=== PATIENT | male | born 1960 | race Caucasian/White ===

== ENCOUNTER 2020-08-17 08:28 | Outpatient (CLI) | payer OTHER, SELFPAY ==
--- NOTE | ~2020-08-17 | XR_ITS ---
EXAMINATION: XR cervical spine 4-5V DATE: 08/17/2020 09:33 INDICATION: Neck pain. TECHNIQUE: 4 views of cervical spine were obtained. COMPARISON: Cervical spine radiographs 11/01/2012 FINDINGS: There is 7 degrees levocurvature of cervicothoracic spine. Vertebral body heights are sarah l. There is mildly decreased disc height at C3-C4, moderately decreased disc height at C4-C5 and C5-C 6, and mildly decreased disc height at C6-C7. There is multilevel uncovertebral joint osteoarthritis, severe on the right at C3-C4 and bilaterally at C4-C5 and C5-C6. There is multilevel facet joint ost eoarthritis, severe on the left at C3-C4. There is mild central canal stenosis at C3-C4, C4-C5, and C 5-C6. IMPRESSION: 1. Moderate cervical spondylosis, worsened from 11/01/2012. Reviewed, dictated and finalized at location A.
== END 2020-08-17 08:29 | disposition home or self-care (01) ==
PROVIDERS: PCP Internal Medicine; Visit Provider Internal Medicine
DX: M54.2 Cervicalgia (principal)
CPT/HCPCS: 72050

== ENCOUNTER 2020-11-11 10:48 | Outpatient (CLI) | payer OTHER, SELFPAY ==
--- NOTE | ~2020-11-11 | XR_ITS ---
XR knee RT 3V 11/11/2020 11:09 INDICATION: Lateral knee pain PROCEDURE: 3 views right knee COMPARISON: No prior studies for comparison. FINDINGS: Fracture, dislocation or subluxation is not identified. Small joint effusion. The soft tiss ues appear within normal limits. No foreign bodies are identified. Mild osteoarthritis. IMPRESSION: 1: Mild osteoarthritis of the right knee. 2: Small joint effusion. Reviewed, dictated and finalized at location A. ULATING BLENDER
--- NOTE | ~2020-11-11 | XR_ITS ---
EXAMINATION: XR hand RT min 3V EXAM DATE: 11/11/2020 11:09 INDICATION: Right 4th finger pain. TECHNIQUE: Right hand frontal, lateral and oblique projections obtained and reviewed. There is no pr ior study for comparison. FINDINGS: There is mild to moderate 1st MCP and polyarticular interphalangeal primary osteoarthritis. There are no bony erosions identified. There are no acute fractures or dislocations identified. The re is no subcutaneous gas. There is soft tissue swelling of the 4th finger. There are no radiopaque foreign bodies. IMPRESSION: 1. Right hand exam without acute osseous findings. 2. Mild to moderate polyarticular osteoarthritis 3. 4th finger swelling. Reviewed, dictated and finalized at location A. BAKERY CLERK
== END 2020-11-11 10:49 | disposition home or self-care (01) ==
LOC: CHSIMG 10:49
PROVIDERS: PCP Internal Medicine; Visit Provider Internal Medicine
DX: M25.561 Pain in right knee (principal); M79.644 Pain in right finger(s)
CPT/HCPCS: 73130; 73562

== ENCOUNTER 2021-01-18 07:46 | Outpatient (CLI) | payer OTHER, SELFPAY ==
--- NOTE | ~2021-01-18 | XR_ITS ---
EXAMINATION: XR hip LT min 2V EXAM DATE: 01/18/2021 08:23 INDICATION: Back pain, left hip pain. No known recent injury. TECHNIQUE: Left hip frontal, 'frog leg' projections for interpretation. There is no prior study for c omparison. FINDINGS: Smooth left hip femoral head contour, no radiographic evidence of avascular necrosis. Ther e is mild to moderate primary osteoarthritis. There are no acute fractures or dislocations identified . There is no subcutaneous gas. The soft tissue is unremarkable. There are no radiopaque foreign bodies. Sacrum, sacroiliac joints, sacral arcuate lines are intact. IMPRESSION: Mild to moderate left hip osteoarthritis. Reviewed, dictated and finalized at location A. ER OPERATOR
--- NOTE | ~2021-01-18 | XR_ITS ---
EXAMINATION: XR lumbar spine 2-3V EXAM DATE: 01/18/2021 08:23 INDICATION: No known recent injury provided at this time. Pain of the low back. TECHNIQUE: Lumber spine frontal, lateral, lateral L5-S1 projections for interpretation. Comparison is made to prior examination from 08/30/2010. FINDINGS: There is mild to moderate lower thoracic and lumbar disc disease. There is moderate thorac ic facet arthropathy, lower levels more advanced. The vertebral bodies are aligned in the AP dimensio n. Sacrum, sacroiliac joints, sacral arcuate lines are intact. No spondylolysis suspected. Paraspinal soft tissue is unremarkable. IMPRESSION: 1. Mild to moderate lumbar disc disease. 2. Moderate arthropathy Reviewed, dictated and finalized at location A. GENCY DEPARTMENT TECHNICIAN
== END 2021-01-18 07:47 | disposition home or self-care (01) ==
LOC: CHSIMG 07:50
PROVIDERS: PCP Internal Medicine; Visit Provider Internal Medicine
DX: M25.552 Pain in left hip (principal); M54.9 Dorsalgia, unspecified
CPT/HCPCS: 72100; 73502

== ENCOUNTER → 2021-06-24 07:39 | Outpatient (CLI) | payer OTHER, SELFPAY ==
--- NOTE | ~2021-06-24 | MR_ITS ---
EXAMINATION: MR knee RT wo con DATE: 06/24/2021 08:31 INDICATION: Right knee pain TECHNIQUE: Magnetic resonance imaging (MRI) of the right knee was performed without intravenous contr ast. Sequences included coronal PD-weighted FSE, coronal PD-weighted FS FSE, sagittal T2-weighted FS E, sagittal PD-weighted FS FSE and axial PD weighted fat saturated FSE. COMPARISON: Right knee radiographs dated 06/13/2021 FINDINGS: Medial compartment: Medial meniscus is normal. Mild partial-thickness cartilage loss with minimal scattered chondral surf devin regularity along the weightbearing medial femoral condyle and medial tibial plateau. Small focus of deeper fissuring with minimal underlying subarticular edema at the anteriormost medial tibial plat eau. Lateral compartment: Lateral meniscus is normal. Articular cartilage is normal. Patellofemoral compartment: Partial-thickness chondral fissuring that degenerative subchondral changes at the medial and odd fitzgerald llar facets without. Chondral ulceration involving less than 50% the cartilage thickness at the infer olateral aspect of the medial trochlea. Ligaments and tendons: There is a partial tear of the involving the anteromedial bundle of the anterior cruciate ligament wi th increased signal along the lax wavy appearing torn ligament fibers. The posterolateral bundle arabella ins intact. There is mild thickening of the proximal medial collateral ligament without significant s urrounding edema consistent with mild scarring related to chronic sprain. The fibular collateral liga ment is normal. Prominent enthesophytes along the patellar insertion of the distal quadriceps tendon without significant tendinopathy. Subtle bands of magic angle artifact extending across the normal pa tellar tendon. The visualized medial and lateral hamstring tendons as well as the iliotibial band are normal. There is mild fatty atrophy of the distal semimembranosus muscle belly. Fluid: Moderate sized right knee joint effusion at the suprapatellar pouch with mild peripheral synovitis. N o loose osteochondral bodies identified. Mild subcutaneous edema about the knee. Osseous/other: No fracture or pathologic marrow replacing process. Small subcutaneous varicosities along the posteri or and lateral aspects of the knee. IMPRESSION: 1. Partial anterior cruciate ligament tear involving the anteromedial bundle with intact posterolater al bundle. 2. Mild medial and patellofemoral compartment osteoarthritis. 3. Likely mild scarring related to chronic sprain of the proximal medial collateral ligament. 4. Moderate-sized right knee joint effusion. Reviewed, dictated and finalized at location A. IMPRESSION: 1. Partial anterior cruciate ligament tear involving the anteromedial bundle wi th intact posterolateral bundle. 2. Mild medial and patellofemoral compartment osteoarthritis. 3. Likely mild scarring related to chronic sprain of the proximal medial collat eral ligament. 4. Moderate-sized right knee joint effusion.
== END ==
PROVIDERS: PCP Internal Medicine; Visit Provider Nurse Practitioner Family
DX: S83.511A Sprain of anterior cruciate ligament of right knee, initial encounter (principal); M17.11 Unilateral primary osteoarthritis, right knee
CPT/HCPCS: 73721

== ENCOUNTER 2022-08-22 12:49 | Emergency (ER) | payer OTHER, SELFPAY ==
[2022-08-22 12:50] VITALS: BP 151/73; PULSE 73; RESP 16; TEMP 37.3; O2SAT 92
--- NOTE | 2022-08-22 12:52 | ED.EXTPRO ---
HPI - Extremity Problem General Chief complaint: Extremity Problem,Nontraumatic Stated complaint: R LEG REDNESS Time Seen by Provider: 08/22/22 12:54 Source: patient and RN notes reviewed Mode of arrival: ambulatory Limitations: no limitations History of Present Illness HPI Narrative: 62-year-old male presents to the [facility] with complaints of right anterior lower leg redness. Patient states he has had an eczema flare for the last 2 weeks. Noticed increased redness approximately 5 x 5 cm to the anterior/lateral right lower leg. Increased warmth, minor swelling noted. Positive pedal pulse. Sensation intact. Denies any fevers. Denies any injuries. Related Data Home Medications Medication Instructions Recorded Confirmed aspirin,buffered (calcium 81 tablet PO DAILY 06/13/21 08/22/22 carbonate-magnesium) 81 mg tablet amitriptyline 25 mg tablet 25 mg PO DAILY 08/22/22 08/22/22 amlodipine 10 mg tablet 10 mg PO DAILY 08/22/22 08/22/22 atorvastatin 20 mg tablet 20 mg PO DAILY 08/22/22 08/22/22 fluticasone propionate 45 2 puff inhalation BID 08/22/22 08/22/22 mcg-salmeterol 21 mcg/actuation HFA inhaler (Advair HFA) sotalol 80 mg tablet 80 mg PO DAILY 08/22/22 08/22/22 telmisartan 80 1 tablet PO DAILY 08/22/22 08/22/22 mg-hydrochlorothiazide 25 mg tablet testosterone 10 mg/0.5 10 mg topical USEASDIRECTD 08/22/22 08/22/22 gram/actuation transdermal gel pump Allergies Allergy/AdvReac Type Severity Reaction Status Date / Time No Known Allergies Allergy Verified 08/22/22 12:54 Review of Systems Review of Systems: All systems reviewed & are unremarkable except as noted in HPI and below Constitutional: Constitutional: Reports no additional constitutional complaints, Denies chills and Denies fever(s) Eyes: Eyes: Reports no additional eye complaints ENT: Reports system reviewed and no additional complaints, except as documented Cardiovascular: Cardiovascular: Reports no additional cardiovascular complaints Respiratory: Respiratory: Reports no additional respiratory complaints Gastrointestinal: Gastrointestinal: Reports no additional gastrointestinal complaints Musculoskeletal: Musculoskeletal: Reports no additional musculoskeletal complaints Integumentary/Breasts: Skin/Breast: Reports as per HPI, Denies new lesions, Reports erythema and Denies wounds Neurologic: Reports system reviewed and no additional complaints, except as documented Psychiatric: Psychiatric: Reports no additional psychiatric complaints Allergic/Immunologic: Allergic/Immunologic: Reports no additional allergic/immunologic complaints PMFSH Past Medical History Medical History Claustrophobia COPD (chronic obstructive pulmonary disease) Degenerative joint disease of knee Hypertension Knee effusion, right Medial meniscus tear Right knee pain Social History Social History Smoking packs per day: 2 Smoking cigarettes per day: 40.0 Years smoked: 18 Smoking pack-years: 36.00 Alcohol intake: current Drinks per week: 15 Substance use: never Substance use type: does not use Gender identity (if verbalized by the patient): Male Comments At the time of my signature, I reviewed and agree with the nursing past medical, surgical, social, and family history. There is no relevant family history pertinent to the patient complaint. Exam Const: General: healthy appearing, no acute distress and alert Nutritional Appearance: well nourished and obese Orientation/consciousness: patient oriented x3 Limitations: no limitations HENMT: Head: normal to inspection Ears: external ears normal Eyes: General: appearance normal, both eyes and all related structures Pupils: Equal, round and reactive pupils present Neck: Neck: normal visual inspection, no lymphadenopathy and no meningeal signs Chest: Chest palpation & inspec
== END 2022-08-22 13:10 | disposition home or self-care (01) ==
PROVIDERS: Emergency Provider Nurse Practitioner; PCP Internal Medicine
DX: L03.115 Cellulitis of right lower limb (principal); Z79.82 Long term (current) use of aspirin; J44.9 Chronic obstructive pulmonary disease, unspecified; I10 Essential (primary) hypertension; F17.210 Nicotine dependence, cigarettes, uncomplicated
CPT/HCPCS: 99213; G0463

== ENCOUNTER 2022-08-28 12:34 | Outpatient (CLI) | payer OTHER, SELFPAY ==
--- NOTE | ~2022-08-28 | US_ITS ---
EXAMINATION: US venous doppler LE RT DATE: 08/28/2022 13:25 INDICATION: Right lower limb swelling TECHNIQUE: Grayscale ultrasound images without and with compression and Doppler ultrasound images of the right lower extremity veins were obtained. COMPARISON: None. FINDINGS: The visualized portions of right common femoral vein, profunda (deep) femoral vein, femoral vein, pop liteal vein, peroneal trunk, posterior tibial veins, peroneal veins, lesser saphenous vein and greate r saphenous vein outflow are patent. IMPRESSION: 1. No deep venous thrombosis in the right lower limb. Reviewed, dictated and finalized at location A.
[2022-08-28 13:00] LABS: Basophils Absolute Auto 0.08 K/mm3 (0.00-0.10); Basophils Percent Auto 0.9 % (0.0-1.0); Eosinophils Absolute Auto 0.29 K/mm3 (0.02-0.50); Eosinophils Percent Auto 3.3 % (1.0-6.0); Hemoglobin 16.3 g/dL (14.0-18.0); Immature Granulocyte Absolute 0.04 K/mm3 (0.00-0.00); Immature Granulocyte Percent A 0.5 % (0.0-0.0); Lymphocytes Absolute Auto 2.79 K/mm3 (1.10-4.50); Lymphocytes Percent Auto 31.7 % (18.0-42.0); Mean Corpuscular HGB Conc 32.6 g/dL (32.0-36.0); Mean Corpuscular Hemoglobin 29.9 pg (27.0-31.0); Mean Corpuscular Volume 91.7 fL (78.0-102.0); Mean Platelet Volume 8.9 fl (8.7-11.0); Monocytes Absolute Auto 0.92 K/mm3 (0.10-0.90); Monocytes Percent Auto 10.5 % (2.0-11.0); Neutrophils Absolute Auto 4.7 K/mm3 (1.7-7.2); Neutrophils Percent Auto 53.1 % (50.0-70.0); Platelet Count Result 202 K/mm3 (150-420); Red Blood Count 5.45 M/mm3 (4.70-6.10); Red Cell Distribution Width 13.2 % (11.6-14.4); White Blood Count 8.8 K/mm3 (4.8-10.8)
[2022-08-28 13:16] LABS: Alanine Aminotransferase 24 U/L (16-63); Albumin Level 3.3 g/dL (3.4-5.0); Alkaline Phosphatase 135 U/L (46-116); Anion Gap 3 mmol/L (8-16); Aspartate Amino Transferase 20 U/L (15-37); Bilirubin,Total 0.7 mg/dL (0.00-1.00); Blood Urea Nitrogen 16 mg/dL (7-18); CRP 1.3 mg/dL (0.0-0.9); Carbon Dioxide 35 mmol/L (21-32); Chloride 102 mmol/L (98-108); Estimated Glomerular Filt Rate > 60; Glucose 107 mg/dL (70-99); NT Pro B Type Natriuretic Pept 66 pg/mL (0-125); Osmolality Calculated 291 mOsm/kg (285-295); Potassium 3.8 mmol/L (3.5-5.1); Sodium 140 mmol/L (136-145); Total Protein 6.9 g/dL (6.4-8.2); Uric Acid 6.8 mg/dL (3.5-7.2)
[2022-08-28 15:42] LABS: Erythrocyte Sedimentation Rate 4 mm/hr (0-20)
== END 2022-08-28 12:35 | disposition home or self-care (01) ==
LOC: CHSIMG 12:36
PROVIDERS: PCP Internal Medicine; Visit Provider Nurse Practitioner Family
DX: M79.89 Other specified soft tissue disorders (principal); I50.9 Heart failure, unspecified; R21 Rash and other nonspecific skin eruption
CPT/HCPCS: 36415; 80053; 83880; 84550; 85025; 85652; 86140; 93971

== ENCOUNTER 2023-07-28 13:55 | Outpatient (CLI) | payer OTHER, SELFPAY ==
--- NOTE | ~2023-07-28 | XR_ITS ---
Clinical Indication: Cough PA and lateral views of the chest: Comparison: 09/04/2019 Findings: The lungs are clear, without evidence of focal consolidation or pleural effusion. Cardiome diastinal silhouette is within normal limits. Bones and soft tissues are unremarkable. Impression: Normal chest. Reviewed, dictated and finalized at [facility]. Impression: Normal chest.
== END 2023-07-28 13:56 | disposition home or self-care (01) ==
PROVIDERS: PCP Internal Medicine; Visit Provider Internal Medicine
DX: R05.9 Cough, unspecified (principal)
CPT/HCPCS: 71046

== ENCOUNTER 2024-06-12 10:32 | Outpatient (CLI) | payer OTHER, SELFPAY ==
--- NOTE | ~2024-06-12 | XR_ITS ---
Right ankle Technique: AP, oblique, and lateral views were obtained. Clinical History: Pain Findings: No acute fracture or dislocation is seen. Osseous alignment is anatomic. Ankle mortise and other visualized joint spaces are preserved. Soft tissues are otherwise unremarkable. Impression: No acute abnormality. Probable chronic fracture fragment at the tip of the medial malleolus. Reviewed, dictated and finalized at location . Impression: No acute abnormality. Probable chronic fracture fragment at the tip of the medi al malleolus.
--- NOTE | ~2024-06-12 | XR_ITS ---
Right foot Technique: AP, oblique, and lateral views were obtained. Clinical History: Pain Findings: No acute fracture or dislocation is seen. Osseous alignment is anatomic. There is minimal d egenerative change of the first MTP joint. Plantar calcaneal spur present. Soft tissues are unremarka ble. Impression: Minimal degenerative changes, as above. Reviewed, dictated and finalized at location . Impression: Minimal degenerative changes, as above.
== END 2024-06-12 10:33 | disposition home or self-care (01) ==
PROVIDERS: PCP Internal Medicine; Visit Provider Internal Medicine
DX: M79.671 Pain in right foot (principal)
CPT/HCPCS: 73610; 73630

== ENCOUNTER 2024-06-16 17:44 | Inpatient (IN) | payer OTHER, SELFPAY ==
[2024-06-16] VITALS (11 sets, daily range): BP systolic 108–124; BP diastolic 69–90; PULSE 103–128; RESP 15–20; TEMP 36.4; O2SAT 91–94
--- NOTE | ~2024-06-16 | XR_ITS ---
XR chest 2V Ordering provider: Peter Baig MD History: 64 years Male with . CP . Comparison: July 28, 2023 FINDINGS: MEDIASTINUM: The cardiac silhouette is not enlarged. LUNGS: No infiltrates, effusions or pneumothorax. Prominent markings in the lower lobes. Pneumonitis cannot be excluded. OTHER: No free air under the diaphragm. Degenerative changes of the spine. IMPRESSION: Prominent markings in the lower lobes. Pneumonitis cannot be excluded. Reviewed, dictated and finalized at location A.
--- NOTE | ~2024-06-16 | CT_ITS ---
CTA chest Ordering provider: Edwar Mix MD History: 64 years Male with . Hypoxia + afib . Comparison: None. Technique: CT chest without IV contrast. Radiation reduction technique utilized. DLP is 836.96 mGy-cm. 100 mL Omnipaque 350 was given IV. FINDINGS: VISUALIZED THORACIC INLET: Normal. MEDIASTINUM: Aorta/coronary arteries: Mild atheromatous disease. Heart/other: The heart is not enlarged. Lymph nodes: No mediastinal or hilar adenopathy. LUNGS: Atelectatic changes in the right lung base. Early pneumonia cannot be excluded. No pulmonary n odules or masses. No infiltrates or effusions. No pneumothorax. VISUALIZED UPPER ABDOMEN: Cholelithiasis. Small cyst in the right kidney Otherwise, the visualized up per abdomen is normal. MUSCULOSKELETAL: Soft tissues: The superficial soft tissues are normal. Bones: Age appropriate degenerative changes of the spine. IMPRESSION: 1. No pulmonary embolism. 2. Atelectatic changes in the right lung base. Early pneumonia cannot be excluded. 3. Cholelithiasis. Reviewed, dictated and finalized at location A. IMPRESSION: 1. No pulmonary embolism. 2. Atelectatic changes in the right lung base. Early pneumonia cannot be exclu ded. 3. Cholelithiasis.
--- NOTE | 2024-06-16 17:49 | ECG_ITS ---
Test Date: 2024-06-16 18:01:18 Measurements Intervals [place] Rate: 127 P: 0 DC: 0 QRS: 28 QRSD: 96 T: 55 QT: 304 QTc: 442 Interpretive Statements ATRIAL FIBRILLATION WITH RAPID VENTRICULAR RESPONSE VENTRICULAR PREMATURE COMPLEX INCOMPLETE RIGHT BUNDLE BRANCH BLOCK BASELINE ARTIFACT- I, II, AVL, V6 ABNORMAL ECG No previous ECG available for comparison Electronically Signed On 06-16-2024 20:18:33 CDT by Yamil Meyers D.O.
[2024-06-16 18:19] LABS: Basophils Percent Auto 0.2 % (0.2-1.2); Eosinophils Percent Auto 0.2 % (0-4.4); Hematocrit 52.5 % (42.0-52.0); Hemoglobin 17.6 g/dL (14.0-18.0); Immature Granulocyte Percent A 0.8 % (0-0.5); Lymphocytes Absolute Auto 3.14 K/mm3 (0.9-3.2); Mean Corpuscular HGB Conc 33.5 g/dl (32-36); Mean Corpuscular Hemoglobin 30.5 pg (26-34); Mean Platelet Volume 9.1 fl (7.4-10.4); Monocytes Absolute Auto 1.1 K/mm3 (0.1-0.6); Neutrophils Absolute Auto 8.8 K/mm3 (1.3-6.7); Neutrophils Percent Auto 66.8 % (45.5-73.1); Platelet Count Result 263 k/mm3 (150-375); Red Blood Count 5.77 M/mm3 (4.6-6.20); Red Cell Distribution Width 13.1 % (11.5-14.5); White Blood Count 13.1 K/mm3 (4.5-10.0)
[2024-06-16 18:27] LABS: Prothrombin Time 13.5 Seconds (11.1-14.7)
[2024-06-16 18:28] LABS: Partial Thromboplastin Time 24.4 Seconds (22.3-36.8)
[2024-06-16 18:35] LABS: Alanine Aminotransferase 27 U/L (6-50); Albumin Level 4.1 g/dL (3.5-5.1); Alkaline Phosphatase 83 U/L (38-126); Anion Gap 11 mmol/L (4-12); Aspartate Amino Transferase 32 U/L (17-59); Bilirubin,Total 1.1 mg/dL (0.2-1.3); Blood Urea Nitrogen 23 mg/dL (9-20); Calcium 8.9 mg/dL (8.4-10.2); Carbon Dioxide 23 mmol/L (22-30); Chloride 98 mmol/L (98-107); Estimated CRCL calculation 107 ml/min; Estimated Glomerular Filt Rate > 60; Glucose 161 mg/dL (65-110); Lipase 89 U/L (23-300); Potassium 4.5 mmol/L (3.4-5.0); Sodium 132 mmol/L (137-145)
[2024-06-16 18:41] LABS: Troponin I < 0.012 ng/mL (0.000-0.034)
[2024-06-16] MEDS: dilTIAZem HCl INJ 25 MG/5 ML VIAL 10 MG IV PUSH ×2 (20:10→21:17)
[2024-06-16] MEDS: SODIUM CHLORIDE 0.9% IV 1,000 ML 999 ML IV CONT (20:10)
--- NOTE | 2024-06-16 20:10 | PC.NURSE ---
diltiazem double checked by lesli roberts
--- NOTE | 2024-06-16 20:30 | ED.GENADULT ---
HPI - General Adult General Chief complaint: Arrhythmia/Palpitations Stated complaint: afib Time Seen by Provider: 06/16/24 19:47 History of Present Illness HPI narrative: This is a 64-year-old male with history paroxysmal AFib presenting with shortness of breath. Earlier today the patient dosing is feeling more winded than usual. He had some tightness in left side of his chest. When he checked his heart rate he noticed it was in the 120s in the regular. He called his braiding machine tender Dr. Cooley and was told to take an extra dose of sotalol not his symptoms. He then came to the ED for evaluation. patient denies fevers chills body aches productive cough or lower extremity edema. Patient stopped taking his Eliquis 1 month ago because he has been having a lot of arthritis pain and would rather take Motrin. He has also recently been placed on steroids for his arthritis. Patient states that his A-fib is typically well controlled and he has not had any recurrence for 10 years. Related Data Home Medications Medication Instructions Recorded Confirmed aspirin,buffered (calcium 81 tablet PO DAILY 06/13/21 08/22/22 carbonate-magnesium) 81 mg tablet amitriptyline 25 mg tablet 25 mg PO DAILY 08/22/22 08/22/22 amlodipine 10 mg tablet 10 mg PO DAILY 08/22/22 08/22/22 atorvastatin 20 mg tablet 20 mg PO DAILY 08/22/22 08/22/22 fluticasone propionate 45 2 puff inhalation BID 08/22/22 08/22/22 mcg-salmeterol 21 mcg/actuation HFA inhaler (Advair HFA) sotalol 80 mg tablet 80 mg PO DAILY 08/22/22 08/22/22 telmisartan 80 1 tablet PO DAILY 08/22/22 08/22/22 mg-hydrochlorothiazide 25 mg tablet testosterone 10 mg/0.5 10 mg topical USEASDIRECTD 08/22/22 08/22/22 gram/actuation transdermal gel pump Allergies Allergy/AdvReac Type Severity Reaction Status Date / Time No Known Allergies Allergy Verified 08/22/22 12:54 [facility] Past Medical History Medical History (Updated 06/16/24 @ 23:24 by Jocelyne Mehta, LINNETTE) Claustrophobia COPD (chronic obstructive pulmonary disease) Degenerative joint disease of knee Hypertension Medial meniscus tear Social History Social History Smoking packs per day: 2 Smoking cigarettes per day: 40.0 Years smoked: 18 Smoking pack-years: 36.00 Alcohol intake: current Drinks per week: 15 Substance use: never Substance use type: does not use Gender identity (if verbalized by the patient): Male Exam Narrative: APPEARANCE: No apparent distress. Head: atraumatic. EYES: EOMI, NOSE: Atraumatic NECK: Trachea midline RESPIRATORY: No increased rate of breathing Clear to auscultation CARDIOVASCULAR: RRR, no peripheral edema ABDOMINAL: Non-distended soft nontender MUSCULOSKELETAl: No obvious deformities NEURO: Alert. Moving 4/4 extremities SKIN:: Warm, dry. Normal color PSYCHIATRIC: Normal affect Course Vital Signs Vital signs: Vital Signs Temperature 97.6 F 06/16/24 17:52 Pulse Rate 122 H 06/16/24 17:52 Respiratory Rate 20 06/16/24 17:52 Blood Pressure 109/69 06/16/24 17:52 Pulse Oximetry 94 06/16/24 17:52 Oxygen Delivery Room Air 06/16/24 17:52 Temperature 97.6 F 06/16/24 17:52 Pulse Rate 120 H 06/16/24 23:11 Respiratory Rate 20 06/16/24 22:45 Blood Pressure 111/76 06/16/24 23:11 Pulse Oximetry 94 06/16/24 17:52 Oxygen Delivery Room Air 06/16/24 17:52 Medical Decision Making [facility] Narrative Medical decision making narrative: -Course: 64-year-old male presenting atrial fibrillation with RVR. Given diltiazem 10 mg x 2 and started on a drip. Patient stopped taking his Eliquis 1 month ago so he was given a dose of lovenox. CTA negative for PE. Atelectatic changes in the RLL. but early PNA not excluded. No symptoms of PNA. Patient be admitted the hospital for further management. -DDX includes but is not limited to: AFib with RVR, AFib -Independent interpretati
[2024-06-16] MEDS: ENOXAPARIN 120 MG/0.8 ML SYRINGE 105 MG SUB-Q (21:17)
[2024-06-16] MEDS: dilTIAZem 100 MG/100 ML 100 MG/100 ML BAG IV CONT (21:18)
[2024-06-16 21:23] LABS: Troponin I < 0.012 ng/mL (0.000-0.034)
--- NOTE | 2024-06-16 21:25 | PC.NURSE ---
diltiazem double checked with john y, rn
--- NOTE | 2024-06-16 22:55 | PM.IMHP ---
H&P: HPI History of Present Illness Date/Time: 06/16/24 22:55 Chief Complaint: Shortness of Breath Narrative: 64-year-old male presents here with shortness of breath and chest pressure with PMH of COPD, AFib, and hypertension. The patient presents here from home a for further evaluation of shortness of breath with exertion and left-sided chest pressure. Symptoms started this morning at 06:30 am. Patient palpated his pulse is which felt intermittently fast/slow and irregular to him. 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 Coni CERRATO instructed the patient to take evening sotalol dose early (80 mg BID) and dose was taken at 2:30 p.m. Patient reports no change in irregularity of his pulse is. Continued to have chest pressure and exertional shortness of breath. Patient was then instructed to seek care in the ED. Patient has history of AFib with last episode 10 years ago. Previously on anticoagulation, however patient self discontinued this medication due to arthritis. Pain was becoming too severe/interfering with his ADLs and he wanted to take Aleve or Advil daily. To compensate for discontinuing the Eliquis the patient has been taking 324 of ASA daily. Patient was also prescribed steroid course for his arthritis (has been on course for 2 days). Initial VS at presentation: 97.6? F, HR 122, RR 20, 109/69, and 94% on RA. ED workup showed: WBC 13.1, no anemia, INR 1.0, sodium 132, creatinine 0.7 and GFR >60, glucose 161, initial troponin negative. CXR showed prominent markings in the lower lobes, pneumonitis cannot be excluded. Chest CTA pending. Review of Systems Review of Systems: All systems reviewed & are unremarkable except as noted in HPI and below [facility] Past Medical History Medical History (Updated 06/16/24 @ 23:24 by Jocelyne Mehta APRN) Claustrophobia COPD (chronic obstructive pulmonary disease) Degenerative joint disease of knee Hypertension Medial meniscus tear Social History Social History Smoking packs per day: 2 Smoking cigarettes per day: 40.0 Years smoked: 18 Smoking pack-years: 36.00 Alcohol intake: current Drinks per week: 15 Substance use: never Substance use type: does not use Gender identity (if verbalized by the patient): Male Meds Home Medications and Allergies Home Medications Medication Instructions Recorded Confirmed Type aspirin,buffered (calcium 81 tablet PO DAILY 06/13/21 08/22/22 History carbonate-magnesium) 81 mg tablet amitriptyline 25 mg tablet 25 mg PO DAILY 08/22/22 08/22/22 History amlodipine 10 mg tablet 10 mg PO DAILY 08/22/22 08/22/22 History atorvastatin 20 mg tablet 20 mg PO DAILY 08/22/22 08/22/22 History cephalexin 500 mg capsule 500 mg PO Q8H 7 days #21 caps 08/22/22 Rx fluticasone propionate 45 2 puff inhalation BID 08/22/22 08/22/22 History mcg-salmeterol 21 mcg/actuation HFA inhaler (Advair HFA) sotalol 80 mg tablet 80 mg PO DAILY 08/22/22 08/22/22 History telmisartan 80 1 tablet PO DAILY 08/22/22 08/22/22 History mg-hydrochlorothiazide 25 mg tablet testosterone 10 mg/0.5 10 mg topical USEASDIRECTD 08/22/22 08/22/22 History gram/actuation transdermal gel pump Allergies Allergy/AdvReac Type Severity Reaction Status Date / Time No Known Allergies Allergy Verified 08/22/22 12:54 Vital Signs Vital Signs - 24 hr 06/16/24 17:52 06/16/24 20:14 06/16/24 21:18 Temperature 97.6 F Pulse Rate 122 H 128 H 113 H Respiratory Rate 20 Blood Pressure 109/69 124/80 Pulse Oximetry 94 Oxygen Delivery Room Air Exam Const: General: comfortable and no acute distress Other: , male, nontoxic appearance HENMT: Face/Nose/Sinus: Normal nares present Mouth: Yes moist mucous membranes Eyes: General: appearance normal, both eyes and all related structures Sclera: s
--- NOTE | 2024-06-16 23:13 | PC.NURSE ---
diltiazem increased to 10ml/hr. double checked by lazara johnson rn
[2024-06-17] VITALS (26 sets, daily range): BP systolic 95–127; BP diastolic 48–78; PULSE 57–123; RESP 16–22; TEMP 36.3–36.5; O2SAT 92–98; BMI 34.8
--- NOTE | 2024-06-17 | ECHO_ITS ---
Patient Info Name: Ashu Dolan Age: 64 years : 1960 Gender: Male Ht: 68 in Wt: 230 lbs BSA: 2.28 m2 HR: 109 bpm BP: 125 / 72 mmHg Heart Rhythm: Atrial Fibrillation Technical Quality: Fair Exam Date: 06/17/2024 9:06 AM Exam Location: Echo Lab Patient Status: Inpatient Admit Date: 06/16/2024 Staff Ordering Physician: Jocelyne Mehta APRN Classics Teacher: Jeyson Calzada RDCS Attending Provider: Daija Sewell DO Referring Physician: Tyson MCCARTNEY; Exam Type: CA echo doppler color flow Study Info Indications - recurrent a fib Complete two-dimensional, color flow and Doppler transthoracic echocardiogram is performed. Summary 1. Complete two-dimensional, color flow and Doppler transthoracic echocardiogram is performed. 2. Left ventricular chamber dimension is normal. 3. Left ventricular systolic function is normal, estimated at 60-65%. 4. There is moderately increased left ventricular wall thickness. 5. The left ventricular diastolic function is indeterminate. 6. Left atrial chamber dimension is moderately enlarged. 7. There is mild mitral valve regurgitation. 8. The mitral valve annulus is mildly calcified. 9. There is mild tricuspid valve regurgitation. Left Ventricle Left ventricular chamber dimension is normal. Left ventricular systolic function is normal, estimated at 60-65%. There is moderately increased left ventricular wall thickness. The left ventricular diastolic function is indeterminate. Right Ventricle Right ventricular chamber dimension is normal. Right ventricular systolic function is normal. Left Atria Left atrial chamber dimension is moderately enlarged. Right Atria Right atrial chamber dimension is normal. Atrial Septum Intact interatrial septum visualized by color flow imaging. Aortic Valve The aortic valve is trileaflet. There is no aortic valve stenosis. There is trace aortic valve regurgitation. There is mild aortic valve calcification. Pulmonic Valve The pulmonic valve is normal. There is no pulmonic valve stenosis. There is trace pulmonic regurgitation. Mitral Valve There is no mitral valve stenosis. There is mild mitral valve regurgitation. The mitral valve annulus is mildly calcified. Tricuspid Valve The tricuspid valve leaflets are normal. There is no significant tricuspid valve stenosis. There is mild tricuspid valve regurgitation. No pulmonary hypertension, estimated pulmonary arterial systolic pressure is 26 mmHg. Pericardium/Pleural The pericardium appears normal. There is no pericardial effusion. Inferior Vena Cava Normal inferior vena cava with <50% collapse upon inspiration consistent with elevated right atrial pressure, 15 mmHg. Aorta The aortic root size at the sinus of Valsalva is normal. There is mild aortic atherosclerosis. Left Ventricular Outflow Tract Name Value Normal LVOT 2D LVOT Diameter 2.1 cm LVOT Doppler LVOT Peak Gradient 2 mmHg LVOT Mean Gradient 2 mmHg LVOT VTI 17 cm LVOT VTI/AV VTI Ratio 0.6 LVOT Stroke Volume 59 ml LVOT CO
--- NOTE | 2024-06-17 00:07 | PC.NURSE ---
cat y rn to double check diltiazem increase to 15mlhr
--- NOTE | 2024-06-17 00:31 | ADMGEN ---
This patient, Ashu Dolan, was admitted to IMU Room 210-01. Patient/family oriented to hospital policies and general routines including ID bracelet, bed and alarms, visiting hours, pain management, procedures, bathroom and other care routines, personal items, smoking policy, room service/diet, and visiting hours. Information on how to activate the Rapid Response Team has been discussed. Patient/Family are encouraged to report perceived risks to care and to ask questions if they do not understand what they are told or what they should do.
[2024-06-17 01:57] LABS: Troponin I < 0.012 ng/mL (0.000-0.034)
[2024-06-17] MEDS: dilTIAZem 100 MG/100 ML 100 MG/100 ML BAG 10 MG IV CONT (04:07)
[2024-06-17 05:18] LABS: Basophils Percent Auto 0.3 % (0.2-1.2); Eosinophils Absolute Auto 0.1 K/mm3 (0-0.3); Eosinophils Percent Auto 0.5 % (0-4.4); Hematocrit 49.4 % (42.0-52.0); Hemoglobin 16.3 g/dL (14.0-18.0); Immature Granulocyte Absolute 0.07 K/mm3 (0.00-0.031); Immature Granulocyte Percent A 0.7 % (0-0.5); Lymphocytes Absolute Auto 2.98 K/mm3 (0.9-3.2); Lymphocytes Percent Auto 29.7 % (18.3-44.2); Mean Corpuscular Hemoglobin 30.3 pg (26-34); Mean Corpuscular Volume 91.8 fl (80-100); Mean Platelet Volume 9.2 fl (7.4-10.4); Monocytes Percent Auto 9.9 % (2.6-8.5); Neutrophils Absolute Auto 5.9 K/mm3 (1.3-6.7); Neutrophils Percent Auto 58.9 % (45.5-73.1); Platelet Count Result 188 k/mm3 (150-375); Red Blood Count 5.38 M/mm3 (4.6-6.20); Red Cell Distribution Width 13.2 % (11.5-14.5)
[2024-06-17 05:27] LABS: Anion Gap 7 mmol/L (4-12); Blood Urea Nitrogen 19 mg/dL (9-20); Calcium 8.8 mg/dL (8.4-10.2); Carbon Dioxide 27 mmol/L (22-30); Chloride 101 mmol/L (98-107); Estimated CRCL calculation 124 ml/min; Estimated Glomerular Filt Rate > 60; Glucose 100 mg/dL (65-110); Potassium 4.1 mmol/L (3.4-5.0); Sodium 135 mmol/L (137-145)
--- NOTE | 2024-06-17 07:30 | ECG_ITS ---
Test Date: 2024-06-17 07:31:41 Measurements Intervals [place] Rate: 96 P: 0 NV: 0 QRS: 14 QRSD: 110 T: 30 QT: 349 QTc: 442 Interpretive Statements ATRIAL FIBRILLATION INCOMPLETE RIGHT BUNDLE BRANCH BLOCK ABNORMAL ECG Compared to ECG 06/16/2024 18:01:18 HEART RATE HAS DECREASED Electronically Signed On 06-17-2024 08:42:30 CDT by Yamil Meyers D.O.
[2024-06-17] MEDS: FLUTICASONE/UMECLIDIN/VILANTER 200-62.5-25 MCG ELLIPTA 1 PUFF INHALATION (08:45)
[2024-06-17] MEDS: amLODIPine BESYLATE 10 MG TABLET PO (09:33)
[2024-06-17] MEDS: MAGNESIUM OXIDE 400 MG TABLET PO (09:33)
[2024-06-17] MEDS: hydroCHLOROthiazide 25 MG TABLET PO (09:33)
[2024-06-17] MEDS: ATORVASTATIN 20 MG TABLET PO (09:33)
[2024-06-17] MEDS: ENOXAPARIN 120 MG/0.8 ML SYRINGE 104 MG SUB-Q (09:34)
--- NOTE | 2024-06-17 12:47 | PM.IMPN ---
Progress Note: A&P Assessment and Plan (1) Atrial fibrillation with RVR: Code(s): I48.91 - Unspecified atrial fibrillation Status: Acute Assessment and Plan: Patient with SOB, left-sided chest pressure and palpitations. Patient presented to the [facility] office and an EKG showed patient to be in AFib. Patient instructed to take evening sotalol dose early (80 mg BID) and dose was taken at 2:30 p.m. Patient continued to have chest pressure and exertional shortness of breath so was instructed to seek care in the ED. Initial EKG showing AFib RVR (127), ventricular premature complex, incomplete RBBB, baseline artifact. CXR: Possible pneumonitis. Troponin: <0.012 x2 He was given diltiazem 10 mg IVP and started on diltiazem drip at 10 mg/hr Sotalol on hold. Lovenox started. Echo showing EF 60-65%, indeterminate diastolic function and mild valvular disease. TSH normal. He was advised to cut back his alcohol use Wean to oral Diltiazem short acting and change to long acting tomorrow if he tolerates. Cardiolgoy consult. Defer to cardiology about resuming Sotalol. Change to Eliquis today. (2) Elevated glucose: Code(s): R73.09 - Other abnormal glucose Status: Acute Assessment and Plan: Initial glucose 161 but no previous history of diabetes. He may have been told he was pre-diabetic. Probably related to steroids. A1c 6.0. Healthy lifestyle encouraged (3) Hypertension: Qualifiers: Hypertension type: primary hypertension Qualified Code(s): I10 - Essential (primary) hypertension Code(s): I10 - Essential (primary) hypertension Status: Acute Assessment and Plan: Patient's blood pressure was reviewed on 06/17 Blood pressure remains reasonably well controlled (occasionally soft at times). Will continue current medications except stop Norvasc Plan Diet: Heart healthy GI Prophylaxis: Not currently indicated DVT Prophylaxis: Lovenox b.i.d. Lines: Peripheral Code Status: Full Subjective Date/time seen: 06/17/24 12:47 Interval history: 64yo male with COPD and HTN here for shortness of breath. He feels much better. Slept poorly. No Cp or palpitations. No SOB. Does not drink excessive caffeine. He drinks 2-3 bourbons nightly most nights. Patient had recent steroid injection on 06/12 then started on oral steroids for arthritic pain. Exam Narrative: AF 97.7 108/63 90 16 92% ra Gen - NARD Chest - CTA bilaterally, nml RR CV - irregularly irregular. Tele showing AFib with controlled rate. Abd - Soft, NT/ND, Positive BS Ext - No pedal edema Psych - Nml mood and affect Skin - Warm and dry Objective Data Vital Signs Vital Signs: Vital Signs - 24 hr 06/16/24 17:52 06/16/24 20:14 06/16/24 21:18 Temperature 97.6 F Pulse Rate 122 H 128 H 113 H Respiratory Rate 20 Blood Pressure 109/69 124/80 Pulse Oximetry 94 Oxygen Delivery Room Air 06/16/24 23:11 06/16/24 20:45 06/16/24 20:53 Temperature Pulse Rate 120 H 103 H 122 H Respiratory Rate 17 16 Blood Pressure 111/76 119/90 Pulse Oximetry Oxygen Delivery 06/16/24 22:45 06/16/24 23:58 06/17/24 00:11 Temperature Pulse Rate 120 H 120 H 100 Respiratory Rate 20 16 Blood Pressure 108/88 104/78 Pulse Oximetry 94 Oxygen Delivery 06/16/24 23:35 06/16/24 23:45 06/16/24 23:46 Temperature Pulse Rate 115 H 112 H 110 H Respiratory Rate 16 15 18 Blood Pressure 108/88 Pulse Oximetry 92 92 91 Oxygen Delivery 06/17/24 00:00 06/17/24 00:01 06/17/24 00:08 Temperature Pulse Rate 100 102 H 113 H Respiratory Rate 19 22 H 17 Blood Pressure 114/70 109/78 Pulse Oximetry 92 92 Oxygen Delivery 06/17/24 00:29 06/17/24 01:00 06/17/24 00:20 Temperature 97.5 F L Pulse Rate 95 96 109 H Respiratory Rate 18 Blood Pressure 127/73 127/73 Pulse Oximetry 94 Oxygen Delivery 06/17/24 01:53 06/17/24 02:00 06/17/24 02:03 Te
[2024-06-17] MEDS: TELMISARTAN 40 MG TABLET 80 MG PO (13:47)
[2024-06-17] MEDS: dilTIAZem HCL 60 MG TABLET PO (13:47)
[2024-06-17] MEDS: THIAMINE HCL 100 MG TABLET PO (13:47)
[2024-06-17] MEDS: PANTOPRAZOLE 40 MG TABLET PO (13:54)
--- NOTE | 2024-06-17 14:53 | PM.CNCAR ---
Assessment and Plan Assessment and plan (1) Hypertension: Qualifiers: Hypertension type: primary hypertension Qualified Code(s): I10 - Essential (primary) hypertension Code(s): I10 - Essential (primary) hypertension Status: Acute Assessment and Plan: At goal. Continue telmisartan/hydrochlorothiazide and add back in amlodipine when needed (2) Atrial fibrillation with RVR: Code(s): I48.91 - Unspecified atrial fibrillation Status: Acute Assessment and Plan: Diltiazem drip has been discontinued. Will resume his sotalol 80 mg p.o. b.i.d. as well as start him on Eliquis 5 mg p.o. b.i.d.. He had not been taking his home Eliquis because of NSAID use. Plan for MLUUGETA guided cardioversion on Wednesday if he does not convert before then. Discontinue enoxaparin (3) History of cardiomyopathy: Code(s): Z86.79 - Personal history of other diseases of the circulatory system Status: Acute Assessment and Plan: History of tachycardic induced cardiomyopathy. (4) Chest tightness: Code(s): R07.89 - Other chest pain Status: Acute Assessment and Plan: Chest tightness likely secondary to atrial fibrillation with rapid ventricular response in and of itself but cannot exclude underlying coronary disease. Outpatient stress test to be performed History of Present Illness History of Present Illness Consult date/time: 06/17/24 14:53 Requesting physician: John Gómez MD Consult reason: atrial fibrillation Reason For Visit: Afib w/RVR Narrative: Reason for consultation: Atrial fibrillation Requesting provider: Dr. Gómez Date of service 06/17/2024 History patient is 64-year-old patient of [facility] who has a history of paroxysmal atrial fibrillation. He was has a history of tachycardic induced cardiomyopathy when originally diagnosed many years ago. He has been controlled on sotalol and has been anticoagulated with Eliquis in the past but he states he has not been taking his Eliquis as he has been taking significant amounts of NSAIDs and steroids because of some joint pain. Regardless he has been feeling pretty well up until yesterday morning whenever he noticed when coming out of shower that he was more short of breath and had some vague chest tightness. He palpated his own pulse and noticed that it was fast and erratic. He did call the office. He eventually came into the ER because of ongoing symptoms and the fact he did not come out of AFib. In the ER he was found to be in atrial fibrillation with rapid ventricular response. He was started on diltiazem with some heart rate control. He is still in atrial fibrillation now but feels well and denies any chest pain, shortness breath, syncope, presyncope, paroxysmal nocturnal dyspnea, orthopnea, edema or palpitations. Of note, he was recently started on some steroids and he did have a few alcoholic beverages over the past couple of nights also. Review of Systems Review of Systems: All systems reviewed & are unremarkable except as noted in HPI and below Constitutional: Constitutional: Denies body ache(s) Eyes: Eyes: Denies blurry vision ENT: Reports Normal hearing present Cardiovascular: Cardiovascular: Reports chest pain and Reports palpitations Respiratory: Respiratory: Denies chest congestion and Reports dyspnea Gastrointestinal: Gastrointestinal: Denies abdominal pain Genitourinary: Genitourinary: Denies hematuria Musculoskeletal: Musculoskeletal: Denies back pain Integumentary/Breasts: Skin/Breast: Denies dry skin Neurologic: Denies Abnormal speech present Psychiatric: Psychiatric: Denies behavioral changes Endocrine: Endocrine: Denies excessive sweating Hematologic/Lymphatic: Hematologic/Lymphatic: Denies easy bleeding Allergic/Immunologic: Allergic/Immunologic: Denies GI upset with certain foods PMFSH Past Medical History Medical History (Updated 06/17/24 @ 14:59 by Valente Newberry MD
[2024-06-17] MEDS: ACETAMINOPHEN 325 MG TABLET 650 MG PO (16:55)
[2024-06-17] MEDS: SOTALOL HCL 80 MG TABLET PO (20:01)
[2024-06-17] MEDS: APIXABAN 5 MG TABLET PO (20:01)
[2024-06-17] MEDS: MONTELUKAST SODIUM 10 MG TABLET PO (20:01)
[2024-06-17] MEDS: DICLOFENAC SODIUM 1% 100 GM GEL (*BKC) 1 APPLIC TOPICAL (20:07)
--- NOTE | 2024-06-17 21:56 | ECG_ITS ---
Test Date: 2024-06-17 21:56:17 Measurements Intervals [place] Rate: 110 P: 0 MS: 0 QRS: 26 QRSD: 102 T: 12 QT: 334 QTc: 453 Interpretive Statements ATRIAL FIBRILLATION WITH RAPID VENTRICULAR RESPONSE INCOMPLETE RIGHT BUNDLE BRANCH BLOCK BASELINE ARTIFACT- I, II, III, AVR, AVL, AVF, V1 ABNORMAL ECG Compared to ECG 06/17/2024 07:31:41 HEART RATE HAS INCREASED Electronically Signed On 06-19-2024 13:21:50 CDT by Yamil Meyers D.O.
[2024-06-18] VITALS (20 sets, daily range): BP systolic 89–108; BP diastolic 41–73; PULSE 87–150; RESP 12–20; TEMP 36.3–36.7; O2SAT 92–98
[2024-06-18] MEDS: SOTALOL HCL 80 MG TABLET PO ×2 (08:10→20:19)
[2024-06-18] MEDS: FOLIC ACID 1 MG TABLET PO (08:10)
[2024-06-18] MEDS: MAGNESIUM OXIDE 400 MG TABLET PO (08:10)
[2024-06-18] MEDS: THIAMINE HCL 100 MG TABLET PO (08:10)
[2024-06-18] MEDS: PANTOPRAZOLE 40 MG TABLET PO (08:10)
[2024-06-18] MEDS: APIXABAN 5 MG TABLET PO ×2 (08:10→20:18)
[2024-06-18] MEDS: ATORVASTATIN 20 MG TABLET PO (08:10)
[2024-06-18] MEDS: TELMISARTAN 40 MG TABLET 80 MG PO (08:10)
[2024-06-18] MEDS: hydroCHLOROthiazide 25 MG TABLET PO (08:11)
[2024-06-18] MEDS: FLUTICASONE/UMECLIDIN/VILANTER 200-62.5-25 MCG ELLIPTA 1 PUFF INHALATION (08:37)
--- NOTE | 2024-06-18 09:26 | PM.PNCARD ---
Progress Note: A&P Assessment and Plan (1) Hypertension: Qualifiers: Hypertension type: primary hypertension Qualified Code(s): I10 - Essential (primary) hypertension Code(s): I10 - Essential (primary) hypertension Status: Acute Assessment and Plan: At goal. Continue telmisartan/hydrochlorothiazide and add back in amlodipine when needed (2) Atrial fibrillation with RVR: Code(s): I48.91 - Unspecified atrial fibrillation Status: Acute Assessment and Plan: Diltiazem drip has been discontinued. Continue sotalol and Eliquis. He had not been taking his home Eliquis because of NSAID use. Plan for MULUGETA guided cardioversion on Wednesday if he does not convert before then. Discontinue enoxaparin. Because of persistent tachycardia will give metoprolol 5 mg IV x1 (3) History of cardiomyopathy: Code(s): Z86.79 - Personal history of other diseases of the circulatory system Status: Acute Assessment and Plan: History of tachycardic induced cardiomyopathy. (4) Chest tightness: Code(s): R07.89 - Other chest pain Status: Acute Assessment and Plan: Chest tightness likely secondary to atrial fibrillation with rapid ventricular response in and of itself but cannot exclude underlying coronary disease. Outpatient stress test to be performed Subjective Date/time seen: 06/18/24 09:26 Interval history: 64yo male with COPD and HTN here for shortness of breath and recurrent atrial fibrillation. Date of service 06/18/2024: Feels okay but still in atrial fibrillation with rapid ventricular response. No chest pain or shortness of breath Review of Systems Review of Systems: All systems reviewed & are unremarkable except as noted in HPI and below Constitutional: Constitutional: Denies body ache(s) and Denies excessive sweating Eyes: Eyes: Denies blurry vision ENT: Reports Normal hearing present Cardiovascular: Cardiovascular: Reports chest pain, Reports palpitations and Reports dyspnea Respiratory: Respiratory: Denies chest congestion and Reports dyspnea Gastrointestinal: Gastrointestinal: Denies abdominal pain Genitourinary: Genitourinary: Denies hematuria Musculoskeletal: Musculoskeletal: Denies back pain Integumentary/Breasts: Skin/Breast: Denies dry skin Neurologic: Reports Normal hearing present, Denies Abnormal speech present and Denies behavioral changes Psychiatric: Psychiatric: Denies behavioral changes Endocrine: Endocrine: Denies excessive sweating and Reports palpitations Hematologic/Lymphatic: Hematologic/Lymphatic: Denies easy bleeding Allergic/Immunologic: Allergic/Immunologic: Denies GI upset with certain foods Exam Narrative: Awake alert oriented appears to be in no acute distress. Appears stated age Const: General: comfortable and no acute distress HENMT: Face/Nose/Sinus: Normal nares present Mouth: Yes moist mucous membranes Eyes: General: appearance normal, both eyes and all related structures Sclera: sclerae normal Neck: Neck: supple and no JVD Chest: Other: No reproducible chest wall pain to palpation Resp: Effort & Inspection: normal respiratory effort Auscultation: clear to auscultation bilaterally Cardio: Rate: tachycardic Rhythm: abnormal rhythm irregularly irregular Heart sounds: no murmurs GI: Inspection: distended Skin: General skin exam: normal color Neuro: Cranial nerves: Yes Normal hearing present Speech: normal speech and No Abnormal speech present Motor exam (neuro): 5/5 motor strength present throughout Extrem: General: normal to inspection Psych: Mental Status: mental status grossly normal Affect: normal affect Objective Data Vital Signs Vital Signs: Vital Signs - 24 hr 06/17/24 12:00 06/17/24 10:00 06/17/24 12:00 Temperature 36.5 C Pulse Rate 90 100 99 Respiratory Rate 16 Blood Pressure 108/63 Pulse Oximetry 92 Oxygen Delivery Fraction of
--- NOTE | 2024-06-18 11:56 | PM.IMPN ---
Progress Note: A&P Assessment and Plan (1) Atrial fibrillation with RVR: Code(s): I48.91 - Unspecified atrial fibrillation Status: Acute Assessment and Plan: Patient with SOB, left-sided chest pressure and palpitations. Patient presented to the [facility] office and an EKG showed patient to be in AFib. Patient instructed to take evening sotalol dose early (80 mg BID) and dose was taken at 2:30 p.m. Patient continued to have chest pressure and exertional shortness of breath so was instructed to seek care in the ED. Initial EKG showing AFib RVR (127), ventricular premature complex, incomplete RBBB, baseline artifact. CXR: Possible pneumonitis. Troponin: <0.012 x2 He was given diltiazem 10 mg IVP and started on diltiazem drip at 10 mg/hr Sotalol was held. Lovenox started. Echo showing EF 60-65%, indeterminate diastolic function and mild valvular disease. TSH normal. He was advised to cut back his alcohol use Weaned to oral Diltiazem short acting and Lovenox changed to Eliquis Cardiology consult. Sotalol resumed and Diltiazem stopped. Still with AFib/RVR. Plan for MULUGETA Cardioversion tomorrow if he does not convert on his own (2) Elevated glucose: Code(s): R73.09 - Other abnormal glucose Status: Acute Assessment and Plan: Initial glucose 161 but no previous history of diabetes. He may have been told he was pre-diabetic. Probably related to steroids. A1c 6.0. Healthy lifestyle encouraged (3) Hypertension: Qualifiers: Hypertension type: primary hypertension Qualified Code(s): I10 - Essential (primary) hypertension Code(s): I10 - Essential (primary) hypertension Status: Acute Assessment and Plan: Patient's blood pressure was reviewed on 06/18 Blood pressure soft at times Norvasc stopped already. Will hold Micardis/HCTZ Plan Diet: Heart healthy DVT Prophylaxis: Eliquis Lines: Peripheral Code Status: Full Subjective Date/time seen: 06/18/24 11:56 Interval history: 64yo male with COPD and HTN here for shortness of breath. No issues overnight. No SOB, CP, palpitations. feels fine Exam Narrative: AF 97.9 96/72 87 20 97% ra Gen - NARD Chest - few bibasilar crackles. nml RR CV - irregularly irregular, tachycardia. Tele showing AFib with RVR Abd - Soft, NT/ND, Positive BS Ext - No pedal edema Psych - Nml mood and affect Skin - Warm and dry Objective Data Vital Signs Vital Signs: Vital Signs - 24 hr 06/17/24 12:00 06/17/24 12:00 06/17/24 14:00 Temperature 97.7 F Pulse Rate 90 99 107 H Respiratory Rate 16 Blood Pressure 108/63 Pulse Oximetry 92 Oxygen Delivery Fraction of Inspired Oxygen 06/17/24 16:00 06/17/24 12:00 06/17/24 14:00 Temperature 97.6 F Pulse Rate 63 107 H 105 H Respiratory Rate 20 Blood Pressure 104/63 Pulse Oximetry 93 Oxygen Delivery Fraction of Inspired Oxygen 06/17/24 16:00 06/17/24 12:00 06/17/24 16:00 Temperature Pulse Rate 102 H 85 85 Respiratory Rate 18 18 Blood Pressure Pulse Oximetry 96 96 Oxygen Delivery Room Air Room Air Fraction of Inspired Oxygen 06/17/24 18:00 06/17/24 19:57 06/17/24 20:01 Temperature 97.3 F L Pulse Rate 117 H 57 L 118 H Respiratory Rate 18 Blood Pressure 120/69 Pulse Oximetry 96 Oxygen Delivery Fraction of Inspired Oxygen 06/17/24 20:00 06/17/24 20:00 06/17/24 22:00 Temperature Pulse Rate 117 H 120 H Respiratory Rate Blood Pressure Pulse Oximetry Oxygen Delivery Room Air Fraction of Inspired Oxygen 06/17/24 23:21 06/17/24 23:59 06/18/24 00:00 Temperature 97.3 F L Pulse Rate 112 H 110 H Respiratory Rate 18 Blood Pressure 118/64 Pulse Oximetry 98 Oxygen Delivery Room Air Fraction of Inspired Oxygen 06/18/24 02:00 06/18/24 04:00 06/18/24 04:32 Temperature 97.3 F L Pulse Rate 110 H 119 H Respiratory Rate 18 Blood Pressure 108/60
[2024-06-18] MEDS: ACETAMINOPHEN 325 MG TABLET 650 MG PO (18:23)
[2024-06-18] MEDS: MONTELUKAST SODIUM 10 MG TABLET PO (20:18)
[2024-06-19] VITALS (22 sets, daily range): BP systolic 88–112; BP diastolic 54–91; PULSE 59–141; RESP 16–27; TEMP 36.6–37; O2SAT 90–98
--- NOTE | 2024-06-19 | ECG_ITS ---
Test Date: 2024-06-19 13:44:43 Measurements Intervals [place] Rate: 71 P: 35 [place]: 149 QRS: -13 QRSD: 106 T: 30 QT: 402 QTc: 438 Interpretive Statements SINUS RHYTHM POSSIBLE LEFT ATRIAL ENLARGEMENT INCOMPLETE RIGHT BUNDLE BRANCH BLOCK INFERIOR INFARCT, AGE INDETERMINATE BASELINE ARTIFACT- I, II, AVR ABNORMAL ECG Compared to ECG 06/19/2024 13:10:37 SINUS RHYTHM NOW PRESENT Electronically Signed On 06-19-2024 14:12:13 CDT by Yamil Meyers D.O.
[2024-06-19 04:28] LABS: Basophils Absolute Auto 0.1 K/mm3 (0.0-0.1); Basophils Percent Auto 0.4 % (0.2-1.2); Eosinophils Absolute Auto 0.4 K/mm3 (0-0.3); Eosinophils Percent Auto 3.2 % (0-4.4); Hematocrit 51.5 % (42.0-52.0); Hemoglobin 17.4 g/dL (14.0-18.0); Immature Granulocyte Absolute 0.09 K/mm3 (0.00-0.031); Immature Granulocyte Percent A 0.8 % (0-0.5); Lymphocytes Absolute Auto 3.23 K/mm3 (0.9-3.2); Lymphocytes Percent Auto 28.2 % (18.3-44.2); Mean Corpuscular HGB Conc 33.8 g/dl (32-36); Mean Corpuscular Hemoglobin 30.9 pg (26-34); Mean Corpuscular Volume 91.5 fl (80-100); Mean Platelet Volume 9.2 fl (7.4-10.4); Monocytes Percent Auto 8.7 % (2.6-8.5); Neutrophils Absolute Auto 6.7 K/mm3 (1.3-6.7); Neutrophils Percent Auto 58.7 % (45.5-73.1); Platelet Count Result 213 k/mm3 (150-375); Red Blood Count 5.63 M/mm3 (4.6-6.20); Red Cell Distribution Width 13.2 % (11.5-14.5); White Blood Count 11.5 K/mm3 (4.5-10.0)
[2024-06-19 04:43] LABS: Albumin Level 3.5 g/dL (3.5-5.1); Anion Gap 7 mmol/L (4-12); Blood Urea Nitrogen 17 mg/dL (9-20); Carbon Dioxide 26 mmol/L (22-30); Chloride 100 mmol/L (98-107); Estimated CRCL calculation 107 ml/min; Estimated Glomerular Filt Rate > 60; Glucose 113 mg/dL (65-110); Sodium 133 mmol/L (137-145)
[2024-06-19] MEDS: SOTALOL HCL 80 MG TABLET PO (08:35)
[2024-06-19] MEDS: THIAMINE HCL 100 MG TABLET PO (08:35)
[2024-06-19] MEDS: MAGNESIUM OXIDE 400 MG TABLET PO (08:35)
[2024-06-19] MEDS: FOLIC ACID 1 MG TABLET PO (08:35)
[2024-06-19] MEDS: PANTOPRAZOLE 40 MG TABLET PO (08:36)
[2024-06-19] MEDS: DICLOFENAC SODIUM 1% 100 GM GEL (*BKC) 1 APPLIC TOPICAL (08:36)
[2024-06-19] MEDS: APIXABAN 5 MG TABLET PO (08:36)
[2024-06-19] MEDS: ATORVASTATIN 20 MG TABLET PO (08:36)
[2024-06-19] MEDS: FLUTICASONE/UMECLIDIN/VILANTER 200-62.5-25 MCG ELLIPTA 1 PUFF INHALATION (08:45)
--- NOTE | 2024-06-19 13:06 | ECG_ITS ---
Test Date: 2024-06-19 13:10:37 Measurements Intervals [place] Rate: 127 P: 0 RI: 0 QRS: 5 QRSD: 97 T: 30 QT: 316 QTc: 460 Interpretive Statements ATRIAL FIBRILLATION WITH RAPID VENTRICULAR RESPONSE VENTRICULAR PREMATURE COMPLEX INCOMPLETE RIGHT BUNDLE BRANCH BLOCK BASELINE ARTIFACT- I, II, III, AVR, AVL, AVF ABNORMAL ECG Compared to ECG 06/17/2024 21:56:17 NO SIGNIFICANT CHANGE Electronically Signed On 06-19-2024 13:17:57 CDT by Yamil Meyers D.O.
--- NOTE | 2024-06-19 13:15 | WPDMODSED ---
Moderate Sedation Note-Pt Data Patient Data Diagnosis: Recurrent symptomatic atrial fibrillation Present Complaint: Shortness of breath Procedure to be performed/Plan: Rosendo/cardioversion Allergies Allergy/AdvReac Type Severity Reaction Status Date / Time No Known Allergies Allergy Verified 08/22/22 12:54 Home Medications Medication Instructions Recorded Confirmed Type amlodipine 10 mg tablet 10 mg PO DAILY 08/22/22 06/16/24 History atorvastatin 20 mg tablet 20 mg PO DAILY 08/22/22 06/16/24 History sotalol 80 mg tablet 80 mg PO BID 08/22/22 06/16/24 History telmisartan 80 1 tablet PO DAILY 08/22/22 06/16/24 History mg-hydrochlorothiazide 25 mg tablet testosterone 10 mg/0.5 10 mg topical DAILY 08/22/22 06/17/24 History gram/actuation transdermal gel pump aspirin 325 mg tablet 325 mg PO DAILY 06/17/24 06/17/24 History montelukast 10 mg tablet 10 mg PO DAILY 06/17/24 06/17/24 History Current Medications: Active Medications Acetaminophen (Acetaminophen 325 Mg Tablet) 650 mg PO Q6H PRN PRN Reason: Mild Pain (1-3) or Fever Last Admin: 06/18/24 18:23 Dose: 650 mg Apixaban (Apixaban 5 Mg Tablet) 5 mg PO Q12HR [facility] Last Admin: 06/19/24 08:36 Dose: 5 mg Atorvastatin Calcium (Atorvastatin 20 Mg Tablet) 20 mg PO DAILY [facility] Last Admin: 06/19/24 08:36 Dose: 20 mg Diclofenac Sodium (Diclofenac Sodium 1% 100 Gm Gel (*Bkc)) 1 applic TOPICAL QID [facility] Last Admin: 06/19/24 12:11 Dose: Not Given Fluticasone/Umeclidinium/Vilanterol (Fluticasone/Umeclidin/Vilanter 200-62.5-25 Mcg Ellipta) 1 puff INHALATION DAILYRT [facility] Last Admin: 06/19/24 08:45 Dose: 1 puff Folic Acid (Folic Acid 1 Mg Tablet) 1 mg PO DAILY [facility] Last Admin: 06/19/24 08:35 Dose: 1 mg Hydrochlorothiazide (Hydrochlorothiazide 25 Mg Tablet) 25 mg PO QAM [facility] Last Admin: 06/18/24 08:11 Dose: 25 mg Magnesium Oxide (Magnesium Oxide 400 Mg Tablet) 400 mg PO DAILY [facility] Last Admin: 06/19/24 08:35 Dose: 400 mg Montelukast Sodium (Montelukast Sodium 10 Mg Tablet) 10 mg PO HS [facility] Last Admin: 06/18/24 20:18 Dose: 10 mg Pantoprazole Sodium (Pantoprazole 40 Mg Tablet) 40 mg PO QAM [facility] Last Admin: 06/19/24 08:36 Dose: 40 mg Perflutren Lipid Microsphere (Perflutren Lipid Microspheres 1.5 Ml Vial Diluted To 10 Ml Total Volume) 0 ml IV PUSH ONCE PRN; Protocol PRN Reason: adequate visualization Stop: 06/19/24 23:06 Sotalol HCl (Sotalol Hcl 80 Mg Tablet) 80 mg PO Q12HR [facility] Last Admin: 06/19/24 08:35 Dose: 80 mg Telmisartan (Telmisartan 40 Mg Tablet) 80 mg PO QAM [facility] Last Admin: 06/18/24 08:10 Dose: 80 mg Thiamine HCl (Thiamine Hcl 100 Mg Tablet) 100 mg PO QAM [facility] Last Admin: 06/19/24 08:35 Dose: 100 mg Sedation/Anesthesia: No previous sedation/anesthesia problems (including family history). [facility] Past Medical History Medical History (Updated 06/17/24 @ 14:59 by Valente Newberry MD) Claustrophobia COPD (chronic obstructive pulmonary disease) Degenerative joint disease of knee History of cardiomyopathy Hypertension Medial meniscus tear Family History Family History (Updated 06/17/24 @ 14:57 by Valente Newberry MD) Father No problems noted. Social History Social History Smoking packs per day: 2 Smoking cigarettes per day: 40.0 Years smoked: 18 Smoking pack-years: 36.00 Smoking status: Never smoker Alcohol intake: current Drinks per week: 5 Substance use: never Substance use type: does not use Do You Feel Safe in your Home?: Yes Lack of Transportation: No Lack of Food: Never True Current Housing: I Have Housing Concerned About Future Housing: No Difficulty Paying Gas/Electric Bills: No Difficulty Paying for Meds: No Currently Unemployed: No Education: Trade/Vocational Certificate Difficulty w/ Childcare or Family Care: No Gender identity (if verbalized by the patient): Male Spiritual care concern
--- NOTE | 2024-06-19 13:40 | WPDCARDPROC ---
Cardiac Cath Procedure Note Date of procedure:: 06/19/24 Performing physician:: Uday Rodriguez MD Indication:: Symptomatic recurrent atrial fibrillation Brief clinical history:: This is a 64-year-old man with a history of atrial fibrillation previously maintaining sinus rhythm on sotalol. He was anticoagulated with apixaban. He came to the hospital with a symptomatic recurrence of his arrhythmia. Because of discontinuance of his apixaban on his own accord ROSENDO cardioversion has been recommended to try to restore sinus rhythm Procedure Procedure performed:: Rosendo/cardioversion Sedation/Medication given:: Intravenous propofol in aliquots total of 80 mg administered Estimated blood loss:: No blood loss Procedure note:: Patient was brought to the cardiac catheterization lab holding area in the postabsorptive state with IV access in the left upper extremity. Or pharyngeal benzocaine was sprayed for topical anesthesia. The bite block was then placed and he was sedated with propofol initially with 50 mg. Rosendo probe was then passed easily into the esophagus and the left atrium was inspected in its entirety. The left atrium is dilated and but the atrium and the appendage were well visualized and there was no visible thrombus. After this the patient was given another 30 mg of propofol and the patient was then cardioverted with 200 joules in synchronized fashion x1 shock restoring normal sinus rhythm. Findings:: As above Conclusion:: Successful uncomplicated DC cardioversion terminating atrial fibrillation restoring sinus rhythm using 200 joules in a synchronized fashion x1 shock after esophageal ECHO showed no evidence of left atrial appendage thrombus Uday Rodriguez MD [facility]
--- NOTE | 2024-06-19 17:05 | PM.DS ---
DS: Admitting Diagnosis Discharge Date 06/19/24 Admitting Diagnosis Shortness of breath DS: Discharge Diagnosis Discharge Diagnosis (1) Atrial fibrillation with RVR: Code(s): I48.91 - Unspecified atrial fibrillation Status: Acute (2) Elevated glucose: Code(s): R73.09 - Other abnormal glucose Status: Acute (3) Hypertension: Qualifiers: Hypertension type: primary hypertension Qualified Code(s): I10 - Essential (primary) hypertension Code(s): I10 - Essential (primary) hypertension Status: Acute DS: Summary Hospital Course Reason for hospitalization: 64yo male with COPD and HTN here for shortness of breath. Please see H&P for details. Hospital Course: Patient developed SOB, left-sided chest pressure and palpitations. Patient presented to the [facility] office and an EKG showed patient to be in AFib. Patient instructed to take evening sotalol dose early (80 mg BID) and dose was taken at 2:30 p.m. Patient continued to have chest pressure and exertional shortness of breath so was instructed to seek care in the ED. Initial EKG showing AFib RVR (127), ventricular premature complex, incomplete RBBB, baseline artifact. CXR showing possible pneumonitis. Troponin <0.012 x2. He was given diltiazem 10 mg IVP and started on diltiazem drip at 10 mg/hr. Sotalol was held. Lovenox started. Echo showing EF 60-65%, indeterminate diastolic function and mild valvular disease. TSH normal. He was advised to cut back his alcohol use. He was weaned to oral Diltiazem short acting and Lovenox changed to Eliquis. Cardiology consulted who stopped the Diltiazem and resumed Sotalol. He was monitored but remained in AFib/RVR. Initial glucose 161 but no previous history of diabetes. He may have been told he was pre-diabetic. Probably related to steroids. A1c 6.0. Healthy lifestyle encouraged. Patient's blood pressure was soft at times felt related to the AFib/RVR. Norvasc stopped already. And we held Micardis/HCTZ. Since patient did not convert with the sotalol, he underwent MULUGETA cardioversion. On 06/19, patient has a successful, uncomplicated DC cardioversion terminating atrial fibrillation restoring sinus rhythm using 200 joules in a synchronized fashion x1 shock after esophageal ECHO showed no evidence of left atrial appendage thrombus. He tolerated the procedure well. He is up walking in the halls. He overall did well and was able to be discharged home on 06/19/24. Status at Discharge Cognitive/behavioral status at discharge: stable Time Spent with Patient Time attestation: Total time spent providing and/or coordinating discharge services: 24 minutes Time spent: Greater than 30 minutes Exam Narrative: AF 98.1 107/91 74 16 95% ra Gen - NARD Chest - CTA bilateral CV - irregularly irregular, tachycardia. Tele showing AFib with RVR Abd - Soft, NT/ND, Positive BS Ext - No pedal edema Psych - Nml mood and affect Skin - Warm and dry (Patient seen prior to CV) DS: Data Data Completed and Pending Labs on day of discharge: Labs from last 24 hours 06/19/24 04:04 WBC 11.5 H RBC 5.63 Hgb 17.4 Hct 51.5 MCV 91.5 MCH 30.9 MCHC 33.8 RDW 13.2 Plt Count 213 MPV 9.2 Immature Gran % (Auto) 0.8 H Neut % (Auto) 58.7 Lymph % (Auto) 28.2 Hudson % (Auto) 8.7 H Eos % (Auto) 3.2 Baso % (Auto) 0.4 Lymph # (Auto) 3.23 H Hudson # (Auto) 1.0 H Eos # (Auto) 0.4 H Baso # (Auto) 0.1 Abs Immat Gran (auto) 0.09 H Absolute Neuts (auto) 6.7 Absolute Nucleated RBC 0.000 Nucleated RBC % 0.0 Sodium 133 L Potassium 4.0 Chloride 100 Carbon Dioxide 26 Anion Gap 7 BUN 17 Creatinine 0.70 Estim Creat Clear Calc 107 Estimated GFR > 60 Glucose 113 H Calcium 9.0 Phosphorus 4.0 Magnesium 2.0 Albumin 3.5 Discharge Plan Discharge Attending physician on discharge: John Gómez Consulting providers: Valente Newberry Discharging Clinician: Bbeeto Gómez
== END 2024-06-19 17:48 | disposition home or self-care (01) | DRG 310 ==
LOC: ANHED 21:25 → ANHIMU 23:56
PROVIDERS: Emergency Medicine; Specialist; Student in an Organized Health Care Education/Training Program; Admitting Provider Internal Medicine; Emergency Provider Emergency Medicine; PCP Internal Medicine; Visit Provider Internal Medicine
PROC: B24BZZ4 Ultrasonography of Heart with Aorta, Transesophageal (ICD-10-PCS; CPT 93312; principal; 2024-06-19 11:30)
PROC: 5A2204Z Restoration of Cardiac Rhythm, Single (ICD-10-PCS; 2024-06-19 11:30)
DX: I48.91 Unspecified atrial fibrillation (principal); I10 Essential (primary) hypertension; R73.09 Other abnormal glucose; J44.9 Chronic obstructive pulmonary disease, unspecified; Z79.82 Long term (current) use of aspirin; Z87.891 Personal history of nicotine dependence; Z79.01 Long term (current) use of anticoagulants
CPT/HCPCS: 36415; 51701; 71046; 71275; 80048; 80053; 80069; 83036; 83690; 83735; 84443; 84484; 85025; 85610; 85730; 92960; 93005; 93306; 93312; 93320; 93325; 94640; 96365; 96366; 96372; 99199; 99285; A9270; G0378; J1650; J2250; J2704; J3010; J7030; J7040; Q9967

== ENCOUNTER 2024-12-09 09:28 | Outpatient (CLI) | payer OTHER, SELFPAY ==
--- NOTE | ~2024-12-09 | US_ITS ---
EXAMINATION: US carotid duplex BI DATE: 12/09/2024 10:15 INDICATION: Carotid atherosclerosis. Dizziness. TECHNIQUE: Grayscale, color Doppler, and pulsed Doppler images of the cervical carotid arteries were obtained. The degree of vessel stenosis is placed in one of the following categories: normal, <50%, 5 0-69%, >=70% but less than near-occlusion, near-occlusion, or total occlusion. Note that percent sten osis relative to normal distal artery lumen diameter is indirectly measured from velocity measurement s as described by West, et al. Radiology 2003; 229:340-346. COMPARISON: Chest CT dated 06/16/2024 FINDINGS: RIGHT: The right common carotid artery (CCA) peak systolic velocity (PSV) is 102 cm/s. The right internal ca rotid artery (ICA) PSV is 130 cm/s. The right ICA end-diastolic velocity (EDV) is 25 cm/s. The right ICA/CCA PSV ratio is 1.3. Grayscale and color Doppler images including secondary Doppler criteria yie ld an estimate of <50% diameter reduction from plaque in the ICA. The external carotid artery (ECA) P SV is 111 cm/s. There is antegrade flow in the right vertebral artery. LEFT: The left CCA PSV is 71 cm/s. The left ICA PSV is 78 cm/s. The left ICA EDV is 18 cm/s. The left ICA/C CA PSV ratio is 1.1. Grayscale and color Doppler images yield an estimate of <50% diameter reduction from plaque in the ICA. The ECA PSV is 107 cm/s. There is antegrade flow in the left vertebral artery . Notes: normal: PSV<125 and no plaque <50%: PSV<125 (EDV<40;ICA/CCA PSV ratio<2.0; use these factors only if tandem lesions or low cardiac output or contralateral disease) 50-69%: PSV 125-230 (EDV 40-100;ratio 2.0-4.0) >=70% but less than near occlusion: PSV>230(EDV>100;ratio>4.0) near-occlusion: PSV variable; markedly narrowed lumen occlusion: absent flow on color/spectral Doppler and no lumen on grayscale IMPRESSION: 1. stenosis in the right internal carotid artery. 2. stenosis in the left internal carotid artery. Reviewed, dictated and finalized at location B. [employer]
== END 2024-12-09 09:29 | disposition home or self-care (01) ==
PROVIDERS: PCP Internal Medicine; Visit Provider Internal Medicine Cardiovascular Disease
DX: I65.23 Occlusion and stenosis of bilateral carotid arteries (principal)
CPT/HCPCS: 93880

== ENCOUNTER 2024-12-28 10:18 | Emergency (ER) | payer OTHER, SELFPAY ==
[2024-12-28] VITALS (81 sets, daily range): BP systolic 59–120; BP diastolic 23–78; PULSE 107–138; RESP 16–30; TEMP 36.1–36.9; O2SAT 84–100
--- NOTE | ~2024-12-28 | XR_ITS ---
EXAMINATION: XR chest 1V portable DATE: 12/28/2024 10:53 INDICATION: Weakness and shortness of breath TECHNIQUE: frontal view of the chest was obtained. COMPARISON: Chest radiograph and CT dated 06/16/24 FINDINGS: Bandlike discoid atelectasis at the left lower lung zone. There are additional mild reticular opaciti es in the bilateral lower lung zones which could represent additional atelectasis, mild pulmonary christen ma or pneumonia. There is also mild bronchial wall thickening in the lower lung zones with which coul d be due to bronchitis or peribronchial cuffing. No pleural effusion or pneumothorax. Heart size is n ormal. IMPRESSION: 1. Mild opacities at the bilateral lower lungs which could be due to atelectasis, mild pulmonary lydia a or pneumonia. Reviewed, dictated and finalized at location B. DOCK ATTENDANT IMPRESSION: 1. Mild opacities at the bilateral lower lungs which could be due to atelectasi s, mild pulmonary edema or pneumonia.
--- NOTE | 2024-12-28 10:34 | ECG_ITS ---
Test Date: 2024-12-28 10:42:08 Measurements Intervals [place] Rate: 133 P: 0 VT: 0 QRS: 66 QRSD: 106 T: 76 QT: 332 QTc: 495 Interpretive Statements ATRIAL FIBRILLATION WITH RAPID VENTRICULAR RESPONSE INCOMPLETE RIGHT BUNDLE BRANCH BLOCK [90+ ms QRS DURATION, TERMINAL R IN V1/V2, 40+ ms S IN I/aVL/V4/V5/V6] ABNORMAL RHYTHM ECG Compared to ECG 06/19/2024 13:44:43 Sinus rhythm no longer present Myocardial infarct finding no longer present Electronically Signed On 12-28-2024 11:47:29 [employer] by Chevy Alba M.D.
[2024-12-28] MEDS: SODIUM CHLORIDE 0.9% IV 1,000 ML 999 ML (10:38)
[2024-12-28] MEDS: methylPREDNISolone SOD SUCC 125 MG VIAL IV PUSH (10:47)
[2024-12-28] MEDS: SODIUM CHLORIDE 0.9% IV 1,000 ML 999 ML IV CONT ×3 (10:50→13:10)
[2024-12-28] MEDS: IPRATROPIUM 0.5 MG/ALBUTEROL SULFATE 2.5 MG AMPUL.NEB 3 ML INHALATION ×2 (10:52→13:27)
--- OUTSIDE RECORDS SUMMARY | 2024-12-28 11:14 | XMS_ITS | Patient Health Summary ---
Author Organization [facility] Address [address] [place] [address] Care Team Providers Care Igniter Assembler Name Role Phone Unavailable Primary Care Provider Unavailabl e Note from [facility],non-owned Affiliates and Associated Physician Practices is amultiple site organization consisting of ambulatory clinics and hospital sitesin [place], [place], [place] and [place]. This disclosure is being madepursuant to the Care Everywhere program and may not contain all information available regarding this patient. Last updated 18.[facility] [employer] Social History Tobacco Use Types Packs/Day Years Used Date Smoking Tobacco: Never Assessed Sex and Gender Information Value Date Recorded Sex Assigned at Not on file Gender Identity Not on file Sexual Orientation Not on file Procedures * DERMATOPATHOLOGY(Performed 03/01/2024) Results * DERMATOPATHOLOGY (03/01/2024 11:47 AM CDT) Case Report Dermatopathology Report ? Case: [id number] ? Authorizing Provider: ??Lisa Ashley MD ? Collected: ? 03/01/2024 11:47 AM ? Ordering Location: ? [facility] - ??Received: ?03/02/2024 12:27 PM ? DermPath Lab ? Pathologist: ? Kimmy Rivera MD ? Specimens: ?? A) - Skin, right gluteal cleft ? B) - Skin, righ buttocks ? 4 5:47 PM CDT DERMATOPATHOLOGY LABORATORY Final Diagnosis Specimen A. 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 The specimen consists of a shave biopsy measuring [id number] mm. Jar 0. Specimen B: Received is one formalin filled container labeled with the patient's name and designated righ buttocks. The specimen consists of a punch biopsy measuring 3x3x6 mm. Jar 0. 4 5:47 PM CDT DERMATOPATHOLOGY LABORATORY Microscopic Description Specimen A. SKIN, right gluteal cleft: The epidermis shows focal parakeratosis, mild acanthosis, and minimal spongiosis . In the dermis there is a band-like infiltrate of lymphocytes. Some of the lymphocytes are larger. In specimen A, a focal perifollicular lymphoid infiltrate in association with follicular mucinosis is noted as well. In addition, the collagen bundles are coarse and wiry. The hematoxylin and eosin stain is reviewed; immunohistochemical stains are performed to further assess the histologic features. CD3 highlights T cells, that show a CD4:CD8 ratio of approximately 1:1, with an increase in CD8-positive lymphocytes noted in the epidermis. Cd1a is positive in scattered Langerhans cells. TCR delta is positive in rare T cells. IL-36 does not show significant staining. Colloidal iron stain reveals mildly increased superficial dermal mucin deposition, as well as focal mucin deposition noted in association with a hair follicle in specimen A. Periodic acid-Wilfredo (PAS) stain fails to highlight fungal elements or significant basement membrane thickening in the available sections. COMMENT: The lack of lymphocytes within the epidermis prevents making an unequivocal diagnosis of CD8-positive cutaneous T cell lymphoma; however, the overall pattern of this lesion is concerning. A chronic eczematous process was also considered. If there is clinical concern for cutaneous T cell lymphoma consideration should be given to a re biopsy of a sun protected area that has not been treated for two to three weeks. This case was also reviewed by Dr. Luli Eaton, who agrees. Specimen B. SKIN, righ buttocks: See microscopic description and comment in specimen A. 4 5:47 PM T DERMATOPATHOLOGY LABORATORY Disclaimer An external and internal positive and negative controls are appropriate for the histochemical, immunohistochemical and immunofluorescence stain(s) in this case (if any), except where stated explicitly. The performance characteristics of the stain(s) cited in this report were developed and its performance characteristic determined by the Dermatopathology Laboratory at [facility], directed by Dr. Beto Sullivan. These tests need not be, and therefore are not, approved by the [place] Food and Drug Administration. The tests are used for clinical purposes. Billing Codes Specimen Charges Stain Charges 02165 88869 1 1 [id number] 26911 22919 [id number] 26191 46920 16645 [id number] 71617 20856 [id number] 43509 1 1 1 1 1 1 1 1 1 1 1 1 1 1 1 1 4 5:47 PM CDT DERMATOPATHOLOGY LABORATORY Embedded Images 4 5:47 PM CDT DERMATOPATHOLOGY LABORATORY Pathology/Cytology TISSUE SPECIMEN FROM SKIN / Unknown 03/01/2024 11:47 AM CDT 03/02/2024 12:27 PM CDT Miscellaneous samples (specimen) TISSUE SPECIMEN FROM SKIN / Unknown 03/01/2024 11:47 AM CDT 03/02/2024 12:27 PM CDT Lisa Ashley MD LAB - PATHOLOGY/CYT OLOGY ORDERABLES DERMATOPATHOLOGY LABORATORY [facility] - Department of Dermatology [facility] [address] [place] [address], [address] [phone]
--- OUTSIDE RECORDS SUMMARY | 2024-12-28 11:14 | XMS_ITS | Referral Summary ---
Author Organization [facility] Address [address] [place] [address] Care Team Providers Care Psychology Instructor Name Role Phone Unavailable Primary Care Provider Unavailabl e Source Comments [facility],non-owned Affiliates and Associated Physician Practices is amultiple site organization consisting of ambulatory clinics and hospital sitesin [place], [place] and [place]. This disclosure is being madepursuant to the Care Everywhere program and may not contain all information available regarding this patient. Last updated 18.[facility] Social History Tobacco Use Types Packs/Day Years Used Date Smoking Tobacco: Never Assessed Sex and Gender Information Value Date Recorded Sex Assigned at Not on file Gender Identity Not on file Sexual Orientation Not on file Plan of Treatment Not on file
--- OUTSIDE RECORDS SUMMARY | 2024-12-28 11:14 | XMS_ITS | Referral Summary ---
Author Organization [place] [address] Address [facility] [address] [address] Care Team Providers Care Medical Technician Assistant Name Role Phone Nicko Jauregui MD Primary Care Provider [phone] Encounters Date Type Department Care Team Description 12/25/2024 Telephone [facility] Cardiology [address] [place] [address] [address] [place] [phone] Valente Newberry MD 12/18/[address] [place] [phone] Valente Newberry MD Test Results 12/09/2024 Orders Only [facility] Health Information Management [address] [place], [place] [phone] Valente Newberry MD 11/24/2024 1:30 PM CLINICAL PROJECT ASSISTANT Ancillary Procedure [address] [place] [phone] Dizziness 11/06/[address] [place] [phone] Valente Newberry MD Dizziness from Last 3 Months Allergies No known active allergies Medications testosterone 10 mg/0.5 gram /actuation gel in metered-dose pump apply (40MG) by topical route every day in the morning to the front and inside area of the thighs 0 0 7 Active magnesium oxide (MAG-OX) 250 mg (150.8 mg elemental) tabletIndications :hypomagnesemia 400 mg daily A ctive telmisartan-hydro chlorothiazid (MICARDIS HCT) 80-25 mg per tablet Take 1 tablet by mouth daily Active montelukast (SINGULAIR) 10 mg tablet Take 1 tablet (10 mg total) by mouth nightly 0 Active amitriptyline (ELAVIL) 25 mg tablet Take 1 tablet (25 mg total) by mouth nightly Active magnesium oxide 200 mg magnesium tablet,chewable magnesium 400 mg once a day Active Trelegy Ellipta 200-62.5-25 mcg inhaler INHALE 1 PUFF BY INHALATION ROUTE ONCE DAILY AT THE SAME TIME EACH DAY 3 Active amLODIPine (NORVASC) 10 mg tabletIndications :Essential hypertension Take 1 tablet (10 mg total) by mouth daily 90 tablet 3 4 Active atorvastatin (LIPITOR) 20 mg tabletIndications :Hyperlipidemia LDL goal <100 Take 1 tablet (20 mg total) by mouth daily 90 tablet 3 4 Active apixaban (Eliquis) 5 mg tablet Take 1 tablet (5 mg total) by mouth 2 (two) times a day 180 tablet 3 4 Active sotaloL (BETAPACE) 80 mg tablet Take 1 tablet (80 mg total) by mouth 2 (two) times a day 180 tablet 3 4 Active Active Problems Problem Noted Date Diagnosed Date STUBBS (dyspnea on exertion) 09/30/2022 Encounter for monitoring sotalol therapy 021 PAF (paroxysmal atrial fibrillation) ([facility]) 0 07/08/2017 NICM (nonischemic cardiomyopathy) ([facility]) 06/29 Hyperlipidemia LDL goal <100 07/08/2017 Essential hypertension 07/08/2017 PAIGE (obstructive sleep apnea) 07/08/2017 Social History Tobacco Use Types Packs/Day Years Used Date Smoking Tobacco: Former Cigarettes Q uit: 07/08/2002 Smokeless Tobacco: Never Tobacco Cessation:Counseling Given: Not Answered Alcohol Use Standard Drinks/Week Comments Yes 14 (1 standard drink = 0.6 oz pu re alcohol) Sex and Gender Information Value Date Recorded Sex Assigned at Not on file Legal Sex Male 8:03 AM CLINICAL PROJECT ASSISTANT Gender Identity Not on file Sexual Orientation Not on file Last Filed Vital Signs Vital Sign Reading Time Taken Comments Blood Pressure 110/60 08/04/2024 8:02 AM CDT Pulse 57 08/04/2024 8:02 AM CDT Temperature - - Respiratory Rate 16 04/13/2023 8:43 AM CDT Oxygen Saturation 91% 08/04/2024 8:02 AM CDT Inhaled Oxygen Concentration - - Weight 105.2 kg (232 lb) 08/04/2024 8:02 AM CDT Height 172.7 cm (5' 8 ) 08/04/2024 8:02 AM CDT Body Mass Index 35.28 08/04/2024 8:02 AM CDT Plan of Treatment Not on file Procedures Procedure Name Priority Date/Time Associated Diagnosis Comments SCAN - RADIOLOGY/IMAGING 12/09/2024 HOLTER MONITOR 48 HR Routine 11/24/2024 4:40 PM CLINICAL PROJECT ASSISTANT Dizziness from Last 3 Months Results * SCAN - RADIOLOGY/IMAGING (12/09/2024) Anatomical Region Laterality Modality Other us Valente Newberry MD Final Res ult * 48 HR Holter Monitor (11/24/2024 4:40 PM CLINICAL PROJECT ASSISTANT) Anatomical Region Laterality Modality Electrocardiogra phy Narrative 12/08/2024 3:09 PM CLINICAL PROJECT ASSISTANT AMBULATORY PAINT STOCKMAN REPORT Patient Name: Ashu Dolan Date of : 1960 ?? Requesting Physician: ??Dr. Newberry Date of interpretation: 12/08/24 Type of monitor : ??48 hour Holter monitor Date of the study/Enrollment period: ??11/24/2024 through 11/26/2024 Indication: ??Dizziness and giddiness Quality of the study: ??Good Interpretation: ??Total of 2 days 0 hours and 0 minutes was recorded and analyzed Underlying rhythm is sinus with heart rate variability between 50 and 168 beats per minute with an average heart rate of 73 beats per minute. The 168 beats per minute occurred during a brief episode of PSVT which was for 6 beats. ?? Maximum heart rate while in sinus rhythm was 104 beats per minute. ?? No atrial fibrillation was seen. ?? No significant pauses or patient triggered events Occasional ventricular ectopy totaling 2827 beats which is 1% ectopic burden. ??This consisted of 2795 isolated PVCs, 32 ventricular couplets and no ventricular runs Occasional supraventricular ectopy totaling 1518 beats which was 1444 isolated PACs, 26 atrial couplets, 48 brief runs of supraventricular tachycardia. ??Longest run being 12 beats Conclusions: Sinus rhythm with average heart rate 73 beats per minute Occasional ventricular ectopy but no sustained or nonsustained runs Low-frequency supraventricular ectopy as detailed above including several very short atrial runs No significant pauses, heart block or patient symptoms Voice recognition software was used to complete this document, therefore, chief meteorologist variances may occur. Valente Newberry MD, [facility] 12/08/24 Procedure Note Valente Newberry MD - 12/08/2024 AMBULATORY PAINT STOCKMAN REPORT Patient Name: Ashu Dolan Date of : 1960 Requesting Physician: Dr. Newberry Date of interpretation: 12/08/24 Type of monitor : 48 hour Holter monitor Date of the study/Enrollment period: 11/24/2024 through 11/26/2024 Indication: Dizziness and giddiness Quality of the study: Good Interpretation: Total of 2 days 0 hours and 0 minutes was recorded andanalyzed Underlying rhythm is sinus with heart rate variability between 50 and 168beats per minute with an average heart rate of 73 beats per minute. The 168 beats per minute occurred during a brief episode of PSVT which wasfor 6 beats. Maximum heart rate while in sinus rhythm was 104 beats per minute. No atrial fibrillation was seen. No significant pauses or patient triggered events Occasional ventricular ectopy totaling 2827 beats which is 1% ectopicburden. This consisted of 2795 isolated PVCs, 32 ventricular couplets andno ventricular runs Occasional supraventricular ectopy totaling 1518 beats which was 1444isolated PACs, 26 atrial couplets, 48 brief runs of supraventriculartachycardia. Longest run being 12 beats Conclusions: Sinus rhythm with average heart rate 73 beats per minute Occasional ventricular ectopy but no sustained or nonsustained runs Low-frequency supraventricular ectopy as detailed above including severalvery short atrial runs No significant pauses, heart block or patient symptoms Voice recognition software was used to complete this document, therefore,chief meteorologist variances may occur. Valente Newberry MD, [facility] 12/08/24 Valente Newberry MD [facility] Final Result from Last 3 Months Insurance [employer] OPEN ACCESS [employer] OPEN ACCESS Care Teams Medical Technician Assistant Relationship Specialty Start Date End Date Nicko Jauregui MD PCP - General 02/26/17
--- OUTSIDE RECORDS SUMMARY | 2024-12-28 11:14 | XMS_ITS | Clinical Summary ---
Author Organization [facility] [employer] Address [address] [place] [address] Care Team Providers Care Bilingual Customer Service Name Role Phone Unavailable Primary Care Provider Unavailabl e Source Comments [facility] [employer],non-owned Affiliates and Associated Physician Practices is amultiple site organization consisting of ambulatory clinics and hospital sitesin [place], [place] and [place]. This disclosure is being madepursuant to the Care Everywhere program and may not contain all information available regarding this patient. Last updated 18.[facility] [employer] Social History Tobacco Use Types Packs/Day Years Used Date Smoking Tobacco: Never Assessed Sex and Gender Information Value Date Recorded Sex Assigned at Not on file Gender Identity Not on file Sexual Orientation Not on file Plan of Treatment Health Maintenance Due Date Last Done Comments COLOGUARD (AGES 45-75) - COL ON CA SCREENING 1960 COLON MONITORING 1960 COLONOSCOPY - COLON CA SCREENING 1960 CT COLONOGRAPHY - COLON CA SCREENING 1960 Colorectal Cancer Screening 1960 FIT - COLON CA SCREENING 1960 FLEX SIG - COLON CA SCREENING 1960 LIPID TESTING 1960 HIV SCREENING 1975 HEPATITIS C SCREENING 04/26/1978 DTAP/TDAP/TD VACCINES (1 - Tdap) 1979 PNEUMOCOCCAL VACCINE 50+ (1 of 1 - PCV) 2010 ZOSTER VACCINE (1 of 2) 2010 COVID-19 VACCINE ( - 2023-2 5 season) 2024 INFLUENZA VACCINE (#1) 2024 DEPRESSION SCREENING 11/29/2024 Respiratory Syncytial Virus (RSV) Vaccine Pt: or over 60 yrs (1 - 1-dose 75+ series) 2035 HEPATITIS B VACCINE Aged Out No longe r eligible based on patient's age to complete this topic HIB VACCINE Aged Out No longer eligi ble based on patient's age to complete this topic HPV VACCINE Aged Out No longer eligi ble based on patient's age to complete this topic MENINGOCOCCAL (Group B) VACCINE Aged Out No longer eligible based on patient's age to complete this topic MENINGOCOCCAL VACCINE Aged Out No saravanan bel eligible based on patient's age to complete this topic PNEUMOCOCCAL VACCINE Aged Out No long er eligible based on patient's age to complete this topic
--- OUTSIDE RECORDS SUMMARY | 2024-12-28 11:14 | XMS_ITS | Encounter Summary ---
Author Organization [facility] Healthcare Address [address] [place] [address] Care Team Providers Care Cdc Associate Name Role Phone Nicko Jauregui MD Primary Care Provider [phone] Encounter Details Date Type Department Care Team (Late st Contact Info) Description 12/25/[address] [facility] Cardiology [address] [place] [phone] Valente Newberry MD [address] [address] Social History Tobacco Use Types Packs/Day Years Used Date Smoking Tobacco: Former Cigarettes Q uit: 07/08/2002 Smokeless Tobacco: Never Alcohol Use Standard Drinks/Week Comments Yes 14 (1 standard drink = 0.6 oz pu re alcohol) Sex and Gender Information Value Date Recorded Sex Assigned at Not on file Legal Sex Male 8:03 AM KILN FIRER Gender Identity Not on file Sexual Orientation Not on file documented as of this encounter Miscellaneous Notes * Telephone Encounter - Valente Brown RN - 12/26/2024 11:02 AM KILN FIRER Spoke with pt. Reviewed instructions given yesterday by Sol RAMIREZ. Advised pt to continue rest and hydration and to give us a call back or proceed to ED if any new s/s develop. Pt verbalizes understanding. FIRER * Telephone Encounter - Amanda Campbell MA - 12/26/2024 10:19 AM CST Patient calling today with an update. Patient says he can't feel if his HR is still out of rhythm but his BP 108/65 and HR 99. Other than the flu symptoms patient isn't feeling anything else. Call back [phone] FIRER * Telephone Encounter - Suni Verma RN - 12/25/2024 3:13 PM KILN FIRER LIZ BARRETT Patient states his BP is 120/93 HR 102. Pt feels terrible from having flu, but otherwise asymptomatic. Informed him to continue to monitor, get rest, stay hydrated and again if he notices hisHR is uncontrolled/consistently elevated at least 2 hours after taking sotalol and/or develops symptoms with elevated HR to give our office a call or proceed to ED. He verbalized understanding. FIRER * Telephone Encounter - Suni Verma RN - 12/25/2024 11:45 AM KILN FIRER Called and spoke w/ patient's who was driving and on the way home, but will check on patient when she gets home, review NENA's message with him, check his heart rate, and have him give me a call back. FIRER * Telephone Encounter - Suni Verma RN - 12/25/2024 9:20 AM KILN FIRER [place] answering service called back line to let us know they received a call from Melissa Dolan the pt's spouse regarding the patient's heart rhythm and states it has been out of rhythm all morning. # [phone] Called patient, pt states he woke up yesterday morning and could tell he was out of rhythm (he can usually tell). He used BP monitor 116/86 HR 120's. He states his had flu, and he woke up feeling terrible this morning and thinks he has the flu. He did take his morning meds including Sotalol 80mg BID this morning around 8 a.m. along with his Eliquis. Pt states he is in NSR most of the time, sometimes he goes into afib, but not often and he know's its probably due to the flu. Informed patient that if his heart rate doesn't come down with the sotalol or gets any faster consistently or he develops chest pain, SOB, to go to ED, otherwise will see if [facility] has recommendations. Please advise FIRER documented in this encounter Plan of Treatment Not on file documented as of this encounter Visit Diagnoses Not on filedocumented in this encounter Care Teams Cdc Associate Relationship Specialty Start Date End Date Nicko Jauregui MD PCP - General 02/26/17 documented as of this encounter
--- OUTSIDE RECORDS SUMMARY | 2024-12-28 11:14 | XMS_ITS | Clinical Summary ---
Author Organization [facility] [address] Address [address] [place] [address] Care Team Providers Care Steam Press Operator Name Role Phone Nicko Jauregui MD Primary Care Provider [phone] Allergies No known active allergies Medications testosterone [...] sotalol therapy 021 PAF (paroxysmal atrial fibrillation) ([facility]) 0 07/08/2017 NICM (nonischemic cardiomyopathy) ([facility]) 06/29 Hyperlipidemia LDL goal <100 07/08/2017 Essential hypertension 07/08/2017 PAIGE (obstructive sleep apnea) 07/08/2017 Encounters Date Type Department Care Team Description 12/25/2024 Telephone [facility] Cardiology [address] [place] [address] [place] [phone] Valente Newberry MD 12/18/2024 Telephone [facility] Cardiology [address] [place] [address] [place] [phone] Valente Newberry MD Test Results 12/09/2024 Orders Only [facility] Health Information Management [address] [place] [phone] Valente Newberry MD 11/24/2024 1:30 PM PLATE DRILLER Ancillary Procedure [facility] Cardiology [address] [place] [address] [place] [phone] Dizziness 11/06/2024 Telephone [facility] Cardiology [address] [place] [address] [place] [phone] Valente Newberry MD Dizziness from Last 3 Months Medical History Medical History Date Comments Heart murmur Hypertension Family History Medical History Relation Name Comments No Known Problems Brother Car Accident Father Car Accident; C ause of : Car Accident Other Mother Unknown; Cause of : Unknown No Known Problems Sister Relation Name Status Comments Brother Father (Age 35) Mother (Age 66) Sister Social History Tobacco Use Types Packs/Day Years Used Date Smoking Tobacco: Former Cigarettes Q uit: 07/08/2002 Smokeless Tobacco: Never Tobacco Cessation:Counseling Given: Not Answered Alcohol Use Standard Drinks/Week Comments Yes 14 (1 standard drink = 0.6 oz pu re alcohol) Sex and Gender Information Value Date Recorded Sex Assigned at Not on file Legal Sex Male 8:03 AM PLATE DRILLER Gender Identity Not on file Sexual Orientation Not on file Obstetrics History Last Filed Vital Signs Vital Sign Reading [...] 08/04/2024 8:02 AM CDT Plan of Treatment Health Maintenance Due Date Last Done Comments Colon Cancer Screening-Colonoscopy 1960 Depression Screening 1960 Hepatitis C Screening 1960 Prostate Cancer Screening-PSA 1960 Hepatitis B Screening 1978 Regular Well Visit/Exam 18-64 1978 Zoster Vaccine (1 of 2) 2010 DTaP/Tdap/Td Vaccine (2 - Td or Tdap) 03/07/2024 03/07/2014 Influenza Vaccine (#1) 2024 08/29/2012 Pneumococcal vaccine <65 Aged Out No longer eligible based on patient's age to complete this topic Procedures Procedure Name Priority Date/Time Associated Diagnosis Comments SCAN - RADIOLOGY/IMAGING 12/09/2024 HOLTER MONITOR 48 HR Routine 11/24/2024 4:40 PM PLATE DRILLER Dizziness from Last 3 Months Results * SCAN - RADIOLOGY/IMAGING (12/09/2024) Anatomical Region Laterality Modality Other us Valente Newberry MD Final Res ult * 48 HR Holter Monitor (11/24/2024 4:40 PM PLATE DRILLER) Anatomical Region Laterality Modality Electrocardiogra phy Narrative 12/08/2024 3:09 PM PLATE DRILLER AMBULATORY JEWEL STAKER REPORT Patient Name: Ashu Dolan Date of [...] was used to complete this document, therefore, stencil cutter machine variances may occur. Valente Newberry MD, [facility] 12/08/24 Procedure Note Valente Newberry MD - 12/08/2024 AMBULATORY JEWEL STAKER REPORT Patient Name: Ashu Dolan Date of [...] software was used to complete this document, therefore,stencil cutter machine variances may occur. Valente Newberry MD, [facility] 12/08/24 Valente Newberry MD CV CARDIAC [facility] Final Result from Last 3 Months Insurance [employer] OPEN ACCESS [employer] OPEN ACCESS Care Teams Steam Press Operator Relationship Specialty Start Date End Date Nicko Jauregui MD PCP - General 02/26/17
--- OUTSIDE RECORDS SUMMARY | 2024-12-28 11:14 | XMS_ITS | Encounter Summary ---
Author Organization [facility] Healthcare Address [address] [place] [address] Care Team Providers Care Industrial Safety And Health Manager Name Role Phone Nicko Jauregui MD Primary Care Provider [phone] Encounter Details Date Type Department Care Team (Late st Contact Info) Description 11/14/2019 Telephone [facility] [address] [facility] 1[address] [place] [address] Ceci Menezes, RT Social History Tobacco Use Types Packs/Day Years Used Date Smoking Tobacco: Former Cigarettes Q uit: 07/08/2002 Smokeless Tobacco: Never Alcohol Use Standard Drinks/Week Comments Yes 14 (1 standard drink = 0.6 oz pu re alcohol) Sex and Gender Information Value Date Recorded Sex Assigned at Not on file Legal Sex Male 8:03 AM DIRECTOR EXTERNAL COMMUNICATIONS Gender Identity Not on file Sexual Orientation Not on file documented as of this encounter Plan of Treatment Not on file documented as of this encounter Visit Diagnoses Not on filedocumented in this encounter Care Teams Industrial Safety And Health Manager Relationship Specialty Start Date End Date Nicko Jauregui MD PCP - General 02/26/17 documented as of this encounter
--- OUTSIDE RECORDS SUMMARY | 2024-12-28 11:14 | XMS_ITS | Encounter Summary ---
Author Organization [facility] Address [address] [facility] [place] [address] Care Team Providers Care Chair Car Attendant Name Role Phone Unavailable Primary Care Provider Unavailabl e Encounter Details Date Type Department Care Team (Late st Contact Info) Description 03/01/2024 Lab Requisition [facility] [address] [facility] [place] [address] Lisa Ashley MD [address] [facility] [address] [place] [address] Social History Tobacco Use Types Packs/Day Years Used Date Smoking Tobacco: Never Assessed Sex and Gender Information Value Date Recorded Sex Assigned at Not on file Gender Identity Not on file Sexual Orientation Not on file documented as of this encounter Plan of Treatment Not on file documented as of this encounter Procedures Procedure Name Priority Date/Time Associated Diagnosis Comments DERMATOPATHOLOGY Routine 03/01/2024 11:4 7 AM CDT documented in this encounter Results * DERMATOPATHOLOGY (03/01/2024 11:47 AM CDT) Case Report Dermatopathology Report ? Case: [id number] ? Authorizing Provider: ??Lisa Ashley MD ? [...] specimen consists of a shave biopsy measuring 12w06o7 mm. Jar 0. Specimen B: Received is one formalin filled container labeled with the patient's name and designated righ buttocks. The specimen consists of a punch biopsy measuring 3x3x6 mm. Jar 0. 4 5:47 PM [facility] DERMAT[facility] Microscopic Description Specimen A. SKIN, [...] comment in specimen A. 4 5:47 PM [facility] DERMATOPATH[facility]Y [facility] Disclaimer An external and internal positive and negative controls are appropriate for the histochemical, immunohistochemical and immunofluorescence stain(s) in this case (if any), except where stated explicitly. The performance characteristics of the stain(s) cited in this report were developed and its performance characteristic determined by the Dermatopathology Laboratory at [facility], directed by Dr. Beto Sullivan. These tests need not be, and therefore are not, approved by the [place] Food and Drug Administration. The tests are used for clinical purposes. Billing Codes Specimen Charges Stain Charges 49200 39276 1 1 [id number] 40211 [id number] [id number] 49822 47034 75275 11627 [id number] 79089 [id number] [id number] 12131 1 1 1 1 1 1 1 [...] LAB - PATHOLOGY/CYT OLOGY ORDERABLES DERMATOPATHOLOGY LABORATORY [facility] - Department of Dermatology [facility] Medicine [address] [place] [address], [address] [phone] documented in this encounter Visit Diagnoses Not on filedocumented in this encounter
--- OUTSIDE RECORDS SUMMARY | 2024-12-28 11:14 | XMS_ITS | Clinical Summary ---
Author Organization [facility] Address [address] [place] [address]. [place], [place] [address] [place] [address] Care Team Providers Care Rn House Supervisor Name Role Phone Unavailable Primary Care Provider Unavailabl e Social History Tobacco Use Types Packs/Day Years Used Date Smoking Tobacco: Never Assessed Sex and Gender Information Value Date Recorded Sex Assigned at Not on file Legal Sex Male 5:02 PM CDT Gender Identity Not on file Sexual Orientation Not on file Plan of Treatment Health Maintenance Due Date Last Done Comments Colorectal Cancer Screening Colonoscopy (10 Years) 1960 Annual Physical 1963 Hepatitis C 1978 DTaP, Tdap and Td Vaccines ( 1 - Tdap) 1979 Zoster Vaccines (1 of 2) 2010 COVID-19 Vaccine (2023-2 5 season) 2024 Influenza Adult (#1) 2024 RSV Immunization or 60+ Years (1 - 1-dose 75+ series) 2035 Meningococcal B Vaccine Aged Out No l onger eligible based on patient's age to complete this topic Meningococcal Vaccine Aged Out No saravanan bel eligible based on patient's age to complete this topic Pneumococcal Vaccine: Pediat rics (0 to 5 Years) and At-Risk Patients (6 to 64 Years) Aged Out No longer eligible b ased on patient's age to complete this topic RSV Immunizations Under 20 Months Aged Out No longer eligible based on patient's age to complete this topic
[2024-12-28 11:17] LABS: Hematocrit 48.4 % (40.0-54.0); Hemoglobin 16.8 g/dL (14.0-18.0); Mean Corpuscular HGB Conc 34.7 g/dL (32-36); Mean Corpuscular Volume 86.4 fL (78.0-102.0); Platelet Count Result 221 K/mm3 (150-420); Red Cell Distribution Width 12.8 % (11.6-14.4); White Blood Count 7.4 K/mm3 (4.8-10.8)
[2024-12-28 11:23] LABS: SARS-CoV-2 RNA PCR Negative (Negative)
[2024-12-28 11:26] LABS: Influenza A QL RT-PCR Positive (Negative); Influenza B QL RT-PCR Negative (Negative); RSV RNA, RT-PCR Negative (Negative)
[2024-12-28 11:26] LABS: Lactic Acid Reflex 1.4 mmol/L (0.4-2.0)
[2024-12-28 11:26] LABS: D Dimer 0.24 mg/L (0.19-0.50); INR 1.2; Partial Thromboplastin Time 35.9 Sec (23.9-30.70); Prothrombin Time 12.6 Seconds (9.50-12.1)
[2024-12-28 11:32] LABS: Band Neutrophils Percent 7 % (0-6); Lymphocytes Absolute Manual 2.22 K/mm3 (1.1-4.5); Lymphocytes Percent Manual 30 % (18-44); Monocytes Absolute Manual 1.11 K/mm3 (0.1-0.90); Monocytes Percent Manual 15 % (3-9); Neutrophils Absolute Manual 3.84 K/mm3 (1.3-6.7); Neutrophils Percent Manual 45 % (46-73); Platelet Estimate Adequate (Adequate); Total Cells Counted 100
[2024-12-28 11:35] LABS: Alanine Aminotransferase 27 U/L (16-63); Albumin Level 2.7 g/dL (3.4-5.0); Alkaline Phosphatase 102 U/L (46-116); Anion Gap 7 mmol/L (4-12); Aspartate Amino Transferase 36 U/L (15-37); Bilirubin,Total 0.9 mg/dL (0.00-1.00); Blood Urea Nitrogen 24 mg/dL (7-18); Calcium 7.7 mg/dL (8.5-10.1); Carbon Dioxide 26 mmol/L (21-32); Chloride 91 mmol/L (98-108); Estimated CRCL calculation 62 ml/min; Estimated Glomerular Filt Rate 57; Glucose 120 mg/dL (70-99); Magnesium 1.8 mg/dL (1.8-2.4); NT Pro B Type Natriuretic Pept 901 pg/mL (0-125); Osmolality Calculated 263 mOsm/kg (285-295); Potassium 3.8 mmol/L (3.5-5.1); Sodium 124 mmol/L (136-145); Total Protein 5.6 g/dL (6.4-8.2)
[2024-12-28 11:37] LABS: Troponin I 12.2 ng/L (0.00-60.4)
--- OUTSIDE RECORDS SUMMARY | 2024-12-28 12:06 | XMS_ITS | Clinical Summary ---
Author Organization [facility] [address] Address [address] [place] [address] Care Team Providers Care Private Duty Aide Name Role Phone Nicko Jauregui MD Primary Care Provider [phone] Allergies No known active allergies Medications testosterone [...] sotalol therapy 021 PAF (paroxysmal atrial fibrillation) ([facility]) 0 07/08/2017 NICM (nonischemic cardiomyopathy) ([facility]) 06/29 Hyperlipidemia LDL goal <100 07/08/2017 Essential hypertension 07/08/2017 PAIGE (obstructive sleep apnea) 07/08/2017 Encounters Date Type Department Care Team Description 12/25/2024 Telephone [facility] Cardiology [address] [place] [address] [place] [phone] Valetne Newberry MD 12/18/2024 Telephone [facility] Cardiology [address] [place] [address] [place] [phone] Valente Newberry MD Test Results 12/09/2024 Orders Only [facility] Health Information Management [address] [place] [address] Valente Newberry MD 11/24/2024 1:30 PM FIELD EVIDENCE TECHNICIAN Ancillary Procedure [facility] Cardiology [address] [place] [address] [place] [phone] Dizziness 11/06/2024 Telephone [facility] Cardiology [address] [place] [address] [place] [phone] Valente Newberry MD Dizziness from Last 3 [...] on file Legal Sex Male 8:03 AM FIELD EVIDENCE TECHNICIAN Gender Identity Not on file Sexual Orientation [...] MONITOR 48 HR Routine 11/24/2024 4:40 PM FIELD EVIDENCE TECHNICIAN Dizziness from Last 3 Months Results * SCAN - RADIOLOGY/IMAGING (12/09/2024) Anatomical Region Laterality Modality Other us Valente Newberry MD Final Res ult * 48 HR Holter Monitor (11/24/2024 4:40 PM FIELD EVIDENCE TECHNICIAN) Anatomical Region Laterality Modality Electrocardiogra phy Narrative 12/08/2024 3:09 PM FIELD EVIDENCE TECHNICIAN AMBULATORY PENSION CONSULTANT REPORT Patient Name: Ashu Dolan Date of [...] was used to complete this document, therefore, saute chef variances may occur. Valente Newberry MD, [facility] 12/08/24 Procedure Note Valente Newberry MD - 12/08/2024 AMBULATORY PENSION CONSULTANT REPORT Patient Name: Ashu Dolan Date of [...] software was used to complete this document, therefore,saute chef variances may occur. Valente Newberry MD, [facility] 12/08/24 Valente Newberry MD CV CARDIAC SERVICES [facility] Final Result from Last 3 Months Insurance [employer] OPEN ACCESS [employer] OPEN ACCESS Care Teams Private Duty Aide Relationship Specialty Start Date End Date Nicko Jauergui MD PCP - General 02/26/17
--- OUTSIDE RECORDS SUMMARY | 2024-12-28 12:06 | XMS_ITS | Encounter Summary ---
Author Organization [facility] Address [address] [place] [address] Care Team Providers Care Field Cane Scaler Name Role Phone Unavailable Primary Care Provider Unavailabl e Encounter Details Date Type Department Care Team (Late st Contact Info) Description 03/01/2024 Lab Requisition [facility] - DermPath Lab [address] [facility], [place] [address] Lisa Ashley MD [address] [facility] 3 [place] [address] Social History Tobacco Use Types Packs/Day Years [...] CDT) Case Report Dermatopathology Report ? Case: [id number] ? Authorizing Provider: ??Lisa Ashley MD ? [...] specimen consists of a shave biopsy measuring 21o01c5 mm. Jar 0. Specimen B: Received is one formalin filled container labeled with the patient's name and designated righ buttocks. The specimen consists of a punch biopsy measuring 3x3x6 mm. Jar 0. 4 5:47 PM [facility] DERMATOPATHOLOGY LABORATORY Microscopic Description Specimen A. [...] comment in specimen A. 4 5:47 PM [facility] DERMATOPATHOLOGY LABORATORY Disclaimer An external and internal positive and negative controls are appropriate for the histochemical, immunohistochemical and immunofluorescence stain(s) in this case (if any), except where stated explicitly. The performance characteristics of the stain(s) cited in this report were developed and its performance characteristic determined by the Dermatopathology Laboratory at [facility], directed by Dr. Beto Sullivan. These tests need not be, and therefore are not, approved by the [place] Food and Drug Administration. The tests are used for clinical purposes. Billing Codes Specimen Charges Stain Charges 29432 33313 1 1 52056 56976 19350 27699 85165 09118 20726 88810 69113 30392 20874 79646 49933 15375 28078 70451 1 1 1 1 1 1 1 [...] LAB - PATHOLOGY/CYT OLOGY ORDERABLES DERMATOPATHOLOGY LABORATORY [facility] - Department of Dermatology [facility] Medicine [address] [place] [address], [address] Floor [address] [phone] documented in this encounter Visit Diagnoses Not on filedocumented in this encounter
--- OUTSIDE RECORDS SUMMARY | 2024-12-28 12:06 | XMS_ITS | Encounter Summary ---
Author Organization [facility] Address [address] [place] [address] Care Team Providers Care Hydro Station Supervisor Name Role Phone Nicko Jauregui MD Primary Care Provider [phone] Encounter Details Date Type Department Care Team (Late st Contact Info) Description 11/14/2019 Telephone [facility] [address] [facility] 1st [place] [address] Ceci Menezes, RT Social History Tobacco Use Types Packs/Day Years Used Date Smoking Tobacco: Former Cigarettes Q uit: 07/08/2002 Smokeless Tobacco: Never Alcohol Use Standard Drinks/Week Comments Yes 14 (1 standard drink = 0.6 oz pu re alcohol) Sex and Gender Information Value Date Recorded Sex Assigned at Not on file Legal Sex Male 8:03 AM WAFER FABRICATION OPERATOR Gender Identity Not on file Sexual Orientation Not on file documented as of this encounter Plan of Treatment Not on file documented as of this encounter Visit Diagnoses Not on filedocumented in this encounter Care Teams Hydro Station Supervisor Relationship Specialty Start Date End Date Nicko Jauregui MD PCP - General 02/26/17 documented as of this encounter
--- OUTSIDE RECORDS SUMMARY | 2024-12-28 12:06 | XMS_ITS | Patient Health Summary ---
Author Organization [facility] Address [address] [place] [address] Care Team Providers Care Senior Peoplesoft Developer Name Role Phone Unavailable Primary Care Provider Unavailabl e Note from [facility],non-owned Affiliates and Associated Physician Practices is amultiple site organization consisting of ambulatory clinics and hospital sitesin [place], [place], [place] and [place]. This disclosure is being madepursuant to the Care Everywhere program and may not contain all information available regarding this patient. Last updated 18.[facility] [employer] Social History Tobacco Use Types Packs/Day Years Used Date Smoking Tobacco: Never Assessed Sex and Gender Information Value Date Recorded Sex Assigned at Not on file Gender Identity Not on file Sexual Orientation Not on file Procedures * DERMATOPATHOLOGY(Performed 03/01/2024) Results * DERMATOPATHOLOGY (03/01/2024 11:47 AM CDT) Case Report Dermatopathology Report ? Case: [id number] ? Authorizing Provider: ??Lisa Ashley MD ? [...] specimen consists of a shave biopsy measuring 46s18z2 mm. Jar 0. Specimen B: Received is [...] characteristic determined by the Dermatopathology Laboratory at [facility], directed by Dr. Beto Sullivan. These tests need not be, and therefore are not, approved by the [place] Food and Drug Administration. The tests are used for clinical purposes. Billing Codes Specimen Charges Stain Charges 42481 44471 1 1 94244 56630 75687 83177 00457 52634 34983 62430 97794 78677 84611 19518 89941 59676 86487 52189 1 1 1 1 1 1 1 [...] LAB - PATHOLOGY/CYT OLOGY ORDERABLES DERMATOPATHOLOGY LABORATORY [facility] - Department of Dermatology [facility] [address] [place] [address], [address] [phone]
--- OUTSIDE RECORDS SUMMARY | 2024-12-28 12:06 | XMS_ITS | Referral Summary ---
Author Organization [place] [address] Address [facility] State [address] [address] Care Team Providers Care Rate Setter Name Role Phone Nicko Jauregui MD Primary Care Provider [phone] Encounters Date Type Department Care Team Description 12/25/2024 Telephone [facility] Cardiology [address] [place] [address] [address] [place] [phone] Valente Newberry MD 12/18/[address] [place] [phone] Valente Newberry MD Test Results 12/09/2024 Orders Only [facility] Health Information Management [address] [place], [place] [phone] Valente Newberry MD 11/24/2024 1:30 PM FRAME SAMPLE AND PATTERN SUPERVISOR Ancillary Procedure [address] [place] [phone] Dizziness 11/06/[address] [place] [phone] Valente Newberry MD Dizziness from Last 3 [...] sotalol therapy 021 PAF (paroxysmal atrial fibrillation) ([facility]) 0 07/08/2017 NICM (nonischemic cardiomyopathy) ([facility]) 06/29 Hyperlipidemia LDL goal <100 07/08/2017 Essential [...] on file Legal Sex Male 8:03 AM FRAME SAMPLE AND PATTERN SUPERVISOR Gender Identity Not on file Sexual Orientation [...] MONITOR 48 HR Routine 11/24/2024 4:40 PM FRAME SAMPLE AND PATTERN SUPERVISOR Dizziness from Last 3 Months Results * SCAN - RADIOLOGY/IMAGING (12/09/2024) Anatomical Region Laterality Modality Other us Valente Newberry MD Final Res ult * 48 HR Holter Monitor (11/24/2024 4:40 PM FRAME SAMPLE AND PATTERN SUPERVISOR) Anatomical Region Laterality Modality Electrocardiogra phy Narrative 12/08/2024 3:09 PM FRAME SAMPLE AND PATTERN SUPERVISOR AMBULATORY RISK ADVISOR REPORT Patient Name: Ashu Dolan Date of [...] was used to complete this document, therefore, sorter operator variances may occur. Valente Newberry MD, [facility] 12/08/24 Procedure Note Valente Newberry MD - 12/08/2024 AMBULATORY RISK ADVISOR REPORT Patient Name: Ashu Dolan Date of [...] software was used to complete this document, therefore,sorter operator variances may occur. Valente Newberry MD, [facility] 12/08/24 Valente Newberry MD CV CARDIAC SERVICES [facility] Final Result from Last 3 Months Insurance [employer] OPEN ACCESS [employer] OPEN ACCESS Care Teams Rate Setter Relationship Specialty Start Date End Date Nicko Jauregui MD PCP - General 02/26/17
--- OUTSIDE RECORDS SUMMARY | 2024-12-28 12:06 | XMS_ITS | Referral Summary ---
Author Organization [facility] Address [address] [facility] [address] Care Team Providers Care Street Car Inspector Name Role Phone Unavailable Primary Care Provider Unavailabl e Source Comments [facility],non-owned Affiliates and Associated Physician Practices is amultiple site organization consisting of ambulatory clinics and hospital sitesin [place], [place], [place]. This disclosure is being madepursuant to the Care Everywhere program and may not contain all information available regarding this patient. Last updated 18.[facility] [employer] Social History Tobacco Use Types Packs/Day Years Used Date Smoking Tobacco: Never Assessed Sex and Gender Information Value Date Recorded Sex Assigned at Not on file Gender Identity Not on file Sexual Orientation Not on file Plan of Treatment Not on file
--- OUTSIDE RECORDS SUMMARY | 2024-12-28 12:06 | XMS_ITS | Encounter Summary ---
Author Organization [facility] Healthcare Address [address] [place] [address] Care Team Providers Care Oracle Programmer Name Role Phone Nicko Jauregui MD Primary Care Provider [phone] Encounter Details Date Type Department Care Team (Late st Contact Info) Description 12/25/[address] [facility] Medical Group Cardiology [address] [place] [address] Valente Newberry MD [address] [address] Social History Tobacco Use Types Packs/Day Years Used Date Smoking Tobacco: Former Cigarettes Q uit: 07/08/2002 Smokeless Tobacco: Never Alcohol Use Standard Drinks/Week Comments Yes 14 (1 standard drink = 0.6 oz pu re alcohol) Sex and Gender Information Value Date Recorded Sex Assigned at Not on file Legal Sex Male 8:03 AM SILK SCREEN PRINTER MACHINE Gender Identity Not on file Sexual Orientation Not on file documented as of this encounter Miscellaneous Notes * Telephone Encounter - Valente Brown RN - 12/26/2024 11:02 AM SILK SCREEN PRINTER MACHINE Spoke with pt. Reviewed instructions given yesterday by Sol RAMIREZ. Advised pt to continue rest and hydration and to give us a call back or proceed to ED if any new s/s develop. Pt verbalizes understanding. SCREEN PRINTER MACHINE * Telephone Encounter - Amanda Campbell MA - 12/26/2024 10:19 AM CST Patient calling today with an update. Patient says he can't feel if his HR is still out of rhythm but his BP 108/65 and HR 99. Other than the flu symptoms patient isn't feeling anything else. Call back [phone] SCREEN PRINTER MACHINE * Telephone Encounter - Suni Verma RN - 12/25/2024 3:13 PM SILK SCREEN PRINTER MACHINE LIZ BARRETT Patient states his BP is [...] or proceed to ED. He verbalized understanding. SCREEN PRINTER MACHINE * Telephone Encounter - Suni Verma RN - 12/25/2024 11:45 AM SILK SCREEN PRINTER MACHINE Called and spoke w/ patient's who was driving and on the way home, but will check on patient when she gets home, review NENA's message with him, check his heart rate, and have him give me a call back. SCREEN PRINTER MACHINE * Telephone Encounter - Suni Verma RN - 12/25/2024 9:20 AM SILK SCREEN PRINTER MACHINE [place] answering service called back line to let us know they received a call from Melissa Dolan the pt's spouse regarding the patient's heart rhythm and states it has been out of rhythm all morning. # [phone] Called patient, pt states he woke up [...] go to ED, otherwise will see if [facility] has recommendations. Please advise SCREEN PRINTER MACHINE documented in this encounter Plan of Treatment Not on file documented as of this encounter Visit Diagnoses Not on filedocumented in this encounter Care Teams Oracle Programmer Relationship Specialty Start Date End Date Nicko Jauregui MD PCP - General 02/26/17 documented as of this encounter
--- OUTSIDE RECORDS SUMMARY | 2024-12-28 12:06 | XMS_ITS | Clinical Summary ---
Author Organization [facility] Address [address] [place] [address]. [place], [place] [id number] [place] [address] Care Team Providers Care Bulk Sausage Casing Tier Off Name Role Phone Unavailable Primary Care Provider [...]
--- OUTSIDE RECORDS SUMMARY | 2024-12-28 12:06 | XMS_ITS | Clinical Summary ---
Author Organization [facility] [employer] Address [address] [facility] [place] [address] Care Team Providers Care Resin Filterer Name Role Phone Unavailable Primary Care Provider Unavailabl e Source Comments [facility],non-owned Affiliates and Associated Physician Practices is amultiple site organization consisting of ambulatory clinics and hospital sitesin [place], [place], [place] and [place]. This disclosure is being madepursuant to the Care Everywhere program and may not contain all information available regarding this patient. Last updated 18.[facility] [employer] Social History Tobacco Use Types Packs/Day Years [...]
[2024-12-28] MEDS: AMIODARONE 150 MG/D5W 100 ML 150 MG/100 ML BAG 600 MG IV CONT (12:26)
--- NOTE | 2024-12-28 12:45 | ED.SOB ---
HPI - SOB/Dyspnea General Chief Complaint: Shortness of Breath/Dyspnea Stated Complaint: shortness of breath and weakness Time Seen by Provider: 12/28/24 10:26 Source: patient and family Mode of arrival: wheelchair Limitations: physical limitation and clinical condition History of Present Illness HPI Narrative: this is a 64-year-old male with a history of COPD, atrial fibrillation presents with a 4 day history of cough for congestion and shortness of breath that has increasingly worsened over the last 3 to 4 days. The patient presents feeling short of breath and with weakness with no chest pain no nausea vomiting has been having diarrhea with some low abdominal pain currently no fever chills. MD elicited complaint: shortness of breath Pertinent past history: COPD Onset (ago): day(s) Context: recent illness Timing: constant Severity: moderate Relieving factors: rest Known history of: COPD Related Data Home Medications ?Medication ?Instructions ?Recorded ?Confirmed ?Last Taken ?Type amlodipine 10 mg tablet 10 mg PO DAILY 08/22/22 06/16/24 Unknown History atorvastatin 20 mg tablet 20 mg PO DAILY 08/22/22 06/16/24 Unknown History sotalol 80 mg tablet 80 mg PO BID 08/22/22 06/16/24 Unknown History telmisartan 80 1 tablet PO DAILY 08/22/22 06/16/24 Unknown History mg-hydrochlorothiazide 25 mg tablet testosterone 10 mg/0.5 10 mg topical DAILY 08/22/22 06/17/24 Unknown History gram/actuation transdermal gel pump montelukast 10 mg tablet 10 mg PO DAILY 06/17/24 06/17/24 Unknown History Allergies Allergy/AdvReac Type Severity Reaction Status Date / Time No Known Allergies Allergy Verified 08/22/22 12:54 Review of Systems Review of Systems: All systems reviewed & are unremarkable except as noted in HPI and below PMFSH Past Medical History Medical History History of cardiomyopathy Degenerative joint disease of knee Hypertension COPD (chronic obstructive pulmonary disease) Claustrophobia Medial meniscus tear Family History Family History Father No problems noted. Social History Social History Smoking packs per day: 2 Smoking cigarettes per day: 40.0 Years smoked: 18 Smoking pack-years: 36.00 Smoking status: Never smoker Alcohol intake: current Drinks per week: 5 Substance use: never Substance use type: does not use Do You Feel Safe in your Home?: Yes Lack of Transportation: No Lack of Food: Never True Current Housing: I Have Housing Concerned About Future Housing: No Difficulty Paying Gas/Electric Bills: No Difficulty Paying for Meds: No Currently Unemployed: No Education: Trade/Vocational Certificate Difficulty w/ Childcare or Family Care: No Gender identity (if verbalized by the patient): Male Spiritual care concerns: No Exam Const: General: no acute distress and ill appearing Nutritional Appearance: well nourished Orientation/consciousness: patient oriented x3 Limitations: no limitations HENMT: Head: normal to inspection Eyes: Conjunctivae: conjunctivae normal Neck: Neck: normal visual inspection, no lymphadenopathy and no meningeal signs Chest: Chest palpation & inspection: normal inspection of the chest Resp: Effort & Inspection: normal respiratory effort Auscultation: clear to auscultation bilaterally Cardio: Rate: tachycardic Rhythm: abnormal rhythm GI: GI Palp: Yes Soft to palpation Auscultation: normal bowel sounds Urinary Catheter: Urinary Catheter: patent and draining Back/Spine/Pelvis: Back: no CVA tenderness Skin: General skin exam: normal color Rashes: no rashes Wounds: no wounds Neuro: General: patient oriented x3 Extrem: General: normal to inspection and no clubbing, cyanosis or edema Psych: Mental Status: mental status grossly normal Course Course Emergency Course: 64-year-old male with a history of atrial fibrillation currently with a heart rate in the 30s EKG shows sinus tachy with atrial fibrillation with RVR, patient had COVID influenza and RSV performed which shows influenza A positive, patient received 3L of normal saline to improve blood pressure which was initially in the 73 systolic over 57 diastolic. Blood pressure has improved to 90 2/69. Heart rate after fluids continue to be between 115 and 130s and received amiodarone. Patient also received a DuoNeb with a history of COPD and IV Solu-Medrol. Labs performed showed lactic acid of 1.4- D-dimer and negative troponin with sodium of 124, his creatinine 1.27. BP has been stable but occasionally on the lower side at 81/51 and then up to 103 systolic. Patient started on phenylephrine drip and accepted for transfer to ICU at [facility]. Vital Signs Vital signs: Vital Signs Temperature 36.1 C L 12/28/24 10:18 Pulse Rate 130 H 12/28/24 10:18 Respiratory Rate 22 H 12/28/24 10:18 Blood Pressure 73/57 L 12/28/24 10:18 Pulse Oximetry 100 12/28/24 10:18 Oxygen Delivery Room Air 12/28/24 10:18 Temperature 36.1 C L 12/28/24 10:18 Pulse Rate 133 H 12/28/24 12:26 Respiratory Rate 25 H 12/28/24 11:46 Blood Pressure 92/69 L 12/28/24 12:26 Pulse Oximetry 94 12/28/24 11:46 Oxygen Delivery Room Air 12/28/24 11:30 MDM - SOB/Dyspnea Lab Data 12/28/24 11:04 12/28/24 11:03 Labs: Lab Results 12/28/24 12/28/24 12/28/24 Range/Units 10:28 11:03 11:04 WBC 7.4 (4.8-10.8) K/mm3 RBC 5.60 (4.70-6.10) M/mm3 Hgb 16.8 (14.0-18.0) g/dL Hct 48.4 (40.0-54.0) % MCV 86.4 (78.0-102.0) fL MCH 30.0 (27.0-31.0) pg MCHC 34.7 (32-36) g/dL RDW 12.8 (11.6-14.4) % Plt Count 221 (150-420) K/mm3 MPV 9.0 (8.7-11.0) fl Immature Gran % (Auto) Not Reportable Neut % (Auto) Not Reportable Lymph % (Auto) Not Reportable [place] % (Auto) Not Reportable Eos % (Auto) Not Reportable Baso % (Auto) Not Reportable Lymph # (Auto) Not Reportable [place] # (Auto) Not Reportable Eos # (Auto) Not Reportable Baso # (Auto) Not Reportable Abs Immat Gran (auto) Not Reportable Absolute Neuts (auto) Not Reportable Absolute Nucleated RBC Not Reportable Total Counted 100 Neutrophils % (Manual) 45 L (46-73) % Band Neutrophils % 7 H (0-6) % Lymphocytes % (Manual) 30 (18-44) % Monocytes % (Manual) 15 H (3-9) % Nucleated RBC % Not Reportable Abs Neuts (Manual) 3.84 (1.3-6.7) K/mm3 Abs Lymphs (Manual) 2.22 (1.1-4.5) K/mm3 Abs Monocytes (Manual) 1.11 H (0.1-0.90) K/mm3 Platelet Estimate Adequate (Adequate) Schistocytes Not Reportable PT 12.6 H (9.50-12.1) Seconds INR 1.2 APTT 35.9 H (23.9-30.70) Sec D-Dimer 0.24 Cancelled (0.19-0.50) mg/L Sodium 124 L (136-145) mmol/L Potassium 3.8 (3.5-5.1) mmol/L Chloride 91 L (98-108) mmol/L Carbon Dioxide 26 (21-32) mmol/L Anion Gap 7 (4-12) mmol/L BUN 24 H (7-18) mg/dL Creatinine 1.27 (0.70-1.30) mg/dL Estim Creat Clear Calc 62 ml/min Estimated GFR 57 L (59 - ) Glucose 120 H (70-99) mg/dL Calculated Osmolality 263 L (285-295) mOsm/kg Lactic Acid 1.4 (0.4-2.0) mmol/L Calcium 7.7 L (8.5-10.1) mg/dL Magnesium 1.8 (1.8-2.4) mg/dL Total Bilirubin 0.9 (0.00-1.00) mg/dL AST 36 (15-37) U/L ALT 27 (16-63) U/L Alkaline Phosphatase 102 (46-116) U/L Troponin I 12.2 (0.00-60.4) ng/L NT-Pro-B Natriuret Pep 901 H (0-125) pg/mL Total Protein 5.6 L (6.4-8.2) g/dL Albumin 2.7 L (3.4-5.0) g/dL Influenza A (RT-PCR) Positive A (Negative) Influenza B (RT-PCR) Negative (Negative) RSV (RT-PCR) Negative (Negative) SARS-CoV-2 RNA (RT-PCR) Negative (Negative) Critical Care Time Critical Care Time Critical Care Time: No Discharge Plan Discharge Clinical Impression: Atrial fibrillation with RVR, Hypotensive episode, Influenza A Pneumonia Qualifiers: Pneumonia type: due to unspecified organism Laterality: bilateral Lung location: lower lobe of lung Qualified Code(s): J18.9 - Pneumonia, unspecified organism Patient Disposition: Acute Care Hospital Condition: Stable Patient Language: Ecuadorean Prescriptions: No Action atorvastatin 20 mg tablet 20 mg PO DAILY sotalol 80 mg tablet 80 mg PO BID amlodipine 10 mg tablet 10 mg PO DAILY telmisartan-hydrochlorothiazid 80-25 mg tablet 1 tablet PO DAILY testosterone 10 mg/0.5 gram /actuation gel in metered-dose pump 10 mg topical DAILY montelukast 10 mg tablet 10 mg PO DAILY Eliquis 5 mg Tablet 5 mg PO Q12HR Qty: 60 2RF Follow-up/Referrals: Nicko Jauregui MD [Primary Care Provider] - Time of Disposition: 17:09
[2024-12-28] MEDS: OSELTAMIVIR PHOSPHATE 75 MG CAPSULE PO (13:00)
[2024-12-28 13:43] LABS: Add Urine Microscopic? YES; Appearance Urine Clear (Clear); Bilirubin Urine Negative (Negative); Blood Urine Negative (Negative); Color Urine Light Yellow (Yellow); Glucose Urine UA Negative (Negative); Ketones Urine Negative (Negative); Leukocyte Esterase Ur Negative LEU/UL (Negative); Nitrate Urine Negative (Negative); Protein Urine Trace (Negative); Urobilinogen Urine 0.2 mg/dL (0.2-1.0)
[2024-12-28 13:51] LABS: RBC Urine None seen /hpf (0-2); WBC Urine None seen /hpf (0-3)
[2024-12-28 13:52] LABS: Bacteria Urine Rare /hpf
[2024-12-28] MEDS: cefTRIAXone 1 GM, LIDOCAINE 1% LOCAL INJ 2.1 ML IM (13:57)
[2024-12-28] MEDS: AZITHROMYCIN IV 250 MG in SODIUM CHLORIDE 0.9% IV 250 ML IVPB (14:12)
[2024-12-28] MEDS: AMIODARONE 360 MG/D5W 200 ML 360 MG/200 ML BAG 33.33 MG IV CONT (14:32)
[2024-12-28] MEDS: PHENYLEPHRINE HCL INJ 50 MG in DEXTROSE 5% IN WATER 250 ML/245 ML BAG 12 ML IV CONT (16:28)
--- NOTE | 2024-12-30 13:02 | PC.NURSE ---
Preliminary culture report faxed to [facility] [phone]. Gram positive cocci cluster
--- NOTE | 2024-12-31 12:44 | PC.NURSE ---
final blood culture report; stphylococcus capitis, report faxed to [facility]. [phone]
== END 2024-12-28 18:00 | disposition short-term general hospital (02) ==
PROVIDERS: Emergency Provider Emergency Medicine; PCP Internal Medicine
DX: J10.1 Influenza due to other identified influenza virus with other respiratory manifestations (principal); J18.9 Pneumonia, unspecified organism; I48.91 Unspecified atrial fibrillation; I95.9 Hypotension, unspecified; J44.0 Chronic obstructive pulmonary disease with (acute) lower respiratory infection; I10 Essential (primary) hypertension; Z79.01 Long term (current) use of anticoagulants; Z20.822 Contact with and (suspected) exposure to COVID-19
CPT/HCPCS: 36415; 71045; 80053; 81001; 83605; 83735; 83880; 84484; 85025; 85380; 85610; 85730; 87040; 87181; 87637; 93005; 94640; 96361; 96365; 96366; 96367; 96375; 99284; A9270; J0282; J0456; J0696; J2003; J2371; J2919; J7030; J7050; J7060

== ENCOUNTER 2024-12-28 18:31 | Inpatient (IN) | payer OTHER, SELFPAY ==
[2024-12-28] VITALS (22 sets, daily range): BP systolic 80–125; BP diastolic 60–95; PULSE 103–130; RESP 21–91; TEMP 36.8–37.2; O2SAT 23–94; BMI 33.3
--- NOTE | ~2024-12-28 | XR_ITS ---
XR chest PICC line 12/29/2024 10:20 Indication: Repositioning of PICC line Procedure: AP portable chest Comparison: Comparison to multiple prior studies sequentially, with oldest reviewed study dated 07/28. Findings: Lingular airspace disease, compatible with pneumonia. Heart size normal. Right subclavian P ICC line ascends superiorly, coiled in the internal jugular vein. Recommend repositioning. Impression: 1: PICC line coiled in the internal jugular vein. Recommend repositioning. Reviewed, dictated and finalized at location A. AL HUMAN SERVICES ASSISTANTS Impression: 1: PICC line coiled in the internal jugular vein. Recommend repositioning.
--- NOTE | ~2024-12-28 | XR_ITS ---
EXAMINATION: XR chest PICC line DATE: 01/08/2025 13:17 INDICATION: PICC line placement TECHNIQUE: frontal view of the chest was obtained. COMPARISON: Chest radiograph dated 01/07/2025 FINDINGS: Left upper extremity peripherally inserted central venous catheter (PICC) tip at the superior cavoat rial junction. Previously seen small bilateral pleural effusions resolved. There are residual mild streaky opacities at the bilateral lung bases which could represent atelectasis versus pneumonia. No pneumothorax. Hea rt size within normal limits for AP technique. IMPRESSION: 1. Left upper extremity PICC line tip at the superior cavoatrial junction. 2. Resolution of prior small bilateral pleural effusions with residual streaky bibasilar atelectasis versus less likely pneumonia. Reviewed, dictated and finalized at location A. LYTIC CONVERTER OPERATOR HELPER
--- NOTE | ~2024-12-28 | XR_ITS ---
EXAMINATION: XR chest 1V portable DATE: 01/07/2025 09:34 INDICATION: Respiratory failure TECHNIQUE: frontal view of the chest was obtained. COMPARISON: Chest radiograph dated 01/04/2025 FINDINGS: No significant change in airspace opacities in bilateral lower lung zones which could represent atele ctasis, pneumonia, pulmonary edema or some combination thereof. Blunting at costophrenic angles consi stent with persistent small bilateral pleural effusions. No pneumothorax. Heart size within normal li mits for AP technique. IMPRESSION: 1. Opacities in bilateral lower lung zones which could represent atelectasis, pneumonia or mild pulmo nary edema or some combination thereof. 2. Small bilateral pleural effusions. Reviewed, dictated and finalized at location A. TING CARD WRITER IMPRESSION: 1. Opacities in bilateral lower lung zones which could represent atelectasis, p neumonia or mild pulmonary edema or some combination thereof. 2. Small bilateral pleural effusions.
--- NOTE | ~2024-12-28 | XR_ITS ---
EXAMINATION: XR chest 1V portable DATE: 01/03/2025 10:33 INDICATION: Pneumonia. TECHNIQUE: A single frontal view of the chest was obtained. COMPARISON: Chest single view 01/01/2025, chest CT 06/16/2024 FINDINGS: There are small pleural effusions. There are airspace opacities in the lower lung zones. No pneumothorax. Cardiomegaly is noted. IMPRESSION: 1. Airspace opacities in the lower lung zones with improvement on the left, consistent with atelectas is versus pneumonia. 2. Small pleural effusions. 3. Cardiomegaly. Reviewed, dictated and finalized at location A. STARTER IMPRESSION: 1. Airspace opacities in the lower lung zones with improvement on the left, con sistent with atelectasis versus pneumonia. 2. Small pleural effusions. 3. Cardiomegaly.
--- NOTE | ~2024-12-28 | XR_ITS ---
Portable chest x-ray Comparison: 12/29/2024 Clinical History: Shortness of breath Findings: There is worsening left lower lobe and left perihilar consolidation. Right lung essentiall y clear. Cardiomediastinal silhouette is stable. Bones and soft tissues are unremarkable. Impression: Worsening left lower lobe and left perihilar consolidation, compatible with worsening pneumonia. Reviewed, dictated and finalized at location M. ER SHOP UTILITY WORKER Impression: Worsening left lower lobe and left perihilar consolidation, compatible with wor sening pneumonia.
--- NOTE | ~2024-12-28 | XR_ITS ---
Portable chest x-ray Comparison: 01/03/2025 Clinical History: Airspace opacities Findings: There is bibasilar pulmonary edema/atelectasis with minimal bilateral pleural effusions. P robable underlying COPD. Cardiomediastinal silhouette is stable. Bones and soft tissues are unremark able. Impression: Bibasilar pulmonary edema/atelectasis with minimal pleural effusions. Underlying COPD. Reviewed, dictated and finalized at location M. BASE MARKETING SPECIALIST Impression: Bibasilar pulmonary edema/atelectasis with minimal pleural effusions. Underlying COPD.
--- NOTE | ~2024-12-28 | XR_ITS ---
XR chest PICC line 12/29/2024 10:31 Indication: PICC line placement Procedure: AP portable chest Comparison: Comparison to multiple prior studies sequentially, with oldest reviewed study dated 07/2024. Findings: Lingular airspace disease, compatible with pneumonia. Heart size normal. There is atheroscl erosis of the aorta. Right subclavian PICC line tip in the internal jugular vein, incompletely visual ized. Impression: 1: PICC line tip in the right internal jugular vein, recommend repositioning. Reviewed, dictated and finalized at location A. RESEARCH MANAGER Impression: 1: PICC line tip in the right internal jugular vein, recommend repositioning.
--- NOTE | ~2024-12-28 | XR_ITS ---
XR chest PICC line 12/29/2024 10:20 Indication: PICC line placement Procedure: AP portable chest Comparison: Comparison to multiple prior studies sequentially, with oldest reviewed study dated 05/2019. Findings: There is lingular airspace disease, compatible with pneumonia. Heart size normal. There is atherosclerosis. Right subclavian PICC line ascends superiorly into the internal jugular vein, distal aspect not completely visualized. Impression: 1: Right subclavian PICC line tip in the internal jugular vein. Recommend repositioning. 2: Lingular airspace disease, compatible with pneumonia. Reviewed, dictated and finalized at location A. TING ROLLER POLISHER Impression: 1: Right subclavian PICC line tip in the internal jugular vein. Recommend repos itioning. 2: Lingular airspace disease, compatible with pneumonia.
--- OUTSIDE RECORDS SUMMARY | 2024-12-28 18:34 | XMS_ITS | Clinical Summary ---
Author Organization [facility] [address] Address [address] [place] [address] Care Team Providers Care Hvac Specialist Name Role Phone Nicko Jauregui MD Primary Care Provider [phone] Allergies No known active allergies Medications testosterone [...] sotalol therapy 021 PAF (paroxysmal atrial fibrillation) ([facility]) 0 07/08/2017 NICM (nonischemic cardiomyopathy) ([facility]) 06/29 Hyperlipidemia LDL goal <100 07/08/2017 Essential hypertension 07/08/2017 PAIGE (obstructive sleep apnea) 07/08/2017 Encounters Date Type Department Care Team Description 12/25/2024 Telephone [facility] Cardiology [address] [place] [address] [place] [phone] Valente Newberry MD 12/18/2024 Telephone [facility] Cardiology [address] [place] [address] [place] [phone] Valente Newberry MD Test Results 12/09/2024 Orders Only [facility] Health Information Management [address] [place] [phone] Valente Newberry MD 11/24/2024 1:30 PM SENIOR STAFF CONSULTANT Ancillary Procedure [facility] Cardiology [address] [place] [address] [place] [phone] Dizziness 11/06/2024 Telephone [facility] Cardiology [address] [place] [address] [place] [phone] Valente Newberry MD Dizziness from Last 3 [...] on file Legal Sex Male 8:03 AM SENIOR STAFF CONSULTANT Gender Identity Not on file Sexual Orientation [...] MONITOR 48 HR Routine 11/24/2024 4:40 PM SENIOR STAFF CONSULTANT Dizziness from Last 3 Months Results * SCAN - RADIOLOGY/IMAGING (12/09/2024) Anatomical Region Laterality Modality Other us Valente Newberry MD Final Res ult * 48 HR Holter Monitor (11/24/2024 4:40 PM SENIOR STAFF CONSULTANT) Anatomical Region Laterality Modality Electrocardiogra phy Narrative 12/08/2024 3:09 PM SENIOR STAFF CONSULTANT AMBULATORY STATION AGENT REPORT Patient Name: Ashu Dolan Date of [...] was used to complete this document, therefore, electroplater helper variances may occur. Valente Newberry MD, [facility] 12/08/24 Procedure Note Valente Newberry MD - 12/08/2024 AMBULATORY STATION AGENT REPORT Patient Name: Ashu Dolan Date of [...] software was used to complete this document, therefore,electroplater helper variances may occur. Valente Newberry MD, [facility] 12/08/24 Valente Newberry MD [facility] Final Result from Last 3 Months Insurance jellyfish OPEN ACCESS jellyfish OPEN ACCESS Care Teams Hvac Specialist Relationship Specialty Start Date End Date Nicko Jauregui MD PCP - General 02/26/17
--- OUTSIDE RECORDS SUMMARY | 2024-12-28 18:35 | XMS_ITS | Patient Health Summary ---
Author Organization [facility] Address [address] [place] [address] Care Team Providers Care Health Services Administrator Name Role Phone Unavailable Primary Care Provider Unavailabl e Note from [facility],non-owned Affiliates and Associated Physician Practices is amultiple site organization consisting of ambulatory clinics and hospital sitesin [place], [place], [place] and [place]. This disclosure is being madepursuant to the Care Everywhere program and may not contain all information available regarding this patient. Last updated 18.[facility] [employer] Social History Tobacco Use Types Packs/Day Years Used Date Smoking Tobacco: Never Assessed Sex and Gender Information Value Date Recorded Sex Assigned at Not on file Gender Identity Not on file Sexual Orientation Not on file Procedures * DERMATOPATHOLOGY(Performed 03/01/2024) Results * DERMATOPATHOLOGY (03/01/2024 11:47 AM CDT) Case Report Dermatopathology Report ? Case: [id number] ? Authorizing Provider: ??Lisa Ashley MD ? [...] specimen consists of a shave biopsy measuring [id number] mm. Jar 0. Specimen B: Received is [...] characteristic determined by the Dermatopathology Laboratory at [facility], directed by Dr. Beto Sullivan. These tests need not be, and therefore are not, approved by the [place] Food and Drug Administration. The tests are used for clinical purposes. Billing Codes Specimen Charges Stain Charges 14251 84748 1 1 32257 30404 05935 [id number] 85187 02780 55026 13378 73155 37113 13818 75530 43933 02198 70751 14797 1 1 1 1 1 1 1 [...] LAB - PATHOLOGY/CYT OLOGY ORDERABLES DERMATOPATHOLOGY LABORATORY [facility] - Department of Dermatology [facility] Specialized Medicine [address] [place] [address], [address] [phone]
--- OUTSIDE RECORDS SUMMARY | 2024-12-28 18:35 | XMS_ITS | Clinical Summary ---
Author Organization [facility] Topic Address [address] [place] [address] Care Team Providers Care Purchasing Manager Name Role Phone Unavailable Primary Care Provider Unavailabl e Source Comments [facility],non-owned Affiliates and Associated Physician Practices is amultiple site organization consisting of ambulatory clinics and hospital sitesin [place], [place], [place] and [place]. This disclosure is being madepursuant to the Care Everywhere program and may not contain all information available regarding this patient. Last updated 18.[facility] T[facility] Social History Tobacco Use Types Packs/Day Years [...]
--- OUTSIDE RECORDS SUMMARY | 2024-12-28 18:35 | XMS_ITS | Clinical Summary ---
Author Organization [facility] Address [address] [place] [address]. [place], [place] [address] [place] [address] Care Team Providers Care Phlebotomy Program Coordinator Name Role Phone Unavailable Primary Care Provider [...]
--- OUTSIDE RECORDS SUMMARY | 2024-12-28 18:35 | XMS_ITS | Referral Summary ---
Author Organization [facility] Address [address] [facility] [place] [address] Care Team Providers Care Die Cast Technician Name Role Phone Unavailable Primary Care Provider Unavailabl e Source Comments [facility],non-owned Affiliates and Associated Physician Practices is amultiple site organization consisting of ambulatory clinics and hospital sitesin [place], [place], [place] and [place]. This disclosure is being madepursuant to the Care Everywhere program and may not contain all information available regarding this patient. Last updated 18.[facility] [employer] Social History Tobacco Use Types Packs/Day Years Used Date Smoking Tobacco: Never Assessed Sex and Gender Information Value Date Recorded Sex Assigned at Not on file Gender Identity Not on file Sexual Orientation Not on file Plan of Treatment Not on file
--- OUTSIDE RECORDS SUMMARY | 2024-12-28 18:35 | XMS_ITS | Encounter Summary ---
Author Organization [facility] Healthcare Address [address] [place] [address] Care Team Providers Care Independent Freight Agent Name Role Phone Nicko Jauregui MD Primary Care Provider Encounter Details Date Type Department Care Team (Late st Contact Info) Description 12/25/[address] [facility] Cardiology [address] [place] [phone] Valente Newberry MD [address] [facility] [place] [place] [address] [place] [phone] Social History Tobacco Use Types Packs/Day Years Used Date Smoking Tobacco: Former Cigarettes Q uit: 07/08/2002 Smokeless Tobacco: Never Alcohol Use Standard Drinks/Week Comments Yes 14 (1 standard drink = 0.6 oz pu re alcohol) Sex and Gender Information Value Date Recorded Sex Assigned at Not on file Legal Sex Male 8:03 AM RECREATION LEADER Gender Identity Not on file Sexual Orientation Not on file documented as of this encounter Miscellaneous Notes * Telephone Encounter - Suni Verma RN - 12/28/2024 2:34 PM RECREATION LEADER Spoke to Melissa serrano's spouse who said that he has Influenza A with a touch of pneumonia, and his blood pressures are running low, they are wanting to put him in the ICU somewhere they have his BP back up into the 90's systolic Melissa said, but she states It won't stay up long, it keeps dropping backdown etc Informed her that she needs to let the hospital provide recommendations on which medications to give him while he's in there and they can follow up with us after he's discharged. She verbalized understanding. EATION LEADER * Telephone Encounter - Sadia De La Cruz RN - 12/28/2024 2:31 PM RECREATION LEADER Forwarding to oSl RAMIREZ. EATION LEADER * Telephone Encounter - Marylin Solis - 12/28/2024 2:26 PM CST Melissa (pts spouse) states that the patient is currently at [facility] ED for low BP (83/62). They arewanting to admit patient but are trying to find a hospital with room. Melissa is requesting a call back. Please advise. Thank you. Contact [phone] EATION LEADER * Telephone Encounter - Suni Verma RN - 12/28/2024 2:18 PM RECREATION LEADER Called pt and left message reviewing recommendations per Dr. Newberry. Advised pt to call back with questions or concerns. EATION LEADER * Telephone Encounter - Valente Brown RN - 12/26/2024 11:02 AM RECREATION LEADER Spoke with pt. Reviewed instructions given yesterday by Sol RAMIREZ. Advised pt to continue rest and hydration and to give us a call back or proceed to ED if any new s/s develop. Pt verbalizes understanding. EATION LEADER * Telephone Encounter - Amanda Campbell MA - 12/26/2024 10:19 AM CST Patient calling today with an update. Patient says he can't feel if his HR is still out of rhythm but his BP 108/65 and HR 99. Other than the flu symptoms patient isn't feeling anything else. Call back [phone] EATION LEADER * Telephone Encounter - Suni Verma RN - 12/25/2024 3:13 PM RECREATION LEADER LIZ BARRETT Patient states his BP is [...] or proceed to ED. He verbalized understanding. EATION LEADER * Telephone Encounter - Suni Verma RN - 12/25/2024 11:45 AM RECREATION LEADER Called and spoke w/ patient's who was driving and on the way home, but will check on patient when she gets home, review [facility]'s message with him, check his heart rate, and have him give me a call back. EATION LEADER * Telephone Encounter - Suni Verma RN - 12/25/2024 9:20 AM RECREATION LEADER [employer] answering service called back line to let us know they received a call from Melissa Dolan the pt's spouse regarding the patient's heart rhythm and states it has been out of rhythm all morning. # [phone] Called patient, pt states he woke up [...] go to ED, otherwise will see if [facility] has recommendations. Please advise EATION LEADER documented in this encounter Plan of Treatment Not on file documented as of this encounter Visit Diagnoses Not on filedocumented in this encounter Care Teams Independent Freight Agent Relationship Specialty Start Date End Date Nicko Jauregui MD PCP - General 02/26/17 documented as of this encounter
--- OUTSIDE RECORDS SUMMARY | 2024-12-28 18:35 | XMS_ITS | Referral Summary ---
Author Organization [place] [address] Address [facility] [address] [address] Care Team Providers Care Client Experience Manager Name Role Phone Nicko Jauregui MD Primary Care Provider [phone] Encounters Date Type Department Care Team Description 12/25/[address] [facility] Cardiology [address] [place] [address] [address] [place] [phone] Valente Newberry MD 12/18/[address] [place] [phone] Valente Newberry MD Test Results 12/09/2024 Orders Only [facility] Health Information Management [address] [place], [place] [phone] Valente Newberry MD 11/24/2024 1:30 PM LACE STRIPPER Ancillary Procedure [address] [place] [phone] Dizziness 11/06/[address] [place] [phone] Valente Newberry MD Dizziness from Last 3 [...] therapy 021 PAF (paroxysmal atrial fibrillation) ([facility] 0 07/08/2017 NICM (nonischemic cardiomyopathy) ([facility]) 06/29 Hyperlipidemia LDL goal <100 07/08/2017 Essential [...] on file Legal Sex Male 8:03 AM LACE STRIPPER Gender Identity Not on file Sexual Orientation [...] MONITOR 48 HR Routine 11/24/2024 4:40 PM LACE STRIPPER Dizziness from Last 3 Months Results * SCAN - RADIOLOGY/IMAGING (12/09/2024) Anatomical Region Laterality Modality Other us Valente Newberry MD Final Res ult * 48 HR Holter Monitor (11/24/2024 4:40 PM LACE STRIPPER) Anatomical Region Laterality Modality Electrocardiogra phy Narrative 12/08/2024 3:09 PM LACE STRIPPER AMBULATORY LABOR RELATIONS TEACHER REPORT Patient Name: Ashu Dolan Date of [...] was used to complete this document, therefore, railroad brake repairer variances may occur. Valente Newberry MD, [facility] 12/08/24 Procedure Note Valente Newberry MD - 12/08/2024 AMBULATORY LABOR RELATIONS TEACHER REPORT Patient Name: Ashu Dolan Date of [...] software was used to complete this document, therefore,railroad brake repairer variances may occur. Valente Newberry MD, [facility] 12/08/24 Valente Newberry MD CV CARDIAC SERVICES [facility] Final Result from Last 3 Months Insurance [employer] OPEN ACCESS [employer] OPEN ACCESS Care Teams Client Experience Manager Relationship Specialty Start Date End Date Nicko Jauregui MD PCP - General 02/26/17
--- OUTSIDE RECORDS SUMMARY | 2024-12-28 18:35 | XMS_ITS | Encounter Summary ---
Author Organization [facility] Healthcare Address [address] [place] [address] Care Team Providers Care Shop Steward Name Role Phone Nicko Jauregui MD Primary Care Provider [phone] Encounter Details Date Type Department Care Team (Late st Contact Info) Description 11/14/2019 Telephone [facility] [address] [facility] 1[address] [place] [address] Ceci Menezes, RT Social History Tobacco Use Types Packs/Day Years Used Date Smoking Tobacco: Former Cigarettes Q uit: 07/08/2002 Smokeless Tobacco: Never Alcohol Use Standard Drinks/Week Comments Yes 14 (1 standard drink = 0.6 oz pu re alcohol) Sex and Gender Information Value Date Recorded Sex Assigned at Not on file Legal Sex Male 8:03 AM DEVELOPMENT ASSOCIATE Gender Identity Not on file Sexual Orientation Not on file documented as of this encounter Plan of Treatment Not on file documented as of this encounter Visit Diagnoses Not on filedocumented in this encounter Care Teams Shop Steward Relationship Specialty Start Date End Date Nicko Jauregui MD PCP - General 02/26/17 documented as of this encounter
--- OUTSIDE RECORDS SUMMARY | 2024-12-28 18:35 | XMS_ITS | Encounter Summary ---
Author Organization [facility] Address [address] [place] [address] Care Team Providers Care Vocational Rehabilitation Supervisor Name Role Phone Unavailable Primary Care Provider Unavailabl e Encounter Details Date Type Department Care Team (Late st Contact Info) Description 03/01/2024 Lab Requisition [facility] Derm[facility] Lab [address] [place] [address] Lisa Ashley MD [address] [facility] [address] [place] [address] Social History Tobacco Use Types Packs/Day Years [...] CDT) Case Report Dermatopathology Report ? Case: [id number] ? Authorizing Provider: ??Lisa Ashley MD ? [...] specimen consists of a shave biopsy measuring [id number] mm. Jar 0. Specimen B: Received is one formalin filled container labeled with the patient's name and designated righ buttocks. The specimen consists of a punch biopsy measuring 3x3x6 mm. Jar 0. 4 5:47 PM [facility] Microscopic Description Specimen A. SKIN, [...] comment in specimen A. 4 5:47 PM [facility] Disclaimer An external and internal positive and negative controls are appropriate for the histochemical, immunohistochemical and immunofluorescence stain(s) in this case (if any), except where stated explicitly. The performance characteristics of the stain(s) cited in this report were developed and its performance characteristic determined by the Dermatopathology Laboratory at [facility], directed by Dr. Beto Sullivan. These tests need not be, and therefore are not, approved by the [place] Food and Drug Administration. The tests are used for clinical purposes. Billing Codes Specimen Charges Stain Charges 08187 08213 1 1 13198 [id number] 00257 16958 42118 39821 92524 [id number] 15881 51425 [id number] [id number] 1 1 1 1 1 1 1 [...] LAB - PATHOLOGY/CYT OLOGY ORDERABLES DERMATOPATHOLOGY LABORATORY [facility] - Department of Dermatology [facility] [address] [place] [address], [address]rd Floor [address] [phone] documented in this encounter Visit Diagnoses Not on filedocumented in this encounter
--- NOTE | 2024-12-28 18:50 | ADMGEN ---
This patient, Ashu Dolan, was admitted to Intensive Care Unit-1. Patient/family oriented to hospital policies and general routines including ID bracelet, bed and alarms, visiting hours, pain management, procedures, bathroom and other care routines, personal items, smoking policy, room service/diet, and visiting hours. Information on how to activate the Rapid Response Team has been discussed. Patient/Family are encouraged to report perceived risks to care and to ask questions if they do not understand what they are told or what they should do.
--- NOTE | 2024-12-28 18:55 | P.HP_ITS ---
H&P: HPI History of Present Illness Date/Time: 12/28/24 18:55 Chief Complaint: Influenza A, rapid atrial fibrillation, hypotension. Narrative: This is a very pleasant 64-year-old male with history of tachycardia induced cardiomyopathy, paroxysmal atrial fibrillation on chronic anticoagulation, hypertension, dyslipidemia, and chronic obstructive pulmonary disease who is being directly admitted to the intensive care unit from the emergency department at the [facility] for treatment of atrial fibrillation with rapid ventricular response, influenza A, and hypotension. The patient provides the following history. He and his developed upper respiratory symptoms last weekend and while she has improved he has been feeling worse each day. Symptoms include subjective fever, chills, cough productive of yellow and occasionally oneal-colored sputum, poor appetite with decreased oral intake, nausea, vomiting, and a few loose stools a day. He has also been feeling weak, lightheaded, and di zzy and reports that his blood pressures have been running low since Wednesday, in the 90s systolic. He continues to take his medications as prescribed including amlodipine and telmisartan-hydrochlorothiazide. He denies syncope, chest pain, pleuritic pain, abdominal pain, hematemesis, hematochezia, melena, and dysuria. In the ED: Vital signs on arrival include a temperature of 97?, blood pressure 73/57, pulse 130, respiratory 20, SpO2 100% on room air. Labs were significant for a WBC count of 7.4 with 7% bands on differential, hemoglobin 16.8, D-dimer 0.24, sodium 124, chloride 91, potassium 3.8, BUN 24, creatinine 1.27, glucose 120, calcium 7.7, proBNP 901. Urinalysis was positive for trace protein. He was positive for influenza A and nasal MRSA was detected. Chest x-ray showed mild opacities at the bilateral lower lung zones which could be due to atelectasis, mild pulmonary edema, or pneumonia. EKG showed rapid atrial fibrillation. He received 4 L of crystalloids without significant improvement in his blood pressures and he was started on peripheral phenylephrine. He was also started on an amiodarone drip for rapid atrial fibrillation and transfer was initiated to [place] for higher level of care. At the time my evaluation he reports feeling a bit better and has no specific complaints. Review of Systems Review of Systems: 12 systems were reviewed and are negativ e except for as per HPI. [facility] Past Medical History Medical History Chronic anticoagulation Paroxysmal atrial fibrillation Chronic obstructive pulmonary disease Tachycardia induced cardiomyopathy Degenerative joint disease of knee Hypertension Claustrophobia Medial meniscus tear Family History Family History Father No problems noted. Social History Social History (Updated 12/28/24 @ 23:01 by Misty Aleman PA-C) Social History: Surrogate medical decision maker: Melissa Dolan, spouse ([phone]). Code status: Full code. Smoking packs per day: 2 Smoking cigarettes per day: 40.0 Years smoked: 20 Smoking pack-years: 40.00 Smoking status: Former smoker Tobacco type: cigarettes Smoking end date: 12/28/99 Alcohol intake: former Drinks per week: 5 Substance use: never Substance use type: does not use Do You Feel Safe in your Home?: Yes Lack of Transportation: No Lack of Food: Never True Current Housing: I Have Housing Concerned About Future Housing: No Difficulty Paying Gas/Electric Bills: No Difficulty Paying for Meds: No Currently Unemployed: No Education: Decline to Answer Difficulty w/ Childcare or Family Care: No Spiritual care concerns: No Meds Home Medications and Allergies Home Medications ?Medication ?Instructions ?Recorded ?Confirmed ?Type amlodipine 10 mg tablet 10 mg PO DAILY 08/22/22 12/28/24 History atorvastatin 20 mg tablet 20 mg PO DAILY 08/22/22 12/28/24 History sotalol 80 mg tablet 80 mg PO BID 08/22/22 12/28/24 History telmisartan 80 1 tablet PO DAILY 08/22/22 12/28/24 History mg-hydrochlorothiazide 25 mg tablet testosterone 10 mg/0.5 10 mg topical DAILY 08/22/22 12/28/24 History gram/actuation transdermal gel pump montelukast 10 mg tablet 10 mg PO DAILY 06/17/24 12/28/24 History apixaban 5 mg tablet (Eliquis) 5 mg PO Q12HR #60 tabs 06/19/24 12/28/24 Rx fluticasone fur. 200 mcg-umeclid 1 inh inhalation Q24H 12/28/24 12/28/24 History 62.5 mcg-vilant 25 mcg inhalat.powder (Trelegy Ellipta) magnesium 200 mg tablet 400 mg PO DAILY 12/28/24 12/28/24 History Allergies Allergy/AdvReac Type Severity Reaction Status Date / Time No Known Allergies Allergy Verified 12/28/24 18:39 Exam Narrative: General: Moderately ill appearing male sitting up in bed. Weight: 99.3 kg. BMI: 33.3. HEENT: PERRL, EOMI. Sclera anicteric. Tacky mucous membranes. Neck: Supple. No JVD. Respiratory: Mildly tachypneic. Speaking in full sentences. In no acute respir atory distress. Fine crackles heard at the bases. Cardiovascular: Irregularly irregular rate and rhythm. Gastrointestinal: Abdomen is soft, nontender, and nondistended with positive bowel sounds. Bladder feels a bit distended. Skin: Warm and dry. Normal capillary refill. Hands and feet are warm and well perfused. Extremities: No cyanosis, clubbing, or edema. Radial and pedal pulses intact. Neurological: Alert and oriented. Cranial nerves 2-12 are grossly intact. No gross focal deficits to casual conversation. Psychiatric: Pleasant and cooperative with normal mood and affect. Judgment and insight intact. H&P: Results Labs Labs: 12/28/24 12/28/24 12/28/24 Range/Units 10:28 11:03 11:04 WBC 7.4 (4.8-10.8) K/mm3 RBC 5.60 (4.70-6.10) M/mm3 Hgb 16.8 (14.0-18.0) g/dL Hct 48.4 (40.0-54.0) % MCV 86.4 (78.0-102.0) fL MCH 30.0 (27.0-31.0) pg MCHC 34.7 (32-36) g/dL RDW 12.8 (11.6-14.4) % Plt Count 221 (150-420) K/mm3 MPV 9.0 (8.7-11.0) fl Immature Gran % (Auto) Not Reportable Neut % (Auto) Not Reportable Lymph % (Auto) Not Reportable Archuleta % (Auto) Not Reportable Eos % (Auto) Not Reportable Baso % (Auto) Not Reportable Lymph # (Auto) Not Reportable [place]ule[place] # (Auto) Not Reportable Eos # (Auto) Not Reportable Baso # (Auto) Not Reportable Abs Immat Gran (auto) Not Reportable Absolute Neuts (auto) Not Reportable Absolute Nucleated RBC Not Reportable Total Counted 100 Neutrophils % (Manual) 45 L (46-73) % Band Neutrophils % 7 H (0-6) % Lymphocytes % (Manual) 30 (18-44) % Monocytes % (Manual) 15 H (3-9) % Nucleated RBC % Not Reportable Abs Neuts (Manual) 3.84 (1.3-6.7) K/mm3 Abs Lymphs (Manual) 2.22 (1.1-4.5) K/mm3 Abs Monocytes (Manual) 1.11 H (0.1-0.90) K/mm3 Platelet Estimate Adequate (Adequate) Schistocytes Not Reportable PT 12.6 H (9.50-12.1) Seconds INR 1.2 APTT 35.9 H (23.9-30.70) Sec D-Dimer 0.24 Cancelled (0.19-0.50) mg/L Sodium 124 L (136-145) mmol/L Potassium 3.8 (3.5-5.1) mmol/L Chloride 91 L (98-108) mmol/L Carbon Dioxide 26 (21-32) mmol/L Anion Gap 7 (4-12) mmol/L BUN 24 H (7-18) mg/dL Creatinine 1.27 (0.70-1.30) mg/dL Estim Creat Clear Calc 62 ml/min Estimated GFR 57 L (59 - ) Glucose 120 H (70-99) mg/dL Calculated Osmolality 263 L (285-295) mOsm/kg Lactic Acid 1.4 (0.4-2.0) mmol/L Calcium 7.7 L (8.5-10.1) mg/dL Magnesium 1.8 (1.8-2.4) mg/dL Total Bilirubin 0.9 (0.00-1.00) mg/dL AST 36 (15-37) U/L ALT 27 (16-63) U/L Alkaline Phosphatase 102 (46-116) U/L Troponin I 12.2 (0.00-60.4) ng/L NT-Pro-B Natriuret Pep 901 H (0-125) pg/mL Total Protein 5.6 L (6.4-8.2) g/dL Albumin 2.7 L (3.4-5.0) g/dL Influenza A (RT-PCR) Positive A (Negative) Influenza B (RT-PCR) Negative (Negative) RSV (RT-PCR) Negative (Negative) SARS-CoV-2 RNA (RT-PCR) Negative (Negative) Imaging Chest x-ray: Radiologist's impression: Mild opacities at the bilateral lower lung zones which could be due to atelectasis, mild pulmonary edema, or pneumonia. Assessment and Plan Assessment and plan (1) Atrial fibrillation with rapid ventricular response: Code(s): I48.91 - Unspecified atrial fibrillation Status: Acute Assessment and Plan: Patient presented in rapid atrial fibrillation with rates in the 120s to 130s. He is on sotalol at home, 80 mg twice daily, and he has not missed any doses. It is noted that in May of 2024 he had difficulties converting to normal sinus rhythm and was cardioverted. * Continue amiodarone drip as he has better rate control. * Dr. Newberry, the patient's weeder thinner, has been consulted for further recommendations. * Continue apixaban for stroke prophylaxis. (2) Influenza A: Code(s): J10.1 - Influenza due to other identified influenza virus with other respiratory manifestations Status: Acute Assessment and Plan: Patient reports flu symptoms since last weekend. * Continue oseltamivir 75 mg twice daily. * Patient has been placed in isolation per protocol. (3) Hypotension: Code(s): I95.9 - Hypotension, unspecified Status: Acute Assessment and Plan: Hypotension may very well be due to hypovolemia from poor oral intake and GI losses in addition to the fact that he is still taking his antihypertensives including telmisartan, hydrochlorothiazide, and amlodipine. Sepsis remains in the differential with the possibility of pneumonia (chest x-ray showing mild opacities in the bilateral lower lung zones which could be atelectasis, mild pulmonary edema, or pneumonia). * Status post 4 L crystalloid bolus at outside facility. * Currently on peripheral, low-dose phenylephrine which will be weaned as tolerated. * Blood and sputum cultures ordered. * Continue ceftriaxone, doxycycline, and vancomycin for possible pneumonia (would likely be viral due to influenza). (4) Hyperglycemia: Code(s): R73.9 - Hyperglycemia, unspecified Status: Acute Assessment and Plan: Random glucose this evening was 181. * Hemoglobin A1c was 6.0% in May 2024. * Check fasting glucose and hemoglobin A1c. (5) Hyponatremia: Code(s): E87.1 - Hypo-osmolality and hyponatremia Status: Acute Assessment and Plan: Sodium and chloride were 124 and 91 respectively on presentation to the outside facility and are currently 125 and 95. * Status post 4 L crystalloid bolus at outside facility. * Hold further IV fluids as he has crackles on exam, blood pressures are improvi ng, and sodium has not changed much. * Check urine and serum osmolalities, urine sodium and urea, and TSH. (6) MRSA colonization: Code(s): Z22.322 - Carrier or suspected carrier of Methicillin resistant Staphylococcus aureus Status: Acute Assessment and Plan: Apply mupirocin ointment to nares q.12 hours for 5 days. Quality VTE Prophylaxis VTE prophylaxis: pharmacologic ordered (on apixaban) Hospitalist MIPS Advance Care Plan I have confirmed that the patient's Advanced Care Plan is present, code status is documented, or surrogate decision maker is listed in patient medical record.: Yes Medication Reconciliation I have utilized all available resources to obtain, update and review the patients current medications (includes all prescriptions, OTC, herbals, cannabis, and nutritional supplements).: Yes Critical Care Time Critical Care Time: Yes Total Critical Care Time: 60 Attestation: Due to a high probability of clinically significant, life threatening deterioration, the patient required my highest level of preparedness to intervene emergently and I personally spent this critical care time directly and personally managing the patient. This critical care time included obtaining a history; examining the patient; pulse oximetry; ordering and review of studies; arranging urgent treatment with development of a management plan; evaluation of patient's response to treatment; frequent reassessment; and discussions with other providers. It was exclusive of separately billable procedures and treating other patients and teaching time. Please see Assessment and Plan section and the rest of the note for further information on patient assessment and treatment.
[2024-12-28] MEDS: PHENYLEPHRINE HCL INJ 50 MG in DEXTROSE 5% IN WATER 250 ML/245 ML BAG 9 ML IV CONT (19:24)
[2024-12-28 19:44] LABS: Creatinine Urine 22.8 mg/dL
[2024-12-28 19:53] LABS: Sodium Urine Random 20 meq/L
[2024-12-28 19:53] LABS: Hemoglobin 16.6 g/dL (14.0-18.0); Mean Corpuscular HGB Conc 35.3 g/dl (32-36); Mean Corpuscular Hemoglobin 30.3 pg (26-34); Mean Corpuscular Volume 85.9 fl (80-100); Platelet Count Result 234 k/mm3 (150-375); Red Blood Count 5.47 M/mm3 (4.6-6.20); Red Cell Distribution Width 13.1 % (11.5-14.5); White Blood Count 5.1 K/mm3 (4.5-10.0)
[2024-12-28 19:54] LABS: Urea Random Urine 376 MG/DL
[2024-12-28 20:11] LABS: Lactic Acid Reflex 1.3 mmol/L (0.7-2.0)
[2024-12-28] MEDS: VANCOMYCIN 1,250 MG/NS 250 ML 1,250 MG/250 ML BAG 166.67 MG IVPB ×2 (20:11→21:53)
[2024-12-28] MEDS: OSELTAMIVIR PHOSPHATE 75 MG CAPSULE PO (20:11)
[2024-12-28] MEDS: DOXYCYCLINE HYCLATE 100 MG TABLET PO (20:11)
[2024-12-28 20:12] LABS: Alanine Aminotransferase 29 U/L (6-50); Albumin Level 3.5 g/dL (3.5-5.1); Alkaline Phosphatase 99 U/L (38-126); Anion Gap 10 mmol/L (4-12); Aspartate Amino Transferase 42 U/L (17-59); Bilirubin,Total 0.8 mg/dL (0.2-1.3); Blood Urea Nitrogen 19 mg/dL (9-20); Calcium 7.9 mg/dL (8.4-10.2); Carbon Dioxide 20 mmol/L (22-30); Chloride 95 mmol/L (98-107); Estimated CRCL calculation 108 ml/min; Estimated Glomerular Filt Rate > 60; Glucose 181 mg/dL (65-110); Magnesium 1.9 mg/dL (1.6-2.3); Potassium 3.6 mmol/L (3.4-5.0); Sodium 125 mmol/L (137-145)
[2024-12-28] MEDS: AMIODARONE 360 MG/D5W 200 ML 360 MG/200 ML BAG 33.33 MG IV CONT (20:17)
[2024-12-28 20:23] LABS: NT Pro B Type Natriuretic Pept 651 pg/mL (19.9-100); Troponin I < 0.012 ng/mL (0.000-0.034)
[2024-12-28 20:28] LABS: Procalcitonin 0.1 ng/mL
[2024-12-28 20:42] LABS: Thyroid Stimulating Hormone Reflex 0.778 uIU/mL (0.465-4.68)
[2024-12-28 22:16] LABS: MRSA (PCR) DETECTED (NOT DETECTE)
[2024-12-28] MEDS: PHENYLEPHRINE HCL INJ 50 MG in DEXTROSE 5% IN WATER 250 ML/245 ML BAG 6 ML IV CONT (23:35)
[2024-12-29] VITALS (45 sets, daily range): BP systolic 79–115; BP diastolic 39–100; PULSE 100–143; RESP 16–30; TEMP 36.4–37.4; O2SAT 91–100
[2024-12-29] MEDS: AMIODARONE 360 MG/D5W 200 ML 360 MG/200 ML BAG 16.67 MG IV CONT (02:00)
[2024-12-29 04:33] LABS: Basophils Percent Auto 0.1 % (0.2-1.2); Hematocrit 48.3 % (42.0-52.0); Hemoglobin 16.8 g/dL (14.0-18.0); Immature Granulocyte Absolute 0.03 K/mm3 (0.00-0.031); Immature Granulocyte Percent A 0.4 % (0-0.5); Lymphocytes Absolute Auto 1.66 K/mm3 (0.9-3.2); Lymphocytes Percent Auto 24.2 % (18.3-44.2); Mean Corpuscular HGB Conc 34.8 g/dl (32-36); Mean Corpuscular Hemoglobin 30.2 pg (26-34); Mean Corpuscular Volume 86.7 fl (80-100); Mean Platelet Volume 9.2 fl (7.4-10.4); Monocytes Absolute Auto 0.7 K/mm3 (0.1-0.6); Monocytes Percent Auto 10.3 % (2.6-8.5); Neutrophils Absolute Auto 4.5 K/mm3 (1.3-6.7); Platelet Count Result 215 k/mm3 (150-375); Red Blood Count 5.57 M/mm3 (4.6-6.20); Red Cell Distribution Width 13.2 % (11.5-14.5); White Blood Count 6.9 K/mm3 (4.5-10.0)
[2024-12-29 04:48] LABS: Alanine Aminotransferase 27 U/L (6-50); Albumin Level 3.3 g/dL (3.5-5.1); Alkaline Phosphatase 96 U/L (38-126); Anion Gap 9 mmol/L (4-12); Aspartate Amino Transferase 37 U/L (17-59); Bilirubin,Total 0.8 mg/dL (0.2-1.3); Blood Urea Nitrogen 13 mg/dL (9-20); Calcium 8.3 mg/dL (8.4-10.2); Carbon Dioxide 24 mmol/L (22-30); Chloride 100 mmol/L (98-107); Estimated CRCL calculation 133 ml/min; Estimated Glomerular Filt Rate > 60; Glucose 127 mg/dL (65-110); Magnesium 2.1 mg/dL (1.6-2.3); Potassium 3.5 mmol/L (3.4-5.0); Sodium 133 mmol/L (137-145)
[2024-12-29] MEDS: FLUTICASONE/UMECLIDIN/VILANTER 200-62.5-25 MCG ELLIPTA 1 PUFF INHALATION (07:48)
--- NOTE | 2024-12-29 09:07 | P.CONIN_ITS ---
Assessment and Plan Assessment and plan (1) Hypotension: Code(s): I95.9 - Hypotension, unspecified Status: Acute Assessment and Plan: Patient presented with hypotension which is likely multifactorial secondary to AFib with RVR, patient continue taking his antihypertensive medication, dehydration from poor p.o. intake and questionable sepsis His lactic acid level was normal He received 4 L of fluid in the ER and was started on low-dose Earl-Synephrine infusion which will be continued I will give additional 500 cc 5% albumin bolus and try to wean off Earl- Synephrine Hopefully with better heart rate control blood pressure will improve Antibiotics and management of influenza as below (2) Atrial fibrillation with RVR: Code(s): I48.91 - Unspecified atrial fibrillation Status: Acute Assessment and Plan: Patient presented with AFib with RVR likely secondary to influenza A infection Currently on amiodarone infusion Eliquis Will give additional amiodarone bolus Consult cardiology Sotalol is on hold due to hypotension (3) Chronic anticoagulation: Code(s): Z79.01 - longterm (current) use of anticoagulants Status: Acute Assessment and Plan: Continue Eliquis (4) Chronic obstructive pulmonary disease: Code(s): J44.9 - Chronic obstructive pulmonary disease, unspecified Status: Acute Assessment and Plan: Not in exacerbation P.r.n. bronchodilators (5) Influenza A: Code(s): J10.1 - Influenza due to other identified influenza virus with other respiratory manifestations Status: Inactive Assessment and Plan: Tamiflu Isolation (6) Pneumonia: Qualifiers: Laterality: bilateral Lung location: lower lobe of lung Pneumonia type: due to unspecified organism Qualified Code(s): J18.9 - Pneumonia, unspecified organism Code(s): J18.9 - Pneumonia, unspecified organism Status: Inactive Assessment and Plan: Patient presented with influenza a with infiltrates and suspected to have a secondary bacterial infection and was started on empiric antibiotics Patient is on vancomycin Rocephin and doxycycline Objective evidence of pneumonia is low MRSA screen was positive Continue antibiotics for 48 hours and then deescalate depending on the results Plan DVT prophylaxis -Eliquis Stress ulcer prophylaxis - NA Nutrition -diet ordered Code Status - Full Code Total Critical Care Time - 35 minutes Due to a high probability of clinically significant, life threatening deterioration, the patient required my highest level of preparedness to intervene emergently and I personally spent this critical care time directly and personally managing the patient. This critical care time included obtaining a history; examining the patient; pulse oximetry; ordering and review of studies; arranging urgent treatment with development of a management plan; evaluation of patient's response to treatment; frequent reassessment; and discussions with other providers. It was exclusive of separately billable procedures and treating other patients and teaching time. 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 Patient presented there feeling sick for last 3-4 days. Patient states the symptoms started on Wednesday when he woke up with headache runny nose and cough. He felt that he had a flu but try to manage it at home. He had fever chills body aches cough shortness of breath. He checked his blood pressure at home and was low which prompted him to go to the hospital yesterday. He also had diarrhea with loose bowel movements but no blood in it. No dysuria hematuria hematochezia melena. No dizziness lightheadedness or loss of consciousness. He did had poor p.o. intake and did not feel like eating for last many days. He continue to take all his medications regularly. All other systems were reviewed and were negative Workup in the ER showed Vital signs on arrival include a temperature of 97?, blood pressure 73/57, pulse 130, respiratory 20, SpO2 100% on room air. Labs were significant for a WBC count of 7.4 with 7% bands on differential, hemoglobin 16.8, D-dimer 0.24, sodium 124, chloride 91, potassium 3.8, BUN 24, creatinine 1.27, glucose 120, calcium 7.7, proBNP 901. Urinalysis was positive for trace protein. He was positive for influenza A and nasal MRSA was detected. Chest x-ray showed mild opacities at the bilateral lower lung zones which could be due to atelectasis, mild pulmonary edema, or pneumonia. EKG showed rapid atrial fibrillation. He received 4 L of crystalloids without significant improvement in his blood pressures and he was started on peripheral phenylephrine. He was also started on an amiodarone drip for rapid atrial fibrillation and transfer was initiated to [place] for higher level of care. This morning on my evaluation patient continues to be on amiodarone drip and is on low-dose Earl-Synephrine infusion. He states he feels better. Review of Systems 2 Review of Systems: All systems reviewed & are unremarkable except as noted in HPI and below (HPI) [facility] Past Medical History Medical History Chronic anticoagulation Paroxysmal atrial fibrillation Chronic obstructive pulmonary disease Tachycardia induced cardiomyopathy Degenerative joint disease of knee Hypertension Claustrophobia Medial meniscus tear Family History Family History Father No problems noted. Social History Social History Social History: Surrogate medical decision maker: Melissa Dolan, spouse ([phone]). Code status: Full code. Smoking packs per day: 2 Smoking cigarettes per day: 40.0 Years smoked: 20 Smoking pack-years: 40.00 Smoking status: Former smoker Tobacco type: cigarettes Smoking end date: 12/28/99 Alcohol intake: former Drinks per week: 5 Substance use: never Substance use type: does not use Do You Feel Safe in your Home?: Yes Lack of Transportation: No Lack of Food: Never True Current Housing: I Have Housing Concerned About Future Housing: No Difficulty Paying Gas/Electric Bills: No Difficulty Paying for Meds: No Currently Unemployed: No Education: Decline to Answer Difficulty w/ Childcare or Family Care: No Spiritual care concerns: No Meds Home Medications and Allergies Home Medications ?Medication ?Instructions ?Recorded ?Confirmed ?Type amlodipine 10 mg tablet 10 mg PO DAILY 08/22/22 12/28/24 History atorvastatin 20 mg tablet 20 mg PO DAILY 08/22/22 12/28/24 History sotalol 80 mg tablet 80 mg PO BID 08/22/22 12/28/24 History telmisartan 80 1 tablet PO DAILY 08/22/22 12/28/24 History mg-hydrochlorothiazide 25 mg tablet testosterone 10 mg/0.5 10 mg topical DAILY 08/22/22 12/28/24 History gram/actuation transdermal gel pump montelukast 10 mg tablet 10 mg PO DAILY 06/17/24 12/28/24 History apixaban 5 mg tablet (Eliquis) 5 mg PO Q12HR #60 tabs 06/19/24 12/28/24 Rx fluticasone fur. 200 mcg-umeclid 1 inh inhalation Q24H 12/28/24 12/28/24 History 62.5 mcg-vilant 25 mcg inhalat.powder (Trelegy Ellipta) magnesium 200 mg tablet 400 mg PO DAILY 12/28/24 12/28/24 History Allergies Allergy/AdvReac Type Severity Reaction Status Date / Time No Known Allergies Allergy Verified 12/28/24 18:39 Vital Signs Vital Signs - 24 hr 12/28/24 18:50 12/28/24 19:15 12/28/24 19:24 Temperature Pulse Rate 123 H 125 H 116 H Respiratory Rate 26 H Blood Pressure 112/85 111/66 111/66 Pulse Oximetry 93 Oxygen Delivery Oxygen Flow Rate 12/28/24 19:40 12/28/24 19:45 12/28/24 20:00 Temperature Pulse Rate 115 H 107 H 109 H Respiratory Rate 21 H 25 H 24 H Blood Pressure 111/77 104/88 Pulse Oximetry 91 90 93 Oxygen Delivery Room Air Oxygen Flow Rate 12/28/24 20:00 12/28/24 20:00 12/28/24 20:00 Temperature Pulse Rate 121 H 117 H 116 H Respiratory Rate 23 H Blood Pressure 112/84 105/74 Pulse Oximetry 92 Oxygen Delivery Oxygen Flow Rate 12/28/24 20:15 12/28/24 20:17 12/28/24 20:22 Temperature Pulse Rate 118 H 128 H 122 H Respiratory Rate 24 H Blood Pressure 112/84 112/84 112/84 Pulse Oximetry 91 Oxygen Delivery Oxygen Flow Rate 12/28/24 20:30 12/28/24 20:45 12/28/24 20:45 Temperature Pulse Rate 119 H 112 H 121 H Respiratory Rate 21 H 26 H Blood Pressure 109/81 125/95 H 125/95 H Pulse Oximetry 94 94 Oxygen Delivery Oxygen Flow Rate 12/28/24 21:00 12/28/24 21:00 12/28/24 21:15 Temperature 36.8 C 37.2 C 37.2 C Pulse Rate 124 H 115 H 116 H Respiratory Rate 23 H 23 H 91 H Blood Pressure 108/71 108/71 97/76 L Pulse Oximetry 93 94 23 L Oxygen Delivery Oxygen Flow Rate 12/28/24 21:30 12/28/24 21:45 12/28/24 21:50 Temperature 37.2 C 37.2 C Pulse Rate 123 H 122 H 130 H Respiratory Rate 24 H 28 H Blood Pressure 111/85 108/77 108/77 Pulse Oximetry 93 91 Oxygen Delivery Oxygen Flow Rate 12/28/24 22:00 12/28/24 22:00 12/28/24 22:00 Temperature 37.1 C Pulse Rate 118 H 121 H 115 H Respiratory Rate 21 H Blood Pressure 95/72 L 98/72 L Pulse Oximetry 93 Oxygen Delivery Oxygen Flow Rate 12/28/24 22:15 12/28/24 23:30 12/28/24 23:35 Temperature Pulse Rate 121 H 115 H 115 H Respiratory Rate 24 H 23 H Blood Pressure 98/72 L 80/60 L 80/60 L Pulse Oximetry 92 93 Oxygen Delivery Oxygen Flow Rate 12/28/24 23:45 12/28/24 23:46 12/29/24 00:00 Temperature 36.9 C 36.9 C Pulse Rate 103 H 115 H 121 H Respiratory Rate 22 H 24 H 20 Blood Pressure 95/69 L 99/62 L Pulse Oximetry 93 92 94 Oxygen Delivery Room Air Oxygen Flow Rate 12/29/24 00:00 12/29/24 00:00 12/29/24 00:00 Temperature Pulse Rate 115 H 115 H 112 H Respiratory Rate Blood Pressure 99/62 L 99/62 L Pulse Oximetry Oxygen Delivery Oxygen Flow Rate 12/29/24 00:51 12/29/24 02:00 12/29/24 02:00 Temperature 36.7 C Pulse Rate 110 H 115 H 115 H Respiratory Rate 20 Blood Pressure 95/81 L 91/76 L Pulse Oximetry 94 Oxygen Delivery Oxygen Flow Rate 12/29/24 02:00 12/29/24 02:00 12/29/24 02:15 Temperature 36.6 C Pulse Rate 110 H 111 H 110 H Respiratory Rate 19 Blood Pressure 91/76 L 91/76 L 82/54 L Pulse Oximetry 94 Oxygen Delivery Oxygen Flow Rate 12/29/24 02:18 12/29/24 02:30 12/29/24 02:30 Temperature 36.6 C Pulse Rate 110 H 107 H 111 H Respiratory Rate 18 Blood Pressure 82/54 L 79/52 L 79/52 L Pulse Oximetry 94 Oxygen Delivery Oxygen Flow Rate 12/29/24 02:46 12/29/24 03:50 12/29/24 04:00 Temperature 36.6 C Pulse Rate 115 H 100 100 Respiratory Rate 21 H 21 H Blood Pressure 99/67 L 95/71 L Pulse Oximetry 93 95 Oxygen Delivery Room Air Oxygen Flow Rate 12/29/24 04:00 12/29/24 04:00 12/29/24 04:00 Temperature 36.5 C Pulse Rate 100 100 116 H Respiratory Rate 21 H Blood Pressure 95/71 L 95/71 L Pulse Oximetry 95 Oxygen Delivery Oxygen Flow Rate 12/29/24 06:00 12/29/24 06:00 12/29/24 06:00 Temperature 36.6 C Pulse Rate 121 H 115 H 115 H Respiratory Rate 21 H Blood Pressure 104/70 104/70 Pulse Oximetry 94 Oxygen Delivery Oxygen Flow Rate 12/29/24 06:00 12/29/24 07:51 12/29/24 08:00 Temperature 36.6 C Pulse Rate 115 H 134 H Respiratory Rate 18 Blood Pressure 104/71 102/63 Pulse Oximetry 95 96 Oxygen Delivery Nasal Cannula Oxygen Flow Rate 2 Exam 2 Narrative: General: Pt is alert awake and in NAD Lungs/Chest: Trachea central Clear BS B/L, No crackles or wheezing. Cardiac: Tachycardic, irregular Normal S1 S2. No murmurs Circulation: Pedal pulses are intact and symmetrical. Abdomen: Normal bowel sounds.. Soft. NT. ND. Extremities: No clubbing, cyanosis or edema. Warm : Brady in place Neurologic: Follows commands. Moves all 4 extremities PERRL AO x3 Skin: No Rash Results Labs 12/29/24 04:02 12/29/24 04:02 Labs: Short CBC 12/28/24 12/29/24 Range/Units 19:48 04:02 WBC 5.1 6.9 (4.5-10.0) K/mm3 Hgb 16.6 16.8 (14.0-18.0) g/dL Hct 47.0 48.3 (42.0-52.0) % Plt Count 234 215 (150-375) k/mm3 BMP 12/28/24 12/29/24 19:48 04:02 Sodium 125 L 133 L Potassium 3.6 3.5 Chloride 95 L 100 Carbon Dioxide 20 L 24 BUN 19 13 D Creatinine 0.68 L 0.54 L Glucose 181 H 127 H Calcium 7.9 L 8.3 L Cardiac Enzymes 12/28/24 Range/Units 19:48 Troponin I < 0.012 (0.000-0.034) ng/mL Liver Function 12/28/24 12/29/24 Range/Units 19:48 04:02 Total Bilirubin 0.8 0.8 (0.2-1.3) mg/dL AST 42 37 (17-59) U/L ALT 29 27 (6-50) U/L Alkaline Phosphatase 99 96 (38-126) U/L Albumin 3.5 3.3 L (3.5-5.1) g/dL ECG Interpretation: AFib with RVR Imaging Radiologist's impression: Chest x-ray Mild opacities at the bilateral lower lungs which could be due to atelectasis, mild pulmonary edema or pneumonia. Quality VTE Prophylaxis VTE prophylaxis: pharmacologic ordered Hospitalist MIPS Advance Care Plan I have confirmed that the patient's Advanced Care Plan is present, code status is documented, or surrogate decision maker is listed in patient medical record.: Yes Medication Reconciliation I have utilized all available resources to obtain, update and review the patients current medications (includes all prescriptions, OTC, herbals, cannabis, and nutritional supplements).: Yes
[2024-12-29] MEDS: OSELTAMIVIR PHOSPHATE 75 MG CAPSULE PO ×2 (09:20→20:02)
[2024-12-29] MEDS: DOXYCYCLINE HYCLATE 100 MG TABLET PO ×2 (09:20→20:03)
[2024-12-29] MEDS: MONTELUKAST SODIUM 10 MG TABLET PO (09:20)
[2024-12-29] MEDS: APIXABAN 5 MG TABLET PO ×2 (09:20→20:02)
[2024-12-29] MEDS: MAGNESIUM OXIDE 400 MG TABLET PO (09:20)
[2024-12-29] MEDS: AMIODARONE 150 MG/D5W 100 ML 150 MG/100 ML BAG 600 MG IV CONT (09:24)
[2024-12-29] MEDS: LIDOCAINE 1% PF INJ 5 ML VIAL INFILTRATE (09:30)
[2024-12-29] MEDS: ALBUMIN HUMAN 5% 25 GM/500 ML BTL IV CONT (10:31)
[2024-12-29] MEDS: MUPIROCIN 2% OINT 22 GM TUBE 1 APPLIC EACH NARE ×2 (10:32→20:03)
[2024-12-29] MEDS: VANCOMYCIN 1,500 MG/NS 500 ML 1,500 MG/500 ML BAG 250 MG IVPB ×2 (11:08→22:43)
--- NOTE | 2024-12-29 11:25 | P.CONCA_ITS ---
Assessment and Plan Assessment and plan (1) Shock: Code(s): R57.9 - Shock, unspecified Status: Acute (2) Atrial fibrillation with rapid ventricular response: Code(s): I48.91 - Unspecified atrial fibrillation Status: Acute (3) Chronic anticoagulation: Code(s): Z79.01 - long-term (current) use of anticoagulants Status: Acute (4) Influenza: Code(s): J11.1 - Influenza due to unidentified influenza virus with other respiratory manifestations Status: Acute Plan 1. Shock, likely septic; + Influenza. On Phenylephrine 2. Paroxysmal atrial fibrillation with RVR 3. Influenza A 4. Hypertension 5. Hyperlipidemia 6. History of tachycardia induced cardiomyopathy PLAN: -Normally on Sotalol at home, but switched to Amiodarone drip here. Given persistent RVR, continue with Amiodarone for now. -Continue Eliquis for anticoagulation. -On Phenylephrine per ICU team. Infectious workup per primary team. -Continue home statin -Hold home antihypertensives due to pressor requirement. Recommendations and plan discussed with ICU Physician. History of Present Illness History of Present Illness Consult date/time: 12/29/24 11:25 Requesting physician: Arthur Smith MD Consult reason: atrial fibrillation Reason For Visit: Afib/Hypotension/Inf & COPD Narrative: We are consulted for atrial fibrillation with RVR. This is a 64 year old male with paroxysmal atrial fibrillation, history of tachycardia induced cardiomyopathy, hypertension, hyperlipidemia, COPD who was transferred from [place] for shock, influenza A, AFIB with RVR. His had the flu that lasted for few days, however, he then became sick. Has been feeling worse. At [place] ED, he was initially hypotensive at 73/57mmHg. Given IVFs with some improvement. Started on Amiodarone due to AFIB with RVR. Started on Phenylephrine due to persistent hypotension. Transferred to [place] ICU. CXR shows pneumonia. EKG with AFIB with RVR. Follows with Dr. Newberry in the office, on Sotalol and Eliquis at home. Review of Systems 2 Review of Systems: All systems reviewed & are unremarkable except as noted in HPI and below (HPI) [facility] Past Medical History Medical History Chronic anticoagulation Paroxysmal atrial fibrillation Chronic obstructive pulmonary disease Tachycardia induced cardiomyopathy Degenerative joint disease of knee Hypertension Claustrophobia Medial meniscus tear Family History Family History Father No problems noted. Social History Social History Social History: Surrogate medical decision maker: Melissa Dolan, spouse ([phone]). Code status: Full code. Smoking packs per day: 2 Smoking cigarettes per day: 40.0 Years smoked: 20 Smoking pack-years: 40.00 Smoking status: Former smoker Tobacco type: cigarettes Smoking end date: 12/28/99 Alcohol intake: former Drinks per week: 5 Substance use: never Substance use type: does not use Do You Feel Safe in your Home?: Yes Lack of Transportation: No Lack of Food: Never True Current Housing: I Have Housing Concerned About Future Housing: No Difficulty Paying Gas/Electric Bills: No Difficulty Paying for Meds: No Currently Unemployed: No Education: Decline to Answer Difficulty w/ Childcare or Family Care: No Spiritual care concerns: No Meds Home Medications and Allergies Home Medications ?Medication ?Instructions ?Recorded ?Confirmed ?Type amlodipine 10 mg tablet 10 mg PO DAILY 08/22/22 12/28/24 History atorvastatin 20 mg tablet 20 mg PO DAILY 08/22/22 12/28/24 History sotalol 80 mg tablet 80 mg PO BID 08/22/22 12/28/24 History telmisartan 80 1 tablet PO DAILY 08/22/22 12/28/24 History mg-hydrochlorothiazide 25 mg tablet testosterone 10 mg/0.5 10 mg topical DAILY 08/22/22 12/28/24 History gram/actuation transdermal gel pump montelukast 10 mg tablet 10 mg PO DAILY 06/17/24 12/28/24 History apixaban 5 mg tablet (Eliquis) 5 mg PO Q12HR #60 tabs 06/19/24 12/28/24 Rx fluticasone fur. 200 mcg-umeclid 1 inh inhalation Q24H 12/28/24 12/28/24 History 62.5 mcg-vilant 25 mcg inhalat.powder (Trelegy Ellipta) magnesium 200 mg tablet 400 mg PO DAILY 12/28/24 12/28/24 History Allergies Allergy/AdvReac Type Severity Reaction Status Date / Time No Known Allergies Allergy Verified 12/28/24 18:39 Vital Signs Vital Signs - 24 hr 12/28/24 18:50 12/28/24 19:15 12/28/24 19:24 Temperature Pulse Rate 123 H 125 H 116 H Respiratory Rate 26 H Blood Pressure 112/85 111/66 111/66 Pulse Oximetry 93 Oxygen Delivery Oxygen Flow Rate 12/28/24 19:40 12/28/24 19:45 12/28/24 20:00 Temperature Pulse Rate 115 H 107 H 109 H Respiratory Rate 21 H 25 H 24 H Blood Pressure 111/77 104/88 Pulse Oximetry 91 90 93 Oxygen Delivery Room Air Oxygen Flow Rate 12/28/24 20:00 12/28/24 20:00 12/28/24 20:00 Temperature Pulse Rate 121 H 117 H 116 H Respiratory Rate 23 H Blood Pressure 112/84 105/74 Pulse Oximetry 92 Oxygen Delivery Oxygen Flow Rate 12/28/24 20:15 12/28/24 20:17 12/28/24 20:22 Temperature Pulse Rate 118 H 128 H 122 H Respiratory Rate 24 H Blood Pressure 112/84 112/84 112/84 Pulse Oximetry 91 Oxygen Delivery Oxygen Flow Rate 12/28/24 20:30 12/28/24 20:45 12/28/24 20:45 Temperature Pulse Rate 119 H 112 H 121 H Respiratory Rate 21 H 26 H Blood Pressure 109/81 125/95 H 125/95 H Pulse Oximetry 94 94 Oxygen Delivery Oxygen Flow Rate 12/28/24 21:00 12/28/24 21:00 12/28/24 21:15 Temperature 36.8 C 37.2 C 37.2 C Pulse Rate 124 H 115 H 116 H Respiratory Rate 23 H 23 H 91 H Blood Pressure 108/71 108/71 97/76 L Pulse Oximetry 93 94 23 L Oxygen Delivery Oxygen Flow Rate 12/28/24 21:30 12/28/24 21:45 12/28/24 21:50 Temperature 37.2 C 37.2 C Pulse Rate 123 H 122 H 130 H Respiratory Rate 24 H 28 H Blood Pressure 111/85 108/77 108/77 Pulse Oximetry 93 91 Oxygen Delivery Oxygen Flow Rate 12/28/24 22:00 12/28/24 22:00 12/28/24 22:00 Temperature 37.1 C Pulse Rate 118 H 121 H 115 H Respiratory Rate 21 H Blood Pressure 95/72 L 98/72 L Pulse Oximetry 93 Oxygen Delivery Oxygen Flow Rate 12/28/24 22:15 12/28/24 23:30 12/28/24 23:35 Temperature Pulse Rate 121 H 115 H 115 H Respiratory Rate 24 H 23 H Blood Pressure 98/72 L 80/60 L 80/60 L Pulse Oximetry 92 93 Oxygen Delivery Oxygen Flow Rate 12/28/24 23:45 12/28/24 23:46 12/29/24 00:00 Temperature 36.9 C 36.9 C Pulse Rate 103 H 115 H 121 H Respiratory Rate 22 H 24 H 20 Blood Pressure 95/69 L 99/62 L Pulse Oximetry 93 92 94 Oxygen Delivery Room Air Oxygen Flow Rate 12/29/24 00:00 12/29/24 00:00 12/29/24 00:00 Temperature Pulse Rate 115 H 115 H 112 H Respiratory Rate Blood Pressure 99/62 L 99/62 L Pulse Oximetry Oxygen Delivery Oxygen Flow Rate 12/29/24 00:51 12/29/24 02:00 12/29/24 02:00 Temperature 36.7 C Pulse Rate 110 H 115 H 115 H Respiratory Rate 20 Blood Pressure 95/81 L 91/76 L Pulse Oximetry 94 Oxygen Delivery Oxygen Flow Rate 12/29/24 02:00 12/29/24 02:00 12/29/24 02:15 Temperature 36.6 C Pulse Rate 110 H 111 H 110 H Respiratory Rate 19 Blood Pressure 91/76 L 91/76 L 82/54 L Pulse Oximetry 94 Oxygen Delivery Oxygen Flow Rate 12/29/24 02:18 12/29/24 02:30 12/29/24 02:30 Temperature 36.6 C Pulse Rate 110 H 107 H 111 H Respiratory Rate 18 Blood Pressure 82/54 L 79/52 L 79/52 L Pulse Oximetry 94 Oxygen Delivery Oxygen Flow Rate 12/29/24 02:46 12/29/24 03:50 12/29/24 04:00 Temperature 36.6 C Pulse Rate 115 H 100 100 Respiratory Rate 21 H 21 H Blood Pressure 99/67 L 95/71 L Pulse Oximetry 93 95 Oxygen Delivery Room Air Oxygen Flow Rate 12/29/24 04:00 12/29/24 04:00 12/29/24 04:00 Temperature 36.5 C Pulse Rate 100 100 116 H Respiratory Rate 21 H Blood Pressure 95/71 L 95/71 L Pulse Oximetry 95 Oxygen Delivery Oxygen Flow Rate 12/29/24 06:00 12/29/24 06:00 12/29/24 06:00 Temperature 36.6 C Pulse Rate 121 H 115 H 115 H Respiratory Rate 21 H Blood Pressure 104/70 104/70 Pulse Oximetry 94 Oxygen Delivery Oxygen Flow Rate 12/29/24 06:00 12/29/24 07:51 12/29/24 08:00 Temperature Pulse Rate 115 H 126 H Respiratory Rate Blood Pressure 104/71 89/58 L Pulse Oximetry 95 Oxygen Delivery Nasal Cannula Oxygen Flow Rate 2 12/29/24 08:00 12/29/24 08:00 12/29/24 09:15 Temperature 36.6 C Pulse Rate 126 H 134 H 130 H Respiratory Rate 18 Blood Pressure 89/58 L 102/63 102/55 L Pulse Oximetry 96 Oxygen Delivery Oxygen Flow Rate 12/29/24 09:22 12/29/24 09:24 12/29/24 09:30 Temperature Pulse Rate 123 H 131 H 132 H Respiratory Rate Blood Pressure 102/55 L 102/55 L 115/39 L Pulse Oximetry Oxygen Delivery Oxygen Flow Rate 12/29/24 09:35 12/29/24 09:35 12/29/24 10:00 Temperature 36.8 C Pulse Rate 136 H 136 H 119 H Respiratory Rate 22 H Blood Pressure 102/55 L 102/55 L 103/83 Pulse Oximetry 96 Oxygen Delivery Oxygen Flow Rate 12/29/24 10:29 12/29/24 10:45 12/29/24 11:00 Temperature Pulse Rate 125 H 125 H 115 H Respiratory Rate Blood Pressure 103/83 104/57 L 99/59 L Pulse Oximetry Oxygen Delivery Oxygen Flow Rate Exam 2 Const: General: no acute distress HENMT: Mouth: Yes dry mucous membranes Eyes: General: appearance normal, both eyes and all related structures S clera: sclerae normal Resp: Effort & Inspection: normal respiratory effort Auscultation: d iminished lung sounds Cardio: Rate: tachycardic Rhythm: abnormal rhythm irregularly irregular Heart sounds: no murmurs Skin: General skin exam: normal color Neuro: Speech: normal speech Psych: Mental Status: mental status grossly normal Affect: normal affect Results Labs and Meds 12/29/24 04:02 12/29/24 04:02 Lab results: Cardiac Enzymes 12/28/24 12/29/24 Range/Units 19:48 04:02 AST 42 37 (17-59) U/L Troponin I < 0.012 (0.000-0.034) ng/mL CBC 12/28/24 12/29/24 Range/Units 19:48 04:02 WBC 5.1 6.9 (4.5-10.0) K/mm3 RBC 5.47 5.57 (4.6-6.20) M/mm3 Hgb 16.6 16.8 (14.0-18.0) g/dL Hct 47.0 48.3 (42.0-52.0) % Plt Count 234 215 (150-375) k/mm3 Lymph # (Auto) 1.66 (0.9-3.2) K/mm3 [place] # (Auto) 0.7 H (0.1-0.6) K/mm3 Eos # (Auto) 0.0 (0-0.3) K/mm3 Baso # (Auto) 0.0 (0.0-0.1) K/mm3 Comprehensive Metabolic Panel 12/28/24 12/29/24 Range/Units 19:48 04:02 Sodium 125 L 133 L (137-145) mmol/L Potassium 3.6 3.5 (3.4-5.0) mmol/L Chloride 95 L 100 (98-107) mmol/L Carbon Dioxide 20 L 24 (22-30) mmol/L BUN 19 13 D (9-20) mg/dL Creatinine 0.68 L 0.54 L (0.7-1.3) mg/dL Glucose 181 H 127 H (65-110) mg/dL Calcium 7.9 L 8.3 L (8.4-10.2) mg/dL AST 42 37 (17-59) U/L ALT 29 27 (6-50) U/L Alkaline Phosphatase 99 96 (38-126) U/L Total Protein 6.0 L 6.0 L (6.3-8.2) g/dL Albumin 3.5 3.3 L (3.5-5.1) g/dL Intake and Output 12/28/24 12/29/24 12/29/24 23:59 07:59 15:59 Intake Total 571.4 743.3 439.3 Output Total 3650 Balance 571.4 -2906.7 439.3 Intake: IV 571.4 243.3 239.3 Amiodarone 150 mg/D5w 100 ml 100 150 mg In 100 ml @ 15 MG/MIN 600 mls/hr IV CONT .Q10M ONE Rx #:[id number] Amiodarone 360 mg/D5w 200 ml 57.2 161.6 56.1 360 mg In 200 ml @ 0.5 MG/MIN 16.667 mls/hr IV CONT .Q12H [facility] Rx#:[id number] Phenylephrine HCl Inj 50 mg In 14.2 81.7 83.2 Dextrose 5% in Water 250 ml In 245 ml @ 60 MCG/MIN 18 mls/hr IV CONT .[id number] [facility] Rx#: [id number] Vancomycin 1,250 mg/Ns 250 ml 1 500 ,250 mg In 250 ml @ 166.667 mls /hr IVPB ONCE ONE Rx#:[id number] Oral 500 200 Output: Catheter Urine 3650 Urethral Catheter 3650 Patient Weight 12/29/24 23:59 Weight 96.7 kg
[2024-12-29] MEDS: METOPROLOL TARTRATE INJ 5 MG/5 ML VIAL IV PUSH ×2 (13:49→20:03)
[2024-12-29] MEDS: METOPROLOL TARTRATE 25 MG TABLET PO ×3 (13:50→22:43)
[2024-12-29] MEDS: LIDOCAINE 1% LOCAL INJ 2 ML AMPUL 5 ML INFILTRATE (14:15)
--- NOTE | 2024-12-29 15:33 | PM.IMPN ---
Progress Note: A&P Assessment and Plan (1) Hypotension: Code(s): I95.9 - Hypotension, unspecified Status: Acute Assessment and Plan: Patient presented with hypotension which is likely multifactorial secondary to AFib with RVR, patient continue taking his antihypertensive medication, dehydration from poor p.o. intake and questionable sepsis His lactic acid level was normal He received 4 L of fluid in the ER and was started on low-dose Earl-Synephrine infusion which will be continued I will give additional 500 cc 5% albumin bolus and try to wean off Earl-Synephrine Hopefully with better heart rate control blood pressure will improve Antibiotics and management of influenza as below (2) Atrial fibrillation with RVR: Code(s): I48.91 - Unspecified atrial fibrillation Status: Acute Assessment and Plan: Patient presented with AFib with RVR likely secondary to influenza A infection Currently on amiodarone infusion Eliquis Will give additional amiodarone bolus Consult cardiology Sotalol is on hold due to hypotension (3) Chronic anticoagulation: Code(s): 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 bronchodilators (5) Influenza A: Code(s): J10.1 - Influenza due to other identified influenza virus with other respiratory manifestations Status: Inactive Assessment and Plan: Tamiflu Isolation (6) Pneumonia: Qualifiers: Laterality: bilateral Lung location: lower lobe of lung Pneumonia type: due to unspecified organism Qualified Code(s): J18.9 - Pneumonia, unspecified organism Code(s): J18.9 - Pneumonia, unspecified organism Status: Inactive Assessment and Plan: Patient presented with influenza a with infiltrates and suspected to have a secondary bacterial infection and was started on empiric antibiotics Patient is on vancomycin Rocephin and doxycycline Objective evidence of pneumonia is low MRSA screen was positive Continue antibiotics for 48 hours and then deescalate depending on the results Subjective Date/time seen: 12/29/24 15:33 Interval history: Patient is admitted in the ICU due to atrial fibrillation with rapid ventricular response, influenza A, and hypotension.Denies any chest pain,palpitations or diaphoresis. Review of Systems Review of Systems: 12 systems were reviewed and are negative except for as per HPI. All systems reviewed & are unremarkable except as noted in HPI and below (HPI) Exam Narrative: General: Pt is alert awake and in NAD Lungs/Chest: Trachea central Clear BS B/L, No crackles or wheezing. Cardiac: Tachycardic, irregular Normal S1 S2. No murmurs Circulation: Pedal pulses are intact and symmetrical. Abdomen: Normal bowel sounds.. Soft. NT. ND. Extremities: No clubbing, cyanosis or edema. Warm : Brady in place Neurologic: Follows commands. Moves all 4 extremities PERRL AO x3 Skin: No Rash Objective Data Vital Signs Vital Signs: Vital Signs - 24 hr 12/28/24 18:50 12/28/24 19:15 12/28/24 19:24 Temperature Pulse Rate 123 H 125 H 116 H Respiratory Rate 26 H Blood Pressure 112/85 111/66 111/66 Pulse Oximetry 93 Oxygen Delivery Oxygen Flow Rate 12/28/24 19:40 12/28/24 19:45 12/28/24 20:00 Temperature Pulse Rate 115 H 107 H 109 H Respiratory Rate 21 H 25 H 24 H Blood Pressure 111/77 104/88 Pulse Oximetry 91 90 93 Oxygen Delivery Room Air Oxygen Flow Rate 12/28/24 20:00 12/28/24 20:00 12/28/24 20:00 Temperature Pulse Rate 121 H 117 H 116 H Respiratory Rate 23 H Blood Pressure 112/84 105/74 Pulse Oximetry 92 Oxygen Delivery Oxygen Flow Rate 12/28/24 20:15 12/28/24 20:17 12/28/24 20:22 Temperature Pulse Rate 118 H 128 H 122 H Respiratory Rate 24 H Blood Pressure 112/84 112/84 112/84 Pulse Oximetry 91 Oxygen Delivery Oxygen Flow Rate 12/28/24 20:30 12/28/24 20:45 12/28/24 20:45 Temperature Pulse Rate 119 H 112 H 121 H Respiratory Rate 21 H 26 H Blood Pressure 109/81 125/95 H 125/95 H Pulse Oximetry 94 94 Oxygen Delivery Oxygen Flow Rate 12/28/24 21:00 12/28/24 21:00 12/28/24 21:15 Temperature 98.3 F 99 F 99 F Pulse Rate 124 H 115 H 116 H Respiratory Rate 23 H 23 H 91 H Blood Pressure 108/71 108/71 97/76 L Pulse Oximetry 93 94 23 L Oxygen Delivery Oxygen Flow Rate 12/28/24 21:30 12/28/24 21:45 12/28/24 21:50 Temperature 99 F 99 F Pulse Rate 123 H 122 H 130 H Respiratory Rate 24 H 28 H Blood Pressure 111/85 108/77 108/77 Pulse Oximetry 93 91 Oxygen Delivery Oxygen Flow Rate 12/28/24 22:00 12/28/24 22:00 12/28/24 22:00 Temperature 98.8 F Pulse Rate 118 H 121 H 115 H Respiratory Rate 21 H Blood Pressure 95/72 L 98/72 L Pulse Oximetry 93 Oxygen Delivery Oxygen Flow Rate 12/28/24 22:15 12/28/24 23:30 12/28/24 23:35 Temperature Pulse Rate 121 H 115 H 115 H Respiratory Rate 24 H 23 H Blood Pressure 98/72 L 80/60 L 80/60 L Pulse Oximetry 92 93 Oxygen Delivery Oxygen Flow Rate 12/28/24 23:45 12/28/24 23:46 12/29/24 00:00 Temperature 98.5 F 98.4 F Pulse Rate 103 H 115 H 121 H Respiratory Rate 22 H 24 H 20 Blood Pressure 95/69 L 99/62 L Pulse Oximetry 93 92 94 Oxygen Delivery Room Air Oxygen Flow Rate 12/29/24 00:00 12/29/24 00:00 12/29/24 00:00 Temperature Pulse Rate 115 H 115 H 112 H Respiratory Rate Blood Pressure 99/62 L 99/62 L Pulse Oximetry Oxygen Delivery Oxygen Flow Rate 12/29/24 00:51 12/29/24 02:00 12/29/24 02:00 Temperature 98.0 F Pulse Rate 110 H 115 H 115 H Respiratory Rate 20 Blood Pressure 95/81 L 91/76 L Pulse Oximetry 94 Oxygen Delivery Oxygen Flow Rate 12/29/24 02:00 12/29/24 02:00 12/29/24 02:15 Temperature 98 F Pulse Rate 110 H 111 H 110 H Respiratory Rate 19 Blood Pressure 91/76 L 91/76 L 82/54 L Pulse Oximetry 94 Oxygen Delivery Oxygen Flow Rate 12/29/24 02:18 12/29/24 02:30 12/29/24 02:30 Temperature 98 F Pulse Rate 110 H 107 H 111 H Respiratory Rate 18 Blood Pressure 82/54 L 79/52 L 79/52 L Pulse Oximetry 94 Oxygen Delivery Oxygen Flow Rate 12/29/24 02:46 12/29/24 03:50 12/29/24 04:00 Temperature 97.8 F Pulse Rate 115 H 100 100 Respiratory Rate 21 H 21 H Blood Pressure 99/67 L 95/71 L Pulse Oximetry 93 95 Oxygen Delivery Room Air Oxygen Flow Rate 12/29/24 04:00 12/29/24 04:00 12/29/24 04:00 Temperature 97.7 F Pulse Rate 100 100 116 H Respiratory Rate 21 H Blood Pressure 95/71 L 95/71 L Pulse Oximetry 95 Oxygen Delivery Oxygen Flow Rate 12/29/24 06:00 12/29/24 06:00 12/29/24 06:00 Temperature 97.9 F Pulse Rate 121 H 115 H 115 H Respiratory Rate 21 H Blood Pressure 104/70 104/70 Pulse Oximetry 94 Oxygen Delivery Oxygen Flow Rate 12/29/24 06:00 12/29/24 07:51 12/29/24 08:00 Temperature Pulse Rate 115 H 126 H Respiratory Rate Blood Pressure 104/71 89/58 L Pulse Oximetry 95 Oxygen Delivery Nasal Cannula Oxygen Flow Rate 2 12/29/24 08:00 12/29/24 08:00 12/29/24 08:00 Temperature 97.8 F Pulse Rate 126 H 134 H Respiratory Rate 18 Blood Pressure 89/58 L 102/63 Pulse Oximetry 96 96 Oxygen Delivery Nasal Cannula Oxygen Flow Rate 2 12/29/24 08:00 12/29/24 09:15 12/29/24 09:22 Temperature Pulse Rate 129 H 130 H 123 H Respiratory Rate Blood Pressure 102/55 L 102/55 L Pulse Oximetry Oxygen Delivery Oxygen Flow Rate 12/29/24 09:24 12/29/24 09:30 12/29/24 09:35 Temperature Pulse Rate 131 H 132 H 136 H Respiratory Rate Blood Pressure 102/55 L 115/39 L 102/55 L Pulse Oximetry Oxygen Delivery Oxygen Flow Rate 12/29/24 09:35 12/29/24 10:00 12/29/24 10:00 Temperature 98.2 F Pulse Rate 136 H 119 H 125 H Respiratory Rate 22 H Blood Pressure 102/55 L 103/83 Pulse Oximetry 96 Oxygen Delivery Oxygen Flow Rate 12/29/24 10:00 12/29/24 10:29 12/29/24 10:45 Temperature Pulse Rate 125 H 125 H 125 H Respiratory Rate Blood Pressure 103/83 103/83 104/57 L Pulse Oximetry Oxygen Delivery Oxygen Flow Rate 12/29/24 11:00 12/29/24 11:15 12/29/24 11:56 Temperature Pulse Rate 115 H 120 H 119 H Respiratory Rate Blood Pressure 99/59 L 92/76 L 108/61 Pulse Oximetry Oxygen Delivery Oxygen Flow Rate 12/29/24 11:56 12/29/24 12:00 12/29/24 12:00 Temperature 98.2 F Pulse Rate 131 H 122 H Respiratory Rate 30 H Blood Pressure 108/61 Pulse Oximetry 91 91 Oxygen Delivery Nasal Cannula Oxygen Flow Rate 2 12/29/24 12:02 12/29/24 12:03 12/29/24 12:17 Temperature Pulse Rate 110 H 120 H 139 H Respiratory Rate Blood Pressure 108/71 108/71 101/65 Pulse Oximetry Oxygen Delivery Oxygen Flow Rate 12/29/24 12:38 12/29/24 12:49 12/29/24 13:02 Temperature Pulse Rate 123 H 120 H 123 H Respiratory Rate Blood Pressure 91/73 L 97/65 L 101/65 Pulse Oximetry Oxygen Delivery Oxygen Flow Rate 12/29/24 13:49 12/29/24 13:50 12/29/24 14:00 Temperature Pulse Rate 121 H 140 H 124 H Respiratory Rate Blood Pressure Pulse Oximetry Oxygen Delivery Oxygen Flow Rate 12/29/24 14:00 12/29/24 14:00 Temperature Pulse Rate 124 H 124 H Respiratory Rate 23 H Blood Pressure 104/75 104/75 Pulse Oximetry 92 Oxygen Delivery Oxygen Flow Rate Intake/Output Intake/Output: Intake & Output 12/26/24 12/27/24 12/28/24 12/29/24 23:59 23:59 23:59 23:59 Intake Total 571.4 2025.5 Output Total 3650 Balance 571.4 -1624.5 Meds/Results Medications: Active Medications Generic Name Dose Route Start Last Admin Trade Name Freq PRN Reason Stop Dose Admin Acetaminophen 650 mg 12/28/24 18:54 Acetaminophen 325 Mg Tablet PO Q6H PRN Mild Pain (1-3) or Fever Albuterol/Ipratropium 3 ml 12/29/24 09:13 Ipratropium 0.5 Mg/Albuterol Sulfate 2.5 Mg Ampul.Neb 3 Ml INHALATION Q6HRT PRN Wheezing Apixaban 5 mg 12/29/24 09:00 12/29/24 09:20 Apixaban 5 Mg Tablet PO 5 mg Q12HR CLAY Administration Doxycycline Hyclate 100 mg 12/28/24 21:00 12/29/24 09:20 Doxycycline Hyclate 100 Mg Tablet PO 100 mg Q12HR CLAY Administration Fluticasone/Umeclidinium/Vilanterol 1 puff 12/29/24 08:00 12/29/24 07:48 Fluticasone/Umeclidin/Vilanter 200-62.5-25 Mcg Ellipta INHALATION 1 puff DAILYRT CLAY Administration Ceftriaxone Sodium 1 gm in 50 mls @ 100 mls/hr 12/29/24 14:00 12/29/24 14:19 Rocephin 1 Gm/Ns 50 Ml IVPB Infused Q24H CLAY Infusion Phenylephrine HCl 50 mg/ 250 ml in 250 mls @ 0 mls/hr 12/28/24 23:35 12/29/24 14:00 Dextrose IV CONT 0 mcg/min .Q0M CLAY 0 mls/hr Titration Protocol Vancomycin HCl 1,500 mg in 500 mls @ 250 mls/hr 12/29/24 23:00 Vancomycin 1,500 Mg/Ns 500 Ml IVPB Q12H CLAY Magnesium Oxide 400 mg 12/29/24 09:00 12/29/24 09:20 Magnesium Oxide 400 Mg Tablet PO 400 mg DAILY CLAY Administration Metoprolol Tartrate 25 mg 12/29/24 13:25 12/29/24 13:50 Metoprolol Tartrate 25 Mg Tablet PO 25 mg Q6HR CLAY Administration Montelukast Sodium 10 mg 12/29/24 09:00 12/29/24 09:20 Montelukast Sodium 10 Mg Tablet PO 10 mg DAILY CLAY Administration Mupirocin 1 applic 12/29/24 09:00 12/29/24 10:32 Mupirocin 2% Oint 22 Gm Tube EACH NARE 01/02/25 21:01 1 applic Q12HR CLAY Administration Oseltamivir Phosphate 75 mg 12/28/24 21:00 12/29/24 09:20 Oseltamivir Phosphate 75 Mg Capsule PO 01/02/25 20:59 75 mg Q12HR CLAY Administration Sodium Chloride 10 ml 12/29/24 22:00 Saline Lock Flush IV PUSH Q8HR CLAY Sodium Chloride 10 ml 12/29/24 14:55 Saline Lock Flush IV PUSH PRN PRN Flush Sodium Chloride 20 ml 12/29/24 14:55 Saline Lock Flush IV PUSH PRN PRN after blood draws Radiology Results: ITS Impressions Chest X-Ray 12/29/24 10:37 Impression: 1: PICC line tip in the right internal jugular vein, recommend repositioning. Labs Labs: Laboratory Results - last 24 hr 12/28/24 12/28/24 12/28/24 19:29 19:48 19:49 WBC 5.1 RBC 5.47 Hgb 16.6 Hct 47.0 MCV 85.9 MCH 30.3 MCHC 35.3 RDW 13.1 Plt Count 234 MPV 9.0 Immature Gran % (Auto) Neut % (Auto) Lymph % (Auto) Trinity % (Auto) Eos % (Auto) Baso % (Auto) Lymph # (Auto) Trinity # (Auto) Eos # (Auto) Baso # (Auto) Abs Immat Gran (auto) Absolute Neuts (auto) Absolute Nucleated RBC Nucleated RBC % Sodium 125 L Potassium 3.6 Chloride 95 L Carbon Dioxide 20 L Anion Gap 10 BUN 19 Creatinine 0.68 L Estim Creat Clear Calc 108 Estimated GFR > 60 Glucose 181 H Lactic Acid 1.3 Calcium 7.9 L Magnesium 1.9 Total Bilirubin 0.8 AST 42 ALT 29 Alkaline Phosphatase 99 Troponin I < 0.012 NT-Pro-B Natriuret Pep 651 H Total Protein 6.0 L Albumin 3.5 Procalcitonin 0.1 TSH (Reflex) 0.778 Ur Random Sodium 20 Ur Random Urea 376 Urine Creatinine 22.8 Nasal MRSA (PCR) 12/28/24 12/29/24 20:41 04:02 WBC 6.9 RBC 5.57 Hgb 16.8 Hct 48.3 MCV 86.7 MCH 30.2 MCHC 34.8 RDW 13.2 Plt Count 215 MPV 9.2 Immature Gran % (Auto) 0.4 Neut % (Auto) 65.0 Lymph % (Auto) 24.2 Trinity % (Auto) 10.3 H Eos % (Auto) 0.0 Baso % (Auto) 0.1 L Lymph # (Auto) 1.66 Trinity # (Auto) 0.7 H Eos # (Auto) 0.0 Baso # (Auto) 0.0 Abs Immat Gran (auto) 0.03 Absolute Neuts (auto) 4.5 Absolute Nucleated RBC 0.000 Nucleated RBC % 0.0 Sodium 133 L Potassium 3.5 Chloride 100 Carbon Dioxide 24 Anion Gap 9 BUN 13 D Creatinine 0.54 L Estim Creat Clear Calc 133 Estimated GFR > 60 Glucose 127 H Lactic Acid Calcium 8.3 L Magnesium 2.1 Total Bilirubin 0.8 AST 37 ALT 27 Alkaline Phosphatase 96 Troponin I NT-Pro-B Natriuret Pep Total Protein 6.0 L Albumin 3.3 L Procalcitonin TSH (Reflex) Ur Random Sodium Ur Random Urea Urine Creatinine Nasal MRSA (PCR) Detected A* Quality VTE Prophylaxis VTE prophylaxis: pharmacologic ordered Hospitalist MIPS Advance Care Plan I have confirmed that the patient's Advanced Care Plan is present, code status is documented, or surrogate decision maker is listed in patient medical record.: Yes Medication Reconciliation I have utilized all available resources to obtain, update and review the patients current medications (includes all prescriptions, OTC, herbals, cannabis, and nutritional supplements).: Yes
[2024-12-29] MEDS: LEVALBUTEROL NEB 1.25 MG/3 ML (19:58)
[2024-12-29] MEDS: SALINE LOCK FLUSH 10 ML IV PUSH (22:49)
[2024-12-30] VITALS (32 sets, daily range): BP systolic 90–134; BP diastolic 58–82; PULSE 110–158; RESP 19–24; TEMP 36.6–37.5; O2SAT 91–96
--- NOTE | 2024-12-30 | ECHOL_ITS ---
Patient Info Name: Ashu Dolan Age: 64 years : 1960 Gender: Male Ht: 68 in Wt: 208 lbs BSA: 2.16 m2 HR: 142 bpm BP: 117 / 79 mmHg Heart Rhythm: Tachycardia, Atrial Fibrillation Technical Quality: Poor Exam Date: 12/30/2024 1:11 PM Exam Location: Echo Lab Exam Room: ICU-1 Patient Status: Inpatient Admit Date: 12/28/2024 Staff Ordering Physician: Arthur Smtih MD Steel Layer: Radha Cody RDCS Attending Provider: John Gómez MD Exam Type: CA echo limited Study Info Indications - Rule out endocarditis Limited two-dimensional transthoracic echocardiogram is performed with contrast. Reason for Poor Study: poor echocardiographic windows Summary 1. Very technically difficult study with limited views. Cannot accurately calculate or estimate LVEF. Recommend repeating TTE once tachycardia resolves and patient is able to tolerate undergoing echocardiogram. Aortic Valve There is moderate aortic valve calcification. Mitral Valve The mitral valve annulus is mildly calcified. Pericardium/Pleural The pericardium appears epicardial fat pad. There is no pericardial effusion. Aortic Valve Name Value Normal AV Doppler AV Peak Velocity 177 cm/s AV Peak Gradient 13 mmHg AV Mean Gradient 8 mmHg AV VTI 27 cm Report Signatures
[2024-12-30] MEDS: METOPROLOL TARTRATE INJ 5 MG/5 ML VIAL IV PUSH ×5 (00:40→20:09)
[2024-12-30 04:21] LABS: Hematocrit 42.5 % (42.0-52.0); Hemoglobin 14.5 g/dL (14.0-18.0); Immature Platelet Fraction Pct 2.3 % (0.9-11.2); Mean Corpuscular HGB Conc 34.1 g/dl (32-36); Mean Platelet Volume 9.2 fl (7.4-10.4); Platelet Count Result 122 k/mm3 (150-375); Red Blood Count 4.83 M/mm3 (4.6-6.20); Red Cell Distribution Width 13.3 % (11.5-14.5); White Blood Count 5.6 K/mm3 (4.5-10.0)
[2024-12-30 04:34] LABS: Alanine Aminotransferase 23 U/L (6-50); Albumin Level 3.1 g/dL (3.5-5.1); Alkaline Phosphatase 78 U/L (38-126); Anion Gap 4 mmol/L (4-12); Aspartate Amino Transferase 30 U/L (17-59); Bilirubin,Total 0.7 mg/dL (0.2-1.3); Blood Urea Nitrogen 10 mg/dL (9-20); Calcium 7.8 mg/dL (8.4-10.2); Carbon Dioxide 30 mmol/L (22-30); Chloride 99 mmol/L (98-107); Estimated CRCL calculation 117 ml/min; Estimated Glomerular Filt Rate > 60; Glucose 93 mg/dL (65-110); Potassium 3.3 mmol/L (3.4-5.0); Sodium 133 mmol/L (137-145)
[2024-12-30] MEDS: METOPROLOL TARTRATE 25 MG TABLET PO (05:16)
[2024-12-30] MEDS: SALINE LOCK FLUSH 10 ML IV PUSH ×3 (05:18→20:08)
[2024-12-30] MEDS: LEVALBUTEROL NEB 1.25 MG/3 ML INHALATION ×2 (05:32→20:25)
[2024-12-30] MEDS: FLUTICASONE/UMECLIDIN/VILANTER 200-62.5-25 MCG ELLIPTA 1 PUFF INHALATION (07:44)
[2024-12-30] MEDS: OSELTAMIVIR PHOSPHATE 75 MG CAPSULE PO ×2 (07:53→20:07)
[2024-12-30] MEDS: POTASSIUM CHLORIDE 20 MEQ ER TABLET 40 MEQ PO (07:53)
[2024-12-30] MEDS: DOXYCYCLINE HYCLATE 100 MG TABLET PO ×2 (07:53→20:07)
[2024-12-30] MEDS: MONTELUKAST SODIUM 10 MG TABLET PO (07:54)
[2024-12-30] MEDS: APIXABAN 5 MG TABLET PO ×2 (07:54→20:07)
[2024-12-30] MEDS: MAGNESIUM OXIDE 400 MG TABLET PO (07:54)
[2024-12-30] MEDS: MUPIROCIN 2% OINT 22 GM TUBE 1 APPLIC EACH NARE ×2 (07:55→20:07)
[2024-12-30] MEDS: DIGOXIN INJ 250 MCG/ML 2 ML AMP (*BKC) 500 MCG IV PUSH (09:46)
--- NOTE | 2024-12-30 09:49 | P.PNINT_ITS ---
Progress Note: A&P Assessment and Plan (1) Hypotension: Code(s): I95.9 - Hypotension, unspecified Status: Acute Assessment and Plan: Patient presented with hypotension which is likely multifactorial secondary to AFib with RVR, patient continue taking his antihypertensive medication, dehydration from poor p.o. intake and questionable sepsis His lactic acid level was normal He received 4 L of fluid in the ER and was started on low-dose Earl-Synephrine infusion which has been on and off He also received additional 500 cc 5% albumin bolus in the ICU Hopefully with better heart rate control blood pressure will improve Antibiotics and management of influenza as below (2) Atrial fibrillation with RVR: Code(s): I48.91 - Unspecified atrial fibrillation Status: Acute Assessment and Plan: Patient presented with AFib with RVR likely secondary to influenza A infection Patient earlier was on on amiodarone infusion which was switched p.o. and IV metoprolol Sotalol is on hold Medical rate still elevated. Cardiology ordered digoxin and diltiazem infusion. 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 bronchodilators (5) Influenza A: Code(s): J10.1 - Influenza due to other identified influenza virus with other respiratory manifestations Status: Inactive Assessment and Plan: Tamiflu Isolation (6) Pneumonia: Qualifiers: Laterality: bilateral Lung location: lower lobe of lung Pneumonia type: due to unspecified organism Qualified Code(s): J18.9 - Pneumonia, unspecified organism Code(s): J18.9 - Pneumonia, unspecified organism Status: Inactive Assessment and Plan: Patient presented with influenza A with infiltrates and suspected to have a secondary bacterial infection and was started on empiric antibiotics Patient is on vancomycin Rocephin and doxycycline Blood cultures are growing Gram-positive cocci in clusters MRSA screen was positive Legionella and strep pneumococcal antigen are pending Continue antibiotics for now (7) Bacteremia: Code(s): R78.81 - Bacteremia Status: Acute Assessment and Plan: Blood cultures 2 bottles are growing Gram-positive cocci in clusters Continue vancomycin Waiting for identification and susceptibility check echocardiogram Plan DVT prophylaxis -Eliquis Stress ulcer prophylaxis - NA Nutrition -diet ordered Code Status - Full Code Discussed with Cardiology Total Critical Care Time - 32 minutes Due to a high probability of clinically significant, life threatening deterioration, the patient required my highest level of preparedness to interven e emergently and I personally spent this critical care time directly and personally managing the patient. This critical care time included obtaining a history; examining the patient; pulse oximetry; ordering and review of studies; arranging urgent treatment with development of a management plan; evaluation of patient's response to treatment; frequent reassessment; and discussions with other providers. It was exclusive of separately billable procedures and treating other patients and teaching time. Please see Assessment and Plan section and the rest of the note for further information on patient assessment and treatment Subjective Date/time seen: 12/30/24 He states he had a shortness of breath this morning on exertion. But is feeling better now. Denies any pain in the chest or abdomen. He has chronic hip pain. Denies any fever but has dry cough. All other systems were reviewed and were negative Continues to be in AFib with RVR. Off of Earl-Synephrine On 3 L nasal cannula Interval history: Patient is admitted in the ICU due to atrial fibrillation with rapid ventricular response, influenza A, and hypotension.Denies any chest pain,palpitations or diaphoresis. Review of Systems Review of Systems: All systems reviewed & are unremarkable except as noted in HPI and below (HPI) Exam Narrative: General: Pt is alert awake and in NAD Lungs/Chest: Trachea central Clear BS B/L, No crackles or wheezing. Cardiac: Tachycardic, irregular Normal S1 S2. No murmurs Circulation: Pedal pulses are intact and symmetrical. Abdomen: Normal bowel sounds.. Soft. NT. ND. Extremities: No clubbing, cyanosis or edema. Warm : Brady in place Neurologic: Follows commands. Moves all 4 extremities PERRL AO x3 Skin: No Rash Objective Data Vital Signs Vital Signs: Vital Signs - 24 hr 12/29/24 10:00 12/29/24 10:00 12/29/24 10:00 Temperature 36.8 C Pulse Rate 119 H 125 H 125 H Respiratory Rate 22 H Blood Pressure 103/83 103/83 Pulse Oximetry 96 Oxygen Delivery Oxygen Flow Rate 12/29/24 10:29 12/29/24 10:45 12/29/24 11:00 Temperature Pulse Rate 125 H 125 H 115 H Respiratory Rate Blood Pressure 103/83 104/57 L 99/59 L Pulse Oximetry Oxygen Delivery Oxygen Flow Rate 12/29/24 11:15 12/29/24 11:56 12/29/24 11:56 Temperature 36.8 C Pulse Rate 120 H 119 H 131 H Respiratory Rate 30 H Blood Pressure 92/76 L 108/61 108/61 Pulse Oximetry 91 Oxygen Delivery Oxygen Flow Rate 12/29/24 12:00 12/29/24 12:00 12/29/24 12:02 Temperature Pulse Rate 122 H 110 H Respiratory Rate Blood Pressure 108/71 Pulse Oximetry 91 Oxygen Delivery Nasal Cannula Oxygen Flow Rate 2 12/29/24 12:03 12/29/24 12:17 12/29/24 12:38 Temperature Pulse Rate 120 H 139 H 123 H Respiratory Rate Blood Pressure 108/71 101/65 91/73 L Pulse Oximetry Oxygen Delivery Oxygen Flow Rate 12/29/24 12:49 12/29/24 13:02 12/29/24 13:49 Temperature Pulse Rate 120 H 123 H 121 H Respiratory Rate Blood Pressure 97/65 L 101/65 Pulse Oximetry Oxygen Delivery Oxygen Flow Rate 12/29/24 13:50 12/29/24 14:00 12/29/24 14:00 Temperature Pulse Rate 140 H 124 H 124 H Respiratory Rate 23 H Blood Pressure 104/75 Pulse Oximetry 92 Oxygen Delivery Oxygen Flow Rate 12/29/24 14:00 12/29/24 16:00 12/29/24 16:00 Temperature Pulse Rate 124 H 119 H Respiratory Rate Blood Pressure 104/75 97/64 L Pulse Oximetry 93 Oxygen Delivery Nasal Cannula Oxygen Flow Rate 2 12/29/24 16:00 12/29/24 16:00 12/29/24 17:06 Temperature 36.4 C L Pulse Rate 124 H 122 H 131 H Respiratory Rate 24 H Blood Pressure 107/77 Pulse Oximetry 94 Oxygen Delivery Oxygen Flow Rate 12/29/24 17:06 12/29/24 18:00 12/29/24 18:00 Temperature Pulse Rate 127 H 117 H 117 H Respiratory Rate 24 H 21 H Blood Pressure 108/64 97/58 L Pulse Oximetry 94 93 Oxygen Delivery Oxygen Flow Rate 12/29/24 19:45 12/29/24 19:50 12/29/24 19:58 Temperature Pulse Rate 143 H 125 H Respiratory Rate 16 19 Blood Pressure Pulse Oximetry 100 94 Oxygen Delivery Nasal Cannula Nasal Cannula Oxygen Flow Rate 4 4 12/29/24 20:00 12/29/24 20:00 12/29/24 20:00 Temperature 37.4 C Pulse Rate 133 H 133 H 111 H Respiratory Rate 16 Blood Pressure 90/70 L 90/70 L Pulse Oximetry 100 Oxygen Delivery Oxygen Flow Rate 12/29/24 20:03 12/29/24 20:10 12/29/24 21:56 Temperature Pulse Rate 143 H 130 H 135 H Respiratory Rate 18 17 Blood Pressure 113/100 H Pulse Oximetry 91 Oxygen Delivery Oxygen Flow Rate 12/29/24 22:00 12/29/24 22:00 12/29/24 22:43 Temperature Pulse Rate 124 H 131 H 123 H Respiratory Rate Blood Pressure 107/87 Pulse Oximetry Oxygen Delivery Oxygen Flow Rate 12/30/24 00:00 12/30/24 00:00 12/30/24 00:00 Temperature 37.2 C Pulse Rate 132 H 131 H 123 H Respiratory Rate 19 24 H Blood Pressure 93/58 L 93/58 L Pulse Oximetry 91 94 Oxygen Delivery Nasal Cannula Oxygen Flow Rate 3 12/30/24 00:00 12/30/24 00:40 12/30/24 02:00 Temperature Pulse Rate 134 H 144 H 110 H Respiratory Rate Blood Pressure Pulse Oximetry Oxygen Delivery Oxygen Flow Rate 12/30/24 02:00 12/30/24 02:00 12/30/24 04:00 Temperature 37.3 C 37.2 C Pulse Rate 125 H 127 H 134 H Respiratory Rate 20 22 H Blood Pressure 90/64 L 90/64 L 103/78 Pulse Oximetry 93 92 Oxygen Delivery Oxygen Flow Rate 12/30/24 04:00 12/30/24 04:00 12/30/24 04:00 Temperature Pulse Rate 134 H 142 H 134 H Respiratory Rate 22 H Blood Pressure 103/78 Pulse Oximetry 92 Oxygen Delivery Nasal Cannula Oxygen Flow Rate 3 12/30/24 04:11 12/30/24 05:16 12/30/24 05:32 Temperature Pulse Rate 136 H 144 H 130 H Respiratory Rate 19 Blood Pressure Pulse Oximetry Oxygen Delivery Oxygen Flow Rate 12/30/24 05:42 12/30/24 06:00 12/30/24 06:00 Temperature 37.2 C Pulse Rate 137 H 143 H 139 H Respiratory Rate 22 H 23 H Blood Pressure 104/82 Pulse Oximetry 93 Oxygen Delivery Oxygen Flow Rate 12/30/24 06:00 12/30/24 07:45 12/30/24 07:54 Temperature Pulse Rate 145 H 144 H Respiratory Rate Blood Pressure 104/82 Pulse Oximetry 93 Oxygen Delivery Nasal Cannula Oxygen Flow Rate 3 12/30/24 08:00 Temperature 36.6 C Pulse Rate 127 H Respiratory Rate 22 H Blood Pressure 94/75 L Pulse Oximetry 94 Oxygen Delivery Oxygen Flow Rate Intake/Output Intake/Output: Intake & Output 12/27/24 12/28/24 12/29/24 12/30/24 23:59 23:59 23:59 23:59 Intake Total 571.4 2025.5 1740 Output Total 4950 1800 Balance 571.4 -2924.5 -60 Meds/Results Medications: Active Medications Generic Name Dose Route Start Last Admin Trade Name Freq PRN Reason Stop Dose Admin Acetaminophen 650 mg 12/28/24 18:54 Acetaminophen 325 Mg Tablet PO Q6H PRN Mild Pain (1-3) or Fever Albuterol/Ipratropium 3 ml 12/29/24 09:13 Ipratropium 0.5 Mg/Albuterol Sulfate 2.5 Mg Ampul.Neb 3 Ml INHALATION Q6HRT PRN Wheezing Apixaban 5 mg 12/29/24 09:00 12/30/24 07:54 Apixaban 5 Mg Tablet PO 5 mg Q12HR CLAY Administration Doxycycline Hyclate 100 mg 12/28/24 21:00 12/30/24 07:53 Doxycycline Hyclate 100 Mg Tablet PO 100 mg Q12HR CLAY Administration Fluticasone/Umeclidinium/Vilanterol 1 puff 12/29/24 08:00 12/30/24 07:44 Fluticasone/Umeclidin/Vilanter 200-62.5-25 Mcg Ellipta INHALATION 1 puff DAILYRT CLAY Administration Ceftriaxone Sodium 1 gm in 50 mls @ 100 mls/hr 12/29/24 14:00 12/29/24 14:19 Rocephin 1 Gm/Ns 50 Ml IVPB Infused Q24H CLAY Infusion Vancomycin HCl 1,500 mg in 500 mls @ 250 mls/hr 12/29/24 23:00 12/30/24 00:45 Vancomycin 1,500 Mg/Ns 500 Ml IVPB Infused Q12H CLAY Infusion Levalbuterol HCl 1.25 mg 12/29/24 20:02 12/30/24 05:32 Levalbuterol Neb 1.25 Mg/3 Ml INHALATION 1.25 mg Q6HRT PRN Administration Shortness Of Breath Or Wheezing Magnesium Oxide 400 mg 12/29/24 09:00 12/30/24 07:54 Magnesium Oxide 400 Mg Tablet PO 400 mg DAILY CLAY Administration Metoprolol Tartrate 5 mg 12/29/24 15:40 12/30/24 07:54 Metoprolol Tartrate Inj 5 Mg/5 Ml Vial IV PUSH 5 mg Q3H PRN Administration Tachycardia Metoprolol Tartrate 50 mg 12/30/24 12:00 Metoprolol Tartrate 50 Mg Tab PO Q6HR CLAY Montelukast Sodium 10 mg 12/29/24 09:00 12/30/24 07:54 Montelukast Sodium 10 Mg Tablet PO 10 mg DAILY CLAY Administration Mupirocin 1 applic 12/29/24 09:00 12/30/24 07:55 Mupirocin 2% Oint 22 Gm Tube EACH NARE 01/02/25 21:01 1 applic Q12HR CLAY Administration Oseltamivir Phosphate 75 mg 12/28/24 21:00 12/30/24 07:53 Oseltamivir Phosphate 75 Mg Capsule PO 01/02/25 20:59 75 mg Q12HR CLAY Administration Perflutren Lipid Microsphere 0 ml 12/30/24 07:34 Perflutren Lipid Microspheres 1.5 Ml Vial Diluted To 10 Ml Total Volume IV PUSH 01/02/25 07:35 ONCE PRN adequate visualization Protocol Sodium Chloride 10 ml 12/29/24 22:00 12/30/24 05:18 Saline Lock Flush IV PUSH 10 ml Q8HR CLAY Administration Sodium Chloride 10 ml 12/29/24 14:55 Saline Lock Flush IV PUSH PRN PRN Flush Sodium Chloride 20 ml 12/29/24 14:55 Saline Lock Flush IV PUSH PRN PRN after blood draws Radiology Results: ITS Impressions Chest X-Ray 12/29/24 10:37 Impression: 1: PICC line tip in the right internal jugular vein, recommend repositioning. Labs Labs: Laboratory Results - last 24 hr 12/30/24 04:15 WBC 5.6 RBC 4.83 Hgb 14.5 Hct 42.5 MCV 88.0 MCH 30.0 MCHC 34.1 RDW 13.3 Plt Count 122 L MPV 9.2 % Immature Plt Fraction 2.3 Sodium 133 L Potassium 3.3 L Chloride 99 Carbon Dioxide 30 Anion Gap 4 BUN 10 Creatinine 0.61 L Estim Creat Clear Calc 117 Estimated GFR > 60 Glucose 93 Calcium 7.8 L Magnesium 2.0 Total Bilirubin 0.7 AST 30 ALT 23 Alkaline Phosphatase 78 Total Protein 6.0 L Albumin 3.1 L Quality VTE Prophylaxis VTE prophylaxis: pharmacologic ordered
[2024-12-30 10:33] LABS: Vancomycin Trough 10.3 ug/mL (10.0-20.0)
[2024-12-30] MEDS: dilTIAZem 100 MG/100 ML 100 MG/100 ML BAG IV CONT (10:43)
[2024-12-30] MEDS: VANCOMYCIN 1,500 MG/NS 500 ML 1,500 MG/500 ML BAG 250 MG IVPB ×2 (11:29→18:09)
[2024-12-30] MEDS: METOPROLOL TARTRATE 50 MG TAB PO ×3 (11:29→23:20)
[2024-12-30] MEDS: dilTIAZem 100 MG/100 ML 100 MG/100 ML BAG 15 MG IV CONT (18:43)
--- NOTE | 2024-12-30 19:09 | PC.NURSE ---
RN spoke with Dr. Gilmore about patient's elevated HR. Mando stated she is ok with him sustaining in 120-130s heart rate. Otherwise, continue to give PRN metoprolol pushes.
[2024-12-31] VITALS (33 sets, daily range): BP systolic 96–130; BP diastolic 65–90; PULSE 90–145; RESP 20–28; TEMP 37–37.3; O2SAT 88–94
[2024-12-31] MEDS: dilTIAZem 100 MG/100 ML 100 MG/100 ML BAG 15 MG IV CONT ×4 (00:39→15:00)
[2024-12-31] MEDS: VANCOMYCIN 1,500 MG/NS 500 ML 1,500 MG/500 ML BAG 250 MG IVPB ×3 (02:02→20:38)
[2024-12-31] MEDS: METOPROLOL TARTRATE 50 MG TAB PO ×4 (05:04→23:01)
[2024-12-31] MEDS: SALINE LOCK FLUSH 10 ML IV PUSH ×3 (05:06→20:13)
[2024-12-31 05:14] LABS: Hemoglobin 14.9 g/dL (14.0-18.0); Immature Platelet Fraction Pct 3.5 % (0.9-11.2); Mean Corpuscular HGB Conc 33.9 g/dl (32-36); Mean Corpuscular Hemoglobin 30.4 pg (26-34); Mean Corpuscular Volume 89.8 fl (80-100); Mean Platelet Volume 9.4 fl (7.4-10.4); Platelet Count Result 135 k/mm3 (150-375); Red Cell Distribution Width 13.5 % (11.5-14.5); White Blood Count 6.8 K/mm3 (4.5-10.0)
[2024-12-31 05:56] LABS: Alanine Aminotransferase 26 U/L (6-50); Albumin Level 3.1 g/dL (3.5-5.1); Alkaline Phosphatase 91 U/L (38-126); Anion Gap 4 mmol/L (4-12); Aspartate Amino Transferase 33 U/L (17-59); Bilirubin,Total 1.1 mg/dL (0.2-1.3); Blood Urea Nitrogen 7 mg/dL (9-20); Calcium 8.2 mg/dL (8.4-10.2); Carbon Dioxide 29 mmol/L (22-30); Chloride 100 mmol/L (98-107); Estimated CRCL calculation 142 ml/min; Estimated Glomerular Filt Rate > 60; Glucose 94 mg/dL (65-110); Magnesium 1.9 mg/dL (1.6-2.3); Potassium 3.9 mmol/L (3.4-5.0); Sodium 133 mmol/L (137-145)
[2024-12-31] MEDS: FLUTICASONE/UMECLIDIN/VILANTER 200-62.5-25 MCG ELLIPTA 1 PUFF INHALATION (07:36)
--- NOTE | 2024-12-31 08:01 | P.PNINT_ITS ---
Progress Note: A&P Assessment and Plan (1) Hypotension: Code(s): I95.9 - Hypotension, unspecified Status: Acute Assessment and Plan: Patient presented with hypotension which is likely multifactorial secondary to AFib with RVR, patient continue taking his antihypertensive medication, dehydration from poor p.o. intake and questionable sepsis His lactic acid level was normal He received 4 L of fluid in the ER and was started on low-dose Earl-Synephrine infusion which has been on and off He also received additional 500 cc 5% albumin bolus in the ICU Hopefully with better heart rate control blood pressure will improve Antibiotics and management of influenza as below (2) Atrial fibrillation with RVR: Code(s): I48.91 - Unspecified atrial fibrillation Status: Acute Assessment and Plan: Patient presented with AFib with RVR likely secondary to influenza A infection Patient earlier was on on amiodarone infusion which was switched p.o. and IV metoprolol Sotalol is on hold Cardiology ordered digoxin and diltiazem infusion. Heart rate is improved overall. 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 bronchodilators (5) Influenza A: Code(s): J10.1 - Influenza due to other identified influenza virus with other respiratory manifestations Status: Inactive Assessment and Plan: Tamiflu Isolation (6) Pneumonia: Qualifiers: Laterality: bilateral Lung location: lower lobe of lung Pneumonia type: due to unspecified organism Qualified Code(s): J18.9 - Pneumonia, unspecified organism Code(s): J18.9 - Pneumonia, unspecified organism Status: Inactive Assessment and Plan: Patient presented with influenza A with infiltrates and suspected to have a secondary bacterial infection and was started on empiric antibiotics Patient is on vancomycin Rocephin and doxycycline Blood cultures are growing MRSA in 1 bottle and Gram-positive cocci in the 2nd bottle MRSA screen was positive Sputum cultures growing Staph aureus and Pseudomonas Legionella and strep pneumococcal antigen are pending Change Rocephin to cefepime (7) Bacteremia: Code(s): R78.81 - Bacteremia Status: Acute Assessment and Plan: Blood cultures 2 bottles are growing MRSA in 1 bottle and Gram-positive cocci in 2nd vital Continue vancomycin Waiting for identification and susceptibility Echocardiogram with limited views was ordered as patient was tachycardic bleeding tube for imaging. Will repeat echocardiogram again in 1-2 days once the heart rate improves Plan DVT prophylaxis -Eliquis Stress ulcer prophylaxis - NA Nutrition -diet ordered Code Status - Full Code Subjective Date/time seen: 12/31/24 Overnight events reviewed. Afebrile Continues to be on 2 L nasal cannula AFib with RVR but overall heart rate control has improved on diltiazem infusion. He clinically feels better he states his breathing is better he denies any pain his cough is improved. Overall he feels better and stronger. All other systems were reviewed and were negative Other Vitals acceptable and not requiring Earl-Synephrine infusion Good urine output Interval history: Patient is admitted in the ICU due to atrial fibrillation with rapid ventricular response, influenza A, and hypotension.Denies any chest pain,palpitations or diaphoresis. Review of Systems Review of Systems: All systems reviewed & are unremarkable except as noted in HPI and below (HPI) Exam Narrative: General: Pt is alert awake and in NAD Lungs/Chest: Trachea central Clear BS B/L, No crackles or wheezing. Cardiac: Tachycardic, irregular Normal S1 S2. No murmurs Circulation: Pedal pulses are intact and symmetrical. Abdomen: Normal bowel sounds.. Soft. NT. ND. Extremities: No clubbing, cyanosis or edema. Warm : Brady in place Neurologic: Follows commands. Moves all 4 extremities PERRL AO x3 Skin: No Rash Objective Data Vital Signs Vital Signs: Vital Signs - 24 hr 12/30/24 09:46 12/30/24 10:00 12/30/24 10:00 Temperature 37.2 C Pulse Rate 141 H 131 H 133 H Respiratory Rate 20 Blood Pressure 101/69 Pulse Oximetry 92 Oxygen Delivery Oxygen Flow Rate 12/30/24 10:43 12/30/24 11:29 12/30/24 12:00 Temperature Pulse Rate 115 H 113 H Respiratory Rate Blood Pressure 134/71 Pulse Oximetry 93 Oxygen Delivery Nasal Cannula Oxygen Flow Rate 3 12/30/24 12:00 12/30/24 12:00 12/30/24 12:00 Temperature 37.2 C Pulse Rate 134 H 121 H 132 H Respiratory Rate 21 H Blood Pressure 116/75 116/75 Pulse Oximetry 95 Oxygen Delivery Oxygen Flow Rate 12/30/24 13:15 12/30/24 14:00 12/30/24 14:00 Temperature 37.3 C Pulse Rate 138 H 132 H 119 H Respiratory Rate 20 Blood Pressure 117/79 125/82 Pulse Oximetry 94 Oxygen Delivery Oxygen Flow Rate 12/30/24 14:35 12/30/24 16:00 12/30/24 16:00 Temperature 37.2 C Pulse Rate 125 H 140 H Respiratory Rate 24 H Blood Pressure 125/82 121/67 Pulse Oximetry 95 93 Oxygen Delivery Nasal Cannula Oxygen Flow Rate 3 12/30/24 16:00 12/30/24 16:00 12/30/24 16:32 Temperature Pulse Rate 140 H 134 H 135 H Respiratory Rate Blood Pressure 121/67 Pulse Oximetry Oxygen Delivery Oxygen Flow Rate 12/30/24 18:00 12/30/24 18:00 12/30/24 18:00 Temperature Pulse Rate 158 H 140 H 140 H Respiratory Rate 20 Blood Pressure 123/80 123/80 Pulse Oximetry 96 Oxygen Delivery Oxygen Flow Rate 12/30/24 18:09 12/30/24 18:43 12/30/24 18:43 Temperature Pulse Rate 147 H 141 H 141 H Respiratory Rate Blood Pressure 123/80 123/80 Pulse Oximetry Oxygen Delivery Oxygen Flow Rate 12/30/24 20:00 12/30/24 20:00 12/30/24 20:00 Temperature 37.4 C Pulse Rate 131 H 131 H Respiratory Rate 22 H Blood Pressure 110/58 L 110/58 L Pulse Oximetry 93 93 Oxygen Delivery Nasal Cannula Oxygen Flow Rate 3 12/30/24 20:00 12/30/24 20:09 12/30/24 20:25 Temperature Pulse Rate 137 H 137 H 117 H Respiratory Rate 22 H Blood Pressure Pulse Oximetry Oxygen Delivery Oxygen Flow Rate 12/30/24 20:28 12/30/24 22:00 12/30/24 22:00 Temperature 37.5 C Pulse Rate 119 H 128 H Respiratory Rate 22 H Blood Pressure 108/73 Pulse Oximetry 95 93 Oxygen Delivery Nasal Cannula Oxygen Flow Rate 3 12/30/24 22:00 12/30/24 23:20 12/30/24 23:49 Temperature Pulse Rate 128 H 132 H Respiratory Rate Blood Pressure 108/73 Pulse Oximetry 91 Oxygen Delivery Nasal Cannula Oxygen Flow Rate 3 12/31/24 00:00 12/31/24 00:00 12/31/24 00:00 Temperature 37.2 C Pulse Rate 118 H 118 H 138 H Respiratory Rate 21 H Blood Pressure 107/65 107/65 Pulse Oximetry 91 Oxygen Delivery Oxygen Flow Rate 12/31/24 00:39 12/31/24 00:39 12/31/24 02:00 Temperature Pulse Rate 125 H 125 H 107 H Respiratory Rate Blood Pressure 119/83 119/83 Pulse Oximetry Oxygen Delivery Oxygen Flow Rate 12/31/24 02:00 12/31/24 02:00 12/31/24 03:10 Temperature 37.2 C Pulse Rate 107 H 107 H Respiratory Rate 22 H Blood Pressure 108/79 108/79 Pulse Oximetry 91 94 Oxygen Delivery Nasal Cannula Oxygen Flow Rate 3 12/31/24 04:00 12/31/24 04:00 12/31/24 04:00 Temperature 37.0 C Pulse Rate 120 H 120 H 123 H Respiratory Rate 22 H Blood Pressure 120/85 120/85 Pulse Oximetry 90 Oxygen Delivery Oxygen Flow Rate 12/31/24 05:04 12/31/24 06:00 12/31/24 06:00 Temperature Pulse Rate 117 H 108 H 108 H Respiratory Rate 21 H Blood Pressure 105/67 Pulse Oximetry 94 Oxygen Delivery Oxygen Flow Rate 12/31/24 06:00 12/31/24 07:01 12/31/24 07:01 Temperature Pulse Rate 108 H 113 H 113 H Respiratory Rate Blood Pressure 105/67 118/74 118/74 Pulse Oximetry Oxygen Delivery Oxygen Flow Rate Intake/Output Intake/Output: Intake & Output 12/28/24 12/29/24 12/30/24 12/31/24 23:59 23:59 23:59 23:59 Intake Total 571.4 2525.5 3367.3 1885.4 Output Total 4950 3800 1900 Balance 571.4 -2424.5 -432.7 -14.6 Meds/Results Medications: Active Medications Generic Name Dose Route Start Last Admin Trade Name Freq PRN Reason Stop Dose Admin Acetaminophen 650 mg 12/28/24 18:54 Acetaminophen 325 Mg Tablet PO Q6H PRN Mild Pain (1-3) or Fever Albuterol/Ipratropium 3 ml 12/29/24 09:13 Ipratropium 0.5 Mg/Albuterol Sulfate 2.5 Mg Ampul.Neb 3 Ml INHALATION Q6HRT PRN Wheezing Apixaban 5 mg 12/29/24 09:00 12/30/24 20:07 Apixaban 5 Mg Tablet PO 5 mg Q12HR CLAY Administration Doxycycline Hyclate 100 mg 12/28/24 21:00 12/30/24 20:07 Doxycycline Hyclate 100 Mg Tablet PO 100 mg Q12HR CLAY Administration Fluticasone/Umeclidinium/Vilanterol 1 puff 12/29/24 08:00 12/31/24 07:36 Fluticasone/Umeclidin/Vilanter 200-62.5-25 Mcg Ellipta INHALATION 1 puff DAILYRT CLAY Administration Ceftriaxone Sodium 1 gm in 50 mls @ 100 mls/hr 12/29/24 14:00 12/30/24 13:50 Rocephin 1 Gm/Ns 50 Ml IVPB Infused Q24H CLAY Infusion Diltiazem HCl 100 mg in 100 mls @ 15 mls/hr 12/30/24 09:50 12/31/24 07:01 Cardizem 100 Mg/100 Ml IV CONT 15 mg/hr .Q6H40M CLAY 15 mls/hr Administration 15 MG/HR Vancomycin HCl 1,500 mg in 500 mls @ 250 mls/hr 12/30/24 11:00 12/31/24 04:02 Vancomycin 1,500 Mg/Ns 500 Ml IVPB Infused Q8H CLAY Infusion Levalbuterol HCl 1.25 mg 12/29/24 20:02 12/30/24 20:25 Levalbuterol Neb 1.25 Mg/3 Ml INHALATION 1.25 mg Q6HRT PRN Administration Shortness Of Breath Or Wheezing Magnesium Oxide 400 mg 12/31/24 12:00 Magnesium Oxide 400 Mg Tablet PO DAILY@1200 CLAY Metoprolol Tartrate 5 mg 12/29/24 15:40 12/30/24 20:09 Metoprolol Tartrate Inj 5 Mg/5 Ml Vial IV PUSH 5 mg Q3H PRN Administration Tachycardia Metoprolol Tartrate 50 mg 12/30/24 12:00 12/31/24 05:04 Metoprolol Tartrate 50 Mg Tab PO 50 mg Q6HR CLAY Administration Montelukast Sodium 10 mg 12/29/24 09:00 12/30/24 07:54 Montelukast Sodium 10 Mg Tablet PO 10 mg DAILY CLAY Administration Mupirocin 1 applic 12/29/24 09:00 12/30/24 20:07 Mupirocin 2% Oint 22 Gm Tube EACH NARE 01/02/25 21:01 1 applic Q12HR CLAY Administration Oseltamivir Phosphate 75 mg 12/28/24 21:00 12/30/24 20:07 Oseltamivir Phosphate 75 Mg Capsule PO 01/02/25 20:59 75 mg Q12HR CLAY Administration Perflutren Lipid Microsphere 0 ml 12/30/24 07:34 Perflutren Lipid Microspheres 1.5 Ml Vial Diluted To 10 Ml Total Volume IV PUSH 01/02/25 07:35 ONCE PRN adequate visualization Protocol Sodium Chloride 10 ml 12/29/24 22:00 12/31/24 05:06 Saline Lock Flush IV PUSH 10 ml Q8HR CLAY Administration Sodium Chloride 10 ml 12/29/24 14:55 Saline Lock Flush IV PUSH PRN PRN Flush Sodium Chloride 20 ml 12/29/24 14:55 Saline Lock Flush IV PUSH PRN PRN after blood draws Radiology Results: ITS Impressions Chest X-Ray 12/29/24 10:37 Impression: 1: PICC line tip in the right internal jugular vein, recommend repositioning. Labs Labs: Laboratory Results - last 24 hr 12/30/24 12/31/24 12/31/24 10:08 05:04 05:35 WBC 6.8 RBC 4.90 Hgb 14.9 Hct 44.0 MCV 89.8 MCH 30.4 MCHC 33.9 RDW 13.5 Plt Count 135 L MPV 9.4 % Immature Plt Fraction 3.5 Sodium 133 L Potassium 3.9 Chloride 100 Carbon Dioxide 29 Anion Gap 4 BUN 7 L Creatinine 0.49 L Estim Creat Clear Calc 142 Estimated GFR > 60 Glucose 94 Calcium 8.2 L Magnesium 1.9 Total Bilirubin 1.1 AST 33 ALT 26 Alkaline Phosphatase 91 Total Protein 6.0 L Albumin 3.1 L Vancomycin Trough 10.3 Quality VTE Prophylaxis VTE prophylaxis: pharmacologic ordered
[2024-12-31] MEDS: CEFEPIME 2 GM/NS 50 ML 2 GM/50 ML BAG IVPB ×2 (08:20→20:07)
[2024-12-31] MEDS: DOXYCYCLINE HYCLATE 100 MG TABLET PO ×2 (08:20→20:09)
[2024-12-31] MEDS: APIXABAN 5 MG TABLET PO ×2 (08:20→20:10)
[2024-12-31] MEDS: OSELTAMIVIR PHOSPHATE 75 MG CAPSULE PO ×2 (08:20→20:10)
[2024-12-31] MEDS: MONTELUKAST SODIUM 10 MG TABLET PO (08:20)
[2024-12-31] MEDS: MUPIROCIN 2% OINT 22 GM TUBE 1 APPLIC EACH NARE ×2 (08:21→20:12)
[2024-12-31] MEDS: MAGNESIUM OXIDE 400 MG TABLET PO (11:31)
[2024-12-31] MEDS: VANCOMYCIN 1,500 MG/NS 500 ML 1,500 MG/500 ML BAG 200 MG IVPB (11:31)
[2024-12-31 12:15] LABS: Vancomycin Trough 14.5 ug/mL (10.0-20.0)
--- NOTE | 2024-12-31 12:42 | PM.PNCARD ---
Progress Note: A&P Assessment and Plan (1) Atrial fibrillation with rapid ventricular response: Code(s): I48.91 - Unspecified atrial fibrillation Status: Acute Plan 1. Shock, likely septic; + Influenza. Was on Phenylephrine, now off of pressors. Shock now resolved 2. Paroxysmal atrial fibrillation with RVR 3. Influenza A 4. Bacteremia 5. Hypertension 6. Hyperlipidemia 7. History of tachycardia induced cardiomyopathy PLAN: -Since patient has been compliant with Sotalol at home, and Amiodarone not a good long-term option for this patient given his age, stopped Amiodarone (received IV Amiodarone drip for about 24 hours) and allowed washout of Amiodarone before resuming Sotalol. In the meantime, will do rate control with Metoprolol and Diltiazem drip. Continue Eliquis uninterrupted. Amiodarone washout for 48 hours, will start Sotalol 80mg BID starting this evening. Will need EKGs done 1 hour after each Sotalol dose. Will need to remain in the hospital for 5 Sotalol doses to monitor his QTc. If patient does need cardioversion, he will need to undergo MULUGETA-guided DCCV as he was not given his evening dose of Eliquis on 12/28 when he was in the ER / getting transferred to [place]. -Continue Eliquis for anticoagulation. -Echocardiogram done 12/30, however, this was of very poor quality and incomplete study. Will need to repeat once his tachycardia is improved and he is able to properly tolerate undergoing echo. -Infectious workup per primary team. -Continue home statin -Hold home antihypertensives for now Recommendations and plan discussed with ICU Physician. Subjective Date/time seen: 12/31/24 12:42 Interval history: Reason for visit: Atrial fibrillation with RVR HPI: We are consulted for atrial fibrillation with RVR. This is a 64 year old male with paroxysmal atrial fibrillation, history of tachycardia induced cardiomyopathy, hypertension, hyperlipidemia, COPD who was transferred from [facility] for shock, influenza A, AFIB with RVR. His had the flu that lasted for few days, however, he then became sick. Has been feeling worse. At [facility] ED, he was initially hypotensive at 73/57mmHg. Given IVFs with some improvement. Started on Amiodarone due to AFIB with RVR. Started on Phenylephrine due to persistent hypotension. Transferred to [place] ICU. CXR shows pneumonia. EKG with AFIB with RVR. Follows with Dr. Newberry in the office, on Sotalol and Eliquis at home. Date of service 12/30: Remains in AFIB with RVR. Doesn't really feel palpitations though. Aerobic blood culture bottles are positive for Gram positive cocci. Date of service 12/31: Feeling better today. Remains in AFIB, however, rates are improving on Diltiazem drip. Review of Systems Cardiovascular: Cardiovascular: Reports as per HPI Exam Const: General: no acute distress HENMT: Mouth: Yes moist mucous membranes Eyes: General: appearance normal, both eyes and all related structures Sclera: sclerae normal Resp: Effort & Inspection: normal respiratory effort Cardio: Rate: tachycardic Rhythm: abnormal rhythm irregularly irregular Heart sounds: no murmurs Skin: General skin exam: normal color Neuro: Speech: normal speech Psych: Mental Status: mental status grossly normal Affect: normal affect Objective Data Vital Signs Vital Signs: Vital Signs - 24 hr 12/30/24 13:15 12/30/24 14:00 12/30/24 14:00 Temperature 37.3 C Pulse Rate 138 H 132 H 119 H Respiratory Rate 20 Blood Pressure 117/79 125/82 Pulse Oximetry 94 Oxygen Delivery Oxygen Flow Rate 12/30/24 14:35 12/30/24 16:00 12/30/24 16:00 Temperature 37.2 C Pulse Rate 125 H 140 H Respiratory Rate 24 H Blood Pressure 125/82 121/67 Pulse Oximetry 95 93 Oxygen Delivery Nasal Cannula Oxygen Flow Rate 3 12/30/24 16:00 12/30/24 16:00 12/30/24 16:32 Temperature Pulse Rate 140 H 134 H 135 H Respiratory Rate Blood Pressure 121/67 Pulse Oximetry Oxygen Delivery Oxygen Flow Rate 12/30/24 18:00 12/30/24 18:00 12/30/24 18:00 Temperature Pulse Rate 158 H 140 H 140 H Respiratory Rate 20 Blood Pressure 123/80 123/80 Pulse Oximetry 96 Oxygen Delivery Oxygen Flow Rate 12/30/24 18:09 12/30/24 18:43 12/30/24 18:43 Temperature Pulse Rate 147 H 141 H 141 H Respiratory Rate Blood Pressure 123/80 123/80 Pulse Oximetry Oxygen Delivery Oxygen Flow Rate 12/30/24 20:00 12/30/24 20:00 12/30/24 20:00 Temperature 37.4 C Pulse Rate 131 H 131 H Respiratory Rate 22 H Blood Pressure 110/58 L 110/58 L Pulse Oximetry 93 93 Oxygen Delivery Nasal Cannula Oxygen Flow Rate 3 12/30/24 20:00 12/30/24 20:09 12/30/24 20:25 Temperature Pulse Rate 137 H 137 H 117 H Respiratory Rate 22 H Blood Pressure Pulse Oximetry Oxygen Delivery Oxygen Flow Rate 12/30/24 20:28 12/30/24 22:00 12/30/24 22:00 Temperature 37.5 C Pulse Rate 119 H 128 H Respiratory Rate 22 H Blood Pressure 108/73 Pulse Oximetry 95 93 Oxygen Delivery Nasal Cannula Oxygen Flow Rate 3 12/30/24 22:00 12/30/24 23:20 12/30/24 23:49 Temperature Pulse Rate 128 H 132 H Respiratory Rate Blood Pressure 108/73 Pulse Oximetry 91 Oxygen Delivery Nasal Cannula Oxygen Flow Rate 3 12/31/24 00:00 12/31/24 00:00 12/31/24 00:00 Temperature 37.2 C Pulse Rate 118 H 118 H 138 H Respiratory Rate 21 H Blood Pressure 107/65 107/65 Pulse Oximetry 91 Oxygen Delivery Oxygen Flow Rate 12/31/24 00:39 12/31/24 00:39 12/31/24 02:00 Temperature Pulse Rate 125 H 125 H 107 H Respiratory Rate Blood Pressure 119/83 119/83 Pulse Oximetry Oxygen Delivery Oxygen Flow Rate 12/31/24 02:00 12/31/24 02:00 12/31/24 03:10 Temperature 37.2 C Pulse Rate 107 H 107 H Respiratory Rate 22 H Blood Pressure 108/79 108/79 Pulse Oximetry 91 94 Oxygen Delivery Nasal Cannula Oxygen Flow Rate 3 12/31/24 04:00 12/31/24 04:00 12/31/24 04:00 Temperature 37.0 C Pulse Rate 120 H 120 H 123 H Respiratory Rate 22 H Blood Pressure 120/85 120/85 Pulse Oximetry 90 Oxygen Delivery Oxygen Flow Rate 12/31/24 05:04 12/31/24 06:00 12/31/24 06:00 Temperature Pulse Rate 117 H 108 H 108 H Respiratory Rate 21 H Blood Pressure 105/67 Pulse Oximetry 94 Oxygen Delivery Oxygen Flow Rate 12/31/24 06:00 12/31/24 07:01 12/31/24 07:01 Temperature Pulse Rate 108 H 113 H 113 H Respiratory Rate Blood Pressure 105/67 118/74 118/74 Pulse Oximetry Oxygen Delivery Oxygen Flow Rate 12/31/24 07:40 12/31/24 07:40 12/31/24 08:00 Temperature 37.0 C Pulse Rate 107 H 107 H 122 H Respiratory Rate 20 20 20 Blood Pressure 101/81 Pulse Oximetry 94 90 Oxygen Delivery Nasal Cannula Oxygen Flow Rate 2.5 12/31/24 08:00 12/31/24 08:00 12/31/24 10:00 Temperature Pulse Rate 122 H 122 H 123 H Respiratory Rate 20 Blood Pressure Pulse Oximetry 90 Oxygen Delivery Nasal Cannula Oxygen Flow Rate 3 12/31/24 11:30 Temperature Pulse Rate 115 H Respiratory Rate Blood Pressure Pulse Oximetry Oxygen Delivery Oxygen Flow Rate Intake/Output Intake/Output: Intake & Output 12/28/24 12/29/24 12/30/24 12/31/24 23:59 23:59 23:59 23:59 Intake Total 571.4 2525.5 3367.3 2005.4 Output Total 4950 3800 1900 Balance 571.4 -2424.5 -432.7 105.4 Meds/Results Medications: Active Medications Generic Name Dose Route Start Last Admin Trade Name Freq PRN Reason Stop Dose Admin Acetaminophen 650 mg 12/28/24 18:54 Acetaminophen 325 Mg Tablet PO Q6H PRN Mild Pain (1-3) or Fever Albuterol/Ipratropium 3 ml 12/29/24 09:13 Ipratropium 0.5 Mg/Albuterol Sulfate 2.5 Mg Ampul.Neb 3 Ml INHALATION Q6HRT PRN Wheezing Apixaban 5 mg 12/29/24 09:00 12/31/24 08:20 Apixaban 5 Mg Tablet PO 5 mg Q12HR CLAY Administration Doxycycline Hyclate 100 mg 12/28/24 21:00 12/31/24 08:20 Doxycycline Hyclate 100 Mg Tablet PO 01/02/25 20:59 100 mg Q12HR CLAY Administration Fluticasone/Umeclidinium/Vilanterol 1 puff 12/29/24 08:00 12/31/24 07:36 Fluticasone/Umeclidin/Vilanter 200-62.5-25 Mcg Ellipta INHALATION 1 puff DAILYRT CLAY Administration Diltiazem HCl 100 mg in 100 mls @ 15 mls/hr 12/30/24 09:50 12/31/24 07:01 Cardizem 100 Mg/100 Ml IV CONT 15 mg/hr .Q6H40M CLAY 15 mls/hr Administration 15 MG/HR Cefepime HCl 2 gm in 50 mls @ 100 mls/hr 12/31/24 09:00 12/31/24 08:20 Maxipime 2 Gm/Ns 50 Ml IVPB 100 mls/hr Q12H CLAY Administration Vancomycin HCl 1,500 mg in 500 mls @ 250 mls/hr 12/31/24 13:00 Vancomycin 1,500 Mg/Ns 500 Ml IVPB Q8H CLAY Levalbuterol HCl 1.25 mg 12/29/24 20:02 12/30/24 20:25 Levalbuterol Neb 1.25 Mg/3 Ml INHALATION 1.25 mg Q6HRT PRN Administration Shortness Of Breath Or Wheezing Magnesium Oxide 400 mg 12/31/24 12:00 12/31/24 11:31 Magnesium Oxide 400 Mg Tablet PO 400 mg DAILY@1200 [facility] Administration Metoprolol Tartrate 5 mg 12/29/24 15:40 12/30/24 20:09 Metoprolol Tartrate Inj 5 Mg/5 Ml Vial IV PUSH 5 mg Q3H PRN Administration Tachycardia Metoprolol Tartrate 50 mg 12/30/24 12:00 12/31/24 11:30 Metoprolol Tartrate 50 Mg Tab PO 50 mg Q6HR CLAY Administration Montelukast Sodium 10 mg 12/29/24 09:00 12/31/24 08:20 Montelukast Sodium 10 Mg Tablet PO 10 mg DAILY CLAY Administration Mupirocin 1 applic 12/29/24 09:00 12/31/24 08:21 Mupirocin 2% Oint 22 Gm Tube EACH NARE 01/02/25 21:01 1 applic Q12HR CLAY Administration Oseltamivir Phosphate 75 mg 12/28/24 21:00 12/31/24 08:20 Oseltamivir Phosphate 75 Mg Capsule PO 01/02/25 20:59 75 mg Q12HR CLAY Administration Perflutren Lipid Microsphere 0 ml 12/30/24 07:34 Perflutren Lipid Microspheres 1.5 Ml Vial Diluted To 10 Ml Total Volume IV PUSH 01/02/25 07:35 ONCE PRN adequate visualization Protocol Sodium Chloride 10 ml 12/29/24 22:00 12/31/24 11:31 Saline Lock Flush IV PUSH 10 ml Q8HR CLAY Administration Sodium Chloride 10 ml 12/29/24 14:55 Saline Lock Flush IV PUSH PRN PRN Flush Sodium Chloride 20 ml 12/29/24 14:55 Saline Lock Flush IV PUSH PRN PRN after blood draws Sotalol HCl 80 mg 12/31/24 21:00 Sotalol Hcl 80 Mg Tablet PO Q12HR [facility] Radiology Results: ITS Impressions Chest X-Ray 12/29/24 10:37 Impression: 1: PICC line tip in the right internal jugular vein, recommend repositioning. Labs Labs: Laboratory Results - last 24 hr 12/31/24 12/31/24 12/31/24 05:04 05:35 11:48 WBC 6.8 RBC 4.90 Hgb 14.9 Hct 44.0 MCV 89.8 MCH 30.4 MCHC 33.9 RDW 13.5 Plt Count 135 L MPV 9.4 % Immature Plt Fraction 3.5 Sodium 133 L Potassium 3.9 Chloride 100 Carbon Dioxide 29 Anion Gap 4 BUN 7 L Creatinine 0.49 L Estim Creat Clear Calc 142 Estimated GFR > 60 Glucose 94 Calcium 8.2 L Magnesium 1.9 Total Bilirubin 1.1 AST 33 ALT 26 Alkaline Phosphatase 91 Total Protein 6.0 L Albumin 3.1 L Vancomycin Trough 14.5
--- NOTE | 2024-12-31 14:34 | PC.NURSE ---
Called Dr. crow informed of frequent pauses, i was informed to watch and reduce Cardizem to 10 if HR sustains below 100.
[2024-12-31] MEDS: METOPROLOL TARTRATE INJ 5 MG/5 ML VIAL IV PUSH (19:06)
[2024-12-31] MEDS: SOTALOL HCL 80 MG TABLET PO (20:10)
--- NOTE | 2024-12-31 21:10 | ECG_ITS ---
Test Date: 2024-12-31 21:15:49 Measurements Intervals [place] Rate: 109 P: 0 IA: 0 QRS: 17 QRSD: 104 T: 33 QT: 355 QTc: 480 Interpretive Statements ATRIAL FIBRILLATION WITH RAPID VENTRICULAR RESPONSE WITH ABERRANT CONDUCTION OR VENTRICULAR PREMATURE COMPLEXES INCOMPLETE RIGHT BUNDLE BRANCH BLOCK BASELINE ARTIFACT- I, III, AVL, AVF, V1-V2 ABNORMAL ECG Compared to ECG 12/28/2024 10:42:08 HEART RATE HAS DECREASED Electronically Signed On 01-01-2025 07:05:25 TIRE REPAIRER by Yamil Meyers D.O.
[2024-12-31] MEDS: LEVALBUTEROL NEB 1.25 MG/3 ML INHALATION (22:14)
[2025-01-01] VITALS (33 sets, daily range): BP systolic 94–140; BP diastolic 62–90; PULSE 74–124; RESP 18–29; TEMP 36.6–37.3; O2SAT 88–100
[2025-01-01] MEDS: guaiFENesin 12 HR 600 MG TABCR 1200 MG PO ×3 (01:08→20:09)
[2025-01-01] MEDS: dilTIAZem 100 MG/100 ML 100 MG/100 ML BAG 15 MG IV CONT ×4 (01:08→21:32)
[2025-01-01] MEDS: VANCOMYCIN 1,500 MG/NS 500 ML 1,500 MG/500 ML BAG 250 MG IVPB ×3 (05:23→21:27)
[2025-01-01] MEDS: SALINE LOCK FLUSH 10 ML IV PUSH ×3 (05:33→21:38)
[2025-01-01] MEDS: METOPROLOL TARTRATE 50 MG TAB PO ×2 (05:33→12:11)
--- NOTE | 2025-01-01 06:55 | PC.NURSE ---
0625 Called lab to check on morning lab results. Tubes never received. RN talked to damaris to come draw patient labs. Midline not drawing back anymore.
[2025-01-01 07:32] LABS: Hematocrit 46.2 % (42.0-52.0); Hemoglobin 15.6 g/dL (14.0-18.0); Mean Corpuscular HGB Conc 33.8 g/dl (32-36); Mean Corpuscular Hemoglobin 30.5 pg (26-34); Mean Corpuscular Volume 90.2 fl (80-100); Mean Platelet Volume 9.1 fl (7.4-10.4); Platelet Count Result 176 k/mm3 (150-375); Red Blood Count 5.12 M/mm3 (4.6-6.20); Red Cell Distribution Width 13.3 % (11.5-14.5); White Blood Count 8.2 K/mm3 (4.5-10.0)
[2025-01-01] MEDS: LEVALBUTEROL NEB 1.25 MG/3 ML INHALATION (07:40)
[2025-01-01 07:44] LABS: Alanine Aminotransferase 32 U/L (6-50); Albumin Level 3.2 g/dL (3.5-5.1); Alkaline Phosphatase 102 U/L (38-126); Anion Gap 5 mmol/L (4-12); Aspartate Amino Transferase 30 U/L (17-59); Bilirubin,Total 1.4 mg/dL (0.2-1.3); Blood Urea Nitrogen 8 mg/dL (9-20); Calcium 8.3 mg/dL (8.4-10.2); Carbon Dioxide 27 mmol/L (22-30); Chloride 101 mmol/L (98-107); Estimated CRCL calculation 145 ml/min; Estimated Glomerular Filt Rate > 60; Glucose 118 mg/dL (65-110); Magnesium 1.9 mg/dL (1.6-2.3); Sodium 133 mmol/L (137-145)
[2025-01-01] MEDS: FLUTICASONE/UMECLIDIN/VILANTER 200-62.5-25 MCG ELLIPTA 1 PUFF INHALATION (07:56)
[2025-01-01] MEDS: OSELTAMIVIR PHOSPHATE 75 MG CAPSULE PO ×2 (08:47→20:08)
[2025-01-01] MEDS: DOXYCYCLINE HYCLATE 100 MG TABLET PO ×2 (08:47→20:08)
[2025-01-01] MEDS: MONTELUKAST SODIUM 10 MG TABLET PO (08:47)
[2025-01-01] MEDS: CEFEPIME 2 GM/NS 50 ML 2 GM/50 ML BAG IVPB ×2 (08:48→20:08)
[2025-01-01] MEDS: SOTALOL HCL 80 MG TABLET PO ×2 (08:48→20:09)
[2025-01-01] MEDS: APIXABAN 5 MG TABLET PO ×2 (08:48→20:09)
[2025-01-01] MEDS: MUPIROCIN 2% OINT 22 GM TUBE 1 APPLIC EACH NARE ×2 (08:49→20:10)
--- NOTE | 2025-01-01 09:16 | PM.IMPN ---
Progress Note: A&P Assessment and Plan (1) Hypotension: Code(s): I95.9 - Hypotension, unspecified Status: Acute Assessment and Plan: Patient presented with hypotension which is likely multifactorial secondary to AFib with RVR, patient continue taking his antihypertensive medication, dehydration from poor p.o. intake and questionable sepsis His lactic acid level was normal He received 4 L of fluid in the ER and was started on low-dose Earl-Synephrine infusion which has been on and off He also received additional 500 cc 5% albumin bolus in the ICU Hopefully with better heart rate control blood pressure will improve Antibiotics and management of influenza as below (2) Atrial fibrillation with RVR: Code(s): I48.91 - Unspecified atrial fibrillation Status: Acute Assessment and Plan: Patient presented with AFib with RVR likely secondary to influenza A infection Patient earlier was on on amiodarone infusion which was switched p.o. and IV metoprolol Sotalol is on hold Cardiology discontinued amiodarone and ordered digoxin and diltiazem infusion. Heart rate is improved overall. Continue Eliquis (3) Chronic anticoagulation: Code(s): Z79.01 - long-term (current) use of anticoagulants Status: Acute Assessment and Plan: Continue Eliquis (4) Chronic obstructive pulmonary disease: Code(s): J44.9 - Chronic obstructive pulmonary disease, unspecified Status: Acute Assessment and Plan: Not in exacerbation No significant wheezing on exam. Hold steroids P.r.n. bronchodilators (5) Influenza A: Code(s): J10.1 - Influenza due to other identified influenza virus with other respiratory manifestations Status: Inactive Assessment and Plan: Tamiflu Isolation (6) Pneumonia: Qualifiers: Laterality: bilateral Lung location: lower lobe of lung Pneumonia type: due to unspecified organism Qualified Code(s): J18.9 - Pneumonia, unspecified organism Code(s): J18.9 - Pneumonia, unspecified organism Status: Inactive Assessment and Plan: Patient presented with influenza A with infiltrates and suspected to have a secondary bacterial infection and was started on empiric antibiotics Patient is on vancomycin Rocephin and doxycycline Blood cultures as below MRSA screen was positive Sputum cultures growing Staph aureus and Pseudomonas Legionella and strep pneumococcal antigen are pending Continue cefepime vancomycin and doxycycline (7) Bacteremia: Code(s): R78.81 - Bacteremia Status: Acute Assessment and Plan: Blood cultures 2 bottles are growing MRSA and Staph epi in 1 bottle and Staph capitis in 2nd bottle. This suggests that this may be contamination Continue antibiotics as above I will send repeat culture Echocardiogram with limited views was ordered as patient was tachycardic preventing good imaging. Will repeat echocardiogram again in 1-2 days once the heart rate improves. Plan DVT prophylaxis -Eliquis Stress ulcer prophylaxis - NA Nutrition -diet ordered Code Status - Full Code Subjective Date/time seen: 01/01/25 Patient states he was coughing last last night. He was trying to get phlegm out but was unable to do so. He does not think his breathing is any different yesterday. He overall feels the same as compared to yesterday. He denies any pain. He does feel he has to intermittently work hard to breathe deep. All other systems were reviewed and were negative. He is in AFib but ventricular rate is improved on diltiazem infusion. He is on nasal cannula. He is afebrile. P.o. intake is adequate.. Good urine output Interval history: Patient is admitted in the ICU due to atrial fibrillation with rapid ventricular response, influenza A, and hypotension.Denies any chest pain,palpitations or diaphoresis. Review of Systems Review of Systems: All systems reviewed & are unremarkable except as noted in HPI and below (HPI) Exam Narrative: General: Pt is alert awake and in NAD Lungs/Chest: Trachea central Clear BS B/L, overall decreased air entry bilaterally, No crackles or wheezing. Cardiac: Tachycardic, irregular Normal S1 S2. No murmurs Circulation: Pedal pulses are intact and symmetrical. Abdomen: Normal bowel sounds.. Soft. NT. ND. Extremities: No clubbing, cyanosis or edema. Warm : Brady in place Neurologic: Follows commands. Moves all 4 extremities PERRL AO x3 Skin: No Rash Objective Data Vital Signs Vital Signs: Vital Signs - 24 hr 12/31/24 10:00 12/31/24 11:00 12/31/24 11:30 Temperature Pulse Rate 123 H 109 H 115 H Respiratory Rate Blood Pressure 116/66 Pulse Oximetry Oxygen Delivery Oxygen Flow Rate Fraction of Inspired Oxygen 12/31/24 12:00 12/31/24 12:12/31/24 12:00 Temperature 37.0 C Pulse Rate 115 H 115 H 121 H Respiratory Rate 20 22 H Blood Pressure 102/69 Pulse Oximetry 90 93 Oxygen Delivery Nasal Cannula Oxygen Flow Rate 3 Fraction of Inspired Oxygen 12/31/24 13:00 12/31/24 14:00 12/31/24 15:00 Temperature Pulse Rate 104 H 121 H 108 H Respiratory Rate Blood Pressure 110/72 123/71 Pulse Oximetry Oxygen Delivery Oxygen Flow Rate Fraction of Inspired Oxygen 12/31/24 16:00 12/31/24 16:00 12/31/24 16:00 Temperature 37.3 C Pulse Rate 121 H 121 H 123 H Respiratory Rate 22 H 25 H Blood Pressure 130/76 Pulse Oximetry 93 93 Oxygen Delivery Nasal Cannula Oxygen Flow Rate 3 Fraction of Inspired Oxygen 12/31/24 17:00 12/31/24 17:40 12/31/24 19:00 Temperature Pulse Rate 126 H 123 H 130 H Respiratory Rate Blood Pressure 123/70 124/90 Pulse Oximetry Oxygen Delivery Oxygen Flow Rate Fraction of Inspired Oxygen 12/31/24 19:06 12/31/24 19:07 12/31/24 19:19 Temperature Pulse Rate 145 H 124 H Respiratory Rate Blood Pressure Pulse Oximetry 93 Oxygen Delivery Nasal Cannula Oxygen Flow Rate 3 Fraction of Inspired Oxygen 12/31/24 20:00 12/31/24 20:00 12/31/24 20:00 Temperature 37.3 C Pulse Rate 117 H 109 H Respiratory Rate 23 H Blood Pressure 117/88 Pulse Oximetry 88 L 91 Oxygen Delivery Nasal Cannula Oxygen Flow Rate 3 Fraction of Inspired Oxygen 12/31/24 20:00 12/31/24 20:10 12/31/24 22:00 Temperature Pulse Rate 109 H 105 H 104 H Respiratory Rate Blood Pressure 96/75 L Pulse Oximetry Oxygen Delivery Oxygen Flow Rate Fraction of Inspired Oxygen 12/31/24 22:00 12/31/24 22:00 12/31/24 22:16 Temperature Pulse Rate 104 H 112 H 90 Respiratory Rate 24 H Blood Pressure 110/76 110/76 Pulse Oximetry Oxygen Delivery Oxygen Flow Rate Fraction of Inspired Oxygen 12/31/24 22:20 12/31/24 23:00 12/31/24 23:01 Temperature Pulse Rate 113 H 113 H 120 H Respiratory Rate 28 H Blood Pressure 118/81 Pulse Oximetry Oxygen Delivery Oxygen Flow Rate Fraction of Inspired Oxygen 12/31/24 23:39 01/01/25 00:00 01/01/25 00:00 Temperature 37.0 C Pulse Rate 104 H 104 H Respiratory Rate 21 H Blood Pressure 114/82 Pulse Oximetry 91 90 Oxygen Delivery Nasal Cannula Oxygen Flow Rate 3 Fraction of Inspired Oxygen 01/01/25 00:00 01/01/25 00:28 01/01/25 01:08 Temperature Pulse Rate 104 H 107 H Respiratory Rate Blood Pressure 114/82 107/77 Pulse Oximetry 88 L Oxygen Delivery Nasal Cannula Oxygen Flow Rate 5 Fraction of Inspired Oxygen 01/01/25 02:00 01/01/25 02:00 01/01/25 02:00 Temperature Pulse Rate 106 H 106 H 106 H Respiratory Rate Blood Pressure 118/78 118/78 Pulse Oximetry Oxygen Delivery Oxygen Flow Rate Fraction of Inspired Oxygen 01/01/25 04:00 01/01/25 04:00 01/01/25 04:00 Temperature 36.7 C Pulse Rate 112 H 112 H Respiratory Rate 18 Blood Pressure 98/73 L Pulse Oximetry 92 91 Oxygen Delivery Nasal Cannula Oxygen Flow Rate 5 Fraction of Inspired Oxygen 01/01/25 04:00 01/01/25 05:33 01/01/25 06:00 Temperature Pulse Rate 112 H 115 H 110 H Respiratory Rate Blood Pressure 98/73 L 132/75 Pulse Oximetry Oxygen Delivery Oxygen Flow Rate Fraction of Inspired Oxygen 01/01/25 06:00 01/01/25 06:00 01/01/25 07:40 Temperature 36.6 C Pulse Rate 110 H 110 H Respiratory Rate 24 H Blood Pressure 132/75 Pulse Oximetry 91 93 Oxygen Delivery Nasal Cannula Oxygen Flow Rate 5 Fraction of Inspired Oxygen 40 01/01/25 07:40 01/01/25 07:48 01/01/25 07:52 Temperature Pulse Rate 98 105 H 105 H Respiratory Rate 22 H Blood Pressure 132/75 132/75 Pulse Oximetry Oxygen Delivery Oxygen Flow Rate Fraction of Inspired Oxygen 01/01/25 07:56 01/01/25 08:48 Temperature Pulse Rate 111 H 112 H Respiratory Rate 24 H Blood Pressure Pulse Oximetry Oxygen Delivery Oxygen Flow Rate Fraction of Inspired Oxygen Intake/Output Intake/Output: Intake & Output 12/29/24 12/30/24 12/31/24 01/01/25 23:59 23:59 23:59 23:59 Intake Total 2525.5 3367.3 3865.1 900 Output Total 4950 3800 5300 1900 Balance -2424.5 -432.7 -1434.9 -1000 Meds/Results Medications: Active Medications Generic Name Dose Route Start Last Admin Trade Name Freq PRN Reason Stop Dose Admin Acetaminophen 650 mg 12/28/24 18:54 Acetaminophen 325 Mg Tablet PO Q6H PRN Mild Pain (1-3) or Fever Albuterol/Ipratropium 3 ml 12/29/24 09:13 Ipratropium 0.5 Mg/Albuterol Sulfate 2.5 Mg Ampul.Neb 3 Ml INHALATION Q6HRT PRN Wheezing Apixaban 5 mg 12/29/24 09:00 01/01/25 08:48 Apixaban 5 Mg Tablet PO 5 mg Q12HR [facility]LAY Administration Doxycycline Hyclate 100 mg 12/28/24 21:00 01/01/25 08:47 Doxycycline Hyclate 100 Mg Tablet PO 01/02/25 20:59 100 mg Q12HR CLAY Administration Fluticasone/Umeclidinium/Vilanterol 1 puff 12/29/24 08:00 01/01/25 07:56 Fluticasone/Umeclidin/Vilanter 200-62.5-25 Mcg Ellipta INHALATION 1 puff DAILYRT CLAY Administration Guaifenesin 1,200 mg 01/01/25 01:00 01/01/25 08:49 Guaifenesin 12 Hr 600 Mg Tabcr PO 1,200 mg Q12HR [facility] Administration Diltiazem HCl 100 mg in 100 mls @ 15 mls/hr 12/30/24 09:50 01/01/25 07:52 Cardizem 100 Mg/100 Ml IV CONT 15 mg/hr .Q6H40M CLAY 15 mls/hr Administration 15 MG/HR Cefepime HCl 2 gm in 50 mls @ 100 mls/hr 12/31/24 09:00 01/01/25 08:48 Maxipime 2 Gm/Ns 50 Ml IVPB 50 mls/hr Q12H [facility] Administration Vancomycin HCl 1,500 mg in 500 mls @ 250 mls/hr 12/31/24 13:00 01/01/25 05:23 Vancomycin 1,500 Mg/Ns 500 Ml IVPB 250 mls/hr Q8H [facility] Administration Levalbuterol HCl 1.25 mg 12/29/24 20:02 01/01/25 07:40 Levalbuterol Neb 1.25 Mg/3 Ml INHALATION 1.25 mg Q6HRT PRN Administration Shortness Of Breath Or Wheezing Magnesium Oxide 400 mg 12/31/24 12:00 12/31/24 11:31 Magnesium Oxide 400 Mg Tablet PO 400 mg DAILY@1200 [facility] Administration Metoprolol Tartrate 5 mg 12/29/24 15:40 12/31/24 19:06 Metoprolol Tartrate Inj 5 Mg/5 Ml Vial IV PUSH 5 mg Q3H PRN Administration Tachycardia Metoprolol Tartrate 50 mg 12/30/24 12:00 01/01/25 05:33 Metoprolol Tartrate 50 Mg Tab PO 50 mg Q6HR [facility] Administration Montelukast Sodium 10 mg 12/29/24 09:00 01/01/25 08:47 Montelukast Sodium 10 Mg Tablet PO 10 mg DAILY [facility] Administration Mupirocin 1 applic 12/29/24 09:00 01/01/25 08:49 Mupirocin 2% Oint 22 Gm Tube EACH NARE 01/02/25 21:01 1 applic Q12HR [facility] Administration Oseltamivir Phosphate 75 mg 12/28/24 21:00 01/01/25 08:47 Oseltamivir Phosphate 75 Mg Capsule PO 01/02/25 20:59 75 mg Q12HR [facility] Administration Perflutren Lipid Microsphere 0 ml 12/30/24 07:34 Perflutren Lipid Microspheres 1.5 Ml Vial Diluted To 10 Ml Total Volume IV PUSH 01/02/25 07:35 ONCE PRN adequate visualization Protocol Sodium Chloride 10 ml 12/29/24 22:00 01/01/25 05:33 Saline Lock Flush IV PUSH 10 ml Q8HR [facility] Administration Sodium Chloride 10 ml 12/29/24 14:55 Saline Lock Flush IV PUSH PRN PRN Flush Sodium Chloride 20 ml 12/29/24 14:55 Saline Lock Flush IV PUSH PRN PRN after blood draws Sotalol HCl 80 mg 12/31/24 21:00 01/01/25 08:48 Sotalol Hcl 80 Mg Tablet PO 80 mg Q12HR CLAY Administration Radiology Results: ITS Impressions Chest X-Ray 01/01/25 07:06 Impression: Worsening left lower lobe and left perihilar consolidation, compatible with worsening pneumonia. Labs Labs: Laboratory Results - last 24 hr 12/31/24 01/01/25 11:48 07:26 WBC 8.2 RBC 5.12 Hgb 15.6 Hct 46.2 MCV 90.2 MCH 30.5 MCHC 33.8 RDW 13.3 Plt Count 176 MPV 9.1 Sodium 133 L Potassium 4.0 Chloride 101 Carbon Dioxide 27 Anion Gap 5 BUN 8 L Creatinine 0.49 L Estim Creat Clear Calc 145 Estimated GFR > 60 Glucose 118 H Calcium 8.3 L Magnesium 1.9 Total Bilirubin 1.4 H AST 30 ALT 32 Alkaline Phosphatase 102 Total Protein 6.0 L Albumin 3.2 L Vancomycin Trough 14.5 Quality VTE Prophylaxis VTE prophylaxis: pharmacologic ordered
[2025-01-01] MEDS: MAGNESIUM OXIDE 400 MG TABLET PO (12:11)
[2025-01-01 12:19] LABS: Osmolality, Urine 232 mOsm/kg (50-1200)
--- NOTE | 2025-01-01 15:08 | PM.PNCARD ---
Progress Note: A&P Assessment and Plan (1) Atrial fibrillation with RVR: Code(s): I48.91 - Unspecified atrial fibrillation Status: Acute Plan 64-year-old man with paroxysmal atrial fibrillation, tachycardia induced cardiomyopathy, hypertension, hyperlipidemia, and COPD who is admitted for acute hypoxic respiratory failure and septic shock in setting of influenza a Paroxysmal atrial fibrillation -continue sotalol 80 mg q.12h -can up titrate Lopressor to 75mg q.6h -can start diltiazem 180 mg p.o. daily and titrate as necessary to keep heart rate less than 120bpm -Eliquis 5 mg p.o. b.i.d. -repeat ECG today to monitor QTc Subjective Date/time seen: 01/01/25 15:08 Interval history: He continues to have shortness of breath however this is much improved compared to his admission. Denies chest discomfort or palpitations. Review of Systems Cardiovascular: Cardiovascular: Reports as per HPI Respiratory: Respiratory: Reports as per HPI Exam Const: General: no acute distress HENMT: Mouth: Yes moist mucous membranes Eyes: EOM: EOMs intact bilaterally Neck: Neck: no JVD Resp: Effort & Inspection: normal respiratory effort Auscultation: rales, rhonchi and diminished lung sounds Cardio: Rate: tachycardic Rhythm: abnormal rhythm Extrem: General: no pedal edema Objective Data Vital Signs Vital Signs: Vital Signs - 24 hr 12/31/24 16:00 12/31/24 16:00 12/31/24 16:00 Temperature 37.3 C Pulse Rate 121 H 121 H 123 H Respiratory Rate 22 H 25 H Blood Pressure 130/76 Pulse Oximetry 93 93 Oxygen Delivery Nasal Cannula Oxygen Flow Rate 3 Fraction of Inspired Oxygen 12/31/24 17:00 12/31/24 17:40 12/31/24 19:00 Temperature Pulse Rate 126 H 123 H 130 H Respiratory Rate Blood Pressure 123/70 124/90 Pulse Oximetry Oxygen Delivery Oxygen Flow Rate Fraction of Inspired Oxygen 12/31/24 19:06 12/31/24 19:07 12/31/24 19:19 Temperature Pulse Rate 145 H 124 H Respiratory Rate Blood Pressure Pulse Oximetry 93 Oxygen Delivery Nasal Cannula Oxygen Flow Rate 3 Fraction of Inspired Oxygen 12/31/24 20:00 12/31/24 20:00 12/31/24 20:00 Temperature 37.3 C Pulse Rate 117 H 109 H Respiratory Rate 23 H Blood Pressure 117/88 Pulse Oximetry 88 L 91 Oxygen Delivery Nasal Cannula Oxygen Flow Rate 3 Fraction of Inspired Oxygen 12/31/24 20:00 12/31/24 20:10 12/31/24 22:00 Temperature Pulse Rate 109 H 105 H 104 H Respiratory Rate Blood Pressure 96/75 L Pulse Oximetry Oxygen Delivery Oxygen Flow Rate Fraction of Inspired Oxygen 12/31/24 22:00 12/31/24 22:00 12/31/24 22:16 Temperature Pulse Rate 104 H 112 H 90 Respiratory Rate 24 H Blood Pressure 110/76 110/76 Pulse Oximetry Oxygen Delivery Oxygen Flow Rate Fraction of Inspired Oxygen 12/31/24 22:20 12/31/24 23:00 12/31/24 23:01 Temperature Pulse Rate 113 H 113 H 120 H Respiratory Rate 28 H Blood Pressure 118/81 Pulse Oximetry Oxygen Delivery Oxygen Flow Rate Fraction of Inspired Oxygen 12/31/24 23:39 01/01/25 00:00 01/01/25 00:00 Temperature 37.0 C Pulse Rate 104 H 104 H Respiratory Rate 21 H Blood Pressure 114/82 Pulse Oximetry 91 90 Oxygen Delivery Nasal Cannula Oxygen Flow Rate 3 Fraction of Inspired Oxygen 01/01/25 00:00 01/01/25 00:28 01/01/25 01:08 Temperature Pulse Rate 104 H 107 H Respiratory Rate Blood Pressure 114/82 107/77 Pulse Oximetry 88 L Oxygen Delivery Nasal Cannula Oxygen Flow Rate 5 Fraction of Inspired Oxygen 01/01/25 02:00 01/01/25 02:00 01/01/25 02:00 Temperature Pulse Rate 106 H 106 H 106 H Respiratory Rate Blood Pressure 118/78 118/78 Pulse Oximetry Oxygen Delivery Oxygen Flow Rate Fraction of Inspired Oxygen 01/01/25 04:00 01/01/25 04:00 01/01/25 04:00 Temperature 36.7 C Pulse Rate 112 H 112 H Respiratory Rate 18 Blood Pressure 98/73 L Pulse Oximetry 92 91 Oxygen Delivery Nasal Cannula Oxygen Flow Rate 5 Fraction of Inspired Oxygen 01/01/25 04:00 01/01/25 05:33 01/01/25 06:00 Temperature Pulse Rate 112 H 115 H 110 H Respiratory Rate Blood Pressure 98/73 L 132/75 Pulse Oximetry Oxygen Delivery Oxygen Flow Rate Fraction of Inspired Oxygen 01/01/25 06:00 01/01/25 06:00 01/01/25 07:40 Temperature 36.6 C Pulse Rate 110 H 110 H Respiratory Rate 24 H Blood Pressure 132/75 Pulse Oximetry 91 93 Oxygen Delivery Nasal Cannula Oxygen Flow Rate 5 Fraction of Inspired Oxygen 40 01/01/25 07:40 01/01/25 07:48 01/01/25 07:52 Temperature Pulse Rate 98 105 H 105 H Respiratory Rate 22 H Blood Pressure 132/75 132/75 Pulse Oximetry Oxygen Delivery Oxygen Flow Rate Fraction of Inspired Oxygen 01/01/25 07:56 01/01/25 08:00 01/01/25 08:00 Temperature Pulse Rate 111 H 112 H 112 H Respiratory Rate 24 H 24 H Blood Pressure Pulse Oximetry 93 Oxygen Delivery Nasal Cannula Oxygen Flow Rate 5 Fraction of Inspired Oxygen 40 01/01/25 08:00 01/01/25 08:48 01/01/25 10:00 Temperature 36.9 C Pulse Rate 113 H 112 H 112 H Respiratory Rate 25 H Blood Pressure 117/89 Pulse Oximetry 93 Oxygen Delivery Oxygen Flow Rate Fraction of Inspired Oxygen 01/01/25 10:00 01/01/25 12:00 01/01/25 12:00 Temperature 37.1 C 37.2 C Pulse Rate 109 H 99 88 Respiratory Rate 29 H 19 19 Blood Pressure 128/89 119/82 Pulse Oximetry 95 100 100 Oxygen Delivery Nasal Cannula Oxygen Flow Rate 5 Fraction of Inspired Oxygen 40 01/01/25 12:00 01/01/25 12:11 01/01/25 13:31 Temperature Pulse Rate 88 88 89 Respiratory Rate Blood Pressure Pulse Oximetry Oxygen Delivery Oxygen Flow Rate Fraction of Inspired Oxygen 01/01/25 14:00 Temperature 37.2 C Pulse Rate 95 Respiratory Rate 29 H Blood Pressure 129/85 Pulse Oximetry 90 Oxygen Delivery Oxygen Flow Rate Fraction of Inspired Oxygen Intake/Output Intake/Output: Intake & Output 12/29/24 12/30/24 12/31/24 01/01/25 23:59 23:59 23:59 23:59 Intake Total 2525.5 3367.3 3865.1 1300 Output Total 4950 3800 5300 1900 Balance -2424.5 -432.7 -1434.9 -600 Meds/Results Medications: Active Medications Generic Name Dose Route Start Last Admin Trade Name Freq PRN Reason Stop Dose Admin Acetaminophen 650 mg 12/28/24 18:54 Acetaminophen 325 Mg Tablet PO Q6H PRN Mild Pain (1-3) or Fever Albuterol/Ipratropium 3 ml 12/29/24 09:13 Ipratropium 0.5 Mg/Albuterol Sulfate 2.5 Mg Ampul.Neb 3 Ml INHALATION Q6HRT PRN Wheezing Apixaban 5 mg 12/29/24 09:00 01/01/25 08:48 Apixaban 5 Mg Tablet PO 5 mg Q12HR CLAY Administration Doxycycline Hyclate 100 mg 12/28/24 21:00 01/01/25 08:47 Doxycycline Hyclate 100 Mg Tablet PO 01/02/25 20:59 100 mg Q12HR CLAY Administration Fluticasone/Umeclidinium/Vilanterol 1 puff 12/29/24 08:00 01/01/25 07:56 Fluticasone/Umeclidin/Vilanter 200-62.5-25 Mcg Ellipta INHALATION 1 puff DAILYRT CLAY Administration Guaifenesin 1,200 mg 01/01/25 01:00 01/01/25 08:49 Guaifenesin 12 Hr 600 Mg Tabcr PO 1,200 mg Q12HR CLAY Administration Diltiazem HCl 100 mg in 100 mls @ 15 mls/hr 12/30/24 09:50 01/01/25 07:52 Cardizem 100 Mg/100 Ml IV CONT 15 mg/hr .Q6H40M CLAY 15 mls/hr Administration 15 MG/HR Cefepime HCl 2 gm in 50 mls @ 100 mls/hr 12/31/24 09:00 01/01/25 08:48 Maxipime 2 Gm/Ns 50 Ml IVPB 50 mls/hr Q12H CLAY Administration Vancomycin HCl 1,500 mg in 500 mls @ 250 mls/hr 12/31/24 13:00 01/01/25 05:23 Vancomycin 1,500 Mg/Ns 500 Ml IVPB 250 mls/hr Q8H CLAY Administration Levalbuterol HCl 1.25 mg 12/29/24 20:02 01/01/25 07:40 Levalbuterol Neb 1.25 Mg/3 Ml INHALATION 1.25 mg Q6HRT PRN Administration Shortness Of Breath Or Wheezing Magnesium Oxide 400 mg 12/31/24 12:00 01/01/25 12:11 Magnesium Oxide 400 Mg Tablet PO 400 mg DAILY@1200 CLAY Administration Metoprolol Tartrate 5 mg 12/29/24 15:40 12/31/24 19:06 Metoprolol Tartrate Inj 5 Mg/5 Ml Vial IV PUSH 5 mg Q3H PRN Administration Tachycardia Metoprolol Tartrate 50 mg 12/30/24 12:00 01/01/25 12:11 Metoprolol Tartrate 50 Mg Tab PO 50 mg Q6HR CLAY Administration Montelukast Sodium 10 mg 12/29/24 09:00 01/01/25 08:47 Montelukast Sodium 10 Mg Tablet PO 10 mg DAILY CLAY Administration Mupirocin 1 applic 12/29/24 09:00 01/01/25 08:49 Mupirocin 2% Oint 22 Gm Tube EACH NARE 01/02/25 21:01 1 applic Q12HR CLAY Administration Oseltamivir Phosphate 75 mg 12/28/24 21:00 01/01/25 08:47 Oseltamivir Phosphate 75 Mg Capsule PO 01/02/25 20:59 75 mg Q12HR CLAY Administration Perflutren Lipid Microsphere 0 ml 12/30/24 07:34 Perflutren Lipid Microspheres 1.5 Ml Vial Diluted To 10 Ml Total Volume IV PUSH 01/02/25 07:35 ONCE PRN adequate visualization Protocol Sodium Chloride 10 ml 12/29/24 22:00 01/01/25 05:33 Saline Lock Flush IV PUSH 10 ml Q8HR CLAY Administration Sodium Chloride 10 ml 12/29/24 14:55 Saline Lock Flush IV PUSH PRN PRN Flush Sodium Chloride 20 ml 12/29/24 14:55 Saline Lock Flush IV PUSH PRN PRN after blood draws Sotalol HCl 80 mg 12/31/24 21:00 01/01/25 08:48 Sotalol Hcl 80 Mg Tablet PO 80 mg Q12HR CLAY Administration Radiology Results: ITS Impressions Chest X-Ray 01/01/25 07:06 Impression: Worsening left lower lobe and left perihilar consolidation, compatible with worsening pneumonia. Labs Labs: Laboratory Results - last 24 hr 12/28/24 01/01/25 19:29 07:26 WBC 8.2 RBC 5.12 Hgb 15.6 Hct 46.2 MCV 90.2 MCH 30.5 MCHC 33.8 RDW 13.3 Plt Count 176 MPV 9.1 Sodium 133 L Potassium 4.0 Chloride 101 Carbon Dioxide 27 Anion Gap 5 BUN 8 L Creatinine 0.49 L Estim Creat Clear Calc 145 Estimated GFR > 60 Glucose 118 H Calcium 8.3 L Magnesium 1.9 Total Bilirubin 1.4 H AST 30 ALT 32 Alkaline Phosphatase 102 Total Protein 6.0 L Albumin 3.2 L Urine Osmolality 232
--- NOTE | 2025-01-01 15:17 | ECG_ITS ---
Test Date: 2025-01-01 15:38:07 Measurements Intervals [place] Rate: 83 P: 0 RI: 0 QRS: 15 QRSD: 105 T: 20 QT: 366 QTc: 431 Interpretive Statements ATRIAL FIBRILLATION INCOMPLETE RIGHT BUNDLE BRANCH BLOCK BASELINE ARTIFACT- I, II, AVR ABNORMAL ECG Compared to ECG 12/31/2024 21:15:49 HEART RATE HAS DECREASED Electronically Signed On 01-01-2025 16:31:59 [employer] by Yamil Meyers D.O.
[2025-01-01] MEDS: METOPROLOL TARTRATE 25 MG TABLET 75 MG PO ×2 (18:02→23:44)
[2025-01-01 18:33] LABS: Pneumococcal Antigen Urine NOT DETECTED
--- NOTE | 2025-01-01 19:25 | PC.NURSE ---
Called Dr. Alba confirming orders of Cardizem IV and P.O, Dr. Alba wants IV Cardizem to remain active with new Cardizem order @180mg P.o daily. Also notified of current HR/and frequent pauses. Dr. Alba wants nurse to monitor and continue IV Cardizem until HR @ or below 110s .
[2025-01-01] MEDS: IPRATROPIUM 0.5 MG/ALBUTEROL SULFATE 2.5 MG AMPUL.NEB 3 ML INHALATION (20:49)
--- NOTE | 2025-01-01 21:09 | ECG_ITS ---
Test Date: 2025-01-01 21:25:06 Measurements Intervals [place] Rate: 98 P: 0 NH: 0 QRS: 14 QRSD: 108 T: 29 QT: 368 QTc: 472 Interpretive Statements ATRIAL FIBRILLATION INCOMPLETE RIGHT BUNDLE BRANCH BLOCK BASELINE ARTIFACT- I, II, AVR, AVL ABNORMAL ECG Compared to ECG 01/01/2025 15:38:07 NO SIGNIFICANT CHANGE Electronically Signed On 01-02-2025 07:17:25 [employer]ER by Yamil Meyers D.O.
[2025-01-01] MEDS: PROMETHAZINE HCL 25 MG/ML AMPUL IM (21:27)
[2025-01-02] VITALS (26 sets, daily range): BP systolic 94–128; BP diastolic 59–97; PULSE 91–139; RESP 18–27; TEMP 36.3–37.3; O2SAT 91–98
[2025-01-02] MEDS: VANCOMYCIN 1,500 MG/NS 500 ML 1,500 MG/500 ML BAG 250 MG IVPB ×3 (04:17→20:54)
[2025-01-02 04:20] LABS: Hematocrit 43.3 % (42.0-52.0); Hemoglobin 14.7 g/dL (14.0-18.0); Mean Corpuscular HGB Conc 33.9 g/dl (32-36); Mean Corpuscular Hemoglobin 30.5 pg (26-34); Mean Corpuscular Volume 89.8 fl (80-100); Platelet Count Result 180 k/mm3 (150-375); Red Blood Count 4.82 M/mm3 (4.6-6.20); Red Cell Distribution Width 13.2 % (11.5-14.5); White Blood Count 7.4 K/mm3 (4.5-10.0)
[2025-01-02 04:30] LABS: Alanine Aminotransferase 30 U/L (6-50); Albumin Level 2.9 g/dL (3.5-5.1); Alkaline Phosphatase 100 U/L (38-126); Anion Gap 3 mmol/L (4-12); Aspartate Amino Transferase 28 U/L (17-59); Bilirubin,Total 1.4 mg/dL (0.2-1.3); Blood Urea Nitrogen 8 mg/dL (9-20); Calcium 8.5 mg/dL (8.4-10.2); Carbon Dioxide 28 mmol/L (22-30); Chloride 104 mmol/L (98-107); Estimated CRCL calculation 138 ml/min; Estimated Glomerular Filt Rate > 60; Glucose 85 mg/dL (65-110); Sodium 135 mmol/L (137-145)
[2025-01-02] MEDS: METOPROLOL TARTRATE 25 MG TABLET 75 MG PO ×4 (06:11→22:57)
[2025-01-02] MEDS: SALINE LOCK FLUSH 10 ML IV PUSH ×3 (06:12→23:40)
[2025-01-02] MEDS: DOXYCYCLINE HYCLATE 100 MG TABLET PO (08:12)
[2025-01-02] MEDS: MONTELUKAST SODIUM 10 MG TABLET PO (08:12)
[2025-01-02] MEDS: ATORVASTATIN 20 MG TABLET PO (08:12)
[2025-01-02] MEDS: dilTIAZem HCL CD 180 MG CAP.24HR PO (08:12)
[2025-01-02] MEDS: CEFEPIME 2 GM/NS 50 ML 2 GM/50 ML BAG IVPB ×2 (08:13→20:54)
[2025-01-02] MEDS: guaiFENesin 12 HR 600 MG TABCR 1200 MG PO ×2 (08:13→20:55)
[2025-01-02] MEDS: APIXABAN 5 MG TABLET PO ×2 (08:13→20:54)
[2025-01-02] MEDS: OSELTAMIVIR PHOSPHATE 75 MG CAPSULE PO (08:13)
[2025-01-02] MEDS: SOTALOL HCL 80 MG TABLET PO ×2 (08:13→20:55)
[2025-01-02] MEDS: MUPIROCIN 2% OINT 22 GM TUBE 1 APPLIC EACH NARE ×2 (08:14→20:55)
[2025-01-02] MEDS: FLUTICASONE/UMECLIDIN/VILANTER 200-62.5-25 MCG ELLIPTA 1 PUFF INHALATION (08:46)
--- NOTE | 2025-01-02 09:17 | ECG_ITS ---
Test Date: 2025-01-02 09:36:03 Measurements Intervals [place] Rate: 117 P: 0 MA: 0 QRS: 27 QRSD: 105 T: 33 QT: 325 QTc: 455 Interpretive Statements ATRIAL FIBRILLATION WITH RAPID VENTRICULAR RESPONSE INCOMPLETE RIGHT BUNDLE BRANCH BLOCK BASELINE ARTIFACT- I, II, III, AVR, AVL, AVF, V1 ABNORMAL ECG ABNORMAL RHYTHM ECG Compared to ECG 01/01/2025 21:25:06 HEART RATE HAS INCREASED Electronically Signed On 01-02-2025 10:00:22 [employer] POLISHER by Yamil Meyers D.O.
--- NOTE | 2025-01-02 11:23 | P.PNCA_ITS ---
Progress Note: A&P Assessment and Plan (1) Atrial fibrillation with rapid ventricular response: Code(s): I48.91 - Unspecified atrial fibrillation Status: Acute Plan 1. Shock, likely septic; + Influenza. Was on Phenylephrine, now off of pressors. Shock now resolved 2. Paroxysmal atrial fibrillation with RVR 3. Influenza A 4. Bacteremia: Blood cultures from 12/28 show MRSA from aerobic bottle only, staphylococcus epidermidis from aerobic bottle only, and staphylococcus capitis from aerobic bottle only. This may be a contaminant. Repeat blood cultures from 01/01 are NGTD. 5. Hypertension 6. Hyperlipidemia 7. History of tachycardia induced cardiomyopathy PLAN: -Started on Amiodarone on admission (patient on Sotalol at home), and Amiodarone not a good long-term option for this patient given his age, stopped Amiodarone (received IV Amiodarone drip for about 24 hours) and allowed washout of Amiodarone before resuming Sotalol. Rate controlling with Metoprolol and Diltiazem during washout period. Sotalol resumed 12/31/2024 PM. Will need EKGs done 1 hour after each Sotalol dose. Will need to remain in the hospital for 5 Sotalol doses to monitor his QTc (5th dose to be given on M). If patient does not convert to sinus after being re-loaded with Sotalol, will plan for MULUGETA- guided DCCV on 01/03. Will need MULUGETA-guided DCCV as he was not given his evening dose of Eliquis on 12/28 when he was in the ER / getting transferred to [place]. -Continue Eliquis uninterrupted for anticoagulation. -Echocardiogram done 12/30, however, this was of very poor quality and incomplete study. Will need to repeat once his tachycardia is improved -Infectious workup per primary team. -Continue home statin -Hold home antihypertensives for now Subjective Date/time seen: 01/02/25 11:23 Interval history: Reason for visit: Atrial fibrillation with RVR HPI: We are consulted for atrial fibrillation with RVR. This is a 64 year old male with paroxysmal atrial fibrillation, history of tachycardia induced cardiomyopathy, hypertension, hyperlipidemia, COPD who was transferred from [place] for shock, influenza A, AFIB with RVR. His had the flu that lasted for few days, however, he then became sick. Has been feeling worse. At [place] ED, he was initially hypotensive at 73/57mmHg. Given IVFs with some improvement. Started on Amiodarone due to AFIB with RVR. Started on Phenylephrine due to persistent hypotension. Transferred to [place] ICU. CXR shows pneumonia. EKG with AFIB with RVR. Follows with Dr. Newberry in the office, on Sotalol and Eliquis at home. Date of service 12/30: Remains in AFIB with RVR. Doesn't really feel palpitations though. Aerobic blood culture bottles are positive for Gram positive cocci. Date of service 12/31: Feeling better today. Remains in AFIB, however, rates are improving on Diltiazem drip. Date of service 01/01: He continues to have shortness of breath however this is much improved compared to his admission. Denies chest discomfort or palpitations. Date of service 01/02. He has now received 4 doses of Sotalol, will be receiving his 5th dose this evening. QTC acceptable. Remains in AFib, but is overall decently rate controlled. Review of Systems Cardiovascular: Cardiovascular: Reports as per HPI Exam Const: General: no acute distress HENMT: Mouth: Yes moist mucous membranes Eyes: General: appearance normal, both eyes and all related structures Sclera: sclerae normal Resp: Effort & Inspection: normal respiratory effort Cardio: Rhythm: abnormal rhythm irregularly irregular Skin: General skin exam: normal color Neuro: Speech: normal speech Psych: Mental Status: mental status grossly normal Affect: normal affect Objective Data Vital Signs Vital Signs: Vital Signs - 24 hr 01/01/25 12:00 01/01/25 12:00 01/01/25 12:00 Temperature 37.2 C Pulse Rate 99 88 88 Respiratory Rate 19 19 Blood Pressure 119/82 Pulse Oximetry 100 100 Oxygen Delivery Nasal Cannula Oxygen Flow Rate 5 Fraction of Inspired Oxygen 40 01/01/25 12:00 01/01/25 12:11 01/01/25 13:31 Temperature Pulse Rate 74 88 89 Respiratory Rate Blood Pressure 102/69 Pulse Oximetry Oxygen Delivery Oxygen Flow Rate Fraction of Inspired Oxygen 01/01/25 14:00 01/01/25 14:00 01/01/25 14:33 Temperature 37.2 C Pulse Rate 95 97 96 Respiratory Rate 29 H Blood Pressure 129/85 117/89 129/85 Pulse Oximetry 90 Oxygen Delivery Oxygen Flow Rate Fraction of Inspired Oxygen 01/01/25 15:25 01/01/25 16:00 01/01/25 16:00 Temperature 37.2 C Pulse Rate 96 104 H 104 H Respiratory Rate 24 H 24 H Blood Pressure 129/85 108/76 Pulse Oximetry 93 93 Oxygen Delivery Nasal Cannula Oxygen Flow Rate 5 Fraction of Inspired Oxygen 40 01/01/25 16:00 01/01/25 16:00 01/01/25 18:00 Temperature Pulse Rate 104 H 86 104 H Respiratory Rate Blood Pressure 130/76 Pulse Oximetry Oxygen Delivery Oxygen Flow Rate Fraction of Inspired Oxygen 01/01/25 18:00 01/01/25 18:00 01/01/25 18:02 Temperature 37.2 C Pulse Rate 124 H 103 H 105 H Respiratory Rate 24 H Blood Pressure 140/90 110/87 Pulse Oximetry 93 Oxygen Delivery Oxygen Flow Rate Fraction of Inspired Oxygen 01/01/25 20:00 01/01/25 20:00 01/01/25 20:00 Temperature 37.3 C Pulse Rate 98 98 Respiratory Rate 22 H Blood Pressure 94/62 L Pulse Oximetry 91 91 Oxygen Delivery Nasal Cannula Oxygen Flow Rate 5 Fraction of Inspired Oxygen 01/01/25 20:00 01/01/25 20:09 01/01/25 20:49 Temperature Pulse Rate 98 104 H 96 Respiratory Rate 21 H Blood Pressure 94/62 L Pulse Oximetry Oxygen Delivery Oxygen Flow Rate Fraction of Inspired Oxygen 01/01/25 20:53 01/01/25 20:56 01/01/25 21:32 Temperature Pulse Rate 94 87 Respiratory Rate 18 Blood Pressure 101/79 Pulse Oximetry 94 Oxygen Delivery Nasal Cannula Oxygen Flow Rate 5 Fraction of Inspired Oxygen 01/01/25 21:32 01/01/25 22:00 01/01/25 22:00 Temperature 37.2 C Pulse Rate 87 112 H 92 Respiratory Rate 20 Blood Pressure 101/79 105/71 Pulse Oximetry 93 Oxygen Delivery Oxygen Flow Rate Fraction of Inspired Oxygen 01/01/25 22:00 01/01/25 22:27 01/01/25 23:44 Temperature Pulse Rate 92 74 92 Respiratory Rate Blood Pressure 105/71 102/65 Pulse Oximetry Oxygen Delivery Oxygen Flow Rate Fraction of Inspired Oxygen 01/01/25 23:53 01/02/25 00:00 01/02/25 00:00 Temperature 37.3 C Pulse Rate 91 113 H Respiratory Rate 18 Blood Pressure 128/79 Pulse Oximetry 92 93 Oxygen Delivery Nasal Cannula Oxygen Flow Rate 5 Fraction of Inspired Oxygen 01/02/25 00:00 01/02/25 02:00 01/02/25 02:00 Temperature 37.2 C Pulse Rate 91 93 93 Respiratory Rate 18 Blood Pressure 128/79 124/97 H Pulse Oximetry 93 Oxygen Delivery Oxygen Flow Rate Fraction of Inspired Oxygen 01/02/25 02:00 01/02/25 04:00 01/02/25 04:00 Temperature Pulse Rate 93 99 92 Respiratory Rate Blood Pressure 124/97 H 110/69 Pulse Oximetry Oxygen Delivery Oxygen Flow Rate Fraction of Inspired Oxygen 01/02/25 04:00 01/02/25 04:30 01/02/25 06:00 Temperature 37.1 C Pulse Rate 92 102 H Respiratory Rate 18 20 Blood Pressure 110/69 98/59 L Pulse Oximetry 94 97 98 Oxygen Delivery Nasal Cannula Oxygen Flow Rate 5 Fraction of Inspired Oxygen 01/02/25 06:00 01/02/25 06:00 01/02/25 06:11 Temperature Pulse Rate 102 H 102 H 110 H Respiratory Rate Blood Pressure 98/59 L Pulse Oximetry Oxygen Delivery Oxygen Flow Rate Fraction of Inspired Oxygen 01/02/25 07:00 01/02/25 08:00 01/02/25 08:00 Temperature 36.3 C L Pulse Rate 102 H 107 H Respiratory Rate 23 H Blood Pressure 110/86 104/62 Pulse Oximetry 97 94 Oxygen Delivery Nasal Cannula Oxygen Flow Rate 4 Fraction of Inspired Oxygen 01/02/25 08:00 01/02/25 08:13 01/02/25 08:47 Temperature Pulse Rate 111 H 104 H 120 H Respiratory Rate 27 H Blood Pressure Pulse Oximetry 95 Oxygen Delivery Nasal Cannula Oxygen Flow Rate 5 Fraction of Inspired Oxygen 01/02/25 08:47 01/02/25 10:00 01/02/25 10:47 Temperature Pulse Rate 120 H 109 H 105 H Respiratory Rate 27 H 21 H Blood Pressure 108/73 Pulse Oximetry 92 Oxygen Delivery Oxygen Flow Rate Fraction of Inspired Oxygen Intake/Output Intake/Output: Intake & Output 12/30/24 12/31/24 01/01/25 01/02/25 23:59 23:59 23:59 23:59 Intake Total 3367.3 3865.1 4945.5 1632.8 Output Total 3800 5300 4200 3150 Balance -432.7 -1434.9 745.5 -1517.2 Meds/Results Medications: Active Medications Generic Name Dose Route Start Last Admin Trade Name Freq PRN Reason Stop Dose Admin Acetaminophen 650 mg 12/28/24 18:54 Acetaminophen 325 Mg Tablet PO Q6H PRN Mild Pain (1-3) or Fever Albuterol/Ipratropium 3 ml 12/29/24 09:13 01/01/25 20:49 Ipratropium 0.5 Mg/Albuterol Sulfate 2.5 Mg Ampul.Neb 3 Ml INHALATION 3 ml Q6HRT PRN Administration Wheezing Apixaban 5 mg 12/29/24 09:00 01/02/25 08:13 Apixaban 5 Mg Tablet PO 5 mg Q12HR CLAY Administration Atorvastatin Calcium 20 mg 01/02/25 09:00 01/02/25 08:12 Atorvastatin 20 Mg Tablet PO 20 mg DAILY CLAY Administration Diltiazem HCl 180 mg 01/02/25 09:00 01/02/25 08:12 Diltiazem Hcl Cd 180 Mg Cap.24hr PO 180 mg QAM CLAY Administration Doxycycline Hyclate 100 mg 12/28/24 21:00 01/02/25 08:12 Doxycycline Hyclate 100 Mg Tablet PO 01/02/25 20:59 100 mg Q12HR CLAY Administration Fluticasone/Umeclidinium/Vilanterol 1 puff 12/29/24 08:00 01/02/25 08:46 Fluticasone/Umeclidin/Vilanter 200-62.5-25 Mcg Ellipta INHALATION 1 puff DAILYRT CLAY Administration Guaifenesin 1,200 mg 01/01/25 01:00 01/02/25 08:13 Guaifenesin 12 Hr 600 Mg Tabcr PO 1,200 mg Q12HR CLAY Administration Cefepime HCl 2 gm in 50 mls @ 100 mls/hr 12/31/24 09:00 01/02/25 08:40 Maxipime 2 Gm/Ns 50 Ml IVPB Infused Q12H CLAY Infusion Vancomycin HCl 1,500 mg in 500 mls @ 250 mls/hr 12/31/24 13:00 01/02/25 06:17 Vancomycin 1,500 Mg/Ns 500 Ml IVPB Infused Q8H CLAY Infusion Levalbuterol HCl 1.25 mg 12/29/24 20:02 01/01/25 07:40 Levalbuterol Neb 1.25 Mg/3 Ml INHALATION 1.25 mg Q6HRT PRN Administration Shortness Of Breath Or Wheezing Magnesium Oxide 400 mg 12/31/24 12:00 01/01/25 12:11 Magnesium Oxide 400 Mg Tablet PO 400 mg DAILY@1200 CLAY Administration Metoprolol Tartrate 5 mg 12/29/24 15:40 12/31/24 19:06 Metoprolol Tartrate Inj 5 Mg/5 Ml Vial IV PUSH 5 mg Q3H PRN Administration Tachycardia Metoprolol Tartrate 75 mg 01/01/25 18:00 01/02/25 06:11 Metoprolol Tartrate 25 Mg Tablet PO 75 mg Q6HR CLAY Administration Montelukast Sodium 10 mg 12/29/24 09:00 01/02/25 08:12 Montelukast Sodium 10 Mg Tablet PO 10 mg DAILY CLAY Administration Mupirocin 1 applic 12/29/24 09:00 01/02/25 08:14 Mupirocin 2% Oint 22 Gm Tube EACH NARE 01/02/25 21:01 1 applic Q12HR CLAY Administration Oseltamivir Phosphate 75 mg 12/28/24 21:00 01/02/25 08:13 Oseltamivir Phosphate 75 Mg Capsule PO 01/02/25 20:59 75 mg Q12HR CLAY Administration Sodium Chloride 10 ml 12/29/24 22:00 01/02/25 06:12 Saline Lock Flush IV PUSH 10 ml Q8HR CLAY Administration Sodium Chloride 10 ml 12/29/24 14:55 Saline Lock Flush IV PUSH PRN PRN Flush Sodium Chloride 20 ml 12/29/24 14:55 Saline Lock Flush IV PUSH PRN PRN after blood draws Sotalol HCl 80 mg 12/31/24 21:00 01/02/25 08:13 Sotalol Hcl 80 Mg Tablet PO 80 mg Q12HR CLAY Administration Radiology Results: ITS Impressions Chest X-Ray 01/01/25 07:06 Impression: Worsening left lower lobe and left perihilar consolidation, compatible with worsening pneumonia. Labs Labs: Laboratory Results - last 24 hr 12/28/24 12/28/24 01/02/25 19:29 19:48 04:16 WBC 7.4 RBC 4.82 Hgb 14.7 Hct 43.3 MCV 89.8 MCH 30.5 MCHC 33.9 RDW 13.2 Plt Count 180 MPV 9.0 Sodium 135 L Potassium 4.0 Chloride 104 Carbon Dioxide 28 Anion Gap 3 L BUN 8 L Creatinine 0.52 L Estim Creat Clear Calc 138 Estimated GFR > 60 Glucose 85 Serum Osmolality 269 L Calcium 8.5 Magnesium 2.0 Total Bilirubin 1.4 H AST 28 ALT 30 Alkaline Phosphatase 100 Total Protein 6.0 L Albumin 2.9 L Urine Osmolality 232 Urine Pneumococcal Ag Not detected
[2025-01-02] MEDS: MAGNESIUM OXIDE 400 MG TABLET PO (11:55)
[2025-01-02 12:57] LABS: Vancomycin Trough 18.6 ug/mL (10.0-20.0)
--- NOTE | 2025-01-02 16:46 | P.PNIM_ITS ---
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 Hold steroids P.r.n. bronchodilators (5) Influenza A: Code(s): J10.1 - Influenza due to other identified influenza virus with other respiratory manifestations Status: Inactive Assessment and Plan: Tamiflu Isolation completed tamiflu (6) Pneumonia: Qualifiers: Laterality: bilateral Lung location: lower lobe of lung Pneumonia type: due to unspecified organism Qualified Code(s): J18.9 - Pneumonia, unspecified organism Code(s): J18.9 - Pneumonia, unspecified organism Status: Inactive Assessment and Plan: Patient presented with influenza A with infiltrates and suspected to have a secondary bacterial infection and was started on empiric antibiotics Sputum culture positive for MRSA and pseudomonas now on Cefepime and vanc (7) Bacteremia: Code(s): R78.81 - Bacteremia Status: Acute Assessment and Plan: Blood cultures 2 bottles are growing MRSA and Staph epi in 1 bottle and Staph capitis in 2nd bottle. Blood culture from [place] where she was transferred positive for S capitis Continue Vancomycin F/u repeat cultures Plan DVT prophylaxis -Eliquis Stress ulcer prophylaxis - NA Nutrition -diet ordered Code Status - Full Code Subjective Date/time seen: 01/02/25 16:46 Interval history: continue Cardizem infusion On Cefepime, vanc Review of Systems Review of Systems: 12 systems were reviewed and are negativ e except for as per HPI. All systems reviewed & are unremarkable except as noted in HPI and below (HPI) Exam Narrative: General: Pt is alert awake and in NAD Lungs/Chest: Trachea central Clear BS B/L, overall decreased air entry bilaterally, No crackles or wheezing. Cardiac: Tachycardic, irregular Normal S1 S2. No murmurs Circulation: Pedal pulses are intact and symmetrical. Abdomen: Normal bowel sounds.. Soft. NT. ND. Extremities: No clubbing, cyanosis or edema. Warm : Brady in place Neurologic: Follows commands. Moves all 4 extremities PERRL AO x3 Skin: No Rash Objective Data Vital Signs Vital Signs: Vital Signs - 24 hr 01/01/25 18:00 01/01/25 18:00 01/01/25 18:00 Temperature 99.0 F Pulse Rate 104 H 124 H 103 H Respiratory Rate 24 H Blood Pressure 140/90 110/87 Pulse Oximetry 93 Oxygen Delivery Oxygen Flow Rate 01/01/25 18:02 01/01/25 20:00 01/01/25 20:00 Temperature Pulse Rate 105 H 98 Respiratory Rate Blood Pressure Pulse Oximetry 91 Oxygen Delivery Nasal Cannula Oxygen Flow Rate 5 01/01/25 20:00 01/01/25 20:00 01/01/25 20:09 Temperature 99.2 F Pulse Rate 98 98 104 H Respiratory Rate 22 H Blood Pressure 94/62 L 94/62 L Pulse Oximetry 91 Oxygen Delivery Oxygen Flow Rate 01/01/25 20:49 01/01/25 20:53 01/01/25 20:56 Temperature Pulse Rate 96 94 Respiratory Rate 21 H 18 Blood Pressure Pulse Oximetry 94 Oxygen Delivery Nasal Cannula Oxygen Flow Rate 5 01/01/25 21:32 01/01/25 21:32 01/01/25 22:00 Temperature Pulse Rate 87 87 112 H Respiratory Rate Blood Pressure 101/79 101/79 Pulse Oximetry Oxygen Delivery Oxygen Flow Rate 01/01/25 22:00 01/01/25 22:00 01/01/25 22:27 Temperature 98.9 F Pulse Rate 92 92 74 Respiratory Rate 20 Blood Pressure 105/71 105/71 102/65 Pulse Oximetry 93 Oxygen Delivery Oxygen Flow Rate 01/01/25 23:44 01/01/25 23:53 01/02/25 00:00 Temperature 99.1 F Pulse Rate 92 91 Respiratory Rate 18 Blood Pressure 128/79 Pulse Oximetry 92 93 Oxygen Delivery Nasal Cannula Oxygen Flow Rate 5 01/02/25 00:00 01/02/25 00:00 01/02/25 02:00 Temperature Pulse Rate 113 H 91 93 Respiratory Rate Blood Pressure 128/79 Pulse Oximetry Oxygen Delivery Oxygen Flow Rate 01/02/25 02:00 01/02/25 02:00 01/02/25 04:00 Temperature 98.9 F Pulse Rate 93 93 99 Respiratory Rate 18 Blood Pressure 124/97 H 124/97 H 110/69 Pulse Oximetry 93 Oxygen Delivery Oxygen Flow Rate 01/02/25 04:00 01/02/25 04:00 01/02/25 04:30 Temperature 98.8 F Pulse Rate 92 92 Respiratory Rate 18 Blood Pressure 110/69 Pulse Oximetry 94 97 Oxygen Delivery Nasal Cannula Oxygen Flow Rate 5 01/02/25 06:00 01/02/25 06:00 01/02/25 06:00 Temperature Pulse Rate 102 H 102 H 102 H Respiratory Rate 20 Blood Pressure 98/59 L 98/59 L Pulse Oximetry 98 Oxygen Delivery Oxygen Flow Rate 01/02/25 06:11 01/02/25 07:00 01/02/25 08:00 Temperature 97.4 F L Pulse Rate 110 H 102 H 107 H Respiratory Rate 23 H Blood Pressure 110/86 104/62 Pulse Oximetry 97 Oxygen Delivery Oxygen Flow Rate 01/02/25 08:00 01/02/25 08:00 01/02/25 08:13 Temperature Pulse Rate 111 H 104 H Respiratory Rate Blood Pressure Pulse Oximetry 94 Oxygen Delivery Nasal Cannula Oxygen Flow Rate 4 01/02/25 08:47 01/02/25 08:47 01/02/25 10:00 Temperature Pulse Rate 120 H 120 H 109 H Respiratory Rate 27 H 27 H Blood Pressure Pulse Oximetry 95 Oxygen Delivery Nasal Cannula Oxygen Flow Rate 5 01/02/25 10:47 01/02/25 11:55 01/02/25 12:00 Temperature Pulse Rate 105 H 114 H Respiratory Rate 21 H Blood Pressure 108/73 Pulse Oximetry 92 94 Oxygen Delivery Nasal Cannula Oxygen Flow Rate 4 01/02/25 12:00 01/02/25 12:00 01/02/25 14:00 Temperature Pulse Rate 107 H 113 H 99 Respiratory Rate 22 H Blood Pressure 107/71 Pulse Oximetry 96 Oxygen Delivery Oxygen Flow Rate 01/02/25 14:00 01/02/25 16:00 01/02/25 16:00 Temperature Pulse Rate 96 99 Respiratory Rate 22 H Blood Pressure 115/71 Pulse Oximetry 93 96 Oxygen Delivery Nasal Cannula Oxygen Flow Rate 4 01/02/25 16:00 Temperature 98.2 F Pulse Rate 112 H Respiratory Rate 24 H Blood Pressure 124/79 Pulse Oximetry 98 Oxygen Delivery Oxygen Flow Rate Intake/Output Intake/Output: Intake & Output 12/30/24 12/31/24 01/01/25 01/02/25 23:59 23:59 23:59 23:59 Intake Total 3367.3 3865.1 4945.5 1872.8 Output Total 3800 5300 4200 3550 Balance -432.7 -1434.9 745.5 -1677.2 Meds/Results Medications: Active Medications Generic Name Dose Route Start Last Admin Trade Name Freq PRN Reason Stop Dose Admin Acetaminophen 650 mg 12/28/24 18:54 Acetaminophen 325 Mg Tablet PO Q6H PRN Mild Pain (1-3) or Fever Albuterol/Ipratropium 3 ml 12/29/24 09:13 01/01/25 20:49 Ipratropium 0.5 Mg/Albuterol Sulfate 2.5 Mg Ampul.Neb 3 Ml INHALATION 3 ml Q6HRT PRN Administration Wheezing Apixaban 5 mg 12/29/24 09:00 01/02/25 08:13 Apixaban 5 Mg Tablet PO 5 mg Q12HR CLAY Administration Atorvastatin Calcium 20 mg 01/02/25 09:00 01/02/25 08:12 Atorvastatin 20 Mg Tablet PO 20 mg DAILY CLAY Administration Diltiazem HCl 180 mg 01/02/25 09:00 01/02/25 08:12 Diltiazem Hcl Cd 180 Mg Cap.24hr PO 180 mg QAM CLAY Administration Doxycycline Hyclate 100 mg 12/28/24 21:00 01/02/25 08:12 Doxycycline Hyclate 100 Mg Tablet PO 01/02/25 20:59 100 mg Q12HR CLAY Administration Fluticasone/Umeclidinium/Vilanterol 1 puff 12/29/24 08:00 01/02/25 08:46 Fluticasone/Umeclidin/Vilanter 200-62.5-25 Mcg Ellipta INHALATION 1 puff DAILYRT CLAY Administration Guaifenesin 1,200 mg 01/01/25 01:00 01/02/25 08:13 Guaifenesin 12 Hr 600 Mg Tabcr PO 1,200 mg Q12HR CLAY Administration Cefepime HCl 2 gm in 50 mls @ 100 mls/hr 12/31/24 09:00 01/02/25 08:40 Maxipime 2 Gm/Ns 50 Ml IVPB Infused Q12H CLAY Infusion Vancomycin HCl 1,500 mg in 500 mls @ 250 mls/hr 12/31/24 13:00 01/02/25 13:22 Vancomycin 1,500 Mg/Ns 500 Ml IVPB 250 mls/hr Q8H CLAY Administration Levalbuterol HCl 1.25 mg 12/29/24 20:02 01/01/25 07:40 Levalbuterol Neb 1.25 Mg/3 Ml INHALATION 1.25 mg Q6HRT PRN Administration Shortness Of Breath Or Wheezing Magnesium Oxide 400 mg 12/31/24 12:00 01/02/25 11:55 Magnesium Oxide 400 Mg Tablet PO 400 mg DAILY@1200 CLAY Administration Metoprolol Tartrate 5 mg 12/29/24 15:40 12/31/24 19:06 Metoprolol Tartrate Inj 5 Mg/5 Ml Vial IV PUSH 5 mg Q3H PRN Administration Tachycardia Metoprolol Tartrate 75 mg 01/01/25 18:00 01/02/25 11:55 Metoprolol Tartrate 25 Mg Tablet PO 75 mg Q6HR CLAY Administration Montelukast Sodium 10 mg 12/29/24 09:00 01/02/25 08:12 Montelukast Sodium 10 Mg Tablet PO 10 mg DAILY CLAY Administration Mupirocin 1 applic 12/29/24 09:00 01/02/25 08:14 Mupirocin 2% Oint 22 Gm Tube EACH NARE 01/02/25 21:01 1 applic Q12HR CLAY Administration Oseltamivir Phosphate 75 mg 12/28/24 21:00 01/02/25 08:13 Oseltamivir Phosphate 75 Mg Capsule PO 01/02/25 20:59 75 mg Q12HR CLAY Administration Sodium Chloride 10 ml 12/29/24 22:00 01/02/25 13:23 Saline Lock Flush IV PUSH 10 ml Q8HR CLAY Administration Sodium Chloride 10 ml 12/29/24 14:55 Saline Lock Flush IV PUSH PRN PRN Flush Sodium Chloride 20 ml 12/29/24 14:55 Saline Lock Flush IV PUSH PRN PRN after blood draws Sotalol HCl 80 mg 12/31/24 21:00 01/02/25 08:13 Sotalol Hcl 80 Mg Tablet PO 80 mg Q12HR CLAY Administration Radiology Results: ITS Impressions Chest X-Ray 01/01/25 07:06 Impression: Worsening left lower lobe and left perihilar consolidation, compatible with worsening pneumonia. Labs Labs: Laboratory Results - last 24 hr 12/28/24 01/02/25 01/02/25 19:29 04:16 12:06 WBC 7.4 RBC 4.82 Hgb 14.7 Hct 43.3 MCV 89.8 MCH 30.5 MCHC 33.9 RDW 13.2 Plt Count 180 MPV 9.0 Sodium 135 L Potassium 4.0 Chloride 104 Carbon Dioxide 28 Anion Gap 3 L BUN 8 L Creatinine 0.52 L Estim Creat Clear Calc 138 Estimated GFR > 60 Glucose 85 Calcium 8.5 Magnesium 2.0 Total Bilirubin 1.4 H AST 28 ALT 30 Alkaline Phosphatase 100 Total Protein 6.0 L Albumin 2.9 L Vancomycin Trough 18.6 Urine Pneumococcal Ag Not detected Quality VTE Prophylaxis VTE prophylaxis: pharmacologic ordered
[2025-01-02 19:03] LABS: Mycoplasma IgM Antibody Titer 294 U/mL
--- NOTE | 2025-01-02 21:49 | ECG_ITS ---
Test Date: 2025-01-03 09:17:57 Measurements Intervals [place] Rate: 120 P: 0 UT: 0 QRS: 19 QRSD: 102 T: 31 QT: 309 QTc: 438 Interpretive Statements ATRIAL FIBRILLATION WITH RAPID VENTRICULAR RESPONSE INCOMPLETE RIGHT BUNDLE BRANCH BLOCK BASELINE ARTIFACT- I, II, AVR ABNORMAL ECG Compared to ECG 01/02/2025 22:13:39 HEART RATE HAS INCREASED Electronically Signed On 01-03-2025 13:34:58 LENS MOLD SETTER by Yamil Meyers D.O.
[2025-01-02] MEDS: LEVALBUTEROL NEB 1.25 MG/3 ML INHALATION (22:29)
[2025-01-03] VITALS (25 sets, daily range): BP systolic 101–140; BP diastolic 56–96; PULSE 59–135; RESP 13–26; TEMP 36.4–37.1; O2SAT 90–99
[2025-01-03 04:46] LABS: Hematocrit 41.7 % (42.0-52.0); Hemoglobin 13.9 g/dL (14.0-18.0); Mean Corpuscular HGB Conc 33.3 g/dl (32-36); Mean Corpuscular Hemoglobin 30.3 pg (26-34); Platelet Count Result 202 k/mm3 (150-375); Red Blood Count 4.58 M/mm3 (4.6-6.20); Red Cell Distribution Width 13.5 % (11.5-14.5)
[2025-01-03 05:00] LABS: Alanine Aminotransferase 50 U/L (6-50); Albumin Level 2.7 g/dL (3.5-5.1); Alkaline Phosphatase 131 U/L (38-126); Anion Gap 4 mmol/L (4-12); Aspartate Amino Transferase 42 U/L (17-59); Bilirubin,Total 1.3 mg/dL (0.2-1.3); Blood Urea Nitrogen 10 mg/dL (9-20); Calcium 8.2 mg/dL (8.4-10.2); Carbon Dioxide 29 mmol/L (22-30); Chloride 103 mmol/L (98-107); Estimated CRCL calculation 129 ml/min; Estimated Glomerular Filt Rate > 60; Glucose 87 mg/dL (65-110); Potassium 4.1 mmol/L (3.4-5.0); Sodium 136 mmol/L (137-145)
[2025-01-03] MEDS: METOPROLOL TARTRATE 25 MG TABLET 75 MG PO ×2 (05:49→12:49)
[2025-01-03] MEDS: VANCOMYCIN 1,500 MG/NS 500 ML 1,500 MG/500 ML BAG 250 MG IVPB ×3 (05:49→20:31)
[2025-01-03] MEDS: SOTALOL HCL 80 MG TABLET PO ×2 (08:07→20:20)
[2025-01-03] MEDS: CEFEPIME 2 GM/NS 50 ML 2 GM/50 ML BAG IVPB ×2 (08:07→20:20)
[2025-01-03] MEDS: MONTELUKAST SODIUM 10 MG TABLET PO (08:07)
[2025-01-03] MEDS: ATORVASTATIN 20 MG TABLET PO (08:07)
[2025-01-03] MEDS: dilTIAZem HCL CD 180 MG CAP.24HR PO (08:07)
[2025-01-03] MEDS: SALINE LOCK FLUSH 10 ML IV PUSH ×3 (08:07→20:32)
[2025-01-03] MEDS: APIXABAN 5 MG TABLET PO ×2 (08:07→20:20)
[2025-01-03] MEDS: guaiFENesin 12 HR 600 MG TABCR 1200 MG PO ×2 (08:28→20:20)
--- NOTE | 2025-01-03 08:51 | ECG_ITS ---
Test Date: 2025-01-02 22:13:39 Measurements Intervals [place] Rate: 108 P: 0 PA: 0 QRS: 12 QRSD: 116 T: 21 QT: 323 QTc: 435 Interpretive Statements ATRIAL FIBRILLATION WITH RAPID VENTRICULAR RESPONSE VENTRICULAR PREMATURE COMPLEX INTRAVENTRICULAR CONDUCTION DELAY BASELINE ARTIFACT- I, II, AVR, AVL, AVF, V1 ABNORMAL ECG Compared to ECG 01/02/2025 09:36:03 NO SIGNIFICANT CHANGE Electronically Signed On 01-03-2025 13:42:40 EXTENSION SERVICE SPECIALIST by Yamil Meyers D.O.
[2025-01-03] MEDS: FLUTICASONE/UMECLIDIN/VILANTER 200-62.5-25 MCG ELLIPTA 1 PUFF INHALATION (10:09)
--- NOTE | 2025-01-03 10:58 | P.PNIM_ITS ---
Progress Note: A&P Assessment and Plan (1) Hypotension: Code(s): I95.9 - Hypotension, unspecified Status: Acute Assessment and Plan: RESOLVED Patient presented with hypotension which is likely multifactorial secondary to AFib with RVR, patient continue taking his antihypertensive medication, dehydration from poor p.o. intake and questionable sepsis His lactic acid level was normal He received 4 L of fluid in the ER and was started on low-dose Earl-Synephrine infusion which is currently off He also received additional 500 cc 5% albumin bolus in the ICU Hopefully with better heart rate control blood pressure will improve Antibiotics and management of influenza as below (2) Atrial fibrillation with RVR: Code(s): I48.91 - Unspecified atrial fibrillation Status: Acute Assessment and Plan: Patient presented with AFib with RVR likely secondary to influenza A infection Patient earlier was on on amiodarone infusion which was switched p.o. and IV metoprolol, Sotalol is on hold Cardiology discontinued amiodarone and ordered digoxin and diltiazem infusion. -no patient on p.o. metoprolol, diltiazem, sotalol, apixaban -MULUGETA and cardioversion scheduled for 01/03/2025. 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 Hold steroids P.r.n. bronchodilators (5) Influenza A: Code(s): J10.1 - Influenza due to other identified influenza virus with other respiratory manifestations Status: Inactive Assessment and Plan: Status post Tamiflu Isolation (6) Pneumonia: Qualifiers: Laterality: bilateral Lung location: lower lobe of lung Pneumonia type: due to unspecified organism Qualified Code(s): J18.9 - Pneumonia, unspecified organism Code(s): J18.9 - Pneumonia, unspecified organism Status: Inactive Assessment and Plan: Patient presented with influenza A with infiltrates and suspected to have a secondary bacterial infection and was started on empiric antibiotics Patient is on vancomycin Rocephin and doxycycline Blood cultures as below MRSA screen was positive Sputum cultures growing Staph aureus and Pseudomonas Legionella and strep pneumococcal antigen are pending Continue cefepime vancomycin and doxycycline (7) Bacteremia: Code(s): R78.81 - Bacteremia Status: Acute Assessment and Plan: Blood cultures 2 bottles are growing MRSA and Staph epi in 1 bottle and Staph capitis in 2nd bottle. This suggests that this may be contamination Continue antibiotics as above repeat blood cultures on 01/04 Echocardiogram with limited views was ordered as patient was tachycardic preventing good imaging. Will repeat echocardiogram again in 1-2 days once the heart rate improves. Plan DVT prophylaxis -Eliquis Stress ulcer prophylaxis - NA Nutrition -diet ordered Code Status - Full Code Subjective Date/time seen: 01/03/25 10:58 Interval history: Remains AFib, tachycardic -4 L nasal cannula, afebrile, hemodynamically stable -urine output has been adequate -on apixaban, p.o. diltiazem, p.o. sotalol, p.o. metoprolol -influenza A positive 12/28/2024, status post Tamiflu Review of Systems Review of Systems: All systems reviewed & are unremarkable except as noted in HPI and below (HPI) Exam Narrative: General: Pt is alert awake and in NAD Lungs/Chest: Trachea central Clear BS B/L, overall decreased air entry bilaterally, No crackles or wheezing. Cardiac: Tachycardic, irregular Normal S1 S2. No murmurs Circulation: Pedal pulses are intact and symmetrical. Abdomen: Normal bowel sounds.. Soft. NT. ND. Extremities: No clubbing, cyanosis or edema. Warm : Brady in place Neurologic: Follows commands. Moves all 4 extremities PERRL AO x3 Skin: No Rash Objective Data Vital Signs Vital Signs: Vital Signs - 24 hr 01/02/25 11:55 01/02/25 12:00 01/02/25 12:00 Temperature Pulse Rate 114 H 107 H Respiratory Rate 22 H Blood Pressure 107/71 Pulse Oximetry 94 96 Oxygen Delivery Nasal Cannula Oxygen Flow Rate 4 01/02/25 12:00 01/02/25 14:00 01/02/25 14:00 Temperature Pulse Rate 113 H 99 96 Respiratory Rate 22 H Blood Pressure 115/71 Pulse Oximetry 93 Oxygen Delivery Oxygen Flow Rate 01/02/25 16:00 01/02/25 16:00 01/02/25 16:00 Temperature 98.2 F Pulse Rate 99 112 H Respiratory Rate 24 H Blood Pressure 124/79 Pulse Oximetry 96 98 Oxygen Delivery Nasal Cannula Oxygen Flow Rate 4 01/02/25 17:37 01/02/25 18:00 01/02/25 18:00 Temperature Pulse Rate 123 H 122 H 102 H Respiratory Rate 23 H Blood Pressure 119/77 Pulse Oximetry 92 Oxygen Delivery Oxygen Flow Rate 01/02/25 19:55 01/02/25 20:00 01/02/25 20:00 Temperature 98.7 F Pulse Rate 116 H 111 H 126 H Respiratory Rate 19 20 Blood Pressure 94/71 L Pulse Oximetry 91 91 Oxygen Delivery Nasal Cannula Oxygen Flow Rate 4 01/02/25 20:55 01/02/25 22:00 01/02/25 22:00 Temperature Pulse Rate 112 H 127 H 133 H Respiratory Rate 20 Blood Pressure 106/75 Pulse Oximetry 94 Oxygen Delivery Oxygen Flow Rate 01/02/25 22:31 01/02/25 22:41 01/02/25 22:42 Temperature Pulse Rate 110 H 121 H Respiratory Rate 22 H 22 H Blood Pressure Pulse Oximetry 95 Oxygen Delivery Nasal Cannula Oxygen Flow Rate 5 01/02/25 22:57 01/03/25 00:00 01/03/25 00:00 Temperature 98.8 F Pulse Rate 139 H 125 H 128 H Respiratory Rate 22 H Blood Pressure 119/78 Pulse Oximetry 93 Oxygen Delivery Oxygen Flow Rate 01/03/25 00:15 01/03/25 02:00 01/03/25 02:00 Temperature Pulse Rate 129 H 108 H 108 H Respiratory Rate 22 H 18 Blood Pressure 118/85 Pulse Oximetry 93 94 Oxygen Delivery Nasal Cannula Oxygen Flow Rate 4 01/03/25 03:58 01/03/25 04:00 01/03/25 04:00 Temperature 98.4 F Pulse Rate 112 H 111 H 113 H Respiratory Rate 21 H 23 H Blood Pressure 114/83 Pulse Oximetry 95 95 Oxygen Delivery Nasal Cannula Oxygen Flow Rate 4 01/03/25 05:49 01/03/25 07:53 01/03/25 07:56 Temperature Pulse Rate 119 H 11 L 111 H Respiratory Rate 2 L Blood Pressure Pulse Oximetry 92 Oxygen Delivery Nasal Cannula Oxygen Flow Rate 4 01/03/25 08:00 01/03/25 08:00 01/03/25 08:07 Temperature 97.7 F Pulse Rate 122 H 111 H 114 H Respiratory Rate 26 H Blood Pressure 140/96 H Pulse Oximetry 92 Oxygen Delivery Oxygen Flow Rate 01/03/25 10:00 01/03/25 10:09 Temperature Pulse Rate 107 H Respiratory Rate Blood Pressure Pulse Oximetry 95 Oxygen Delivery Nasal Cannula Oxygen Flow Rate 4 Intake/Output Intake/Output: Intake & Output 12/31/24 01/01/25 01/02/25 01/03/25 23:59 23:59 23:59 23:59 Intake Total 3865.1 4945.5 3282.8 1150 Output Total 5300 4200 5400 800 Balance -1434.9 745.5 -2117.2 350 Meds/Results Medications: Active Medications Generic Name Dose Route Start Last Admin Trade Name Freq PRN Reason Stop Dose Admin Acetaminophen 650 mg 12/28/24 18:54 Acetaminophen 325 Mg Tablet PO Q6H PRN Mild Pain (1-3) or Fever Albuterol/Ipratropium 3 ml 12/29/24 09:13 01/01/25 20:49 Ipratropium 0.5 Mg/Albuterol Sulfate 2.5 Mg Ampul.Neb 3 Ml INHALATION 3 ml Q6HRT PRN Administration Wheezing Apixaban 5 mg 12/29/24 09:00 01/03/25 08:07 Apixaban 5 Mg Tablet PO 5 mg Q12HR CLAY Administration Atorvastatin Calcium 20 mg 01/02/25 09:00 01/03/25 08:07 Atorvastatin 20 Mg Tablet PO 20 mg DAILY CLAY Administration Diltiazem HCl 180 mg 01/02/25 09:00 01/03/25 08:07 Diltiazem Hcl Cd 180 Mg Cap.24hr PO 180 mg QAM CLAY Administration Fluticasone/Umeclidinium/Vilanterol 1 puff 12/29/24 08:00 01/03/25 10:09 Fluticasone/Umeclidin/Vilanter 200-62.5-25 Mcg Ellipta INHALATION 1 puff DAILYRT CLAY Administration Guaifenesin 1,200 mg 01/01/25 01:00 01/03/25 08:28 Guaifenesin 12 Hr 600 Mg Tabcr PO 1,200 mg Q12HR CLAY Administration Cefepime HCl 2 gm in 50 mls @ 100 mls/hr 12/31/24 09:00 01/03/25 10:53 Maxipime 2 Gm/Ns 50 Ml IVPB Infused Q12H CLAY Infusion Vancomycin HCl 1,500 mg in 500 mls @ 250 mls/hr 12/31/24 13:00 01/03/25 08:09 Vancomycin 1,500 Mg/Ns 500 Ml IVPB Infused Q8H CLAY Infusion Levalbuterol HCl 1.25 mg 12/29/24 20:02 01/02/25 22:29 Levalbuterol Neb 1.25 Mg/3 Ml INHALATION 1.25 mg Q6HRT PRN Administration Shortness Of Breath Or Wheezing Magnesium Oxide 400 mg 12/31/24 12:00 01/02/25 11:55 Magnesium Oxide 400 Mg Tablet PO 400 mg DAILY@1200 CLAY Administration Metoprolol Tartrate 5 mg 12/29/24 15:40 12/31/24 19:06 Metoprolol Tartrate Inj 5 Mg/5 Ml Vial IV PUSH 5 mg Q3H PRN Administration Tachycardia Metoprolol Tartrate 75 mg 01/01/25 18:00 01/03/25 05:49 Metoprolol Tartrate 25 Mg Tablet PO 75 mg Q6HR CLAY Administration Montelukast Sodium 10 mg 12/29/24 09:00 01/03/25 08:07 Montelukast Sodium 10 Mg Tablet PO 10 mg DAILY CLAY Administration Sodium Chloride 10 ml 12/29/24 22:00 01/03/25 08:07 Saline Lock Flush IV PUSH 10 ml Q8HR CLAY Administration Sodium Chloride 10 ml 12/29/24 14:55 Saline Lock Flush IV PUSH PRN PRN Flush Sodium Chloride 20 ml 12/29/24 14:55 Saline Lock Flush IV PUSH PRN PRN after blood draws Sotalol HCl 80 mg 12/31/24 21:00 01/03/25 08:07 Sotalol Hcl 80 Mg Tablet PO 80 mg Q12HR CLAY Administration Radiology Results: ITS Impressions Chest X-Ray 01/03/25 10:33 IMPRESSION: 1. Airspace opacities in the lower lung zones with improvement on the left, consistent with atelectasis versus pneumonia. 2. Small pleural effusions. 3. Cardiomegaly. Labs Labs: Laboratory Results - last 24 hr 12/28/24 01/02/25 01/03/25 19:48 12:06 04:23 WBC 7.0 RBC 4.58 L Hgb 13.9 L Hct 41.7 L MCV 91.0 MCH 30.3 MCHC 33.3 RDW 13.5 Plt Count 202 MPV 9.0 Sodium 136 L Potassium 4.1 Chloride 103 Carbon Dioxide 29 Anion Gap 4 BUN 10 Creatinine 0.56 L Estim Creat Clear Calc 129 Estimated GFR > 60 Glucose 87 Calcium 8.2 L Magnesium 2.0 Total Bilirubin 1.3 AST 42 ALT 50 Alkaline Phosphatase 131 H Total Protein 5.0 L Albumin 2.7 L Vancomycin Trough 18.6 Mycoplasma pneumon IgM 294 Quality VTE Prophylaxis VTE prophylaxis: pharmacologic ordered
[2025-01-03] MEDS: MAGNESIUM OXIDE 400 MG TABLET PO (12:49)
--- NOTE | 2025-01-03 13:26 | WPDANESEPPF ---
Anes - Initial Pre Proc Eval Procedure: Operation Date: 01/03/25 13:30 Proposed Procedures p Electrical Cardioversion - Valente Newberry MD s Trans Esophageal Echo - Valente Newberry MD Date/Time: 01/03/25 13:26 Surgeon: Alphonso Gómez MD Pre Op Diagnosis: Afib/Hypotension/Inf & COPD Patient Data Age: 64 Gender: M Height: 1.73 m Weight: 103.3 kg Last Vital Signs Temp 97.7 F 01/03/25 12:00 Pulse 120 H 01/03/25 12:49 Resp 21 H 01/03/25 12:00 BP 101/73 01/03/25 12:00 Pulse Ox 96 01/03/25 12:00 O2 Del Method Nasal Cannula 01/03/25 10:09 O2 Flow Rate 4 01/03/25 10:09 FiO2 40 01/01/25 16:00 Allergies Allergy/AdvReac Type Severity Reaction Status Date / Time No Known Allergies Allergy Verified 12/28/24 18:39 Home Medications ?Medication ?Instructions ?Recorded ?Confirmed ?Type amlodipine 10 mg tablet 10 mg PO DAILY 08/22/22 12/28/24 History atorvastatin 20 mg tablet 20 mg PO DAILY 08/22/22 12/28/24 History sotalol 80 mg tablet 80 mg PO BID 08/22/22 12/28/24 History telmisartan 80 1 tablet PO DAILY 08/22/22 12/28/24 History mg-hydrochlorothiazide 25 mg tablet testosterone 10 mg/0.5 10 mg topical DAILY 08/22/22 12/28/24 History gram/actuation transdermal gel pump montelukast 10 mg tablet 10 mg PO DAILY 06/17/24 12/28/24 History apixaban 5 mg tablet (Eliquis) 5 mg PO Q12HR #60 tabs 06/19/24 12/28/24 Rx fluticasone fur. 200 mcg-umeclid 1 inh inhalation Q24H 12/28/24 12/28/24 History 62.5 mcg-vilant 25 mcg inhalat.powder (Trelegy Ellipta) magnesium 200 mg tablet 400 mg PO DAILY 12/28/24 12/28/24 History Laboratory Tests 12/28/24 01/03/25 19:48 04:23 WBC 7.0 K/mm3 (4.5-10.0) RBC 4.58 L M/mm3 (4.6-6.20) Hgb 13.9 L g/dL (14.0-18.0) Hct 41.7 L % (42.0-52.0) MCV 91.0 fl (80-100) MCH 30.3 pg (26-34) MCHC 33.3 g/dl (32-36) RDW 13.5 % (11.5-14.5) Plt Count 202 k/mm3 (150-375) MPV 9.0 fl (7.4-10.4) Sodium 136 L mmol/L (137-145) Potassium 4.1 mmol/L (3.4-5.0) Chloride 103 mmol/L (98-107) Carbon Dioxide 29 mmol/L (22-30) Anion Gap 4 mmol/L (4-12) BUN 10 mg/dL (9-20) Creatinine 0.56 L mg/dL (0.7-1.3) Estim Creat Clear Calc 129 ml/min Estimated GFR > 60 (59 - ) Glucose 87 mg/dL (65-110) Calcium 8.2 L mg/dL (8.4-10.2) Magnesium 2.0 mg/dL (1.6-2.3) Total Bilirubin 1.3 mg/dL (0.2-1.3) AST 42 U/L (17-59) ALT 50 U/L (6-50) Alkaline Phosphatase 131 H U/L (38-126) Total Protein 5.0 L g/dL (6.3-8.2) Albumin 2.7 L g/dL (3.5-5.1) Mycoplasma pneumon IgM 294 U/mL Patient hx anesthesia problems: none Family hx anesthesia problems: none Results Review: All pre-operative results and documents have been reviewed as part of the pre-operative evaluation. [facility] Past Medical History Medical History Chronic anticoagulation Paroxysmal atrial fibrillation Chronic obstructive pulmonary disease Tachycardia induced cardiomyopathy Degenerative joint disease of knee Hypertension Claustrophobia Medial meniscus tear Family History Family History Father No problems noted. Social History Social History (Reviewed 12/29/24 @ 11:29 by SOLIS García Social History: Surrogate medical decision maker: Melissa Dolan, spouse ([phone]). Code status: Full code. Smoking packs per day: 2 Smoking cigarettes per day: 40.0 Years smoked: 20 Smoking pack-years: 40.00 Smoking status: Former smoker Tobacco type: cigarettes Smoking end date: 12/28/99 Alcohol intake: former Drinks per week: 5 Substance use: never Substance use type: does not use Do You Feel Safe in your Home?: Yes Lack of Transportation: No Lack of Food: Never True Current Housing: I Have Housing Concerned About Future Housing: No Difficulty Paying Gas/Electric Bills: No Difficulty Paying for Meds: No Currently Unemployed: No Education: Decline to Answer Difficulty w/ Childcare or Family Care: No Spiritual care concerns: No Anes - Eval Final PreProcedure Day of Procedure 01/03/25 13:26 Patient weight: obese Heart: regular rate and rhythm and irregular rhythm Lungs: clear to auscultation Airway: Mallampati scale class III Neurological: alert and oriented Last oral intake: >/= 8 hours ASA classification: IV Emergent: no Anesthetic plan: proceed Anesthesia type and monitoring: general GIVS and standard monitoring Results Review: All pre-operative results and documents have been reviewed as part of the pre-operative evaluation. Informed Consent: The patient's anesthetic plan and its attendant risks and benefits were discussed with the patient/family/POA. Questions were solicited and answers provided to the satisfaction of the patient/family/POA.
--- NOTE | 2025-01-03 13:30 | ECG_ITS ---
Test Date: 2025-01-03 14:01:27 Measurements Intervals [place] Rate: 60 P: 62 [place]: 171 QRS: 0 QRSD: 109 T: 27 QT: 416 QTc: 417 Interpretive Statements SINUS RHYTHM WITH OCCASIONAL SUPRAVENTRICULAR PREMATURE COMPLEXES INCOMPLETE RIGHT BUNDLE BRANCH BLOCK BASELINE WANDER- I, II, III BORDERLINE ECG Compared to ECG 01/03/2025 09:17:57 Atrial fibrillation no longer present Electronically Signed On 01-03-2025 14:12:24 [employer] by Yamil Meyers D.O.
--- NOTE | 2025-01-03 14:13 | WPDMODSED ---
Moderate Sedation Note-Pt Data Patient Data Diagnosis: Atrial fibrillation Bacteremia Present Complaint: Atrial fibrillation, bacteremia Procedure to be performed/Plan: Multiplanar transesophageal echocardiography with color-flow pulse-wave Doppler Electrical cardioversion Allergies Allergy/AdvReac Type Severity Reaction Status Date / Time No Known Allergies Allergy Verified 12/28/24 18:39 Home Medications ?Medication ?Instructions ?Recorded ?Confirmed ?Type amlodipine 10 mg tablet 10 mg PO DAILY 08/22/22 12/28/24 History atorvastatin 20 mg tablet 20 mg PO DAILY 08/22/22 12/28/24 History sotalol 80 mg tablet 80 mg PO BID 08/22/22 12/28/24 History telmisartan 80 1 tablet PO DAILY 08/22/22 12/28/24 History mg-hydrochlorothiazide 25 mg tablet testosterone 10 mg/0.5 10 mg topical DAILY 08/22/22 12/28/24 History gram/actuation transdermal gel pump montelukast 10 mg tablet 10 mg PO DAILY 06/17/24 12/28/24 History apixaban 5 mg tablet (Eliquis) 5 mg PO Q12HR #60 tabs 06/19/24 12/28/24 Rx fluticasone fur. 200 mcg-umeclid 1 inh inhalation Q24H 12/28/24 12/28/24 History 62.5 mcg-vilant 25 mcg inhalat.powder (Trelegy Ellipta) magnesium 200 mg tablet 400 mg PO DAILY 12/28/24 12/28/24 History Current Medications: Active Medications Acetaminophen (Acetaminophen 325 Mg Tablet) 650 mg PO Q6H PRN PRN Reason: Mild Pain (1-3) or Fever Albuterol/Ipratropium (Ipratropium 0.5 Mg/Albuterol Sulfate 2.5 Mg Ampul.Neb 3 Ml) 3 ml INHALATION Q6HRT PRN PRN Reason: Wheezing Last Admin: 01/01/25 20:49 Dose: 3 ml Apixaban (Apixaban 5 Mg Tablet) 5 mg PO Q12HR CLAY Last Admin: 01/03/25 08:07 Dose: 5 mg Atorvastatin Calcium (Atorvastatin 20 Mg Tablet) 20 mg PO DAILY [facility] Last Admin: 01/03/25 08:07 Dose: 20 mg Diltiazem HCl (Diltiazem Hcl Cd 180 Mg Cap.24hr) 180 mg PO QAM CLAY Last Admin: 01/03/25 08:07 Dose: 180 mg Fluticasone/Umeclidinium/Vilanterol (Fluticasone/Umeclidin/Vilanter 200-62.5-25 Mcg Ellipta) 1 puff INHALATION DAILYRT [facility] Last Admin: 01/03/25 10:09 Dose: 1 puff Guaifenesin (Guaifenesin 12 Hr 600 Mg Tabcr) 1,200 mg PO Q12HR [facility] Last Admin: 01/03/25 08:28 Dose: 1,200 mg Cefepime HCl (Maxipime 2 Gm/Ns 50 Ml) 2 gm in 50 mls @ 100 mls/hr IVPB Q12H [facility] Last Infusion: 01/03/25 10:53 Dose: Infused Vancomycin HCl (Vancomycin 1,500 Mg/Ns 500 Ml) 1,500 mg in 500 mls @ 250 mls/hr IVPB Q8H [facility] Last Admin: 01/03/25 12:52 Dose: 250 mls/hr Levalbuterol HCl (Levalbuterol Neb 1.25 Mg/3 Ml) 1.25 mg INHALATION Q6HRT PRN PRN Reason: Shortness Of Breath Or Wheezing Last Admin: 01/02/25 22:29 Dose: 1.25 mg Magnesium Oxide (Magnesium Oxide 400 Mg Tablet) 400 mg PO DAILY@1200 [facility] Last Admin: 01/03/25 12:49 Dose: 400 mg Metoprolol Tartrate (Metoprolol Tartrate Inj 5 Mg/5 Ml Vial) 5 mg IV PUSH Q3H PRN PRN Reason: Tachycardia Last Admin: 12/31/24 19:06 Dose: 5 mg Metoprolol Tartrate (Metoprolol Tartrate 25 Mg Tablet) 75 mg PO Q6HR [facility] Last Admin: 01/03/25 12:49 Dose: 75 mg Montelukast Sodium (Montelukast Sodium 10 Mg Tablet) 10 mg PO DAILY [facility] Last Admin: 01/03/25 08:07 Dose: 10 mg Sodium Chloride (Saline Lock Flush) 10 ml IV PUSH Q8HR [facility] Last Admin: 01/03/25 12:52 Dose: 10 ml Sodium Chloride (Saline Lock Flush) 10 ml IV PUSH PRN PRN PRN Reason: Flush Sodium Chloride (Saline Lock Flush) 20 ml IV PUSH PRN PRN PRN Reason: after blood draws Sotalol HCl (Sotalol Hcl 80 Mg Tablet) 80 mg PO Q12HR CLAY Last Admin: 01/03/25 08:07 Dose: 80 mg Sedation/Anesthesia: No previous sedation/anesthesia problems (including family history). [facility] Past Medical History Medical History Chronic anticoagulation Paroxysmal atrial fibrillation Chronic obstructive pulmonary disease Tachycardia induced cardiomyopathy Degenerative joint disease of knee Hypertension Claustrophobia Medial meniscus tear Family History Family History Father No problems noted. Social History Social History Social History: Surrogate medical decision maker: Melissa Dolan, spouse ([phone]). Code status: Full code. Smoking packs per day: 2 Smoking cigarettes per day: 40.0 Years smoked: 20 Smoking pack-years: 40.00 Smoking status: Former smoker Tobacco type: cigarettes Smoking end date: 12/28/99 Alcohol intake: former Drinks per week: 5 Substance use: never Substance use type: does not use Do You Feel Safe in your Home?: Yes Lack of Transportation: No Lack of Food: Never True Current Housing: I Have Housing Concerned About Future Housing: No Difficulty Paying Gas/Electric Bills: No Difficulty Paying for Meds: No Currently Unemployed: No Education: Decline to Answer Difficulty w/ Childcare or Family Care: No Spiritual care concerns: No Mod Sed Physical Exam Physical Exam Pre Procedural Exam: Normal: Appearance, Eyes, Ears, Nose, Neck, Throat, Airway, Lungs, Heart Size, Neuro Exam and Skin and Variation: Heart Rate (Tachycardic), Heart Rhythm (Irregular irregular) and Extremities (1+ bilateral extremity edema) Hours since solid foods: 12 Hours since liquid intake: 2 Mallampati Classification: class III Internal Medicine - PN: Obj Da Vital Signs Vital Signs: Vital Signs - 24 hr 01/02/25 16:00 01/02/25 16:00 01/02/25 16:00 Temperature 36.8 C Pulse Rate 99 112 H Respiratory Rate 24 H Blood Pressure 124/79 Pulse Oximetry 96 98 Oxygen Delivery Nasal Cannula Oxygen Flow Rate 4 01/02/25 17:37 01/02/25 18:00 01/02/25 18:00 Temperature Pulse Rate 123 H 122 H 102 H Respiratory Rate 23 H Blood Pressure 119/77 Pulse Oximetry 92 Oxygen Delivery Oxygen Flow Rate 01/02/25 19:55 01/02/25 20:00 01/02/25 20:00 Temperature 37.1 C Pulse Rate 116 H 111 H 126 H Respiratory Rate 19 20 Blood Pressure 94/71 L Pulse Oximetry 91 91 Oxygen Delivery Nasal Cannula Oxygen Flow Rate 4 01/02/25 20:55 01/02/25 22:00 01/02/25 22:00 Temperature Pulse Rate 112 H 127 H 133 H Respiratory Rate 20 Blood Pressure 106/75 Pulse Oximetry 94 Oxygen Delivery Oxygen Flow Rate 01/02/25 22:31 01/02/25 22:41 01/02/25 22:42 Temperature Pulse Rate 110 H 121 H Respiratory Rate 22 H 22 H Blood Pressure Pulse Oximetry 95 Oxygen Delivery Nasal Cannula Oxygen Flow Rate 5 01/02/25 22:57 01/03/25 00:00 01/03/25 00:00 Temperature 37.1 C Pulse Rate 139 H 125 H 128 H Respiratory Rate 22 H Blood Pressure 119/78 Pulse Oximetry 93 Oxygen Delivery Oxygen Flow Rate 01/03/25 00:15 01/03/25 02:00 01/03/25 02:00 Temperature Pulse Rate 129 H 108 H 108 H Respiratory Rate 22 H 18 Blood Pressure 118/85 Pulse Oximetry 93 94 Oxygen Delivery Nasal Cannula Oxygen Flow Rate 4 01/03/25 03:58 01/03/25 04:00 01/03/25 04:00 Temperature 36.9 C Pulse Rate 112 H 111 H 113 H Respiratory Rate 21 H 23 H Blood Pressure 114/83 Pulse Oximetry 95 95 Oxygen Delivery Nasal Cannula Oxygen Flow Rate 4 01/03/25 05:49 01/03/25 07:53 01/03/25 07:56 Temperature Pulse Rate 119 H 11 L 111 H Respiratory Rate 2 L Blood Pressure Pulse Oximetry 92 Oxygen Delivery Nasal Cannula Oxygen Flow Rate 4 01/03/25 08:00 01/03/25 08:00 01/03/25 08:07 Temperature 36.5 C Pulse Rate 122 H 111 H 114 H Respiratory Rate 26 H Blood Pressure 140/96 H Pulse Oximetry 92 Oxygen Delivery Oxygen Flow Rate 01/03/25 10:00 01/03/25 10:09 01/03/25 12:00 Temperature 36.5 C Pulse Rate 107 H 135 H Respiratory Rate 21 H Blood Pressure 101/73 Pulse Oximetry 95 96 Oxygen Delivery Nasal Cannula Oxygen Flow Rate 4 01/03/25 12:49 01/03/25 14:05 Temperature Pulse Rate 120 H 65 Respiratory Rate 20 Blood Pressure 113/70 Pulse Oximetry 99 Oxygen Delivery Nasal Cannula Oxygen Flow Rate 5 Intake/Output Intake/Output: Intake & Output 12/31/24 01/01/25 01/02/25 01/03/25 23:59 23:59 23:59 23:59 Intake Total 3865.1 4945.5 3282.8 1150 Output Total 5300 4200 5400 800 Balance -1434.9 745.5 -2117.2 350 Meds/Results Medications: Active Medications Generic Name Dose Route Start Last Admin Trade Name Freq PRN Reason Stop Dose Admin Acetaminophen 650 mg 12/28/24 18:54 Acetaminophen 325 Mg Tablet PO Q6H PRN Mild Pain (1-3) or Fever Albuterol/Ipratropium 3 ml 12/29/24 09:13 01/01/25 20:49 Ipratropium 0.5 Mg/Albuterol Sulfate 2.5 Mg Ampul.Neb 3 Ml INHALATION 3 ml Q6HRT PRN Administration Wheezing Apixaban 5 mg 12/29/24 09:00 01/03/25 08:07 Apixaban 5 Mg Tablet PO 5 mg Q12HR CLAY Administration Atorvastatin Calcium 20 mg 01/02/25 09:00 01/03/25 08:07 Atorvastatin 20 Mg Tablet PO 20 mg DAILY CLAY Administration Diltiazem HCl 180 mg 01/02/25 09:00 01/03/25 08:07 Diltiazem Hcl Cd 180 Mg Cap.24hr PO 180 mg QAM CLAY Administration Fluticasone/Umeclidinium/Vilanterol 1 puff 12/29/24 08:00 01/03/25 10:09 Fluticasone/Umeclidin/Vilanter 200-62.5-25 Mcg Ellipta INHALATION 1 puff DAILYRT CLAY Administration Guaifenesin 1,200 mg 01/01/25 01:00 01/03/25 08:28 Guaifenesin 12 Hr 600 Mg Tabcr PO 1,200 mg Q12HR CLAY Administration Cefepime HCl 2 gm in 50 mls @ 100 mls/hr 12/31/24 09:00 01/03/25 10:53 Maxipime 2 Gm/Ns 50 Ml IVPB Infused Q12H CLAY Infusion Vancomycin HCl 1,500 mg in 500 mls @ 250 mls/hr 12/31/24 13:00 01/03/25 12:52 Vancomycin 1,500 Mg/Ns 500 Ml IVPB 250 mls/hr Q8H CLAY Administration Levalbuterol HCl 1.25 mg 12/29/24 20:02 01/02/25 22:29 Levalbuterol Neb 1.25 Mg/3 Ml INHALATION 1.25 mg Q6HRT PRN Administration Shortness Of Breath Or Wheezing Magnesium Oxide 400 mg 12/31/24 12:00 01/03/25 12:49 Magnesium Oxide 400 Mg Tablet PO 400 mg DAILY@1200 CLAY Administration Metoprolol Tartrate 5 mg 12/29/24 15:40 12/31/24 19:06 Metoprolol Tartrate Inj 5 Mg/5 Ml Vial IV PUSH 5 mg Q3H PRN Administration Tachycardia Metoprolol Tartrate 75 mg 01/01/25 18:00 01/03/25 12:49 Metoprolol Tartrate 25 Mg Tablet PO 75 mg Q6HR CLAY Administration Montelukast Sodium 10 mg 12/29/24 09:00 01/03/25 08:07 Montelukast Sodium 10 Mg Tablet PO 10 mg DAILY CLAY Administration Sodium Chloride 10 ml 12/29/24 22:00 01/03/25 12:52 Saline Lock Flush IV PUSH 10 ml Q8HR CLAY Administration Sodium Chloride 10 ml 12/29/24 14:55 Saline Lock Flush IV PUSH PRN PRN Flush Sodium Chloride 20 ml 12/29/24 14:55 Saline Lock Flush IV PUSH PRN PRN after blood draws Sotalol HCl 80 mg 12/31/24 21:00 01/03/25 08:07 Sotalol Hcl 80 Mg Tablet PO 80 mg Q12HR CLAY Administration Radiology Results: ITS Impressions Chest X-Ray 01/03/25 10:33 IMPRESSION: 1. Airspace opacities in the lower lung zones with improvement on the left, consistent with atelectasis versus pneumonia. 2. Small pleural effusions. 3. Cardiomegaly. Labs 01/03/25 04:23 01/03/25 04:23 Labs: Laboratory Results - last 24 hr 12/28/24 01/03/25 19:48 04:23 WBC 7.0 RBC 4.58 L Hgb 13.9 L Hct 41.7 L MCV 91.0 MCH 30.3 MCHC 33.3 RDW 13.5 Plt Count 202 MPV 9.0 Sodium 136 L Potassium 4.1 Chloride 103 Carbon Dioxide 29 Anion Gap 4 BUN 10 Creatinine 0.56 L Estim Creat Clear Calc 129 Estimated GFR > 60 Glucose 87 Calcium 8.2 L Magnesium 2.0 Total Bilirubin 1.3 AST 42 ALT 50 Alkaline Phosphatase 131 H Total Protein 5.0 L Albumin 2.7 L Mycoplasma pneumon IgM 294 ASA Classification/Sedation ASA Classification/Sedation ASA Class: III Emergent: No Risks: Risks, benefits and alternatives explained and patient/family accepted plan for sedation. Patient re-evaluated immediately prior to sedation.
--- NOTE | 2025-01-03 14:16 | WPDTECDV ---
MULUGETA with Cardioversion Date of procedure: 01/03/25 Procedure Type: Multiplanar transesophageal echocardiography with color-flow pulse-wave Doppler Electrical cardioversion Diagnosis: Bacteremia, atrial fibrillation Indications: Bacteremia, atrial fibrillation Description of Procedure: After discussing risks, benefits alternatives of procedure patient agreeable via verbal and written informed consent. Risks discussed included soft rupture perforation, , adverse reaction to anesthesia, shocking into more problematic heart rhythm, stroke, bleeding, pain, infection. Procedure was performed in the ICU with the assistance of Anesthesia. The patient was already on continuous site monitor, pulse oxygenation serial blood pressure assessments. Time-out was taken and procedure was initiated. Esophageal intubation of the echoscope was performed without difficulty after sedation obtained. At the conclusion of procedure the echoscope was removed and previously placed anterior and posterior defibrillator pads were utilized this restored sinus rhythm Blood loss: None Complications: None Sedation was provided per anesthesia. See separate report. Sedation: See anesthesia report Findings: Normal left ventricular size. Ejection fraction estimated around 35-40%. Difficult assessment given AFib with RVR the time. Normal right ventricular size and function. Normal right atrial size. Moderate to severe left atrial enlargement. Spontaneous contrast seen within left atrium itself. Left atrial appendage is normal without mass or thrombus with pulse-wave velocities of 75 centimeters/second. Atrial septum is intact without color flow evidence of shunting. Aortic root measures 3.4 cm. No pericardial effusion. Mitral valve is normal with moderate mitral regurgitation. Aortic valve is trileaflet, mildly calcified and moderately sclerotic without significant aortic insufficiency. Tricuspid valve is grossly normal with mild tricuspid regurgitation. Pulmonic valve is normal with out significant pulmonic insufficiency. Electrical cardioversion: 175 joules of biphasic synchronized energy was utilized to restore sinus rhythm from atrial fibrillation with rapid ventricular response. Conclusion: 1. Moderate reduced ejection fraction 2. Moderate mitral regurgitation 3. Left atrial enlargement 4. No left atrial appendage thrombus 5. No clear evidence of endocarditis or suspicious masses 5. Successful orthodoxy of sinus rhythm utilizing 175 joules of biphasic synchronized energy.
[2025-01-03] MEDS: METOPROLOL TARTRATE 25 MG TABLET PO (20:20)
--- NOTE | 2025-01-03 21:22 | ECG_ITS ---
Test Date: 2025-01-03 21:30:46 Measurements Intervals [place] Rate: 68 P: 55 [place]: 178 QRS: 24 QRSD: 108 T: 40 QT: 422 QTc: 449 Interpretive Statements SINUS RHYTHM WITH OCCASIONAL VENTRICULAR PREMATURE COMPLEXES INCOMPLETE RIGHT BUNDLE BRANCH BLOCK BORDERLINE ECG Compared to ECG 01/03/2025 14:01:27 NO SIGNIFICANT CHANGE Electronically Signed On 01-04-2025 06:23:43 [employer] by Yamil Meyers D.O.
[2025-01-03] MEDS: IPRATROPIUM 0.5 MG/ALBUTEROL SULFATE 2.5 MG AMPUL.NEB 3 ML INHALATION (21:32)
[2025-01-04] VITALS (17 sets, daily range): BP systolic 100–156; BP diastolic 50–99; PULSE 56–117; RESP 16–28; TEMP 36.2–36.9; O2SAT 89–98
[2025-01-04] MEDS: VANCOMYCIN 1,500 MG/NS 500 ML 1,500 MG/500 ML BAG 250 MG IVPB ×3 (05:28→23:08)
[2025-01-04] MEDS: SALINE LOCK FLUSH 10 ML IV PUSH ×3 (05:29→21:02)
[2025-01-04] MEDS: FLUTICASONE/UMECLIDIN/VILANTER 200-62.5-25 MCG ELLIPTA 1 PUFF INHALATION (07:45)
[2025-01-04 08:35] LABS: Basophils Absolute Auto 0.1 K/mm3 (0.0-0.1); Basophils Percent Auto 0.8 % (0.2-1.2); Eosinophils Absolute Auto 0.2 K/mm3 (0-0.3); Eosinophils Percent Auto 3.6 % (0-4.4); Hematocrit 44.6 % (42.0-52.0); Hemoglobin 14.3 g/dL (14.0-18.0); Immature Granulocyte Absolute 0.05 K/mm3 (0.00-0.031); Immature Granulocyte Percent A 0.8 % (0-0.5); Lymphocytes Absolute Auto 1.37 K/mm3 (0.9-3.2); Lymphocytes Percent Auto 20.6 % (18.3-44.2); Mean Corpuscular HGB Conc 32.1 g/dl (32-36); Mean Corpuscular Hemoglobin 29.9 pg (26-34); Mean Corpuscular Volume 93.1 fl (80-100); Mean Platelet Volume 8.6 fl (7.4-10.4); Monocytes Absolute Auto 0.6 K/mm3 (0.1-0.6); Monocytes Percent Auto 9.2 % (2.6-8.5); Neutrophils Absolute Auto 4.3 K/mm3 (1.3-6.7); Platelet Count Result 233 k/mm3 (150-375); Red Blood Count 4.79 M/mm3 (4.6-6.20); Red Cell Distribution Width 13.3 % (11.5-14.5); White Blood Count 6.6 K/mm3 (4.5-10.0)
--- NOTE | 2025-01-04 08:59 | P.PNINT_ITS ---
Progress Note: A&P Assessment and Plan (1) Hypotension: Code(s): I95.9 - Hypotension, unspecified Status: Acute Assessment and Plan: RESOLVED Patient presented with hypotension which is likely multifactorial secondary to AFib with RVR, patient continue taking his antihypertensive medication, dehydration from poor p.o. intake and questionable sepsis His lactic acid level was normal He received 4 L of fluid in the ER and was started on low-dose Earl-Synephrine infusion which is currently off He also received additional 500 cc 5% albumin bolus in the ICU Hopefully with better heart rate control blood pressure will improve Antibiotics and management of influenza as below (2) Atrial fibrillation with RVR: Code(s): I48.91 - Unspecified atrial fibrillation Status: Acute Assessment and Plan: Patient presented with AFib with RVR likely secondary to influenza A infection Patient earlier was on on amiodarone infusion which was switched p.o. and IV metoprolol, Sotalol is on hold Cardiology discontinued amiodarone and ordered digoxin and diltiazem infusion. -no patient on p.o. metoprolol, diltiazem, sotalol, apixaban -MULUGETA and cardioversion scheduled for 01/03/2025. Will also discuss with cardiology to look for vegetation since blood cultures have been positive (3) Chronic anticoagulation: Code(s): Z79.01 - [employer]modal customer service (current) use of anticoagulants Status: Acute Assessment and Plan: Continue Eliquis (4) Chronic obstructive pulmonary disease: Code(s): J44.9 - Chronic obstructive pulmonary disease, unspecified Status: Acute Assessment and Plan: Not in exacerbation No significant wheezing on exam. Hold steroids P.r.n. bronchodilators (5) Influenza A: Code(s): J10.1 - Influenza due to other identified influenza virus with other respiratory manifestations Status: Inactive Assessment and Plan: Status post Tamiflu Isolation (6) Pneumonia: Qualifiers: Laterality: bilateral Lung location: lower lobe of lung Pneumonia type: due to unspecified organism Qualified Code(s): J18.9 - Pneumonia, unspecified organism Code(s): J18.9 - Pneumonia, unspecified organism Status: Inactive Assessment and Plan: Patient presented with influenza A with infiltrates and suspected to have a secondary bacterial infection and was started on empiric antibiotics Patient is on vancomycin Rocephin and doxycycline Blood cultures as below MRSA screen was positive Sputum cultures growing Staph aureus and Pseudomonas Legionella and strep pneumococcal antigen are pending Continue cefepime vancomycin and doxycycline (7) Bacteremia: Code(s): R78.81 - Bacteremia Status: Acute Assessment and Plan: Blood cultures 2 bottles are growing MRSA and Staph epi in 1 bottle and Staph capitis in 2nd bottle. This suggests that this may be contamination Continue antibiotics as above repeat blood cultures on 01/04 Echocardiogram with limited views was ordered as patient was tachycardic preventing good imaging. Will repeat echocardiogram again in 1-2 days once the heart rate improves. Plan DVT prophylaxis -Eliquis Stress ulcer prophylaxis - NA Nutrition -diet ordered Code Status - Full Code Subjective Date/time seen: 01/04/25 08:59 Interval history: -01/03: S/p Cardioversion, converted to sinus rhythm 01/04: Remains in sinus rhythm, rate controlled -5 L nasal cannula with 100% O2 sats, afebrile, hemodynamically stable -urine output has been adequate -denies any chest pain, shortness he was told pain, nausea, vomiting. States he feels much better this morning -influenza A positive 12/28/2024, status post Tamiflu Review of Systems Review of Systems: All systems reviewed & are unremarkable except as noted in HPI and below (HPI) Exam Narrative: General: Pt is alert awake and in NAD Lungs/Chest: Trachea central Clear BS B/L, overall decreased air entry bilaterally, No crackles or wheezing. Cardiac: Tachycardic, irregular Normal S1 S2. No murmurs Circulation: Pedal pulses are intact and symmetrical. Abdomen: Normal bowel sounds.. Soft. NT. ND. Extremities: No clubbing, cyanosis or edema. Warm : Brady in place Neurologic: Follows commands. Moves all 4 extremities PERRL AO x3 Skin: No Rash Objective Data Vital Signs Vital Signs: Vital Signs - 24 hr 01/03/25 10:00 01/03/25 10:09 01/03/25 12:00 Temperature 97.7 F Pulse Rate 107 H 135 H Respiratory Rate 21 H Blood Pressure 101/73 Pulse Oximetry 95 96 Oxygen Delivery Nasal Cannula Oxygen Flow Rate 4 01/03/25 12:00 01/03/25 12:00 01/03/25 12:49 Temperature Pulse Rate 108 H 111 H 120 H Respiratory Rate 20 Blood Pressure Pulse Oximetry 95 Oxygen Delivery Nasal Cannula Oxygen Flow Rate 4 01/03/25 14:00 01/03/25 14:05 01/03/25 14:15 Temperature Pulse Rate 61 65 61 Respiratory Rate 20 18 Blood Pressure 113/70 121/70 Pulse Oximetry 99 97 Oxygen Delivery Nasal Cannula Nasal Cannula Oxygen Flow Rate 5 4 01/03/25 14:30 01/03/25 16:00 01/03/25 16:00 Temperature 97.6 F Pulse Rate 63 69 59 L Respiratory Rate 20 24 H 20 Blood Pressure 131/76 131/73 Pulse Oximetry 93 98 99 Oxygen Delivery Nasal Cannula Nasal Cannula Oxygen Flow Rate 4 4 01/03/25 16:00 01/03/25 18:00 01/03/25 20:00 Temperature 98.7 F Pulse Rate 65 61 64 Respiratory Rate 19 Blood Pressure 123/56 L Pulse Oximetry 91 Oxygen Delivery Oxygen Flow Rate 01/03/25 20:00 01/03/25 20:00 01/03/25 20:20 Temperature Pulse Rate 66 67 Respiratory Rate Blood Pressure Pulse Oximetry 90 Oxygen Delivery Nasal Cannula Oxygen Flow Rate 3 01/03/25 20:20 01/03/25 21:34 01/03/25 21:35 Temperature Pulse Rate 69 68 Respiratory Rate 13 Blood Pressure Pulse Oximetry 93 Oxygen Delivery Nasal Cannula Oxygen Flow Rate 4 01/03/25 22:00 01/04/25 00:00 01/04/25 00:00 Temperature 98 F Pulse Rate 68 68 Respiratory Rate 20 Blood Pressure 124/72 Pulse Oximetry 91 91 Oxygen Delivery Nasal Cannula Oxygen Flow Rate 5 01/04/25 00:00 01/04/25 02:00 01/04/25 04:00 Temperature 98.4 F Pulse Rate 74 65 117 H Respiratory Rate 28 H Blood Pressure 156/99 H Pulse Oximetry 97 Oxygen Delivery Oxygen Flow Rate 01/04/25 04:00 01/04/25 04:00 01/04/25 06:00 Temperature Pulse Rate 65 56 L Respiratory Rate Blood Pressure Pulse Oximetry 97 Oxygen Delivery Nasal Cannula Oxygen Flow Rate 5 01/04/25 08:00 Temperature 97.2 F L Pulse Rate 63 Respiratory Rate 22 H Blood Pressure 134/61 Pulse Oximetry Oxygen Delivery Oxygen Flow Rate Intake/Output Intake/Output: Intake & Output 01/01/25 01/02/25 01/03/25 01/04/25 23:59 23:59 23:59 23:59 Intake Total 4945.5 3282.8 2940 690 Output Total 4200 5400 1700 1100 Balance 745.5 -2117.2 1240 -410 Meds/Results Medications: Active Medications Generic Name Dose Route Start Last Admin Trade Name Freq PRN Reason Stop Dose Admin Acetaminophen 650 mg 12/28/24 18:54 Acetaminophen 325 Mg Tablet PO Q6H PRN Mild Pain (1-3) or Fever Albuterol/Ipratropium 3 ml 12/29/24 09:13 01/03/25 21:32 Ipratropium 0.5 Mg/Albuterol Sulfate 2.5 Mg Ampul.Neb 3 Ml INHALATION 3 ml Q6HRT PRN Administration Wheezing Apixaban 5 mg 12/29/24 09:00 01/03/25 20:20 Apixaban 5 Mg Tablet PO 5 mg Q12HR CLAY Administration Atorvastatin Calcium 20 mg 01/02/25 09:00 01/03/25 08:07 Atorvastatin 20 Mg Tablet PO 20 mg DAILY CLAY Administration Fluticasone/Umeclidinium/Vilanterol 1 puff 12/29/24 08:00 01/03/25 10:09 Fluticasone/Umeclidin/Vilanter 200-62.5-25 Mcg Ellipta INHALATION 1 puff DAILYRT CLAY Administration Guaifenesin 1,200 mg 01/01/25 01:00 01/03/25 20:20 Guaifenesin 12 Hr 600 Mg Tabcr PO 1,200 mg Q12HR CLAY Administration Cefepime HCl 2 gm in 50 mls @ 100 mls/hr 12/31/24 09:00 01/03/25 20:50 Maxipime 2 Gm/Ns 50 Ml IVPB Infused Q12H CLAY Infusion Vancomycin HCl 1,500 mg in 500 mls @ 250 mls/hr 12/31/24 13:00 01/04/25 05:28 Vancomycin 1,500 Mg/Ns 500 Ml IVPB 250 mls/hr Q8H CLAY Administration Levalbuterol HCl 1.25 mg 12/29/24 20:02 01/02/25 22:29 Levalbuterol Neb 1.25 Mg/3 Ml INHALATION 1.25 mg Q6HRT PRN Administration Shortness Of Breath Or Wheezing Magnesium Oxide 400 mg 12/31/24 12:00 01/03/25 12:49 Magnesium Oxide 400 Mg Tablet PO 400 mg DAILY@1200 CLAY Administration Metoprolol Tartrate 5 mg 12/29/24 15:40 12/31/24 19:06 Metoprolol Tartrate Inj 5 Mg/5 Ml Vial IV PUSH 5 mg Q3H PRN Administration Tachycardia Metoprolol Tartrate 25 mg 01/03/25 21:00 01/03/25 20:20 Metoprolol Tartrate 25 Mg Tablet PO 25 mg Q12HR CLAY Administration Montelukast Sodium 10 mg 12/29/24 09:00 01/03/25 08:07 Montelukast Sodium 10 Mg Tablet PO 10 mg DAILY CLAY Administration Sodium Chloride 10 ml 12/29/24 22:00 01/04/25 05:29 Saline Lock Flush IV PUSH 10 ml Q8HR CLAY Administration Sodium Chloride 10 ml 12/29/24 14:55 Saline Lock Flush IV PUSH PRN PRN Flush Sodium Chloride 20 ml 12/29/24 14:55 Saline Lock Flush IV PUSH PRN PRN after blood draws Sotalol HCl 80 mg 12/31/24 21:00 01/03/25 20:20 Sotalol Hcl 80 Mg Tablet PO 80 mg Q12HR CLAY Administration Radiology Results: ITS Impressions Chest X-Ray 01/04/25 07:50 Impression: Bibasilar pulmonary edema/atelectasis with minimal pleural effusions. Underlying COPD. Labs Labs: Laboratory Results - last 24 hr 01/04/25 08:23 WBC 6.6 RBC 4.79 Hgb 14.3 Hct 44.6 MCV 93.1 MCH 29.9 MCHC 32.1 RDW 13.3 Plt Count 233 MPV 8.6 Immature Gran % (Auto) 0.8 H Neut % (Auto) 65.0 Lymph % (Auto) 20.6 [place] % (Auto) 9.2 H Eos % (Auto) 3.6 Baso % (Auto) 0.8 Lymph # (Auto) 1.37 [place] # (Auto) 0.6 Eos # (Auto) 0.2 Baso # (Auto) 0.1 Abs Immat Gran (auto) 0.05 H Absolute Neuts (auto) 4.3 Absolute Nucleated RBC 0.000 Nucleated RBC % 0.0 Quality VTE Prophylaxis VTE prophylaxis: pharmacologic ordered
[2025-01-04 09:11] LABS: Alanine Aminotransferase 57 U/L (6-50); Albumin Level 3.1 g/dL (3.5-5.1); Alkaline Phosphatase 167 U/L (38-126); Anion Gap 5 mmol/L (4-12); Aspartate Amino Transferase 47 U/L (17-59); Bilirubin,Total 1.6 mg/dL (0.2-1.3); Blood Urea Nitrogen 8 mg/dL (9-20); Calcium 8.5 mg/dL (8.4-10.2); Carbon Dioxide 31 mmol/L (22-30); Chloride 100 mmol/L (98-107); Estimated CRCL calculation 135 ml/min; Estimated Glomerular Filt Rate > 60; Glucose 132 mg/dL (65-110); Magnesium 1.9 mg/dL (1.6-2.3); Phosphorus 3.3 mg/dL (2.5-4.5); Potassium 4.4 mmol/L (3.4-5.0); Sodium 136 mmol/L (137-145)
[2025-01-04] MEDS: MONTELUKAST SODIUM 10 MG TABLET PO (09:25)
[2025-01-04] MEDS: guaiFENesin 12 HR 600 MG TABCR 1200 MG PO ×2 (09:25→21:01)
[2025-01-04] MEDS: SOTALOL HCL 80 MG TABLET PO ×2 (09:26→21:02)
[2025-01-04] MEDS: METOPROLOL TARTRATE 25 MG TABLET PO ×2 (09:26→21:01)
[2025-01-04] MEDS: APIXABAN 5 MG TABLET PO ×2 (09:26→21:00)
[2025-01-04] MEDS: ATORVASTATIN 20 MG TABLET PO (09:26)
[2025-01-04] MEDS: CEFEPIME 2 GM/NS 50 ML 2 GM/50 ML BAG IVPB ×2 (09:26→21:00)
--- NOTE | 2025-01-04 11:03 | PCNWS ---
Weekly nutritional screen. Patient is tolerating current diet with adequate intake. No weight loss reported. No nutritional needs at this time.
--- NOTE | 2025-01-04 12:22 | PM.PNCARD ---
Progress Note: A&P Assessment and Plan (1) Atrial fibrillation with RVR: Code(s): I48.91 - Unspecified atrial fibrillation Status: Acute Plan 64-year-old man with paroxysmal atrial fibrillation, tachycardia induced cardiomyopathy, hypertension, hyperlipidemia, and COPD who is admitted for acute hypoxic respiratory failure and septic shock in setting of influenza a Paroxysmal atrial fibrillation -he is now status post cardioversion and remains in sinus rhythm -continue sotalol 80 mg q.12h and metoprolol tartrate 25 mg p.o. b.i.d. -Eliquis 5 mg p.o. b.i.d. -repeat ECG today to monitor QTc Please call Cardiology with additional questions. We will follow along p.r.n. otherwise patient can follow with Dr. Newberry outpatient Subjective Date/time seen: 01/04/25 12:22 Interval history: Shortness of breath is improving. No chest discomfort. Review of Systems Cardiovascular: Cardiovascular: Reports as per HPI Respiratory: Respiratory: Reports as per HPI Exam Const: General: comfortable HENMT: Mouth: Yes moist mucous membranes Eyes: EOM: EOMs intact bilaterally Neck: Neck: no JVD Resp: Effort & Inspection: normal respiratory effort Auscultation: rhonchi Cardio: Rate: regular rate Rhythm: regular rhythm Objective Data Vital Signs Vital Signs: Vital Signs - 24 hr 01/03/25 12:49 01/03/25 14:00 01/03/25 14:05 Temperature Pulse Rate 120 H 61 65 Respiratory Rate 20 Blood Pressure 113/70 Pulse Oximetry 99 Oxygen Delivery Nasal Cannula Oxygen Flow Rate 5 01/03/25 14:15 01/03/25 14:30 01/03/25 16:00 Temperature 36.4 C Pulse Rate 61 63 69 Respiratory Rate 18 20 24 H Blood Pressure 121/70 131/76 131/73 Pulse Oximetry 97 93 98 Oxygen Delivery Nasal Cannula Nasal Cannula Oxygen Flow Rate 4 4 01/03/25 16:00 01/03/25 16:00 01/03/25 18:00 Temperature Pulse Rate 59 L 65 61 Respiratory Rate 20 Blood Pressure Pulse Oximetry 99 Oxygen Delivery Nasal Cannula Oxygen Flow Rate 4 01/03/25 20:00 01/03/25 20:00 01/03/25 20:00 Temperature 37.1 C Pulse Rate 64 66 Respiratory Rate 19 Blood Pressure 123/56 L Pulse Oximetry 91 90 Oxygen Delivery Nasal Cannula Oxygen Flow Rate 3 01/03/25 20:20 01/03/25 20:20 01/03/25 21:34 Temperature Pulse Rate 67 69 68 Respiratory Rate 13 Blood Pressure Pulse Oximetry Oxygen Delivery Oxygen Flow Rate 01/03/25 21:35 01/03/25 22:00 01/04/25 00:00 Temperature 36.6 C Pulse Rate 68 68 Respiratory Rate 20 Blood Pressure 124/72 Pulse Oximetry 93 91 Oxygen Delivery Nasal Cannula Oxygen Flow Rate 4 01/04/25 00:00 01/04/25 00:00 01/04/25 02:00 Temperature Pulse Rate 74 65 Respiratory Rate Blood Pressure Pulse Oximetry 91 Oxygen Delivery Nasal Cannula Oxygen Flow Rate 5 01/04/25 04:00 01/04/25 04:00 01/04/25 04:00 Temperature 36.9 C Pulse Rate 117 H 65 Respiratory Rate 28 H Blood Pressure 156/99 H Pulse Oximetry 97 97 Oxygen Delivery Nasal Cannula Oxygen Flow Rate 5 01/04/25 06:00 01/04/25 08:00 01/04/25 08:00 Temperature 36.2 C L Pulse Rate 56 L 63 Respiratory Rate 22 H Blood Pressure 134/61 Pulse Oximetry 97 Oxygen Delivery Nasal Cannula Oxygen Flow Rate 5 01/04/25 08:00 01/04/25 09:00 01/04/25 09:26 Temperature Pulse Rate 69 61 Respiratory Rate Blood Pressure Pulse Oximetry 95 Oxygen Delivery Nasal Cannula Oxygen Flow Rate 5 01/04/25 09:26 01/04/25 10:00 01/04/25 11:39 Temperature Pulse Rate 61 71 Respiratory Rate Blood Pressure Pulse Oximetry 97 Oxygen Delivery Nasal Cannula Oxygen Flow Rate 2 01/04/25 12:00 Temperature 36.3 C L Pulse Rate 63 Respiratory Rate 22 H Blood Pressure 100/50 L Pulse Oximetry 96 Oxygen Delivery Oxygen Flow Rate Intake/Output Intake/Output: Intake & Output 01/01/25 01/02/25 01/03/25 01/04/25 23:59 23:59 23:59 23:59 Intake Total 4945.5 3282.8 2940 1240 Output Total 4200 5400 1700 1100 Balance 745.5 -2117.2 1240 140 Meds/Results Medications: Active Medications Generic Name Dose Route Start Last Admin Trade Name Freq PRN Reason Stop Dose Admin Acetaminophen 650 mg 12/28/24 18:54 Acetaminophen 325 Mg Tablet PO Q6H PRN Mild Pain (1-3) or Fever Albuterol/Ipratropium 3 ml 12/29/24 09:13 01/03/25 21:32 Ipratropium 0.5 Mg/Albuterol Sulfate 2.5 Mg Ampul.Neb 3 Ml INHALATION 3 ml Q6HRT PRN Administration Wheezing Apixaban 5 mg 12/29/24 09:00 01/04/25 09:26 Apixaban 5 Mg Tablet PO 5 mg Q12HR CLAY Administration Atorvastatin Calcium 20 mg 01/02/25 09:00 01/04/25 09:26 Atorvastatin 20 Mg Tablet PO 20 mg DAILY CLAY Administration Fluticasone/Umeclidinium/Vilanterol 1 puff 12/29/24 08:00 01/03/25 10:09 Fluticasone/Umeclidin/Vilanter 200-62.5-25 Mcg Ellipta INHALATION 1 puff DAILYRT CLAY Administration Guaifenesin 1,200 mg 01/01/25 01:00 01/04/25 09:25 Guaifenesin 12 Hr 600 Mg Tabcr PO 1,200 mg Q12HR CLAY Administration Cefepime HCl 2 gm in 50 mls @ 100 mls/hr 12/31/24 09:00 01/04/25 09:56 Maxipime 2 Gm/Ns 50 Ml IVPB 01/06/25 23:59 Infused Q12H CLAY Infusion Vancomycin HCl 1,500 mg in 500 mls @ 250 mls/hr 12/31/24 13:00 01/04/25 09:28 Vancomycin 1,500 Mg/Ns 500 Ml IVPB Infused Q8H CLAY Infusion Levalbuterol HCl 1.25 mg 12/29/24 20:02 01/02/25 22:29 Levalbuterol Neb 1.25 Mg/3 Ml INHALATION 1.25 mg Q6HRT PRN Administration Shortness Of Breath Or Wheezing Magnesium Oxide 400 mg 12/31/24 12:00 01/03/25 12:49 Magnesium Oxide 400 Mg Tablet PO 400 mg DAILY@1200 CLAY Administration Metoprolol Tartrate 5 mg 12/29/24 15:40 12/31/24 19:06 Metoprolol Tartrate Inj 5 Mg/5 Ml Vial IV PUSH 5 mg Q3H PRN Administration Tachycardia Metoprolol Tartrate 25 mg 01/03/25 21:00 01/04/25 09:26 Metoprolol Tartrate 25 Mg Tablet PO 25 mg Q12HR CLAY Administration Montelukast Sodium 10 mg 12/29/24 09:00 01/04/25 09:25 Montelukast Sodium 10 Mg Tablet PO 10 mg DAILY CLAY Administration Sodium Chloride 10 ml 12/29/24 22:00 01/04/25 05:29 Saline Lock Flush IV PUSH 10 ml Q8HR CLAY Administration Sodium Chloride 10 ml 12/29/24 14:55 Saline Lock Flush IV PUSH PRN PRN Flush Sodium Chloride 20 ml 12/29/24 14:55 Saline Lock Flush IV PUSH PRN PRN after blood draws Sotalol HCl 80 mg 12/31/24 21:00 01/04/25 09:26 Sotalol Hcl 80 Mg Tablet PO 80 mg Q12HR CLAY Administration Radiology Results: ITS Impressions Chest X-Ray 01/04/25 07:50 Impression: Bibasilar pulmonary edema/atelectasis with minimal pleural effusions. Underlying COPD. Labs Labs: Laboratory Results - last 24 hr 01/04/25 08:23 WBC 6.6 RBC 4.79 Hgb 14.3 Hct 44.6 MCV 93.1 MCH 29.9 MCHC 32.1 RDW 13.3 Plt Count 233 MPV 8.6 Immature Gran % (Auto) 0.8 H Neut % (Auto) 65.0 Lymph % (Auto) 20.6 [place] % (Auto) 9.2 H Eos % (Auto) 3.6 Baso % (Auto) 0.8 Lymph # (Auto) 1.37 [place] # (Auto) 0.6 Eos # (Auto) 0.2 Baso # (Auto) 0.1 Abs Immat Gran (auto) 0.05 H Absolute Neuts (auto) 4.3 Absolute Nucleated RBC 0.000 Nucleated RBC % 0.0 Sodium 136 L Potassium 4.4 Chloride 100 Carbon Dioxide 31 H Anion Gap 5 BUN 8 L Creatinine 0.54 L Estim Creat Clear Calc 135 Estimated GFR > 60 Glucose 132 H Calcium 8.5 Phosphorus 3.3 Magnesium 1.9 Total Bilirubin 1.6 H AST 47 ALT 57 H Alkaline Phosphatase 167 H Total Protein 6.0 L Albumin 3.1 L
[2025-01-04 12:57] LABS: Vancomycin Trough 18.8 ug/mL (10.0-20.0)
[2025-01-04] MEDS: MAGNESIUM OXIDE 400 MG TABLET PO (13:08)
--- NOTE | 2025-01-04 18:02 | PC.NURSE ---
This patient, Ashu Dolan, was transferred to [ [facility]] on 01/04/25 at 1802. Personal belongings sent with patient. Report given to [ veena]. Appropriate documentation sent with patient.
[2025-01-05] VITALS (15 sets, daily range): BP systolic 132–160; BP diastolic 64–75; PULSE 57–77; RESP 16–22; TEMP 36.3–36.5; O2SAT 94–96
[2025-01-05] MEDS: SALINE LOCK FLUSH 10 ML IV PUSH ×2 (05:05→21:29)
[2025-01-05 06:02] LABS: Basophils Absolute Auto 0.1 K/mm3 (0.0-0.1); Basophils Percent Auto 0.9 % (0.2-1.2); Eosinophils Absolute Auto 0.2 K/mm3 (0-0.3); Eosinophils Percent Auto 3.7 % (0-4.4); Hematocrit 41.4 % (42.0-52.0); Hemoglobin 13.6 g/dL (14.0-18.0); Immature Granulocyte Absolute 0.04 K/mm3 (0.00-0.031); Immature Granulocyte Percent A 0.6 % (0-0.5); Lymphocytes Absolute Auto 1.32 K/mm3 (0.9-3.2); Lymphocytes Percent Auto 20.4 % (18.3-44.2); Mean Corpuscular HGB Conc 32.9 g/dl (32-36); Mean Corpuscular Volume 91.2 fl (80-100); Mean Platelet Volume 8.7 fl (7.4-10.4); Monocytes Absolute Auto 0.9 K/mm3 (0.1-0.6); Monocytes Percent Auto 13.4 % (2.6-8.5); Platelet Count Result 215 k/mm3 (150-375); Red Blood Count 4.54 M/mm3 (4.6-6.20); Red Cell Distribution Width 13.2 % (11.5-14.5); White Blood Count 6.5 K/mm3 (4.5-10.0)
[2025-01-05 06:20] LABS: Alanine Aminotransferase 63 U/L (6-50); Alkaline Phosphatase 177 U/L (38-126); Anion Gap 5 mmol/L (4-12); Aspartate Amino Transferase 50 U/L (17-59); Bilirubin,Total 1.4 mg/dL (0.2-1.3); Blood Urea Nitrogen 5 mg/dL (9-20); Calcium 8.5 mg/dL (8.4-10.2); Carbon Dioxide 31 mmol/L (22-30); Chloride 99 mmol/L (98-107); Estimated CRCL calculation 156 ml/min; Estimated Glomerular Filt Rate > 60; Glucose 101 mg/dL (65-110); Magnesium 1.9 mg/dL (1.6-2.3); Phosphorus 3.4 mg/dL (2.5-4.5); Potassium 3.9 mmol/L (3.4-5.0); Sodium 135 mmol/L (137-145)
[2025-01-05] MEDS: guaiFENesin 12 HR 600 MG TABCR 1200 MG PO ×2 (08:01→21:27)
[2025-01-05] MEDS: ATORVASTATIN 20 MG TABLET PO (08:01)
[2025-01-05] MEDS: POTASSIUM CHLORIDE 20 MEQ PACKET (FOR LIQUID) 40 MEQ PO (08:01)
[2025-01-05] MEDS: SOTALOL HCL 80 MG TABLET PO ×2 (08:02→21:37)
[2025-01-05] MEDS: MONTELUKAST SODIUM 10 MG TABLET PO (08:02)
[2025-01-05] MEDS: APIXABAN 5 MG TABLET PO ×2 (08:02→21:26)
[2025-01-05] MEDS: METOPROLOL TARTRATE 25 MG TABLET PO ×2 (08:02→21:28)
[2025-01-05] MEDS: MAGNESIUM SULF 1 GM/D5W 100 ML 1 GM/100 ML BAG IVPB (08:05)
[2025-01-05] MEDS: FLUTICASONE/UMECLIDIN/VILANTER 200-62.5-25 MCG ELLIPTA 1 PUFF INHALATION (09:00)
[2025-01-05] MEDS: VANCOMYCIN 1,500 MG/NS 500 ML 1,500 MG/500 ML BAG 250 MG IVPB ×3 (09:29→22:36)
[2025-01-05] MEDS: CEFEPIME 2 GM/NS 50 ML 2 GM/50 ML BAG IVPB ×2 (11:32→21:26)
[2025-01-05] MEDS: MAGNESIUM OXIDE 400 MG TABLET PO (11:38)
--- NOTE | 2025-01-05 11:56 | PM.IMPN ---
Progress Note: A&P Assessment and Plan (1) Hypotension: Code(s): I95.9 - Hypotension, unspecified Status: Acute Assessment and Plan: RESOLVED Patient presented with hypotension which is likely multifactorial secondary to AFib with RVR, patient continue taking his antihypertensive medication, dehydration from poor p.o. intake and questionable sepsis Antibiotics and management of influenza as below (2) Atrial fibrillation with RVR: Code(s): I48.91 - Unspecified atrial fibrillation Status: Acute Assessment and Plan: Patient presented with AFib with RVR likely secondary to influenza A infection s/p Amio and Cardizem infusion and IV Metoprolol Now on Sotalol 80mg bid and Eliquis cardiology following (3) Chronic anticoagulation: Code(s): Z79.01 - [employer] (current) use of anticoagulants Status: Acute Assessment and Plan: Continue Eliquis (4) Chronic obstructive pulmonary disease: Code(s): J44.9 - Chronic obstructive pulmonary disease, unspecified Status: Acute Assessment and Plan: Not in exacerbation No significant wheezing on exam. Hold steroids P.r.n. bronchodilators (5) Influenza A: Code(s): J10.1 - Influenza due to other identified influenza virus with other respiratory manifestations Status: Inactive Assessment and Plan: Status post Tamiflu Isolation (6) Pneumonia: Qualifiers: Laterality: bilateral Lung location: lower lobe of lung Pneumonia type: due to unspecified organism Qualified Code(s): J18.9 - Pneumonia, unspecified organism Code(s): J18.9 - Pneumonia, unspecified organism Status: Inactive Assessment and Plan: Patient presented with influenza A with infiltrates and suspected to have a secondary bacterial infection and was started on empiric antibiotics Patient is on vancomycin Rocephin and doxycycline Blood cultures as below MRSA screen was positive Sputum cultures growing Staph aureus and Pseudomonas Legionella and strep pneumococcal antigen are pending Continue cefepime vancomycin and doxycycline (7) Bacteremia: Code(s): R78.81 - Bacteremia Status: Acute Assessment and Plan: Blood cultures 2 bottles are growing MRSA and Staph epi in 1 bottle and Staph capitis in 2nd bottle. This suggests that this may be contamination Continue antibiotics as above repeat blood cultures on 01/04 MULUGETA no concerning findings Awaiting repeat cultures continue Cefepime and Vanc Plan DVT prophylaxis -Eliquis Stress ulcer prophylaxis - NA Nutrition -diet ordered Code Status - Full Code Subjective Date/time seen: 01/05/25 11:56 Interval history: Patient comfortable at bedside Awaiting repeat blood culture results Review of Systems Review of Systems: 12 systems were reviewed and are negative except for as per HPI. All systems reviewed & are unremarkable except as noted in HPI and below (HPI) Exam Narrative: General: Pt is alert awake and in NAD Lungs/Chest: Trachea central Clear BS B/L, overall decreased air entry bilaterally, No crackles or wheezing. Cardiac: Tachycardic, irregular Normal S1 S2. No murmurs Circulation: Pedal pulses are intact and symmetrical. Abdomen: Normal bowel sounds.. Soft. NT. ND. Extremities: No clubbing, cyanosis or edema. Warm : Brady in place Neurologic: Follows commands. Moves all 4 extremities PERRL AO x3 Skin: No Rash Objective Data Vital Signs Vital Signs: Vital Signs - 24 hr 01/04/25 12:00 01/04/25 12:00 01/04/25 15:57 Temperature 97.4 F L 98.2 F Pulse Rate 63 67 71 Respiratory Rate 22 H 16 Blood Pressure 100/50 L 150/67 H Pulse Oximetry 96 98 Oxygen Delivery Oxygen Flow Rate 01/04/25 16:00 01/04/25 16:00 01/04/25 19:41 Temperature 97.4 F L 97.1 F L Pulse Rate 58 L 69 68 Respiratory Rate 20 20 Blood Pressure 140/72 138/62 Pulse Oximetry 89 L 96 Oxygen Delivery Oxygen Flow Rate 01/04/25 20:00 01/04/25 21:01 01/04/25 21:02 Temperature Pulse Rate 75 66 68 Respiratory Rate Blood Pressure Pulse Oximetry Oxygen Delivery Oxygen Flow Rate 01/04/25 23:55 01/05/25 00:00 01/05/25 04:00 Temperature 97.9 F Pulse Rate 67 68 73 Respiratory Rate 16 Blood Pressure 141/66 H Pulse Oximetry 93 Oxygen Delivery Oxygen Flow Rate 01/05/25 04:27 01/05/25 08:00 01/05/25 08:02 Temperature 97.7 F Pulse Rate 64 58 L 60 Respiratory Rate 20 Blood Pressure 133/64 Pulse Oximetry 96 Oxygen Delivery Oxygen Flow Rate 01/05/25 08:02 01/05/25 08:17 Temperature Pulse Rate 60 Respiratory Rate Blood Pressure Pulse Oximetry 95 Oxygen Delivery Nasal Cannula Oxygen Flow Rate 4 Intake/Output Intake/Output: Intake & Output 02/04/25 02/05/25 02/06/25 02/07/25 23:59 23:59 23:59 23:59 Intake Total 3282.8 2940 2170 1250 Output Total 5400 1700 1650 2600 Balance -2117.2 1240 520 -1350 Meds/Results Medications: Active Medications Generic Name Dose Route Start Last Admin Trade Name Freq PRN Reason Stop Dose Admin Acetaminophen 650 mg 12/28/24 18:54 Acetaminophen 325 Mg Tablet PO Q6H PRN Mild Pain (1-3) or Fever Albuterol/Ipratropium 3 ml 12/29/24 09:13 01/03/25 21:32 Ipratropium 0.5 Mg/Albuterol Sulfate 2.5 Mg Ampul.Neb 3 Ml INHALATION 3 ml Q6HRT PRN Administration Wheezing Apixaban 5 mg 12/29/24 09:00 01/05/25 08:02 Apixaban 5 Mg Tablet PO 5 mg Q12HR CLAY Administration Atorvastatin Calcium 20 mg 01/02/25 09:00 01/05/25 08:01 Atorvastatin 20 Mg Tablet PO 20 mg DAILY CLAY Administration Fluticasone/Umeclidinium/Vilanterol 1 puff 12/29/24 08:00 01/05/25 09:00 Fluticasone/Umeclidin/Vilanter 200-62.5-25 Mcg Ellipta INHALATION 1 puff DAILYRT CLAY Administration Guaifenesin 1,200 mg 01/01/25 01:00 01/05/25 08:01 Guaifenesin 12 Hr 600 Mg Tabcr PO 1,200 mg Q12HR CLAY Administration Cefepime HCl 2 gm in 50 mls @ 100 mls/hr 12/31/24 09:00 01/05/25 11:32 Maxipime 2 Gm/Ns 50 Ml IVPB 01/06/25 23:59 100 mls/hr Q12H CLAY Administration Vancomycin HCl 1,500 mg in 500 mls @ 250 mls/hr 01/04/25 23:00 01/05/25 11:29 Vancomycin 1,500 Mg/Ns 500 Ml IVPB Infused Q8H CLAY Infusion Levalbuterol HCl 1.25 mg 12/29/24 20:02 01/02/25 22:29 Levalbuterol Neb 1.25 Mg/3 Ml INHALATION 1.25 mg Q6HRT PRN Administration Shortness Of Breath Or Wheezing Magnesium Oxide 400 mg 12/31/24 12:00 01/05/25 11:38 Magnesium Oxide 400 Mg Tablet PO 400 mg DAILY@1200 CLAY Administration Metoprolol Tartrate 5 mg 12/29/24 15:40 12/31/24 19:06 Metoprolol Tartrate Inj 5 Mg/5 Ml Vial IV PUSH 5 mg Q3H PRN Administration Tachycardia Metoprolol Tartrate 25 mg 01/03/25 21:00 01/05/25 08:02 Metoprolol Tartrate 25 Mg Tablet PO 25 mg Q12HR CLAY Administration Montelukast Sodium 10 mg 12/29/24 09:00 01/05/25 08:02 Montelukast Sodium 10 Mg Tablet PO 10 mg DAILY CLAY Administration Sodium Chloride 10 ml 12/29/24 22:00 01/05/25 11:16 Saline Lock Flush IV PUSH Not Given Q8HR CLAY Sodium Chloride 10 ml 12/29/24 14:55 Saline Lock Flush IV PUSH PRN PRN Flush Sodium Chloride 20 ml 12/29/24 14:55 Saline Lock Flush IV PUSH PRN PRN after blood draws Sotalol HCl 80 mg 12/31/24 21:00 01/05/25 08:02 Sotalol Hcl 80 Mg Tablet PO 80 mg Q12HR CLAY Administration Radiology Results: ITS Impressions Chest X-Ray 01/04/25 07:50 Impression: Bibasilar pulmonary edema/atelectasis with minimal pleural effusions. Underlying COPD. Labs Labs: Laboratory Results - last 24 hr 01/04/25 01/05/25 12:04 05:26 WBC 6.5 RBC 4.54 L Hgb 13.6 L Hct 41.4 L MCV 91.2 MCH 30.0 MCHC 32.9 RDW 13.2 Plt Count 215 MPV 8.7 Immature Gran % (Auto) 0.6 H Neut % (Auto) 61.0 Lymph % (Auto) 20.4 [place] % (Auto) 13.4 H Eos % (Auto) 3.7 Baso % (Auto) 0.9 Lymph # (Auto) 1.32 [place] # (Auto) 0.9 H Eos # (Auto) 0.2 Baso # (Auto) 0.1 Abs Immat Gran (auto) 0.04 H Absolute Neuts (auto) 4.0 Absolute Nucleated RBC 0.000 Nucleated RBC % 0.0 Sodium 135 L Potassium 3.9 Chloride 99 Carbon Dioxide 31 H Anion Gap 5 BUN 5 L Creatinine 0.46 L Estim Creat Clear Calc 156 Estimated GFR > 60 Glucose 101 Calcium 8.5 Phosphorus 3.4 Magnesium 1.9 Total Bilirubin 1.4 H AST 50 ALT 63 H Alkaline Phosphatase 177 H Total Protein 6.0 L Albumin 3.0 L Vancomycin Trough 18.8 Quality VTE Prophylaxis VTE prophylaxis: pharmacologic ordered
[2025-01-05] MEDS: IPRATROPIUM 0.5 MG/ALBUTEROL SULFATE 2.5 MG AMPUL.NEB 3 ML INHALATION (21:25)
[2025-01-06] VITALS (12 sets, daily range): BP systolic 122–147; BP diastolic 55–63; PULSE 59–74; RESP 18–20; TEMP 36.5–36.6; O2SAT 91–95
[2025-01-06] MEDS: ACETAMINOPHEN 325 MG TABLET 650 MG PO ×4 (01:37→21:39)
[2025-01-06] MEDS: SALINE LOCK FLUSH 10 ML IV PUSH ×2 (05:29→21:41)
[2025-01-06 05:37] LABS: Basophils Absolute Auto 0.1 K/mm3 (0.0-0.1); Basophils Percent Auto 0.8 % (0.2-1.2); Eosinophils Absolute Auto 0.2 K/mm3 (0-0.3); Eosinophils Percent Auto 3.7 % (0-4.4); Hematocrit 40.2 % (42.0-52.0); Hemoglobin 13.1 g/dL (14.0-18.0); Immature Granulocyte Absolute 0.03 K/mm3 (0.00-0.031); Immature Granulocyte Percent A 0.5 % (0-0.5); Lymphocytes Absolute Auto 1.43 K/mm3 (0.9-3.2); Lymphocytes Percent Auto 22.2 % (18.3-44.2); Mean Corpuscular HGB Conc 32.6 g/dl (32-36); Mean Corpuscular Hemoglobin 30.1 pg (26-34); Mean Corpuscular Volume 92.4 fl (80-100); Mean Platelet Volume 8.6 fl (7.4-10.4); Monocytes Absolute Auto 0.8 K/mm3 (0.1-0.6); Monocytes Percent Auto 12.8 % (2.6-8.5); Neutrophils Absolute Auto 3.9 K/mm3 (1.3-6.7); Platelet Count Result 212 k/mm3 (150-375); Red Blood Count 4.35 M/mm3 (4.6-6.20); Red Cell Distribution Width 13.2 % (11.5-14.5); White Blood Count 6.4 K/mm3 (4.5-10.0)
[2025-01-06 05:53] LABS: Alanine Aminotransferase 52 U/L (6-50); Alkaline Phosphatase 159 U/L (38-126); Anion Gap 4 mmol/L (4-12); Aspartate Amino Transferase 35 U/L (17-59); Bilirubin,Total 1.4 mg/dL (0.2-1.3); Blood Urea Nitrogen 4 mg/dL (9-20); Calcium 8.6 mg/dL (8.4-10.2); Carbon Dioxide 32 mmol/L (22-30); Chloride 100 mmol/L (98-107); Estimated CRCL calculation 169 ml/min; Estimated Glomerular Filt Rate > 60; Glucose 100 mg/dL (65-110); Potassium 4.1 mmol/L (3.4-5.0); Sodium 136 mmol/L (137-145)
[2025-01-06] MEDS: FLUTICASONE/UMECLIDIN/VILANTER 200-62.5-25 MCG ELLIPTA 1 PUFF INHALATION (07:53)
[2025-01-06] MEDS: METOPROLOL TARTRATE 25 MG TABLET PO ×2 (08:03→21:39)
[2025-01-06] MEDS: guaiFENesin 12 HR 600 MG TABCR 1200 MG PO ×2 (08:04→21:39)
[2025-01-06] MEDS: ATORVASTATIN 20 MG TABLET PO (08:04)
[2025-01-06] MEDS: SOTALOL HCL 80 MG TABLET PO ×2 (08:04→21:38)
[2025-01-06] MEDS: APIXABAN 5 MG TABLET PO ×2 (08:04→21:39)
[2025-01-06] MEDS: MONTELUKAST SODIUM 10 MG TABLET PO (08:04)
[2025-01-06] MEDS: VANCOMYCIN 1,500 MG/NS 500 ML 1,500 MG/500 ML BAG 250 MG IVPB (08:15)
[2025-01-06] MEDS: CEFEPIME 2 GM/NS 50 ML 2 GM/50 ML BAG IVPB ×2 (10:36→21:39)
[2025-01-06] MEDS: FUROSEMIDE INJ 40 MG/4 ML VIAL IV PUSH ×2 (11:17→16:06)
[2025-01-06] MEDS: MAGNESIUM OXIDE 400 MG TABLET PO (11:17)
--- NOTE | 2025-01-06 12:48 | P.PNIM_ITS ---
Progress Note: A&P Assessment and Plan (1) Hypotension: Code(s): I95.9 - Hypotension, unspecified Status: Acute Assessment and Plan: RESOLVED Patient presented with hypotension which is likely multifactorial secondary to AFib with RVR, patient continue taking his antihypertensive medication, dehydration from poor p.o. intake and questionable sepsis Antibiotics and management of influenza as below (2) Atrial fibrillation with RVR: Code(s): I48.91 - Unspecified atrial fibrillation Status: Acute Assessment and Plan: Patient presented with AFib with RVR likely secondary to influenza A infection s/p Amio and Cardizem infusion and IV Metoprolol Continue Sotalol 80mg bid and Eliquis cardiology following (3) Chronic anticoagulation: Code(s): Z79.01 - assisted (current) use of anticoagulants Status: Acute Assessment and Plan: Continue Eliquis (4) Chronic obstructive pulmonary disease: Code(s): J44.9 - Chronic obstructive pulmonary disease, unspecified Status: Acute Assessment and Plan: Not in exacerbation No significant wheezing on exam. Hold steroids P.r.n. bronchodilators (5) Influenza A: Code(s): J10.1 - Influenza due to other identified influenza virus with other respiratory manifestations Status: Inactive Assessment and Plan: Status post Tamiflu Isolation (6) Pneumonia: Qualifiers: Laterality: bilateral Lung location: lower lobe of lung Pneumonia type: due to unspecified organism Qualified Code(s): J18.9 - Pneumonia, unspecified organism Code(s): J18.9 - Pneumonia, unspecified organism Status: Inactive Assessment and Plan: Patient presented with influenza A with infiltrates and suspected to have a secondary bacterial infection and was started on empiric antibiotics Patient is on vancomycin Rocephin and doxycycline Blood cultures as below MRSA screen was positive Sputum cultures growing Staph aureus and Pseudomonas Legionella and strep pneumococcal antigen are pending To complete Cefepime, to continue Vancomycin until 01/17 (7) Bacteremia: Code(s): R78.81 - Bacteremia Status: Acute Assessment and Plan: Blood cultures 2 bottles are growing MRSA and Staph epi in 1 bottle and Staph capitis in 2nd bottle. This suggests that this may be contamination Continue antibiotics as above repeat blood cultures on 01/04 MULUGETA no concerning findings Awaiting repeat cultures continue Cefepime and Vanc Plan DVT prophylaxis -Eliquis Stress ulcer prophylaxis - NA Nutrition -diet ordered Code Status - Full Code To discharge home with home health once repeat blood culture is negative Subjective Date/time seen: 01/06/25 12:48 Interval history: Patient comfortable at bedside Awaiting repeat blood culture results Review of Systems Review of Systems: 12 systems were reviewed and are negativ e except for as per HPI. All systems reviewed & are unremarkable except as noted in HPI and below (HPI) Exam Narrative: General: Pt is alert awake and in NAD Lungs/Chest: Trachea central Clear BS B/L, overall decreased air entry bilaterally, No crackles or wheezing. Cardiac: Tachycardic, irregular Normal S1 S2. No murmurs Circulation: Pedal pulses are intact and symmetrical. Abdomen: Normal bowel sounds.. Soft. NT. ND. Extremities: No clubbing, cyanosis or edema. Warm : Brady in place Neurologic: Follows commands. Moves all 4 extremities PERRL AO x3 Skin: No Rash Objective Data Vital Signs Vital Signs: Vital Signs - 24 hr 01/05/25 14:21 01/05/25 16:00 01/05/25 20:00 Temperature 97.3 F L Pulse Rate 69 63 Respiratory Rate 16 Blood Pressure 132/66 Pulse Oximetry 96 94 Oxygen Delivery Nasal Cannula Oxygen Flow Rate 2 01/05/25 20:00 01/05/25 21:06 01/05/25 21:26 Temperature 97.7 F Pulse Rate 68 77 68 Respiratory Rate 22 H 16 Blood Pressure 160/75 H Pulse Oximetry 94 Oxygen Delivery Oxygen Flow Rate 01/05/25 21:28 01/05/25 21:36 01/05/25 21:37 Temperature Pulse Rate 66 66 66 Respiratory Rate 16 Blood Pressure Pulse Oximetry Oxygen Delivery Oxygen Flow Rate 01/06/25 00:00 01/06/25 04:00 01/06/25 04:02 Temperature 97.7 F Pulse Rate 73 74 68 Respiratory Rate 20 Blood Pressure 147/55 H Pulse Oximetry 91 Oxygen Delivery Oxygen Flow Rate 01/06/25 07:55 01/06/25 08:03 01/06/25 08:04 Temperature Pulse Rate 60 60 Respiratory Rate Blood Pressure Pulse Oximetry 94 Oxygen Delivery Nasal Cannula Oxygen Flow Rate 3 Intake/Output Intake/Output: Intake & Output 01/03/25 01/04/25 01/05/25 01/06/25 23:59 23:59 23:59 23:59 Intake Total 2940 2170 2330 1680 Output Total 1700 1650 3200 3200 Balance 1240 143 -355 -4272 Meds/Results Medications: Active Medications Generic Name Dose Route Start Last Admin Trade Name Freq PRN Reason Stop Dose Admin Acetaminophen 650 mg 12/28/24 18:54 01/06/25 06:53 Acetaminophen 325 Mg Tablet PO 650 mg Q6H PRN Administration Mild Pain (1-3) or Fever Albuterol/Ipratropium 3 ml 12/29/24 09:13 01/05/25 21:25 Ipratropium 0.5 Mg/Albuterol Sulfate 2.5 Mg Ampul.Neb 3 Ml INHALATION 3 ml Q6HRT PRN Administration Wheezing Apixaban 5 mg 12/29/24 09:00 01/06/25 08:04 Apixaban 5 Mg Tablet PO 5 mg Q12HR CLAY Administration Atorvastatin Calcium 20 mg 01/02/25 09:00 01/06/25 08:04 Atorvastatin 20 Mg Tablet PO 20 mg DAILY CLAY Administration Fluticasone/Umeclidinium/Vilanterol 1 puff 12/29/24 08:00 01/06/25 07:53 Fluticasone/Umeclidin/Vilanter 200-62.5-25 Mcg Ellipta INHALATION 1 puff DAILYRT CLAY Administration Guaifenesin 1,200 mg 01/01/25 01:00 01/06/25 08:04 Guaifenesin 12 Hr 600 Mg Tabcr PO 1,200 mg Q12HR CLAY Administration Cefepime HCl 2 gm in 50 mls @ 100 mls/hr 12/31/24 09:00 01/06/25 11:06 Maxipime 2 Gm/Ns 50 Ml IVPB 01/06/25 23:59 Infused Q12H CLAY Infusion Vancomycin HCl 1,500 mg in 500 mls @ 250 mls/hr 01/04/25 23:00 01/06/25 10:15 Vancomycin 1,500 Mg/Ns 500 Ml IVPB 01/17/25 23:59 Infused Q8H CLAY Infusion Levalbuterol HCl 1.25 mg 12/29/24 20:02 01/02/25 22:29 Levalbuterol Neb 1.25 Mg/3 Ml INHALATION 1.25 mg Q6HRT PRN Administration Shortness Of Breath Or Wheezing Magnesium Oxide 400 mg 12/31/24 12:00 01/06/25 11:17 Magnesium Oxide 400 Mg Tablet PO 400 mg DAILY@1200 CLAY Administration Metoprolol Tartrate 5 mg 12/29/24 15:40 12/31/24 19:06 Metoprolol Tartrate Inj 5 Mg/5 Ml Vial IV PUSH 5 mg Q3H PRN Administration Tachycardia Metoprolol Tartrate 25 mg 01/03/25 21:00 01/06/25 08:03 Metoprolol Tartrate 25 Mg Tablet PO 25 mg Q12HR CLAY Administration Montelukast Sodium 10 mg 12/29/24 09:00 01/06/25 08:04 Montelukast Sodium 10 Mg Tablet PO 10 mg DAILY CLAY Administration Perflutren Lipid Microsphere 0 ml 01/06/25 10:39 Perflutren Lipid Microspheres 1.5 Ml Vial Diluted To 10 Ml Total Volume IV PUSH 01/09/25 10:39 ONCE PRN adequate visualization Protocol Sodium Chloride 10 ml 12/29/24 22:00 01/06/25 11:05 Saline Lock Flush IV PUSH Not Given Q8HR CLAY Sodium Chloride 10 ml 12/29/24 14:55 Saline Lock Flush IV PUSH PRN PRN Flush Sodium Chloride 20 ml 12/29/24 14:55 Saline Lock Flush IV PUSH PRN PRN after blood draws Sotalol HCl 80 mg 12/31/24 21:00 01/06/25 08:04 Sotalol Hcl 80 Mg Tablet PO 80 mg Q12HR CLAY Administration Radiology Results: ITS Impressions Chest X-Ray 01/04/25 07:50 Impression: Bibasilar pulmonary edema/atelectasis with minimal pleural effusions. Underlying COPD. Labs Labs: Laboratory Results - last 24 hr 01/06/25 05:18 WBC 6.4 RBC 4.35 L Hgb 13.1 L Hct 40.2 L MCV 92.4 MCH 30.1 MCHC 32.6 RDW 13.2 Plt Count 212 MPV 8.6 Immature Gran % (Auto) 0.5 Neut % (Auto) 60.0 Lymph % (Auto) 22.2 [place] % (Auto) 12.8 H Eos % (Auto) 3.7 Baso % (Auto) 0.8 Lymph # (Auto) 1.43 [place] # (Auto) 0.8 H Eos # (Auto) 0.2 Baso # (Auto) 0.1 Abs Immat Gran (auto) 0.03 Absolute Neuts (auto) 3.9 Absolute Nucleated RBC 0.000 Nucleated RBC % 0.0 Sodium 136 L Potassium 4.1 Chloride 100 Carbon Dioxide 32 H Anion Gap 4 BUN 4 L Creatinine 0.43 L Estim Creat Clear Calc 169 Estimated GFR > 60 Glucose 100 Calcium 8.6 Magnesium 2.0 Total Bilirubin 1.4 H AST 35 ALT 52 H Alkaline Phosphatase 159 H Total Protein 6.0 L Albumin 3.0 L Quality VTE Prophylaxis VTE prophylaxis: pharmacologic ordered
--- NOTE | 2025-01-06 14:04 | PM.PNCARD ---
Progress Note: A&P Assessment and Plan (1) Atrial fibrillation with RVR: Code(s): I48.91 - Unspecified atrial fibrillation Status: Acute Plan Persistent atrial fibrillation status post cardioversion Cardiomyopathy possibly related to tachyarrhythmia COPD Hypertension Plan Continue Eliquis 5 mg b.i.d. Sotalol 80 mg b.i.d. Metoprolol 25 mg b.i.d. Lasix 40 mg IV b.i.d. And Entresto 24-26 p.o. b.i.d. Subjective Date/time seen: 01/06/25 14:04 Interval history: No acute events Continue to have shortness of breath has been improving Sinus rhythm with short runs of AFib Review of Systems Review of Systems: All systems reviewed & are unremarkable except as noted in HPI and below Exam Const: General: comfortable HENMT: Mouth: Yes moist mucous membranes Eyes: EOM: EOMs intact bilaterally Neck: Neck: no JVD Resp: Effort & Inspection: normal respiratory effort Auscultation: rhonchi Cardio: Rate: regular rate Rhythm: regular rhythm Objective Data Vital Signs Vital Signs: Vital Signs - 24 hr 01/05/25 14:21 01/05/25 16:00 01/05/25 20:00 Temperature 36.3 C L Pulse Rate 69 63 Respiratory Rate 16 Blood Pressure 132/66 Pulse Oximetry 96 94 Oxygen Delivery Nasal Cannula Oxygen Flow Rate 2 01/05/25 20:00 01/05/25 21:06 01/05/25 21:26 Temperature 36.5 C Pulse Rate 68 77 68 Respiratory Rate 22 H 16 Blood Pressure 160/75 H Pulse Oximetry 94 Oxygen Delivery Oxygen Flow Rate 01/05/25 21:28 01/05/25 21:36 01/05/25 21:37 Temperature Pulse Rate 66 66 66 Respiratory Rate 16 Blood Pressure Pulse Oximetry Oxygen Delivery Oxygen Flow Rate 01/06/25 00:00 01/06/25 04:00 01/06/25 04:02 Temperature 36.5 C Pulse Rate 73 74 68 Respiratory Rate 20 Blood Pressure 147/55 H Pulse Oximetry 91 Oxygen Delivery Oxygen Flow Rate 01/06/25 07:55 01/06/25 08:03 01/06/25 08:04 Temperature Pulse Rate 60 60 Respiratory Rate Blood Pressure Pulse Oximetry 94 Oxygen Delivery Nasal Cannula Oxygen Flow Rate 3 Intake/Output Intake/Output: Intake & Output 01/03/25 01/04/25 01/05/25 01/06/25 23:59 23:59 23:59 23:59 Intake Total 2940 2170 2330 1680 Output Total 1700 1650 3200 3200 Balance 1240 520 -870 -1520 Meds/Results Medications: Active Medications Generic Name Dose Route Start Last Admin Trade Name Freq PRN Reason Stop Dose Admin Acetaminophen 650 mg 12/28/24 18:54 01/06/25 06:53 Acetaminophen 325 Mg Tablet PO 650 mg Q6H PRN Administration Mild Pain (1-3) or Fever Albuterol/Ipratropium 3 ml 12/29/24 09:13 01/05/25 21:25 Ipratropium 0.5 Mg/Albuterol Sulfate 2.5 Mg Ampul.Neb 3 Ml INHALATION 3 ml Q6HRT PRN Administration Wheezing Apixaban 5 mg 12/29/24 09:00 01/06/25 08:04 Apixaban 5 Mg Tablet PO 5 mg Q12HR CLAY Administration Atorvastatin Calcium 20 mg 01/02/25 09:00 01/06/25 08:04 Atorvastatin 20 Mg Tablet PO 20 mg DAILY CLAY Administration Fluticasone/Umeclidinium/Vilanterol 1 puff 12/29/24 08:00 01/06/25 07:53 Fluticasone/Umeclidin/Vilanter 200-62.5-25 Mcg Ellipta INHALATION 1 puff DAILYRT CLAY Administration Guaifenesin 1,200 mg 01/01/25 01:00 01/06/25 08:04 Guaifenesin 12 Hr 600 Mg Tabcr PO 1,200 mg Q12HR CLAY Administration Cefepime HCl 2 gm in 50 mls @ 100 mls/hr 12/31/24 09:00 01/06/25 11:06 Maxipime 2 Gm/Ns 50 Ml IVPB 01/06/25 23:59 Infused Q12H CLAY Infusion Vancomycin HCl 1,500 mg in 500 mls @ 250 mls/hr 01/04/25 23:00 01/06/25 10:15 Vancomycin 1,500 Mg/Ns 500 Ml IVPB 01/17/25 23:59 Infused Q8H CLAY Infusion Levalbuterol HCl 1.25 mg 12/29/24 20:02 01/02/25 22:29 Levalbuterol Neb 1.25 Mg/3 Ml INHALATION 1.25 mg Q6HRT PRN Administration Shortness Of Breath Or Wheezing Magnesium Oxide 400 mg 12/31/24 12:00 01/06/25 11:17 Magnesium Oxide 400 Mg Tablet PO 400 mg DAILY@1200 CLAY Administration Metoprolol Tartrate 5 mg 12/29/24 15:40 12/31/24 19:06 Metoprolol Tartrate Inj 5 Mg/5 Ml Vial IV PUSH 5 mg Q3H PRN Administration Tachycardia Metoprolol Tartrate 25 mg 01/03/25 21:00 01/06/25 08:03 Metoprolol Tartrate 25 Mg Tablet PO 25 mg Q12HR CLAY Administration Montelukast Sodium 10 mg 12/29/24 09:00 01/06/25 08:04 Montelukast Sodium 10 Mg Tablet PO 10 mg DAILY CLAY Administration Perflutren Lipid Microsphere 0 ml 01/06/25 10:39 Perflutren Lipid Microspheres 1.5 Ml Vial Diluted To 10 Ml Total Volume IV PUSH 01/09/25 10:39 ONCE PRN adequate visualization Protocol Perflutren Lipid Microsphere 0 ml 01/06/25 12:59 Perflutren Lipid Microspheres 1.5 Ml Vial Diluted To 10 Ml Total Volume IV PUSH 01/09/25 13:00 ONCE PRN adequate visualization Protocol Sodium Chloride 10 ml 12/29/24 22:00 01/06/25 11:05 Saline Lock Flush IV PUSH Not Given Q8HR CLAY Sodium Chloride 10 ml 12/29/24 14:55 Saline Lock Flush IV PUSH PRN PRN Flush Sodium Chloride 20 ml 12/29/24 14:55 Saline Lock Flush IV PUSH PRN PRN after blood draws Sotalol HCl 80 mg 12/31/24 21:00 01/06/25 08:04 Sotalol Hcl 80 Mg Tablet PO 80 mg Q12HR CLAY Administration Radiology Results: ITS Impressions Chest X-Ray 01/04/25 07:50 Impression: Bibasilar pulmonary edema/atelectasis with minimal pleural effusions. Underlying COPD. Labs Labs: Laboratory Results - last 24 hr 01/06/25 05:18 WBC 6.4 RBC 4.35 L Hgb 13.1 L Hct 40.2 L MCV 92.4 MCH 30.1 MCHC 32.6 RDW 13.2 Plt Count 212 MPV 8.6 Immature Gran % (Auto) 0.5 Neut % (Auto) 60.0 Lymph % (Auto) 22.2 [place] % (Auto) 12.8 H Eos % (Auto) 3.7 Baso % (Auto) 0.8 Lymph # (Auto) 1.43 [place] # (Auto) 0.8 H Eos # (Auto) 0.2 Baso # (Auto) 0.1 Abs Immat Gran (auto) 0.03 Absolute Neuts (auto) 3.9 Absolute Nucleated RBC 0.000 Nucleated RBC % 0.0 Sodium 136 L Potassium 4.1 Chloride 100 Carbon Dioxide 32 H Anion Gap 4 BUN 4 L Creatinine 0.43 L Estim Creat Clear Calc 169 Estimated GFR > 60 Glucose 100 Calcium 8.6 Magnesium 2.0 Total Bilirubin 1.4 H AST 35 ALT 52 H Alkaline Phosphatase 159 H Total Protein 6.0 L Albumin 3.0 L
[2025-01-06 14:49] LABS: Vancomycin Trough 19.8 ug/mL (10.0-20.0)
--- NOTE | 2025-01-06 15:09 | PCPTNOTE ---
Per chart review, discussion with nurse, pt, and pts family, pt is IND, has no mobility concerns and is not eligible for a physical therapy evaluation. RN notified. Discharging PT eval. If there is a change in status please re-order.
[2025-01-06] MEDS: VANCOMYCIN 2,000 MG/NS 500 ML 2,000 MG/500 ML BAG 250 MG IVPB (15:22)
[2025-01-06] MEDS: SACUBITRIL/VALSARTAN 24-26 MG TABLET 1 TAB PO (21:38)
[2025-01-07] VITALS (11 sets, daily range): BP systolic 131–144; BP diastolic 67–72; PULSE 57–86; RESP 16–20; TEMP 36.5; O2SAT 93–97
[2025-01-07] MEDS: VANCOMYCIN 2,000 MG/NS 500 ML 2,000 MG/500 ML BAG 250 MG IVPB ×2 (03:35→17:07)
[2025-01-07] MEDS: ACETAMINOPHEN 325 MG TABLET 650 MG PO ×3 (03:52→19:48)
[2025-01-07] MEDS: SALINE LOCK FLUSH 10 ML IV PUSH ×2 (06:50→22:22)
[2025-01-07] MEDS: FLUTICASONE/UMECLIDIN/VILANTER 200-62.5-25 MCG ELLIPTA 1 PUFF INHALATION (08:30)
--- NOTE | 2025-01-07 09:29 | P.PNIM_ITS ---
Progress Note: A&P Assessment and Plan (1) Hypotension: Code(s): I95.9 - Hypotension, unspecified Status: Acute Assessment and Plan: RESOLVED Patient presented with hypotension which is likely multifactorial secondary to AFib with RVR, patient continue taking his antihypertensive medication, dehydration from poor p.o. intake and questionable sepsis Antibiotics and management of influenza as below (2) Atrial fibrillation with RVR: Code(s): I48.91 - Unspecified atrial fibrillation Status: Acute Assessment and Plan: Patient presented with AFib with RVR likely secondary to influenza A infection s/p Amio and Cardizem infusion and IV Metoprolol Continue Sotalol 80mg bid and Eliquis cardiology following (3) Chronic anticoagulation: Code(s): Z79.01 - half-way (current) use of anticoagulants Status: Acute Assessment and Plan: Continue Eliquis (4) Chronic obstructive pulmonary disease: Code(s): J44.9 - Chronic obstructive pulmonary disease, unspecified Status: Acute Assessment and Plan: Not in exacerbation No significant wheezing on exam. Hold steroids P.r.n. bronchodilators (5) Influenza A: Code(s): J10.1 - Influenza due to other identified influenza virus with other respiratory manifestations Status: Inactive Assessment and Plan: Status post Tamiflu Isolation (6) Pneumonia: Qualifiers: Laterality: bilateral Lung location: lower lobe of lung Pneumonia type: due to unspecified organism Qualified Code(s): J18.9 - Pneumonia, unspecified organism Code(s): J18.9 - Pneumonia, unspecified organism Status: Inactive Assessment and Plan: Patient presented with influenza A with infiltrates and suspected to have a secondary bacterial infection and was started on empiric antibiotics Patient is on vancomycin Rocephin and doxycycline Blood cultures as below MRSA screen was positive Sputum cultures growing Staph aureus and Pseudomonas Legionella and strep pneumococcal antigen are pending Complete, to continue Vancomycin until 01/17 (7) Bacteremia: Code(s): R78.81 - Bacteremia Status: Acute Assessment and Plan: Blood cultures 2 bottles are growing MRSA and Staph epi in 1 bottle and Staph capitis in 2nd bottle. This suggests that this may be contamination Continue antibiotics as above repeat blood cultures on 01/04 MULUGETA no concerning findings Awaiting repeat cultures Continue Vancomycin as above Plan DVT prophylaxis -Eliquis Stress ulcer prophylaxis - NA Nutrition -diet ordered Code Status - Full Code To discharge home with home health with Vancomycin tomorrow Subjective Date/time seen: 01/07/25 09:29 Interval history: patient comfortable at bedside Will discharge tomorrow with HHC and vancomycin to complete on 01/17 Review of Systems Review of Systems: 12 systems were reviewed and are negativ e except for as per HPI. All systems reviewed & are unremarkable except as noted in HPI and below (HPI) Exam Narrative: General: Pt is alert awake and in NAD Lungs/Chest: Trachea central Clear BS B/L, overall decreased air entry bila terally, No crackles or wheezing. Cardiac: Tachycardic, irregular Normal S1 S2. No murmurs Circulation: Pedal pulses are intact and symmetrical. Abdomen: Normal bowel sounds.. Soft. NT. ND. Extremities: No clubbing, cyanosis or edema. Warm : Brady in place Neurologic: Follows commands. Moves all 4 extremities PERRL AO x3 Skin: No Rash Objective Data Vital Signs Vital Signs: Vital Signs - 24 hr 01/06/25 12:00 01/06/25 14:05 01/06/25 16:00 Temperature 97.9 F Pulse Rate 60 64 Respiratory Rate 18 Blood Pressure 122/63 Pulse Oximetry 93 Oxygen Delivery Nasal Cannula Oxygen Flow Rate 3 01/06/25 16:00 01/06/25 20:00 01/06/25 20:00 Temperature Pulse Rate 67 71 71 Respiratory Rate Blood Pressure Pulse Oximetry 95 Oxygen Delivery Nasal Cannula Oxygen Flow Rate 2 01/06/25 21:38 01/06/25 21:39 01/07/25 00:00 Temperature 97.7 F Pulse Rate 67 67 81 Respiratory Rate 20 Blood Pressure 144/72 H Pulse Oximetry 93 Oxygen Delivery Oxygen Flow Rate 01/07/25 00:00 01/07/25 04:00 01/07/25 08:36 Temperature Pulse Rate 75 60 69 Respiratory Rate 20 Blood Pressure Pulse Oximetry Oxygen Delivery Oxygen Flow Rate 01/07/25 08:37 Temperature Pulse Rate Respiratory Rate Blood Pressure Pulse Oximetry 95 Oxygen Delivery Nasal Cannula Oxygen Flow Rate 3 Intake/Output Intake/Output: Intake & Output 01/04/25 01/05/25 01/06/25 01/07/25 23:59 23:59 23:59 23:59 Intake Total 2170 2330 2710 800 Output Total 1650 3200 5758 1550 Balance 495 -870 -3015 -750 Meds/Results Medications: Active Medications Generic Name Dose Route Start Last Admin Trade Name Freq PRN Reason Stop Dose Admin Acetaminophen 650 mg 12/28/24 18:54 01/07/25 03:52 Acetaminophen 325 Mg Tablet PO 650 mg Q6H PRN Administration Mild Pain (1-3) or Fever Albuterol/Ipratropium 3 ml 12/29/24 09:13 01/05/25 21:25 Ipratropium 0.5 Mg/Albuterol Sulfate 2.5 Mg Ampul.Neb 3 Ml INHALATION 3 ml Q6HRT PRN Administration Wheezing Apixaban 5 mg 12/29/24 09:00 01/06/25 21:39 Apixaban 5 Mg Tablet PO 5 mg Q12HR CLAY Administration Atorvastatin Calcium 20 mg 01/02/25 09:00 01/06/25 08:04 Atorvastatin 20 Mg Tablet PO 20 mg DAILY CLAY Administration Fluticasone/Umeclidinium/Vilanterol 1 puff 12/29/24 08:00 01/07/25 08:30 Fluticasone/Umeclidin/Vilanter 200-62.5-25 Mcg Ellipta INHALATION 1 puff DAILYRT CLAY Administration Furosemide 40 mg 01/06/25 17:00 01/06/25 16:06 Furosemide Inj 40 Mg/4 Ml Vial IV PUSH 40 mg BID CLAY Administration Guaifenesin 1,200 mg 01/01/25 01:00 01/06/25 21:39 Guaifenesin 12 Hr 600 Mg Tabcr PO 1,200 mg Q12HR CLAY Administration Vancomycin HCl 2,000 mg in 500 mls @ 250 mls/hr 01/06/25 16:00 01/07/25 05:35 Vancomycin 2,000 Mg/Ns 500 Ml IVPB 01/17/25 23:59 Infused Q12H CLAY Infusion Levalbuterol HCl 1.25 mg 12/29/24 20:02 01/02/25 22:29 Levalbuterol Neb 1.25 Mg/3 Ml INHALATION 1.25 mg Q6HRT PRN Administration Shortness Of Breath Or Wheezing Magnesium Oxide 400 mg 12/31/24 12:00 01/06/25 11:17 Magnesium Oxide 400 Mg Tablet PO 400 mg DAILY@1200 CLAY Administration Metoprolol Tartrate 5 mg 12/29/24 15:40 12/31/24 19:06 Metoprolol Tartrate Inj 5 Mg/5 Ml Vial IV PUSH 5 mg Q3H PRN Administration Tachycardia Metoprolol Tartrate 25 mg 01/03/25 21:00 01/06/25 21:39 Metoprolol Tartrate 25 Mg Tablet PO 25 mg Q12HR CLAY Administration Montelukast Sodium 10 mg 12/29/24 09:00 01/06/25 08:04 Montelukast Sodium 10 Mg Tablet PO 10 mg DAILY CLAY Administration Perflutren Lipid Microsphere 0 ml 01/06/25 10:39 Perflutren Lipid Microspheres 1.5 Ml Vial Diluted To 10 Ml Total Volume IV PUSH 01/09/25 10:39 ONCE PRN adequate visualization Protocol Perflutren Lipid Microsphere 0 ml 01/06/25 12:59 Perflutren Lipid Microspheres 1.5 Ml Vial Diluted To 10 Ml Total Volume IV PUSH 01/09/25 13:00 ONCE PRN adequate visualization Protocol Sacubitril/Valsartan 1 tab 01/06/25 21:00 01/06/25 21:38 Sacubitril/Valsartan 24-26 Mg Tablet PO 1 tab Q12HR CLAY Administration Sodium Chloride 10 ml 12/29/24 22:00 01/07/25 06:50 Saline Lock Flush IV PUSH 10 ml Q8HR CLAY Administration Sodium Chloride 10 ml 12/29/24 14:55 Saline Lock Flush IV PUSH PRN PRN Flush Sodium Chloride 20 ml 12/29/24 14:55 Saline Lock Flush IV PUSH PRN PRN after blood draws Sotalol HCl 80 mg 12/31/24 21:00 01/06/25 21:38 Sotalol Hcl 80 Mg Tablet PO 80 mg Q12HR CLAY Administration Labs Labs: Laboratory Results - last 24 hr 01/06/25 14:21 Vancomycin Trough 19.8 Quality VTE Prophylaxis VTE prophylaxis: pharmacologic ordered
[2025-01-07] MEDS: METOPROLOL TARTRATE 25 MG TABLET PO ×2 (09:38→20:55)
[2025-01-07] MEDS: SACUBITRIL/VALSARTAN 24-26 MG TABLET 1 TAB PO ×2 (09:38→20:55)
[2025-01-07] MEDS: SOTALOL HCL 80 MG TABLET PO ×2 (09:38→20:55)
[2025-01-07] MEDS: FUROSEMIDE INJ 40 MG/4 ML VIAL IV PUSH ×2 (09:39→17:08)
[2025-01-07] MEDS: APIXABAN 5 MG TABLET PO ×2 (09:39→20:55)
[2025-01-07] MEDS: ATORVASTATIN 20 MG TABLET PO (09:39)
[2025-01-07] MEDS: MONTELUKAST SODIUM 10 MG TABLET PO (09:39)
[2025-01-07] MEDS: guaiFENesin 12 HR 600 MG TABCR 1200 MG PO ×2 (09:39→20:55)
--- NOTE | 2025-01-07 11:47 | PM.PNCARD ---
Progress Note: A&P Assessment and Plan (1) Atrial fibrillation with RVR: Code(s): I48.91 - Unspecified atrial fibrillation Status: Acute Plan Persistent atrial fibrillation status post cardioversion Cardiomyopathy possibly related to tachyarrhythmia COPD Hypertension Erythema lower extremity possible cellulitis Plan Continue Eliquis 5 mg b.i.d. Sotalol 80 mg b.i.d. Metoprolol 25 mg b.i.d. Lasix 40 mg IV b.i.d. Continue Entresto 24-26 p.o. b.i.d. Evaluation management of possible extremities cellulitis per primary team Subjective Date/time seen: 01/07/25 11:47 Interval history: No acute events Shortness of breath is improving Lower extremity edema is less prominent Review of Systems Review of Systems: All systems reviewed & are unremarkable except as noted in HPI and below Exam Const: General: comfortable HENMT: Mouth: Yes moist mucous membranes Eyes: EOM: EOMs intact bilaterally Neck: Neck: no JVD Resp: Effort & Inspection: normal respiratory effort Auscultation: rhonchi Cardio: Rate: regular rate Rhythm: regular rhythm Extrem: Other: Bilateral ankle edema with erythema Objective Data Vital Signs Vital Signs: Vital Signs - 24 hr 01/06/25 12:00 01/06/25 14:05 01/06/25 16:00 Temperature 36.6 C Pulse Rate 60 64 Respiratory Rate 18 Blood Pressure 122/63 Pulse Oximetry 93 Oxygen Delivery Nasal Cannula Oxygen Flow Rate 3 01/06/25 16:00 01/06/25 20:00 01/06/25 20:00 Temperature Pulse Rate 67 71 71 Respiratory Rate Blood Pressure Pulse Oximetry 95 Oxygen Delivery Nasal Cannula Oxygen Flow Rate 2 01/06/25 21:38 01/06/25 21:39 01/07/25 00:00 Temperature 36.5 C Pulse Rate 67 67 81 Respiratory Rate 20 Blood Pressure 144/72 H Pulse Oximetry 93 Oxygen Delivery Oxygen Flow Rate 01/07/25 00:00 01/07/25 04:00 01/07/25 08:36 Temperature Pulse Rate 75 60 69 Respiratory Rate 20 Blood Pressure Pulse Oximetry Oxygen Delivery Oxygen Flow Rate 01/07/25 08:37 01/07/25 09:38 01/07/25 09:38 Temperature Pulse Rate 70 70 Respiratory Rate Blood Pressure Pulse Oximetry 95 Oxygen Delivery Nasal Cannula Oxygen Flow Rate 3 Intake/Output Intake/Output: Intake & Output 01/04/25 01/05/25 01/06/25 01/07/25 23:59 23:59 23:59 23:59 Intake Total 2170 2330 2710 1040 Output Total 1650 3206 5744 1552 Balance 520 -870 -3015 -510 Meds/Results Medications: Active Medications Generic Name Dose Route Start Last Admin Trade Name Freq PRN Reason Stop Dose Admin Acetaminophen 650 mg 12/28/24 18:54 01/07/25 03:52 Acetaminophen 325 Mg Tablet PO 650 mg Q6H PRN Administration Mild Pain (1-3) or Fever Albuterol/Ipratropium 3 ml 12/29/24 09:13 01/05/25 21:25 Ipratropium 0.5 Mg/Albuterol Sulfate 2.5 Mg Ampul.Neb 3 Ml INHALATION 3 ml Q6HRT PRN Administration Wheezing Apixaban 5 mg 12/29/24 09:00 01/07/25 09:39 Apixaban 5 Mg Tablet PO 5 mg Q12HR CLAY Administration Atorvastatin Calcium 20 mg 01/02/25 09:00 01/07/25 09:39 Atorvastatin 20 Mg Tablet PO 20 mg DAILY CLAY Administration Fluticasone/Umeclidinium/Vilanterol 1 puff 12/29/24 08:00 01/07/25 08:30 Fluticasone/Umeclidin/Vilanter 200-62.5-25 Mcg Ellipta INHALATION 1 puff DAILYRT CLAY Administration Furosemide 40 mg 01/06/25 17:00 01/07/25 09:39 Furosemide Inj 40 Mg/4 Ml Vial IV PUSH 40 mg BID CLAY Administration Guaifenesin 1,200 mg 01/01/25 01:00 01/07/25 09:39 Guaifenesin 12 Hr 600 Mg Tabcr PO 1,200 mg Q12HR CLAY Administration Vancomycin HCl 2,000 mg in 500 mls @ 250 mls/hr 01/06/25 16:00 01/07/25 05:35 Vancomycin 2,000 Mg/Ns 500 Ml IVPB 01/17/25 23:59 Infused Q12H CLAY Infusion Levalbuterol HCl 1.25 mg 12/29/24 20:02 01/02/25 22:29 Levalbuterol Neb 1.25 Mg/3 Ml INHALATION 1.25 mg Q6HRT PRN Administration Shortness Of Breath Or Wheezing Magnesium Oxide 400 mg 12/31/24 12:00 01/06/25 11:17 Magnesium Oxide 400 Mg Tablet PO 400 mg DAILY@1200 CLAY Administration Metoprolol Tartrate 5 mg 12/29/24 15:40 12/31/24 19:06 Metoprolol Tartrate Inj 5 Mg/5 Ml Vial IV PUSH 5 mg Q3H PRN Administration Tachycardia Metoprolol Tartrate 25 mg 01/03/25 21:00 01/07/25 09:38 Metoprolol Tartrate 25 Mg Tablet PO 25 mg Q12HR CLAY Administration Montelukast Sodium 10 mg 12/29/24 09:00 01/07/25 09:39 Montelukast Sodium 10 Mg Tablet PO 10 mg DAILY CLAY Administration Perflutren Lipid Microsphere 0 ml 01/06/25 10:39 Perflutren Lipid Microspheres 1.5 Ml Vial Diluted To 10 Ml Total Volume IV PUSH 01/09/25 10:39 ONCE PRN adequate visualization Protocol Perflutren Lipid Microsphere 0 ml 01/06/25 12:59 Perflutren Lipid Microspheres 1.5 Ml Vial Diluted To 10 Ml Total Volume IV PUSH 01/09/25 13:00 ONCE PRN adequate visualization Protocol Sacubitril/Valsartan 1 tab 01/06/25 21:00 01/07/25 09:38 Sacubitril/Valsartan 24-26 Mg Tablet PO 1 tab Q12HR CLAY Administration Sodium Chloride 10 ml 12/29/24 22:00 01/07/25 06:50 Saline Lock Flush IV PUSH 10 ml Q8HR CLAY Administration Sodium Chloride 10 ml 12/29/24 14:55 Saline Lock Flush IV PUSH PRN PRN Flush Sodium Chloride 20 ml 12/29/24 14:55 Saline Lock Flush IV PUSH PRN PRN after blood draws Sotalol HCl 80 mg 12/31/24 21:00 01/07/25 09:38 Sotalol Hcl 80 Mg Tablet PO 80 mg Q12HR CLAY Administration Radiology Results: ITS Impressions Chest X-Ray 01/07/25 09:44 IMPRESSION: 1. Opacities in bilateral lower lung zones which could represent atelectasis, pneumonia or mild pulmonary edema or some combination thereof. 2. Small bilateral pleural effusions. Labs Labs: Laboratory Results - last 24 hr 01/06/25 14:21 Vancomycin Trough 19.8
--- NOTE | 2025-01-07 11:51 | PM.PNCARD ---
Subjective Date/time seen: 01/07/25 11:51 Interval history: No acute events Lower extremity edema is less Shortness of breath is improving Telemetry sinus rhythm Review of Systems Review of Systems: All systems reviewed & are unremarkable except as noted in HPI and below Exam Const: General: comfortable HENMT: Mouth: Yes moist mucous membranes Eyes: EOM: EOMs intact bilaterally Neck: Neck: no JVD Resp: Effort & Inspection: normal respiratory effort Auscultation: rhonchi Cardio: Rate: regular rate Rhythm: regular rhythm Extrem: Other: Bilateral ankle edema with erythema Objective Data Vital Signs Vital Signs: Vital Signs - 24 hr 01/06/25 12:00 01/06/25 14:05 01/06/25 16:00 Temperature 36.6 C Pulse Rate 60 64 Respiratory Rate 18 Blood Pressure 122/63 Pulse Oximetry 93 Oxygen Delivery Nasal Cannula Oxygen Flow Rate 3 01/06/25 16:00 01/06/25 20:00 01/06/25 20:00 Temperature Pulse Rate 67 71 71 Respiratory Rate Blood Pressure Pulse Oximetry 95 Oxygen Delivery Nasal Cannula Oxygen Flow Rate 2 01/06/25 21:38 01/06/25 21:39 01/07/25 00:00 Temperature 36.5 C Pulse Rate 67 67 81 Respiratory Rate 20 Blood Pressure 144/72 H Pulse Oximetry 93 Oxygen Delivery Oxygen Flow Rate 01/07/25 00:00 01/07/25 04:00 01/07/25 08:36 Temperature Pulse Rate 75 60 69 Respiratory Rate 20 Blood Pressure Pulse Oximetry Oxygen Delivery Oxygen Flow Rate 01/07/25 08:37 01/07/25 09:38 01/07/25 09:38 Temperature Pulse Rate 70 70 Respiratory Rate Blood Pressure Pulse Oximetry 95 Oxygen Delivery Nasal Cannula Oxygen Flow Rate 3 Intake/Output Intake/Output: Intake & Output 01/04/25 01/05/25 01/06/25 01/07/25 23:59 23:59 23:59 23:59 Intake Total 2170 2330 2710 1040 Output Total 1650 0357 1359 5015 Balance 780 -870 -3015 -510 Meds/Results Medications: Active Medications Generic Name Dose Route Start Last Admin Trade Name Freq PRN Reason Stop Dose Admin Acetaminophen 650 mg 12/28/24 18:54 01/07/25 03:52 Acetaminophen 325 Mg Tablet PO 650 mg Q6H PRN Administration Mild Pain (1-3) or Fever Albuterol/Ipratropium 3 ml 12/29/24 09:13 01/05/25 21:25 Ipratropium 0.5 Mg/Albuterol Sulfate 2.5 Mg Ampul.Neb 3 Ml INHALATION 3 ml Q6HRT PRN Administration Wheezing Apixaban 5 mg 12/29/24 09:00 01/07/25 09:39 Apixaban 5 Mg Tablet PO 5 mg Q12HR CLAY Administration Atorvastatin Calcium 20 mg 01/02/25 09:00 01/07/25 09:39 Atorvastatin 20 Mg Tablet PO 20 mg DAILY CLAY Administration Fluticasone/Umeclidinium/Vilanterol 1 puff 12/29/24 08:00 01/07/25 08:30 Fluticasone/Umeclidin/Vilanter 200-62.5-25 Mcg Ellipta INHALATION 1 puff DAILYRT CLAY Administration Furosemide 40 mg 01/06/25 17:00 01/07/25 09:39 Furosemide Inj 40 Mg/4 Ml Vial IV PUSH 40 mg BID CLAY Administration Guaifenesin 1,200 mg 01/01/25 01:00 01/07/25 09:39 Guaifenesin 12 Hr 600 Mg Tabcr PO 1,200 mg Q12HR CLAY Administration Vancomycin HCl 2,000 mg in 500 mls @ 250 mls/hr 01/06/25 16:00 01/07/25 05:35 Vancomycin 2,000 Mg/Ns 500 Ml IVPB 01/17/25 23:59 Infused Q12H CLAY Infusion Levalbuterol HCl 1.25 mg 12/29/24 20:02 01/02/25 22:29 Levalbuterol Neb 1.25 Mg/3 Ml INHALATION 1.25 mg Q6HRT PRN Administration Shortness Of Breath Or Wheezing Magnesium Oxide 400 mg 12/31/24 12:00 01/06/25 11:17 Magnesium Oxide 400 Mg Tablet PO 400 mg DAILY@1200 CLAY Administration Metoprolol Tartrate 5 mg 12/29/24 15:40 12/31/24 19:06 Metoprolol Tartrate Inj 5 Mg/5 Ml Vial IV PUSH 5 mg Q3H PRN Administration Tachycardia Metoprolol Tartrate 25 mg 01/03/25 21:00 01/07/25 09:38 Metoprolol Tartrate 25 Mg Tablet PO 25 mg Q12HR CLAY Administration Montelukast Sodium 10 mg 12/29/24 09:00 01/07/25 09:39 Montelukast Sodium 10 Mg Tablet PO 10 mg DAILY CLAY Administration Perflutren Lipid Microsphere 0 ml 01/06/25 10:39 Perflutren Lipid Microspheres 1.5 Ml Vial Diluted To 10 Ml Total Volume IV PUSH 01/09/25 10:39 ONCE PRN adequate visualization Protocol Perflutren Lipid Microsphere 0 ml 01/06/25 12:59 Perflutren Lipid Microspheres 1.5 Ml Vial Diluted To 10 Ml Total Volume IV PUSH 01/09/25 13:00 ONCE PRN adequate visualization Protocol Sacubitril/Valsartan 1 tab 01/06/25 21:00 01/07/25 09:38 Sacubitril/Valsartan 24-26 Mg Tablet PO 1 tab Q12HR CLAY Administration Sodium Chloride 10 ml 12/29/24 22:00 01/07/25 06:50 Saline Lock Flush IV PUSH 10 ml Q8HR CLAY Administration Sodium Chloride 10 ml 12/29/24 14:55 Saline Lock Flush IV PUSH PRN PRN Flush Sodium Chloride 20 ml 12/29/24 14:55 Saline Lock Flush IV PUSH PRN PRN after blood draws Sotalol HCl 80 mg 12/31/24 21:00 01/07/25 09:38 Sotalol Hcl 80 Mg Tablet PO 80 mg Q12HR CLAY Administration Radiology Results: ITS Impressions Chest X-Ray 01/07/25 09:44 IMPRESSION: 1. Opacities in bilateral lower lung zones which could represent atelectasis, pneumonia or mild pulmonary edema or some combination thereof. 2. Small bilateral pleural effusions. Labs Labs: Laboratory Results - last 24 hr 01/06/25 14:21 Vancomycin Trough 19.8
[2025-01-07] MEDS: MAGNESIUM OXIDE 400 MG TABLET PO (12:42)
[2025-01-07] MEDS: LIDOCAINE 5% PATCH 1 PATCH TRANSDERM (12:42)
[2025-01-08] VITALS (10 sets, daily range): BP systolic 125–142; BP diastolic 63–71; PULSE 65–86; RESP 17–20; TEMP 36.3–36.6; O2SAT 91–96
[2025-01-08 03:13] LABS: Estimated CRCL calculation 142 ml/min; Estimated Glomerular Filt Rate > 60
[2025-01-08] MEDS: ACETAMINOPHEN 325 MG TABLET 650 MG PO (03:20)
[2025-01-08 03:45] LABS: Vancomycin Trough 17.3 ug/mL (10.0-20.0)
[2025-01-08] MEDS: VANCOMYCIN 2,000 MG/NS 500 ML 2,000 MG/500 ML BAG 250 MG IVPB ×2 (04:03→16:12)
[2025-01-08] MEDS: SALINE LOCK FLUSH 10 ML IV PUSH (06:08)
--- NOTE | 2025-01-08 06:14 | PCCARD ---
DR BURROUGHS CANCELLED ECHO ORDERED 01/06/25
[2025-01-08] MEDS: FLUTICASONE/UMECLIDIN/VILANTER 200-62.5-25 MCG ELLIPTA 1 PUFF INHALATION (07:38)
[2025-01-08] MEDS: FUROSEMIDE INJ 40 MG/4 ML VIAL IV PUSH (08:39)
[2025-01-08] MEDS: LIDOCAINE 5% PATCH 1 PATCH TRANSDERM (08:39)
[2025-01-08] MEDS: ATORVASTATIN 20 MG TABLET PO (08:39)
[2025-01-08] MEDS: METOPROLOL TARTRATE 25 MG TABLET PO (08:39)
[2025-01-08] MEDS: SACUBITRIL/VALSARTAN 24-26 MG TABLET 1 TAB PO (08:39)
[2025-01-08] MEDS: guaiFENesin 12 HR 600 MG TABCR 1200 MG PO (08:39)
[2025-01-08] MEDS: SOTALOL HCL 80 MG TABLET PO (08:39)
[2025-01-08] MEDS: MONTELUKAST SODIUM 10 MG TABLET PO (08:39)
[2025-01-08] MEDS: APIXABAN 5 MG TABLET PO (08:39)
[2025-01-08] MEDS: MAGNESIUM OXIDE 400 MG TABLET PO (14:09)
--- NOTE | 2025-01-08 15:02 | PM.DS ---
DS: Admitting Diagnosis Discharge Date 01/08/25 Admitting Diagnosis Influenza A, rapid atrial fibrillation, hypotension. DS: Discharge Diagnosis Discharge Diagnosis (1) Atrial fibrillation with RVR: Code(s): I48.91 - Unspecified atrial fibrillation Status: Acute (2) Influenza: Code(s): J11.1 - Influenza due to unidentified influenza virus with other respiratory manifestations Status: Acute (3) Bacteremia: Code(s): R78.81 - Bacteremia Status: Acute DS: Summary Hospital Course Hospital Course: This is a very pleasant 64-year-old male with history of tachycardia induced cardiomyopathy, paroxysmal atrial fibrillation on chronic anticoagulation, hypertension, dyslipidemia, and chronic obstructive pulmonary disease who is being directly admitted to the intensive care unit from the emergency department at the [facility] for treatment of atrial fibrillation with rapid ventricular response, influenza A, and hypotension. The patient provides the following history. He and his developed upper respiratory symptoms last weekend and while she has improved he has been feeling worse each day. Symptoms include subjective fever, chills, cough productive of yellow and occasionally oneal-colored sputum, poor appetite with decreased oral intake, nausea, vomiting, and a few loose stools a day. He has also been feeling weak, lightheaded, and dizzy and reports that his blood pressures have been running low since Wednesday, in the 90s systolic. He continues to take his medications as prescribed including amlodipine and telmisartan-hydrochlorothiazide. He denies syncope, chest pain, pleuritic pain, abdominal pain, hematemesis, hematochezia, melena, and dysuria. ER eval notable for hypotension, Na 124, Cr 1.27, Positive for Flu A, MRSA positive, CXR showed bilateral opacities, EKG showed Afib with RVR. Patient was admitted to ICU where he was managed for atrial fibrillation with hypotension initially with amiodarone infusion, then transitioned to Sotalol and Metoprolol added. conitnue Home Eliquis. E ECHO showed EF 35-40 patient and patient was started on Entresto and lasix for Acute systolic CHF. required oxygen which improved with diuresis. He was eventually discharged on Lasix, Metoprolol, Entresto. Will follow up with cardiology the will continue to titrate guide directed medical therapy. He was also managed for pneumonia with Cefepime and vancomycin, unfortunately blood culture positive MRSA. MULUGETA was done which did not show any vegetations on the valves but showed EF 35-40%. cardiology was involved in his care. Sputum culture showed both pseudomonas and MRSA and patient completed 7 days of Cefepime; repeat blood cultures were negative adn patient was discharged on 14 days of Vanc Completed tamiflu for FLu, hyponaremia resolved Today he is on room air, intake is adequate adn PT/OT recommendds hoem with home health Patient will follow up with PCP in 3-5 days F/u with cardiology as instructed Time Spent with Patient Time attestation: Total time spent providing and/or coordinating discharge services: DS: Data Data Completed and Pending Labs on day of discharge: Labs from last 24 hours 01/08/25 02:58 Creatinine 0.51 L Estim Creat Clear Calc 142 Estimated GFR > 60 Vancomycin Trough 17.3 Preliminary micro results at discharge 01/04/25 08:38 Blood Culture - Preliminary Blood 01/04/25 08:23 Blood Culture - Preliminary Blood Discharge Plan Discharge Attending physician on discharge: Nella Lind Consulting providers: Arthur Smith; Valente Newberry Discharging Clinician: Nella Lind Anticipated Discharge Date/Time: 01/08/25 14:54 Patient Disposition: Home Health Service Activity: as tolerated Diet: heart healthy Discharge Instructions: Per Care Coordination Patient has been accepted to have [facility] for IV antibiotics through Jan 17. [phone] Patient IV antibiotics provided by [facility] [phone] Patient Instructions: Antibiotic Form, Apixaban (By mouth), A-fib (Atrial Fibrillation) (GEN), Influenza (GEN), COPD (Chronic Obstructive Pulmonary Disease) (GEN) Patient Language: Tongan Stand Alone Forms: General Discharge Information Follow-up/Referrals: Valente Newberry MD [Physician] - (F/u with cardiology as instructed) Nicko Jauregui MD [Primary Care Provider] - (F/u with PCP in 3 - 5 days ) Discharge Medications: New metoprolol tartrate 25 mg Tablet 25 mg PO Q12HR 30 Days Qty: 60 1RF sacubitril-valsartan [Entresto] 24-26 mg Tablet 1 tab PO Q12HR 30 Days Qty: 60 1RF furosemide [Lasix] 40 mg tablet 40 mg PO BID 30 Days Qty: 60 1RF Continued atorvastatin 20 mg tablet 20 mg PO DAILY sotalol 80 mg tablet 80 mg PO BID amlodipine 10 mg tablet 10 mg PO DAILY telmisartan-hydrochlorothiazid 80-25 mg tablet 1 tablet PO DAILY testosterone 10 mg/0.5 gram /actuation gel in metered-dose pump 10 mg topical DAILY Trelegy Ellipta 200-62.5-25 mcg blister with device 1 inh INHALATION Q24H magnesium 200 mg tablet 400 mg PO DAILY montelukast 10 mg tablet 10 mg PO DAILY Eliquis 5 mg Tablet 5 mg PO Q12HR Qty: 60 2RF Date of admission: 12/28/24 18:31 Primary Care Provider: Nicko Jauregui Admitting Provider: John Gómez Attending physician on admission: John Gómez Condition: Improved
[2025-01-11 20:08] LABS: Legionella pneumophila Ag Ur NOT DETECTED
== END 2025-01-08 19:00 | disposition home health service (06) | DRG 193 ==
LOC: ANHICU 01-02 13:37 → ANH2MED 01-05 15:54 → ANHICU 01-09 10:54
PROVIDERS: Internal Medicine; Internal Medicine Cardiovascular Disease; Physician Assistant; Admitting Provider Internal Medicine; PCP Internal Medicine; Visit Provider Internal Medicine
PROC: 5A2204Z Restoration of Cardiac Rhythm, Single (ICD-10-PCS; principal; 2025-01-03 13:30)
PROC: 5A2204Z Restoration of Cardiac Rhythm, Single (ICD-10-PCS; CPT 93312; 2025-01-03 13:30)
DX: J10.00 Influenza due to other identified influenza virus with unspecified type of pneumonia (principal); I50.21 Acute systolic (congestive) heart failure; R78.81 Bacteremia; I42.8 Other cardiomyopathies; E87.1 Hypo-osmolality and hyponatremia; J44.0 Chronic obstructive pulmonary disease with (acute) lower respiratory infection; I48.0 Paroxysmal atrial fibrillation; I11.0 Hypertensive heart disease with heart failure; Z87.891 Personal history of nicotine dependence; E78.5 Hyperlipidemia, unspecified; I95.9 Hypotension, unspecified; B95.62 Methicillin resistant Staphylococcus aureus infection as the cause of diseases classified elsewhere; Z79.01 Long term (current) use of anticoagulants; Z20.822 Contact with and (suspected) exposure to COVID-19
CPT/HCPCS: 36415; 36569; 71045; 80053; 80202; 82565; 82570; 83605; 83735; 83880; 83930; 83935; 84100; 84145; 84300; 84443; 84484; 84540; 85025; 85027; 85055; 86738; 87040; 87070; 87181; 87186; 87205; 87449; 87641; 87899; 92960; 93005; 93306; 93308; 93312; 93320; 93325; 94640; 97165; A9270; C1751; J0282; J0692; J0696; J1160; J1940; J2003; J2371; J2550; J2704; J3370; J3475; J7040; J7060; P9045

== ENCOUNTER 2025-01-15 10:45 | Outpatient (NON) | payer OTHER, SELFPAY ==
[2025-01-15 11:00] LABS: Hematocrit 44.7 % (40.0-54.0); Hemoglobin 14.6 g/dL (14.0-18.0); Mean Corpuscular HGB Conc 32.7 g/dL (32-36); Mean Corpuscular Hemoglobin 29.3 pg (27.0-31.0); Mean Corpuscular Volume 89.6 fL (78.0-102.0); Mean Platelet Volume 9.1 fl (8.7-11.0); Platelet Count Result 147 K/mm3 (150-420); Red Blood Count 4.99 M/mm3 (4.70-6.10); Red Cell Distribution Width 13.3 % (11.6-14.4); White Blood Count 2.9 K/mm3 (4.8-10.8)
[2025-01-15 11:33] LABS: Alanine Aminotransferase 45 U/L (16-63); Albumin Level 3.1 g/dL (3.4-5.0); Alkaline Phosphatase 143 U/L (46-116); Anion Gap 7 mmol/L (4-12); Aspartate Amino Transferase 34 U/L (15-37); Bilirubin,Total 0.7 mg/dL (0.00-1.00); Blood Urea Nitrogen 10 mg/dL (7-18); CRP 0.7 mg/dL (0.0-0.9); Calcium 8.3 mg/dL (8.5-10.1); Carbon Dioxide 28 mmol/L (21-32); Chloride 97 mmol/L (98-108); Estimated Glomerular Filt Rate > 60; Glucose 103 mg/dL (70-99); Magnesium 1.8 mg/dL (1.8-2.4); NT Pro B Type Natriuretic Pept 178 pg/mL (0-125); Osmolality Calculated 273 mOsm/kg (285-295); Phosphorus 3.9 mg/dL (2.6-4.7); Sodium 132 mmol/L (136-145); Total Protein 6.9 g/dL (6.4-8.2)
[2025-01-15 11:57] LABS: Band Neutrophils Percent 1 % (0-6); Basophils Percent Manual 0 % (0-1); Eosinophils Absolute Manual 0.05 K/mm3 (0.02-0.50); Eosinophils Percent Manual 2 % (1-6); Lymphocytes Absolute Manual 0.95 K/mm3 (1.1-4.5); Lymphocytes Percent Manual 33 % (18-44); Monocytes Percent Manual 7 % (3-9); Neutrophils Absolute Manual 1.39 K/mm3 (1.3-6.7); Neutrophils Percent Manual 47 % (46-73); Total Cells Counted 100
[2025-01-15 11:58] LABS: Platelet Estimate Adequate (Adequate)
--- OUTSIDE RECORDS SUMMARY | 2025-01-15 13:49 | XMS_ITS | Clinical Summary ---
Author Organization [facility] [employer] Address [address] [address] Care Team Providers Care Wafer Slicer Name Role Phone Unavailable Primary Care Provider Unavailabl e Source Comments [facility] [employer],non-owned Affiliates and Associated Physician Practices is amultiple site organization consisting of ambulatory clinics and hospital sitesin [place], [place], [place] and [place]. This disclosure is being madepursuant to the Care Everywhere program and may not contain all information available regarding this patient. Last updated 18.[facility] [employer] Social History Tobacco Use Types Packs/Day Years [...]
--- OUTSIDE RECORDS SUMMARY | 2025-01-15 13:49 | XMS_ITS | Encounter Summary ---
Author Organization [facility] Healthcare Address [address] [place] [address] Care Team Providers Care Product Development Technician Name Role Phone Nicko Jauregui MD Primary Care Provider [phone] Encounter Details Date Type Department Care Team (Late st Contact Info) Description 11/14/2019 Telephone [facility] [address] [facility] 1st [place] [address] Ceci Menezes, RT Social History Tobacco Use Types Packs/Day Years Used Date Smoking Tobacco: Former Cigarettes Q uit: 07/08/2002 Smokeless Tobacco: Never Alcohol Use Standard Drinks/Week Comments Yes 14 (1 standard drink = 0.6 oz pu re alcohol) Sex and Gender Information Value Date Recorded Sex Assigned at Not on file Legal Sex Male 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
--- OUTSIDE RECORDS SUMMARY | 2025-01-15 13:49 | XMS_ITS | Referral Summary ---
Author Organization [facility] Address [address] [place] [address] Care Team Providers Care Fabricator Assembler Metal Products Name Role Phone Unavailable Primary Care Provider Unavailabl e Source Comments [facility],non-owned Affiliates and Associated Physician Practices is amultiple site organization consisting of ambulatory clinics and hospital sitesin [place], [place], [place] and [place]. This disclosure is being madepursuant to the Care Everywhere program and may not contain all information available regarding this patient. Last updated 18.[facility] [employer] Social History Tobacco Use Types Packs/Day Years Used Date Smoking Tobacco: Never Assessed Sex and Gender Information Value Date Recorded Sex Assigned at Not on file Gender Identity Not on file Sexual Orientation Not on file Plan of Treatment Not on file
--- OUTSIDE RECORDS SUMMARY | 2025-01-15 13:49 | XMS_ITS | Encounter Summary ---
Author Organization [facility] Healthcare Address [address] [place] [address] Care Team Providers Care Financial Report Service Sales Agent Name Role Phone Nicko Jauregui MD Primary Care Provider [phone] Encounter Details Date Type Department Care Team (Late st Contact Info) Description 01/10/2025 Orders Only [facility] Medical Group Cardiology [address] [place] [phone] Chevy Alba MD [address] [facility] [address] [place], [place] [id number] Social History Tobacco Use Types Packs/Day Years Used Date Smoking Tobacco: Former Cigarettes Q uit: 07/08/2002 Smokeless Tobacco: Never Alcohol Use Standard Drinks/Week Comments Yes 14 (1 standard drink = 0.6 oz pu re alcohol) Sex and Gender Information Value Date Recorded Sex Assigned at Not on file Legal Sex Male 8:03 AM EP SPECIALIST Gender Identity Not on file Sexual Orientation Not on file documented as of this encounter Plan of Treatment Not on file documented as of this encounter Procedures Procedure Name Priority Date/Time Associated Diagnosis Comments CARDIOLOGY DOCUMENT SCAN Routine 01/07/2025 9:49 AM EP SPECIALIST CARDIOLOGY DOCUMENT SCAN Routine 01/06/2025 9:47 AM EP SPECIALIST CARDIOLOGY DOCUMENT SCAN Routine 01/04/2025 9:44 AM EP SPECIALIST documented in this encounter Results * Cardiology Document Scan (01/07/2025 9:49 AM EP SPECIALIST) Anatomical Region Laterality Modality Other Antoni Montejo MD CV CARDIAC SERVICES PROCEDU RES Final Result * Cardiology Document Scan (01/06/2025 9:47 AM EP SPECIALIST) Anatomical Region Laterality Modality Other us Antoni Montejo MD CV CARDIAC SERVICES PROCEDU RES Final Result * Cardiology Document Scan (01/04/2025 9:44 AM EP SPECIALIST) Anatomical Region Laterality Modality Other us Chevy Alba MD CV CARDIAC SERVICES PROCEDURES F inal Result documented in this encounter Visit Diagnoses Not on filedocumented in this encounter Care Teams Financial Report Service Sales Agent Relationship Specialty Start Date End Date Nciko Jauregui MD PCP - General 02/26/17 documented as of this encounter
--- OUTSIDE RECORDS SUMMARY | 2025-01-15 13:49 | XMS_ITS | Patient Health Summary ---
Author Organization [facility] Address [address] [facility] [place] [address] Care Team Providers Care Traffic Court Referee Name Role Phone Unavailable Primary Care Provider Unavailabl e Note from [facility],non-owned Affiliates and Associated Physician Practices is amultiple site organization consisting of ambulatory clinics and hospital sitesin [place], [place] and [place]. This disclosure is being madepursuant to the Care Everywhere program and may not contain all information available regarding this patient. Last updated 18.[facility] Social History Tobacco Use Types Packs/Day Years Used Date Smoking Tobacco: Never Assessed Sex and Gender Information Value Date Recorded Sex Assigned at Not on file Gender Identity Not on file Sexual Orientation Not on file Procedures * DERMATOPATHOLOGY(Performed 03/01/2024) Results * DERMATOPATHOLOGY (03/01/2024 11:47 AM CDT) Case Report Dermatopathology Report Case: [id number] Authorizing Provider: Lisa Ashley MD Collected: 03/01/2024 11:47 AM Ordering Location: [facility] - Received: 03/02/2024 12:27 PM DermPath Lab Pathologist: Kimmy Rivera MD Specimens: A) - Skin, right gluteal cleft B) - Skin, righ buttocks 4 5:47 PM CDT DERMATOPATHOLOGY LABORATORY Final [...] MF less likely Dermatomyositis 4 5:47 PM [facility] DERMATOPATHOLOGY LABORATORY Gross Description Specimen A: Received is one formalin filled container labeled with the patient's name and designated right gluteal cleft. The specimen consists of a shave biopsy measuring 27y80d1 mm. Jar 0. Specimen B: Received is one formalin filled container labeled with the patient's name and designated righ buttocks. The specimen consists of a punch biopsy measuring 3x3x6 mm. Jar 0. 4 5:47 PM [facility] DERMATOPATHOLOGY LABORATORY Microscopic Description Specimen A. [...] characteristic determined by the Dermatopathology Laboratory at [facility], directed by Dr. Beto Sullivan. These tests need not be, and therefore are not, approved by the [place] Food and Drug Administration. The tests are used for clinical purposes. Billing Codes Specimen Charges Stain Charges 16831 08258 1 1 37864 66737 92364 92040 34825 99467 19770 77842 79769 41193 28184 04879 60109 49046 09294 75685 1 1 1 1 1 1 1 [...] LAB - PATHOLOGY/CYT OLOGY ORDERABLES DERMATOPATHOLOGY LABORATORY [facility] - Department of Dermatology [facility] Medicine [address] [place] [address], [address] [phone]
--- OUTSIDE RECORDS SUMMARY | 2025-01-15 13:49 | XMS_ITS | Encounter Summary ---
Author Organization [facility] Address [address] [place] [address] Care Team Providers Care Zipper Trimmer Hand Name Role Phone Unavailable Primary Care Provider Unavailabl e Encounter Details Date Type Department Care Team (Late st Contact Info) Description 03/01/2024 Lab Requisition [facility] - DermPath Lab [address] [facility] [place] [address] Lisa Ashley MD [address] [facility] [address] [place] [address] Social History Tobacco Use Types Packs/Day Years [...] AM CDT) Case Report Dermatopathology Report Case: [id number] Authorizing Provider: Lisa Ashley MD Collected: 03/01/2024 11:47 AM Ordering Location: [facility] Physician [facility] - Received: 03/02/2024 12:27 PM DermPath Lab [...] MF less likely Dermatomyositis 4 5:47 PM [facility] DERMATOPATHOLOGY LABORATORY Gross Description Specimen A: Received is one formalin filled container labeled with the patient's name and designated right gluteal cleft. The specimen consists of a shave biopsy measuring 77s50v4 mm. Jar 0. Specimen B: Received is one formalin filled container labeled with the patient's name and designated righ buttocks. The specimen consists of a punch biopsy measuring 3x3x6 mm. Jar 0. 4 5:47 PM [facility] DERMATOPATHOLOGY LABORATORY Microscopic Description Specimen A. SKIN, [...] comment in specimen A. 4 5:47 PM CDT DERMATOPATHOLOGY LABORATORY Disclaimer An external and internal positive and negative controls are appropriate for the histochemical, immunohistochemical and immunofluorescence stain(s) in this case (if any), except where stated explicitly. The performance characteristics of the stain(s) cited in this report were developed and its performance characteristic determined by the Dermatopathology Laboratory at [facility], directed by Dr. Beto Sullivan. These tests need not be, and therefore are not, approved by the [place] Food and Drug Administration. The tests are used for clinical purposes. Billing Codes Specimen Charges Stain Charges 37791 73730 1 1 88993 11628 38680 71514 33793 74412 16926 36134 60791 70917 54422 47493 66167 29694 43259 33933 1 1 1 1 1 1 1 [...] LAB - PATHOLOGY/CYT OLOGY ORDERABLES DERMATOPATHOLOGY LABORATORY [facility] - Department of Dermatology [address], [address] [phone] documented in this encounter Visit Diagnoses Not on filedocumented in this encounter
--- OUTSIDE RECORDS SUMMARY | 2025-01-15 13:49 | XMS_ITS | Clinical Summary ---
Author Organization [facility] [address] Address [address] [place] [address] Care Team Providers Care Hand Deicer Element Winder Name Role Phone Nicko Jauregui MD Primary Care Provider [phone] Allergies No known active allergies Medications testosterone [...] sotalol therapy 021 PAF (paroxysmal atrial fibrillation) ([facility]) 0 07/08/2017 NICM (nonischemic cardiomyopathy) ([facility]) 06/29 Hyperlipidemia LDL goal <100 07/08/2017 Essential hypertension 07/08/2017 PAIGE (obstructive sleep apnea) 07/08/2017 Encounters Date Type Department Care Team Description 01/10/2025 Orders Only [facility] Cardiology [address] [place] [address] [place] [phone] Chevy Alba MD 01/03/2025 Orders Only [facility] Cardiology [address] [place] [address] [place] [phone] Nicholas Gilmore MD 12/25/2024 Telephone [facility] Cardiology [address] [place] [address] [place] [phone] Valente Newberry MD 12/18/2024 Telephone [facility] Cardiology [address] [place] [address] [place] [phone] Valente Newberry MD Test Results 12/09/2024 Orders Only [facility] Health Information Management [address] [place] [address] Valente Newberry MD 11/24/2024 1:30 PM LINING FELLER BLINDSTITCH Ancillary Procedure [facility] Cardiology [address] [place] [address] [place] [phone] Dizziness 11/06/2024 Telephone [facility] Cardiology [address] [place] [address] [place] [phone] Valente Newberry MD Dizziness from Last 3 [...] on file Legal Sex Male 8:03 AM LINING FELLER BLINDSTITCH Gender Identity Not on file Sexual Orientation [...] CARDIOLOGY DOCUMENT SCAN Routine 01/07/2025 9:49 AM LINING FELLER BLINDSTITCH CARDIOLOGY DOCUMENT SCAN Routine 01/06/2025 9:47 AM LINING FELLER BLINDSTITCH CARDIOLOGY DOCUMENT SCAN Routine 01/04/2025 9:44 AM LINING FELLER BLINDSTITCH CARDIOLOGY DOCUMENT SCAN Routine 01/02/2025 11:58 AM LINING FELLER BLINDSTITCH CARDIOLOGY DOCUMENT SCAN Routine 01/02/2025 10:58 AM LINING FELLER BLINDSTITCH CARDIOLOGY DOCUMENT SCAN Routine 01/01/2025 11:56 AM LINING FELLER BLINDSTITCH CARDIOLOGY DOCUMENT SCAN Routine 12/31/2024 11:40 AM LINING FELLER BLINDSTITCH CARDIOLOGY DOCUMENT SCAN Routine 12/31/2024 11:12 AM LINING FELLER BLINDSTITCH CARDIOLOGY DOCUMENT SCAN Routine 12/30/2024 11:04 AM LINING FELLER BLINDSTITCH CARDIOLOGY DOCUMENT SCAN Routine 12/29/2024 11:03 AM LINING FELLER BLINDSTITCH SCAN - RADIOLOGY/IMAGING 12/09/2024 HOLTER MONITOR 48 HR Routine 11/24/2024 4:40 PM LINING FELLER BLINDSTITCH Dizziness from Last 3 Months Results * Cardiology Document Scan (01/07/2025 9:49 AM LINING FELLER BLINDSTITCH) Anatomical Region Laterality Modality Other us Antoni Montejo MD CV CARDIAC SERVICES PROCEDU RES Final Result * Cardiology Document Scan (01/06/2025 9:47 AM LINING FELLER BLINDSTITCH) Anatomical Region Laterality Modality Other us Antoni Montejo MD CV CARDIAC SERVICES PROCEDU RES Final Result * Cardiology Document Scan (01/04/2025 9:44 AM LINING FELLER BLINDSTITCH) Anatomical Region Laterality Modality Other us Chevy Alba MD CV CARDIAC SERVICES PROCEDURES F inal Result * Cardiology Document Scan (01/02/2025 11:58 AM LINING FELLER BLINDSTITCH) Anatomical Region Laterality Modality Other Nicholas Gilmore MD CV CARDIAC SERVICES PRO CEDURES Final Result * Cardiology Document Scan (01/02/2025 10:58 AM LINING FELLER BLINDSTITCH) Anatomical Region Laterality Modality Other us Nicholas Gilmore MD CV CARDIAC SERVICES PRO CEDURES Final Result * Cardiology Document Scan (01/01/2025 11:56 AM LINING FELLER BLINDSTITCH) Anatomical Region Laterality Modality Other us Chevy Alba MD CV CARDIAC SERVICES PROCEDURES F inal Result * Cardiology Document Scan (12/31/2024 11:40 AM LINING FELLER BLINDSTITCH) Anatomical Region Laterality Modality Other Nicholas Gilmore MD CV CARDIAC SERVICES PRO CEDURES Final Result * Cardiology Document Scan (12/31/2024 11:12 AM LINING FELLER BLINDSTITCH) Anatomical Region Laterality Modality Other Nicholas Chris Gilmore MD CV CARDIAC SERVICES PRO CEDURES Final Result * Cardiology Document Scan (12/30/2024 11:04 AM LINING FELLER BLINDSTITCH) Anatomical Region Laterality Modality Other Nicholas Gilmore MD CV CARDIAC SERVICES PRO CEDURES Final Result * Cardiology Document Scan (12/29/2024 11:03 AM LINING FELLER BLINDSTITCH) Anatomical Region Laterality Modality Other Nicholas Gilmore MD CV CARDIAC SERVICES PRO CEDURES Final Result * SCAN - RADIOLOGY/IMAGING (12/09/2024) Anatomical Region Laterality Modality Other Valente Newberry MD Final Res ult * 48 HR Holter Monitor (11/24/2024 4:40 PM LINING FELLER BLINDSTITCH) Anatomical Region Laterality Modality Electrocardiogra phy Narrative 12/08/2024 3:09 PM LINING FELLER BLINDSTITCH AMBULATORY QUALITY ANALYST/TECHNICAL WRITER REPORT Patient Name: Ashu Dolan Date of [...] of PSVT which was for 6 beats. Maximum heart rate while in sinus rhythm was 104 beats per minute. No atrial fibrillation was seen. No significant pauses or patient triggered events Occasional ventricular ectopy totaling 2827 beats which is 1% ectopic burden. This consisted of 2795 isolated PVCs, 32 ventricular couplets and no ventricular runs Occasional supraventricular ectopy totaling 1518 beats which was 1444 isolated PACs, 26 atrial couplets, 48 brief runs of supraventricular tachycardia. Longest run being 12 beats Conclusions: Sinus rhythm with average heart rate 73 beats per minute Occasional ventricular ectopy but no sustained or nonsustained runs Low-frequency supraventricular ectopy as detailed above including several very short atrial runs No significant pauses, heart block or patient symptoms Voice recognition software was used to complete this document, therefore, curator of collections variances may occur. Valente Newberry MD, [facility] 12/08/24 Procedure Note Valente Newberry MD - 12/08/2024 AMBULATORY QUALITY ANALYST/TECHNICAL WRITER REPORT Patient Name: Ashu Dolan Date of [...] software was used to complete this document, therefore,curator of collections variances may occur. Valente Newberry MD, [facility] 12/08/24 Valente Newberry MD CV CARDIAC SERVICES PROCE ARMEN Final Result from Last 3 Months Insurance [employer] OPEN ACCESS [employer] OPEN ACCESS Care Teams Hand Deicer Element Winder Relationship Specialty Start Date End Date Nicko Jauregui MD PCP - General 02/26/17
--- OUTSIDE RECORDS SUMMARY | 2025-01-15 13:49 | XMS_ITS | Referral Summary ---
Author Organization [place] [address] Address [address] [facility] [address] [place] [address] Care Team Providers Care Coating Machine Operator Helper Name Role Phone Nicko Jauregui MD Primary Care Provider [phone] Encounters Date Type Department Care Team Description 01/10/[address] [facility] Medical [facility] Cardiology [address] [facility] [address] [place] [phone] Chevy Alba MD 01/03/[address] [facility] Medical [facility] Cardiology [address] [facility] [address] [place] [address] Nicholas Gilmore MD 12/25/2024 Telephone [facility] Cardiology [address] [place] [address] [address] [place] [address] Valente Newberry MD 12/18/2024 Telephone [facility] Cardiology [address] [facility] [address] [place] [phone] Valente Newberry MD Test Results 12/09/2024 Orders Only [facility] Health Information Management [address] [place] [address] Valente Newberry MD 11/24/2024 1:30 PM PLASTIC MAKER Ancillary Procedure [facility] Medical [facility] Cardiology [address] [facility] [address] [place] [address] Dizziness 11/06/2024 Telephone [facility] Cardiology [address] [facility] [address] [place] [address] Valente Newberry MD Dizziness from Last 3 [...] sotalol therapy 021 PAF (paroxysmal atrial fibrillation) ([facility]) 0 07/08/2017 NICM (nonischemic cardiomyopathy) ([facility]) 06/29 Hyperlipidemia LDL goal <100 [...] on file Legal Sex Male 8:03 AM PLASTIC MAKER Gender Identity Not on file Sexual Orientation [...] CARDIOLOGY DOCUMENT SCAN Routine 01/07/2025 9:49 AM PLASTIC MAKER CARDIOLOGY DOCUMENT SCAN Routine 01/06/2025 9:47 AM PLASTIC MAKER CARDIOLOGY DOCUMENT SCAN Routine 01/04/2025 9:44 AM PLASTIC MAKER CARDIOLOGY DOCUMENT SCAN Routine 01/02/2025 11:58 AM PLASTIC MAKER CARDIOLOGY DOCUMENT SCAN Routine 01/02/2025 10:58 AM PLASTIC MAKER CARDIOLOGY DOCUMENT SCAN Routine 01/01/2025 11:56 AM PLASTIC MAKER CARDIOLOGY DOCUMENT SCAN Routine 12/31/2024 11:40 AM PLASTIC MAKER CARDIOLOGY DOCUMENT SCAN Routine 12/31/2024 11:12 AM PLASTIC MAKER CARDIOLOGY DOCUMENT SCAN Routine 12/30/2024 11:04 AM PLASTIC MAKER CARDIOLOGY DOCUMENT SCAN Routine 12/29/2024 11:03 AM PLASTIC MAKER SCAN - RADIOLOGY/IMAGING 12/09/2024 HOLTER MONITOR 48 HR Routine 11/24/2024 4:40 PM PLASTIC MAKER Dizziness from Last 3 Months Results * Cardiology Document Scan (01/07/2025 9:49 AM PLASTIC MAKER) Anatomical Region Laterality Modality Other Antoni Montejo MD CV CARDIAC SERVICES PROCEDU RES Final Result * Cardiology Document Scan (01/06/2025 9:47 AM PLASTIC MAKER) Anatomical Region Laterality Modality Other us Antoni Montejo MD CV CARDIAC SERVICES PROCEDU RES Final Result * Cardiology Document Scan (01/04/2025 9:44 AM PLASTIC MAKER) Anatomical Region Laterality Modality Other us Chevy Alba MD CV CARDIAC SERVICES PROCEDURES F inal Result * Cardiology Document Scan (01/02/2025 11:58 AM PLASTIC MAKER) Anatomical Region Laterality Modality Other Nicholas Gilmore MD CV CARDIAC SERVICES PRO CEDURES Final Result * Cardiology Document Scan (01/02/2025 10:58 AM PLASTIC MAKER) Anatomical Region Laterality Modality Other Result [facility] Nicholas Gilmore MD CV CARDIAC SERVICES PRO CEDURES Final Result * Cardiology Document Scan (01/01/2025 11:56 AM PLASTIC MAKER) Anatomical Region Laterality Modality Other us Chevy Alba MD CV CARDIAC SERVICES PROCEDURES F inal Result * Cardiology Document Scan (12/31/2024 11:40 AM PLASTIC MAKER) Anatomical Region Laterality Modality Other Nicholas Gilmore MD CV CARDIAC SERVICES PRO CEDURES Final Result * Cardiology Document Scan (12/31/2024 11:12 AM PLASTIC MAKER) Anatomical Region Laterality Modality Other Nicholas Gilmore MD CV CARDIAC SERVICES PRO CEDURES Final Result * Cardiology Document Scan (12/30/2024 11:04 AM PLASTIC MAKER) Anatomical Region Laterality Modality Other Nicholas Gilmore MD CV CARDIAC SERVICES PRO CEDURES Final Result * Cardiology Document Scan (12/29/2024 11:03 AM PLASTIC MAKER) Anatomical Region Laterality Modality Other Nicholas Gilmore MD CV CARDIAC SERVICES PRO CEDURES Final Result * SCAN - RADIOLOGY/IMAGING (12/09/2024) Anatomical Region Laterality Modality Other us Valente Newberry MD Final Res ult * 48 HR Holter Monitor (11/24/2024 4:40 PM PLASTIC MAKER) Anatomical Region Laterality Modality Electrocardiogra phy Narrative 12/08/2024 3:09 PM PLASTIC MAKER AMBULATORY FREIGHT BROKER AGENT REPORT Patient Name: Ashu Dolan Date [...] was used to complete this document, therefore, book cleaner variances may occur. Valente Newberry MD, [facility] 12/08/24 Procedure Note Valente Newberry MD - 12/08/2024 AMBULATORY FREIGHT BROKER AGENT REPORT Patient Name: Ashu Dolan Date [...] software was used to complete this document, therefore,book cleaner variances may occur. Valente Newberry MD, [facility] 12/08/24 Valente Newberry MD CV CARDIAC SERVICES [facility] Final Result from Last 3 Months Insurance [facility] OPEN ACCESS [employer] OPEN ACCESS Care Teams Coating Machine Operator Helper Relationship Specialty Start Date End Date Nicko Jauregui MD PCP - General 02/26/17
--- OUTSIDE RECORDS SUMMARY | 2025-01-15 13:49 | XMS_ITS | Clinical Summary ---
Author Organization [facility] Address [facility] [place] [address] Care Team Providers Care Rubber Insulator Name Role Phone Unavailable Primary Care Provider [...]
== END 2025-01-15 10:46 | disposition home or self-care (01) ==
LOC: CHSLAB 10:46
PROVIDERS: PCP Internal Medicine; Visit Provider Internal Medicine
DX: I48.0 Paroxysmal atrial fibrillation (principal); E87.70 Fluid overload, unspecified; J44.9 Chronic obstructive pulmonary disease, unspecified; J10.1 Influenza due to other identified influenza virus with other respiratory manifestations; I50.9 Heart failure, unspecified
CPT/HCPCS: 36415; 80053; 83735; 83880; 84100; 85025; 86140

== ENCOUNTER 2025-01-16 13:35 | Outpatient (CLI) | payer OTHER, SELFPAY ==
--- NOTE | ~2025-01-16 | XR_ITS ---
EXAMINATION: XR chest 2V Exam Date/Time: 01/16/2025 13:55 CARD FOLDER HISTORY: pneumonia FOLLOW UP,PICC LINE PLACED FOR ABX TX X2WK AGO Comparison: 01/08/2025. RESULT: Lines, tubes, and devices: Left upper extremity PICC terminates just past the cavoatrial junction in the right atrium. Lungs and pleura: Left hemidiaphragm elevation. Emphysematous change. Subsegmental airspace disease in the left lung base. Cardiomediastinal silhouette: Stable. Other: No acute osseous or upper abdominal finding. IMPRESSION: The left upper extremity PICC projects minimally into the right atrium. Subsegmental left basilar ate lectasis/consolidation. Left hemidiaphragm elevation, consider sniff test. Reviewed, dictated and finalized at location K. FOLDER IMPRESSION: The left upper extremity PICC projects minimally into the right atrium. Subsegm ental left basilar atelectasis/consolidation. Left hemidiaphragm elevation, con envelope folding machine adjuster sniff test.
--- OUTSIDE RECORDS SUMMARY | 2025-01-16 13:54 | XMS_ITS | Clinical Summary ---
Author Organization [facility] Address [facility] [place] [address] Care Team Providers Care Vacuum Pan Operator Name Role Phone Unavailable Primary Care Provider [...]
--- OUTSIDE RECORDS SUMMARY | 2025-01-16 13:54 | XMS_ITS | Clinical Summary ---
Author Organization [facility] [address] Address [address] [place] [address] Care Team Providers Care Print Line Supervisor Name Role Phone Nicko Jauregui MD Primary Care Provider [phone] Allergies No known active allergies Medications testosterone [...] sotalol therapy 021 PAF (paroxysmal atrial fibrillation) ([facility]) 0 07/08/2017 NICM (nonischemic cardiomyopathy) ([facility]) 06/29 Hyperlipidemia LDL goal <100 07/08/2017 Essential hypertension 07/08/2017 PAIGE (obstructive sleep apnea) 07/08/2017 Encounters Date Type Department Care Team Description 01/10/2025 Orders Only [facility] Cardiology [address] [place] [address] [place] [phone] Chevy Alba MD 01/03/2025 Orders Only [facility] Cardiology [address] [place] [address] [place] [phone] Nicholas Gilmore MD 12/25/2024 Telephone [facility] Cardiology [address] [place] [address] [place] [phone] Valente Newberry MD 12/18/2024 Telephone [facility] Cardiology [address] [place] [address] [place] [phone] Valente Newberry MD Test Results 12/09/2024 Orders Only [facility] Health Information Management [address] [place] [phone] Valente Newberry MD 11/24/2024 1:30 PM SHIP UNLOADER Ancillary Procedure [facility] Cardiology [address] [place] [address] [place] [phone] Dizziness 11/06/2024 Telephone [facility] Cardiology [address] [place] [address] [place] [phone] Valente Newberry MD Dizziness from Last 3 [...] on file Legal Sex Male 8:03 AM SHIP UNLOADER Gender Identity Not on file Sexual Orientation [...] CARDIOLOGY DOCUMENT SCAN Routine 01/07/2025 9:49 AM SHIP UNLOADER CARDIOLOGY DOCUMENT SCAN Routine 01/06/2025 9:47 AM SHIP UNLOADER CARDIOLOGY DOCUMENT SCAN Routine 01/04/2025 9:44 AM SHIP UNLOADER CARDIOLOGY DOCUMENT SCAN Routine 01/02/2025 11:58 AM SHIP UNLOADER CARDIOLOGY DOCUMENT SCAN Routine 01/02/2025 10:58 AM SHIP UNLOADER CARDIOLOGY DOCUMENT SCAN Routine 01/01/2025 11:56 AM SHIP UNLOADER CARDIOLOGY DOCUMENT SCAN Routine 12/31/2024 11:40 AM SHIP UNLOADER CARDIOLOGY DOCUMENT SCAN Routine 12/31/2024 11:12 AM SHIP UNLOADER CARDIOLOGY DOCUMENT SCAN Routine 12/30/2024 11:04 AM SHIP UNLOADER CARDIOLOGY DOCUMENT SCAN Routine 12/29/2024 11:03 AM SHIP UNLOADER SCAN - RADIOLOGY/IMAGING 12/09/2024 HOLTER MONITOR 48 HR Routine 11/24/2024 4:40 PM SHIP UNLOADER Dizziness from Last 3 Months Results * Cardiology Document Scan (01/07/2025 9:49 AM SHIP UNLOADER) Anatomical Region Laterality Modality Other us Antoni Montejo MD CV CARDIAC SERVICES PROCEDU RES Final Result * Cardiology Document Scan (01/06/2025 9:47 AM SHIP UNLOADER) Anatomical Region Laterality Modality Other us Antoni Montejo MD CV CARDIAC SERVICES PROCEDU RES Final Result * Cardiology Document Scan (01/04/2025 9:44 AM SHIP UNLOADER) Anatomical Region Laterality Modality Other us Chevy Alba MD CV CARDIAC SERVICES PROCEDURES F inal Result * Cardiology Document Scan (01/02/2025 11:58 AM SHIP UNLOADER) Anatomical Region Laterality Modality Other Nicholas Gilmore MD CV CARDIAC SERVICES PRO CEDURES Final Result * Cardiology Document Scan (01/02/2025 10:58 AM SHIP UNLOADER) Anatomical Region Laterality Modality Other us Nicholas Gilmore MD CV CARDIAC SERVICES PRO CEDURES Final Result * Cardiology Document Scan (01/01/2025 11:56 AM SHIP UNLOADER) Anatomical Region Laterality Modality Other us Chevy Alba MD CV CARDIAC SERVICES PROCEDURES F inal Result * Cardiology Document Scan (12/31/2024 11:40 AM SHIP UNLOADER) Anatomical Region Laterality Modality Other Nicholas Gilmore MD CV CARDIAC SERVICES PRO CEDURES Final Result * Cardiology Document Scan (12/31/2024 11:12 AM SHIP UNLOADER) Anatomical Region Laterality Modality Other Nicholas Chris Gilmore MD CV CARDIAC SERVICES PRO CEDURES Final Result * Cardiology Document Scan (12/30/2024 11:04 AM SHIP UNLOADER) Anatomical Region Laterality Modality Other Nicholas Gilmore MD CV CARDIAC SERVICES PRO CEDURES Final Result * Cardiology Document Scan (12/29/2024 11:03 AM SHIP UNLOADER) Anatomical Region Laterality Modality Other Nicholas Gilmore MD CV CARDIAC SERVICES PRO CEDURES Final Result * SCAN - RADIOLOGY/IMAGING (12/09/2024) Anatomical Region Laterality Modality Other Valente Newberry MD Final Res ult * 48 HR Holter Monitor (11/24/2024 4:40 PM SHIP UNLOADER) Anatomical Region Laterality Modality Electrocardiogra phy Narrative 12/08/2024 3:09 PM SHIP UNLOADER AMBULATORY SPICE ROOM WORKER REPORT Patient Name: Ashu Dolan Date of [...] was used to complete this document, therefore, water pollution scientist variances may occur. Valente Newberry MD, [facility] 12/08/24 Procedure Note Valente Newberry MD - 12/08/2024 AMBULATORY SPICE ROOM WORKER REPORT Patient Name: Ashu Dolan Date of [...] software was used to complete this document, therefore,water pollution scientist variances may occur. Valente Newberry MD, [facility] 12/08/24 Valente Newberry MD CV CARDIAC SERVICES PROCE ARMEN Final Result from Last 3 Months Insurance [employer] OPEN ACCESS [employer] OPEN ACCESS Care Teams Print Line Supervisor Relationship Specialty Start Date End Date Nicko Jauregui MD PCP - General 02/26/17
--- OUTSIDE RECORDS SUMMARY | 2025-01-16 13:54 | XMS_ITS | Encounter Summary ---
Author Organization [facility] Address [address] [place] [address] Care Team Providers Care Inside Wireman Name Role Phone Unavailable Primary Care Provider Unavailabl e Encounter Details Date Type Department Care Team (Late st Contact Info) Description 03/01/2024 Lab Requisition [facility] - DermPath Lab [address] [facility] [place] [address] Lisa Ashley MD [address] [facility] [address] [place] [address] Social History Tobacco Use Types Packs/Day Years [...] AM CDT) Case Report Dermatopathology Report Case: [id number] Authorizing Provider: Lisa Ashley MD Collected: 03/01/2024 11:47 AM Ordering Location: [facility] Physician [facility] - Received: 03/02/2024 12:27 PM DermPath Lab [...] MF less likely Dermatomyositis 4 5:47 PM [facility] DERMATOPATHOLOGY LABORATORY Gross Description Specimen A: Received is one formalin filled container labeled with the patient's name and designated right gluteal cleft. The specimen consists of a shave biopsy measuring [id number] mm. Jar 0. Specimen B: Received is one formalin filled container labeled with the patient's name and designated righ buttocks. The specimen consists of a punch biopsy measuring 3x3x6 mm. Jar 0. 4 5:47 PM [facility] DERMATOPATHOLOGY LABORATORY Microscopic Description Specimen A. SKIN, [...] characteristic determined by the Dermatopathology Laboratory at [facility], directed by Dr. Beto Sullivan. These tests need not be, and therefore are not, approved by the [place] Food and Drug Administration. The tests are used for clinical purposes. Billing Codes Specimen Charges Stain Charges 53489 77183 1 1 65186 44632 15788 88027 76627 54256 86313 70638 71312 68693 60777 59151 62412 82256 80101 60892 1 1 1 1 1 1 1 [...] LAB - PATHOLOGY/CYT OLOGY ORDERABLES DERMATOPATHOLOGY LABORATORY [facility] - Department of Dermatology [address], [address] [phone] documented in this encounter Visit Diagnoses Not on filedocumented in this encounter
--- OUTSIDE RECORDS SUMMARY | 2025-01-16 13:54 | XMS_ITS | Referral Summary ---
Author Organization [facility] Address [address] [facility] [place] [address] Care Team Providers Care Topographical Drafter Name Role Phone Unavailable Primary Care Provider Unavailabl e Source Comments [facility],non-owned Affiliates and Associated Physician Practices is amultiple site organization consisting of ambulatory clinics and hospital sitesin [place], [place], [place] and [place]. This disclosure is being madepursuant to the Care Everywhere program and may not contain all information available regarding this patient. Last updated 18.[facility] Social History Tobacco Use Types Packs/Day Years Used Date Smoking Tobacco: Never Assessed Sex and Gender Information Value Date Recorded Sex Assigned at Not on file Gender Identity Not on file Sexual Orientation Not on file Plan of Treatment Not on file
--- OUTSIDE RECORDS SUMMARY | 2025-01-16 13:54 | XMS_ITS | Referral Summary ---
Author Organization [place] [address] Address [address] [facility] [address] [place] [address] Care Team Providers Care Linux Kernel Engineer Name Role Phone Nicko Jauregui MD Primary Care Provider [phone] Encounters Date Type Department Care Team Description 01/10/2025 Orders Only [facility] Cardiology [address] [facility] [address] [place] [phone] Chevy Alba MD 01/03/2025 Orders Only [facility] Cardiology [address] [facility] [address] [place] [address] Nicholas Gilmore MD 12/25/2024 Telephone [facility] Cardiology [address] [place] [address] [address] [place] [address] Valente Newberry MD 12/18/2024 Telephone [facility] Cardiology [address] [facility] [address] [place] [phone] Valente Newberry MD Test Results 12/09/2024 Orders Only [facility] Health Information Management [address] [place] [address] Valente Newberry MD 11/24/2024 1:30 PM CHANNEL TURNER Ancillary Procedure [facility] Cardiology [address] [facility] [address] [place] [address] Dizziness 11/06/2024 Telephone [facility] Cardiology [address] [facility] [address] [place] [address] Valente Newberry MD Dizziness from [...] atrial fibrillation) ([facility]) 0 07/08/2017 NICM (nonischemic cardiomyopathy) ([facility]) 06/29 Hyperlipidemia LDL goal <100 07/08/2017 [...] on file Legal Sex Male 8:03 AM CHANNEL TURNER Gender Identity Not on file Sexual Orientation [...] CARDIOLOGY DOCUMENT SCAN Routine 01/07/2025 9:49 AM CHANNEL TURNER CARDIOLOGY DOCUMENT SCAN Routine 01/06/2025 9:47 AM CHANNEL TURNER CARDIOLOGY DOCUMENT SCAN Routine 01/04/2025 9:44 AM CHANNEL TURNER CARDIOLOGY DOCUMENT SCAN Routine 01/02/2025 11:58 AM CHANNEL TURNER CARDIOLOGY DOCUMENT SCAN Routine 01/02/2025 10:58 AM CHANNEL TURNER CARDIOLOGY DOCUMENT SCAN Routine 01/01/2025 11:56 AM CHANNEL TURNER CARDIOLOGY DOCUMENT SCAN Routine 12/31/2024 11:40 AM CHANNEL TURNER CARDIOLOGY DOCUMENT SCAN Routine 12/31/2024 11:12 AM CHANNEL TURNER CARDIOLOGY DOCUMENT SCAN Routine 12/30/2024 11:04 AM CHANNEL TURNER CARDIOLOGY DOCUMENT SCAN Routine 12/29/2024 11:03 AM CHANNEL TURNER SCAN - RADIOLOGY/IMAGING 12/09/2024 HOLTER MONITOR 48 HR Routine 11/24/2024 4:40 PM CHANNEL TURNER Dizziness from Last 3 Months Results * Cardiology Document Scan (01/07/2025 9:49 AM CHANNEL TURNER) Anatomical Region Laterality Modality Other Antoni Montejo MD CV CARDIAC SERVICES PROCEDU RES Final Result * Cardiology Document Scan (01/06/2025 9:47 AM CHANNEL TURNER) Anatomical Region Laterality Modality Other us Antoni Montejo MD CV CARDIAC SERVICES PROCEDU RES Final Result * Cardiology Document Scan (01/04/2025 9:44 AM CHANNEL TURNER) Anatomical Region Laterality Modality Other us Chevy Alba MD CV CARDIAC SERVICES PROCEDURES F inal Result * Cardiology Document Scan (01/02/2025 11:58 AM CHANNEL TURNER) Anatomical Region Laterality Modality Other Nicholas Gilmore MD CV CARDIAC SERVICES PRO CEDURES Final Result * Cardiology Document Scan (01/02/2025 10:58 AM CHANNEL TURNER) Anatomical Region Laterality Modality Other Result [facility] Nicholas Gilmore MD CV CARDIAC SERVICES PRO CEDURES Final Result * Cardiology Document Scan (01/01/2025 11:56 AM CHANNEL TURNER) Anatomical Region Laterality Modality Other us Chevy Alba MD CV CARDIAC SERVICES PROCEDURES F inal Result * Cardiology Document Scan (12/31/2024 11:40 AM CHANNEL TURNER) Anatomical Region Laterality Modality Other Nicholas Gilmore MD CV CARDIAC SERVICES PRO CEDURES Final Result * Cardiology Document Scan (12/31/2024 11:12 AM CHANNEL TURNER) Anatomical Region Laterality Modality Other Nicholas Gilmore MD CV CARDIAC SERVICES PRO CEDURES Final Result * Cardiology Document Scan (12/30/2024 11:04 AM CHANNEL TURNER) Anatomical Region Laterality Modality Other iNcholas Gilmore MD CV CARDIAC SERVICES PRO CEDURES Final Result * Cardiology Document Scan (12/29/2024 11:03 AM CHANNEL TURNER) Anatomical Region Laterality Modality Other Nicholas Gilmore MD CV CARDIAC SERVICES PRO CEDURES Final Result * SCAN - RADIOLOGY/IMAGING (12/09/2024) Anatomical Region Laterality Modality Other us Valente Newberry MD Final Res ult * 48 HR Holter Monitor (11/24/2024 4:40 PM CHANNEL TURNER) Anatomical Region Laterality Modality Electrocardiogra phy Narrative 12/08/2024 3:09 PM CHANNEL TURNER AMBULATORY PHYSICAL THERAPIST CENTER MANAGER REPORT Patient Name: Ashu Dolan Date of [...] was used to complete this document, therefore, milled rice broker variances may occur. Valente Newberry MD, [facility] 12/08/24 Procedure Note Valente Newberry MD - 12/08/2024 AMBULATORY PHYSICAL THERAPIST CENTER MANAGER REPORT Patient Name: Ashu Dolan Date of [...] software was used to complete this document, therefore,milled rice broker variances may occur. Valente Newberry MD, [facility] 12/08/24 Valente Newberry MD CV CARDIAC SERVICES [facility] Final Result from Last 3 Months Insurance [facility] OPEN ACCESS [employer] OPEN ACCESS Care Teams Linux Kernel Engineer Relationship Specialty Start Date End Date Nicko Jauregui MD PCP - General 02/26/17
--- OUTSIDE RECORDS SUMMARY | 2025-01-16 13:54 | XMS_ITS | Clinical Summary ---
Author Organization [facility] [employer] Address [address] [facility] [place] [address] Care Team Providers Care Egg Pasteurizer Name Role Phone Unavailable Primary Care Provider Unavailabl e Source Comments [facility] [employer],non-owned Affiliates and Associated Physician Practices is amultiple site organization consisting of ambulatory clinics and hospital sitesin [place], [place], [place] and [place]. This disclosure is being madepursuant to the Care Everywhere program and may not contain all information available regarding this patient. Last updated 18.[facility] [employer] Social History Tobacco Use Types Packs/Day Years [...]
--- OUTSIDE RECORDS SUMMARY | 2025-01-16 13:54 | XMS_ITS | Patient Health Summary ---
Author Organization [facility] Address [address] [facility] [place] [address] Care Team Providers Care Performance Improvement Coordinator Name Role Phone Unavailable Primary Care Provider Unavailabl e Note from [facility],non-owned Affiliates and Associated Physician Practices is amultiple site organization consisting of ambulatory clinics and hospital sitesin [place], [place], [place] and [place]. This disclosure is being madepursuant to the Care Everywhere program and may not contain all information available regarding this patient. Last updated 18.[facility] Social History Tobacco Use Types Packs/Day Years Used Date Smoking Tobacco: Never Assessed Sex and Gender Information Value Date Recorded Sex Assigned at Not on file Gender Identity Not on file Sexual Orientation Not on file Procedures * DERMATOPATHOLOGY(Performed 03/01/2024) Results * DERMATOPATHOLOGY (03/01/2024 11:47 AM CDT) Case Report Dermatopathology Report Case: [id number] Authorizing Provider: Lisa Ashley MD Collected: 03/01/2024 11:47 AM Ordering Location: [facility] - Received: 03/02/2024 12:27 PM [...] MF less likely Dermatomyositis 4 5:47 PM [facility] DERMATOPATHOLOGY LABORATORY Gross Description Specimen A: Received is one formalin filled container labeled with the patient's name and designated right gluteal cleft. The specimen consists of a shave biopsy measuring 02l51a0 mm. Jar 0. Specimen B: Received is one formalin filled container labeled with the patient's name and designated righ buttocks. The specimen consists of a punch biopsy measuring 3x3x6 mm. Jar 0. 4 5:47 PM [facility] DERMATOPATHOLOGY LABORATORY Microscopic Description Specimen [...] characteristic determined by the Dermatopathology Laboratory at [facility], directed by Dr. Beto Sullivan. These tests need not be, and therefore are not, approved by the [place] Food and Drug Administration. The tests are used for clinical purposes. Billing Codes Specimen Charges Stain Charges 90676 63530 1 1 39534 42967 73554 10146 27025 29755 36405 46245 05276 95290 69606 97103 07914 31910 06126 71446 1 1 1 1 1 1 1 [...] - PATHOLOGY/CYT OLOGY ORDERABLES DERMATOPATHOLOGY LABORATORY [facility] - Department of Dermatology [facility] Medicine [address] [place] [address], [address] [phone]
--- OUTSIDE RECORDS SUMMARY | 2025-01-16 13:54 | XMS_ITS | Encounter Summary ---
Author Organization [facility] Address [address] [place] [address] Care Team Providers Care Acupressurist Name Role Phone Nicko Jauregui MD Primary Care Provider [phone] Encounter Details Date Type Department Care Team (Late st Contact Info) Description 11/14/2019 Telephone [facility] [address] [facility] 1[address] [place] [address] Ceci Menezes, RT Social History Tobacco Use Types Packs/Day Years Used Date Smoking Tobacco: Former Cigarettes Q uit: 07/08/2002 Smokeless Tobacco: Never Alcohol Use Standard Drinks/Week Comments Yes 14 (1 standard drink = 0.6 oz pu re alcohol) Sex and Gender Information Value Date Recorded Sex Assigned at Not on file Legal Sex Male 8:03 AM INSURANCE OFFICE SUPERVISOR Gender Identity Not on file Sexual Orientation Not on file documented as of this encounter Plan of Treatment Not on file documented as of this encounter Visit Diagnoses Not on filedocumented in this encounter Care Teams Acupressurist Relationship Specialty Start Date End Date Nicko Jauregui MD PCP - General 02/26/17 documented as of this encounter
[2025-01-16 14:50] LABS: Vancomycin Random 25.1 ug/mL (10-20)
== END 2025-01-16 13:36 | disposition home or self-care (01) ==
PROVIDERS: PCP Internal Medicine; Visit Provider Internal Medicine
DX: J11.1 Influenza due to unidentified influenza virus with other respiratory manifestations (principal); I48.91 Unspecified atrial fibrillation; R91.8 Other nonspecific abnormal finding of lung field
CPT/HCPCS: 36415; 71046; 80202

== ENCOUNTER 2025-06-20 00:54 | Day surgery (SDC) | payer MEDICARE, SELFPAY ==
[2025-06-19 09:44] VITALS: BMI 35.0
[2025-06-20] VITALS (9 sets, daily range): BP systolic 93–119; BP diastolic 65–94; PULSE 60–125; RESP 16–20; TEMP 36.5; O2SAT 88–96
--- OUTSIDE RECORDS SUMMARY | 2025-06-20 00:59 | XMS_ITS | Clinical Summary ---
Author Organization [facility] [address] Address [address] [place] [address] Care Team Providers Care Out And Out Cigar Maker Hand Name Role Phone Nicko Jauregui MD Primary Care Provider [phone] Allergies No known active allergies Medications testosterone 10 mg/0.5 gram /actuation gel in metered-dose pump apply (40MG) by topical route every day in the morning to the front and inside area of the thighs 0 0 03/23/20 17 Active magnesium oxide (MAG-OX) 250 mg (150.8 mg elemental) tabletIndication s:hypomagnesemia 400 mg daily Active montelukast (SINGULAIR) 10 mg tablet Take 1 tablet (10 mg total) by mouth nightly 08/23/20 20 Active amitriptyline (ELAVIL) 25 mg tablet Take 1 tablet (25 mg total) by mouth nightly Active Trelegy Ellipta 200-62.5-25 mcg inhaler INHALE 1 PUFF BY INHALATION ROUTE ONCE DAILY AT THE SAME TIME EACH DAY 03/22/20 23 Active amLODIPine (NORVASC) 10 mg tabletIndication s:Essential hypertension Take 1 tablet (10 mg total) by mouth daily 90 tablet 3 09/11/20 24 Active atorvastatin (LIPITOR) 20 mg tabletIndication s:Hyperlipidemia LDL goal <100 Take 1 tablet (20 mg total) by mouth daily 90 tablet 3 09/11/20 24 Active apixaban (Eliquis) 5 mg tablet Take 1 tablet (5 mg total) by mouth 2 (two) times a day 180 tablet 3 09/11/20 24 Active sotaloL (BETAPACE) 80 mg tablet Take 1 tablet (80 mg total) by mouth 2 (two) times a day 180 tablet 3 09/11/20 24 Active Entresto 24-26 mg tablet Take 1 tablet by mouth every 12 (twelve) hours 180 tablet 3 03/23/20 25 Active metoprolol tartrate (LOPRESSOR) 25 mg immediate release tablet Take 1 tablet (25 mg total) by mouth every 12 (twelve) hours 180 tablet 3 03/23/20 25 Active loratadine (CLARITIN) 10 mg tablet Take 1 tablet (10 mg total) by mouth daily 04/22/20 25 Active magnesium oxide 200 mg magnesium tablet,chewable magnesium 400 mg once a day 025 Discontinu ed(No longer taking - Do not display on AVS) Active Problems Problem Noted Date Diagnosed Date STUBBS (dyspnea on exertion) 09/30/2022 Encounter for monitoring sotalol therapy 021 PAF (paroxysmal atrial fibrillation) 07/08/2017 NICM (nonischemic cardiomyopathy) 07/08/2017 Hyperlipidemia LDL goal <100 07/08/2017 Essential hypertension 07/08/2017 PAIGE (obstructive sleep apnea) 07/08/2017 Encounters Date Type Department Care Team Description 06/11/2025 1:30 PM CDT Office Visit [facility] Medical [facility] Cardiology [address] [place] [address] [address] [place] [phone] Cinthya Go NP PAF (paroxysmal atrial fibrillation) (HCC) (Primary Dx); Chronic anticoagulation; Low blood pressure reading 06/11/2025 Telephone [facility] Cardiology [address] [place] [address] [address] [place] [phone] Valente Newberry MD 06/11/2025 Telephone [facility] Cardiology at [address] [place] [phone] Valente Newberry MD 03/23/2025 8:30 AM CDT Office Visit [facility] Cardiology [address] [place] [address] [address] [place] [phone] Valente Newberry MD NICM (nonischemic cardiomyopathy) (HCC) (Primary Dx); PAF (paroxysmal atrial fibrillation) (HCC); Hyperlipidemia LDL goal <100; Essential hypertension; APIGE (obstructive sleep apnea) 03/23/2025 Orders Only [facility] Cardiology [address] [place] [address] Provider, MD Denis from Last 3 Months Medical History Medical [...] on file Legal Sex 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:03 AM COMMODITY SPECIALIST Gender Identity Not on file Sexual Orientation Not on file Obstetrics History Last Filed Vital Signs Vital Sign Reading Time Taken Comments Blood Pressure 100/60 06/11/2025 1:25 PM CDT Pulse 72 06/11/2025 1:25 PM CDT Temperature - - Respiratory Rate 16 04/13/2023 8:43 AM CDT Oxygen Saturation 95% 06/11/2025 1:25 PM CDT Inhaled Oxygen Concentration - - Weight 106.6 kg (235 lb) 06/11/2025 1:25 PM CDT Height 172.7 cm (5' 8) 06/11/2025 1:25 PM CDT Body Mass Index 35.73 06/11/2025 1:25 PM CDT Plan of Treatment Health Maintenance Due Date Last Done Comments Colon Cancer Screening-Colonoscopy 1960 Depression Screening 1960 Fall Risk Assessment 1960 Hepatitis C Screening 1960 Prostate Cancer Screening-PSA 1960 Hepatitis B Screening 1978 Pneumococcal vaccine 65+ (1 of 1 - PCV) 2010 Zoster Vaccine (1 of 2) 2010 DTaP/Tdap/Td Vaccine (2 - Td or Tdap) 03/07/202407/2014 Abdominal Aortic Aneurysm (AAA) Screen 2025 Well Visit 65+ 2025 Influenza Vaccine (#1) 2025 08/29/2012 Procedures Procedure Name Priority Date/Time Associated Diagnosis Comments ECG 12-LEAD Routine 06/11/2025 1:31 PM CDT PAF (paroxysmal atrial fibrillation) (HCC) POCT LIPID PANEL Routine 03/23/2025 8:24 AM CDT Hyperlipidemia LDL goal <100 from Last 3 Months Results * ECG 12 lead (06/11/2025 1:31 PM CDT) 06/11/2025 1:31 PM CDT Cinthya Go NP ECG ORDERABLES Final Res ult * POCT lipid panel (03/23/2025 8:24 AM CDT) Cholesterol, POC 160 mg/dL HDL, POC 55 mg/dL Triglycerides, POC 53 mg/dL LDL Cholesterol POC 95 mg/dL Chol/HDL Ratio, POC 1.7 Non-HDL Cholesterol, POC 105 mg/dL Cholesterol Total, POC 160 mg/dL Capillary blood 03/23/2025 8 :24 AM CDT Valente Newberry MD POINT OF CARE TEST ORDERA BLES Final Result from Last 3 Months Insurance [facility] MEDICARE ADVANTAGE [facility] Address: [address] [address] [place] [address] Care Teams Out And Out Cigar Maker Hand Relationship Specialty Start Date End Date Nicko Jauregui MD PCP - General 02/26/17
--- OUTSIDE RECORDS SUMMARY | 2025-06-20 00:59 | XMS_ITS | Encounter Summary ---
Author Organization [facility] Address [address] [place] [address] Care Team Providers Care Senior Audit Manager Name Role Phone Unavailable Primary Care Provider Unavailabl e Encounter Details Date Type Department Care Team (Late st Contact Info) Description 03/01/2024 Lab Requisition [facility] - DermPath Lab [address] [facility], [place] [address] Lisa Ashley MD [address] [facility] [place] [address] [place] [address] Social History Tobacco Use Types Packs/Day Years Used Date Smoking Tobacco: Never Assessed Sex and Gender Information Value Date Recorded Sex Assigned at Not on file Legal Sex Male 12:00 PM CDT Gender Identity Not on file Sexual Orientation Not on file documented as of this encounter Plan of Treatment Not on file documented as of this encounter Procedures Procedure Name Priority Date/Time Associated Diagnosis Comments DERMATOPATHOLOGY Routine 03/01/2024 11:4 7 AM CDT documented in this encounter Results * DERMATOPATHOLOGY (03/01/2024 11:47 AM CDT) Case Report Dermatopathology Report Case: [id number] Authorizing Provider: Lisa Ashley MD Collected: 03/01/2024 11:47 AM Ordering Location: [facility] - Received: 03/02/2024 12:27 PM DermPath Lab Pathologist: Kimmy Rivera MD Specimens: A) - Skin, right gluteal cleft B) - Skin, righ buttocks 5:47 PM CDT DERMATOPATHOLOGY LABORATORY Final Diagnosis Specimen A. 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 The specimen consists of a shave biopsy measuring 29c34w3 mm. Jar 0. Specimen B: Received is one formalin filled container labeled with the patient's name and designated righ buttocks. The specimen consists of a punch biopsy measuring 3x3x6 mm. Jar 0. 4 5:47 PM T DERMATOPATHOLOGY LABORATORY Microscopic Description Specimen A. SKIN, [...] characteristic determined by the Dermatopathology Laboratory at [facility], directed by Dr. Beto Sullivan. These tests need not be, and therefore are not, approved by the [place] Food and Drug Administration. The tests are used for clinical purposes. Billing Codes Specimen Charges Stain Charges 14812 91750 1 1 56060 85634 84788 96990 94726 55456 56336 06487 68415 20339 49456 21339 34125 71180 61039 55477 1 1 1 1 1 1 1 [...] PM CDT Lisa Ashley MD LAB - PATHOLOGY/CYTOLOGY OR DERABLES Final Result DERMATOPATHOLOGY LABORATORY [facility] - Department of Dermatology [address], [address] [phone] documented in this encounter Visit Diagnoses Not on filedocumented in this encounter
--- OUTSIDE RECORDS SUMMARY | 2025-06-20 00:59 | XMS_ITS | Clinical Summary ---
Author Organization [facility] Address [address] [facility] [place] [address] Care Team Providers Care Chainstitch Hemmer Name Role Phone Unavailable Primary Care Provider Unavailabl e Source Comments [facility],non-owned Affiliates and Associated Physician Practices is amultiple site organization consisting of ambulatory clinics and hospital sitesin [place], [place], [place]. This disclosure is being madepursuant to the Care Everywhere program and may not contain all information available regarding this patient. Last updated 18.[facility] Social History Tobacco Use Types Packs/Day Years [...] VACCINE ( - 2023-2 5 season) 2024 DEPRESSION SCREENING 11/29/2024 INFLUENZA VACCINE (#1) 2025 Respiratory Syncytial Virus (RSV) Vaccine Pt: or [...] to complete this topic MENINGOCOCCAL (Group B) VACC INE SHARED DECISION-MAKING Aged Out No longer eligibl e based on patient's age to complete this topic MENINGOCOCCAL GROUPS A/C/Y/W VACCINE Aged Out No longer eligible b ased on patient's age to complete this topic Insurance [facility]
--- OUTSIDE RECORDS SUMMARY | 2025-06-20 00:59 | XMS_ITS | Encounter Summary ---
Author Organization [facility] Address [address] [place] [address] Care Team Providers Care Emt Basic Name Role Phone Nicko Jauregui MD Primary Care Provider Encounter Details Date Type Department Care Team (Late st Contact Info) Description 06/16/2024 Orders Only [facility] Health Information Management [address] [place] [address] Scanning, Provider Social History Tobacco Use Types Packs/Day Years Used Date Smoking Tobacco: Former Cigarettes Q uit: 07/08/2002 Smokeless Tobacco: Never Alcohol Use Standard Drinks/Week Comments Yes 14 (1 standard drink = 0.6 oz pu re alcohol) Sex and Gender Information Value Date Recorded Sex Assigned at Not on file 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 Gender Identity Not on file Sexual Orientation Not on file documented as of this encounter Plan of Treatment Not on file documented as of this encounter Procedures Procedure Name Priority Date/Time Associated Diagnosis Comments SCAN - RADIOLOGY/IMAGING 06/16/2024 documented in this encounter Results * SCAN - RADIOLOGY/IMAGING (06/16/2024) Anatomical Region Laterality Modality Other us Provider Scanning Edited Result - Final documented in this encounter Visit Diagnoses Not on filedocumented in this encounter Care Teams Emt Basic Relationship Specialty Start Date End Date Nicko Jauregui MD PCP - General 02/26/17 documented as of this encounter
--- OUTSIDE RECORDS SUMMARY | 2025-06-20 00:59 | XMS_ITS | Encounter Summary ---
Author Organization [facility] Address [address] [place] [address] Care Team Providers Care Gopherman Name Role Phone Nicko Jauregui MD Primary Care Provider [phone] Encounter Details Date Type Department Care Team (Late st Contact Info) Description 11/14/2019 Telephone [facility] [address] [facility] [address] [place] [address] Ceci Menezes, RT Social History Tobacco Use Types Packs/Day Years Used Date Smoking Tobacco: Former Cigarettes Q uit: 07/08/2002 Smokeless Tobacco: Never Alcohol Use Standard Drinks/Week Comments Yes 14 (1 standard drink = 0.6 oz pu re alcohol) Sex and Gender Information Value Date Recorded Sex Assigned at Not on file 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
--- OUTSIDE RECORDS SUMMARY | 2025-06-20 00:59 | XMS_ITS | Referral Summary ---
Author Organization [place] [address] [address] [place] [address] Care Team Providers Care Sales Representative Rural Power Name Role Phone Nicko Jauregui MD Primary Care Provider [phone] Encounters Date Type Department Care Team Description 06/11/2025 Telephone [facility] Medical [facility] Cardiology [address] [place] [address] [place] [phone] Valente Newberry MD 06/11/2025 Telephone [facility] Medical [facility] Cardiology at [address] [place] [phone] Valente Newberry MD 06/11/2025 1:30 PM CDT Office Visit [facility] Cardiology [address] [place] [address] [place] [phone] Cinthya Go NP PAF (paroxysmal atrial fibrillation) (HCC) (Primary Dx); Chronic anticoagulation; Low blood pressure reading 03/23/2025 Orders Only [facility] Medical [facility] Cardiology [address] [place] [address] [place] [phone] ProviderDenis MD 03/23/2025 8:30 AM CDT Office Visit [facility] Cardiology [address] [place] [address] [place] [phone] Valente Newberry MD NICM (nonischemic cardiomyopathy) (HCC) (Primary Dx); PAF (paroxysmal atrial fibrillation) (HCC); Hyperlipidemia LDL goal <100; Essential hypertension; PAIGE (obstructive sleep apnea) from Last 3 Months Allergies No known active allergies Medications testosterone mg/0.5 gram /actuation gel in metered-dose pump [...] on file 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 Gender Identity Not on file Sexual [...] 06/11/2025 1:25 PM CDT Plan of Treatment Not on file Procedures Procedure Name Priority Date/Time Associated Diagnosis Comments ECG 12-LEAD Routine 06/11/2025 1:31 PM CDT PAF (paroxysmal atrial fibrillation) (HCC) POCT LIPID PANEL Routine 03/23/2025 8:24 AM CDT Hyperlipidemia LDL goal <100 from Last 3 Months Results * ECG 12 lead (06/11/2025 1:31 PM CDT) 06/11/2025 1:31 PM CDT us Cinthya Go NP ECG ORDERABLES Final Res [...] Final Result from Last 3 Months Insurance [facility] MEDICARE ADVANTAGE [facility] Address: [address] [address] [place] [address] Care Teams Sales Representative Rural Power Relationship Specialty Start Date End Date Nicko Jauregui MD PCP - General 02/26/17
--- OUTSIDE RECORDS SUMMARY | 2025-06-20 00:59 | XMS_ITS | Clinical Summary ---
Author Organization [facility] Address [address] [place] [address] Care Team Providers Care Pillowcase Cleaner Name Role Phone Nicko Jauregui MD Primary Care Provider [phone] Social History Tobacco Use Types Packs/Day Years Used Date Smoking Tobacco: Never Assessed Sex and Gender Information Value Date Recorded Sex Assigned at Not on file Legal Sex Male 5:02 PM CDT Gender Identity Not on file Sexual Orientation Not on file Plan of Treatment Health Maintenance Due Date Last Done Comments Colorectal Cancer Screening Colonoscopy (10 Years) 1960 Hepatitis C 1978 Pneumococcal Vaccine: 50+ Years (1 of 1 - PCV) 2010 Zoster Vaccines (2 of 2) 12/11/2020 10/16/2020 DTaP, Tdap and Td Vaccines ( 2 - Td or Tdap) 03/07/2024 03/07/2014 COVID-19 Vaccine ( - 2023-2 5 season) 2024 10/29/2021, 02/21/2021, 01/24/2021 RSV Immunization or 60+ Years (1 - 1-dose 75+ series) 2035 Meningococcal B Vaccine Aged Out No l onger eligible based on patient's age to complete this topic Meningococcal Vaccine Aged Out No saravanan bel eligible based on patient's age to complete this topic RSV Immunizations Under 20 Months Aged Out No longer eligible b ased on patient's age to complete this topic Insurance [employer] Care Teams Pillowcase Cleaner Relationship Specialty Start Date End Date Nicko Jauregui MD [address] [place] [address] PCP - General INTERNAL MEDICINE 01/25/25
--- NOTE | 2025-06-20 09:12 | WPDHPUPDATE1 ---
History and Physical Update Update Date/Time: 06/20/25 09:12 65-year-old with atrial fibrillation. Has palpitations. Down the back in atrial fibrillation Objective: Irregular irregular rhythm Assessment: Atrial fibrillation with rapid ventricular response Plan: Elective cardioversion History and Physical has been reviewed, including an updated exam of the patient. There are NO changes in the patient's condition. Risks, benefits, and alternatives have been discussed and questions answered. Patient agrees to proceed with procedure.
--- NOTE | 2025-06-20 09:13 | P.SEDATION_ITS ---
Moderate Sedation Note-Pt Data Patient Data Diagnosis: Atrial fibrillation Present Complaint: Atrial fibrillation Procedure to be performed/Plan: 1. Moderate sedation 2. Electrical cardioversion Allergies Allergy/AdvReac Type Severity Reaction Status Date / Time No Known Allergies Allergy Verified 06/19/25 09:52 Home Medications ?Medication ?Instructions ?Recorded ?Confirmed ?Type amlodipine 10 mg tablet 10 mg PO DAILY 08/22/22 06/19/25 History atorvastatin 20 mg tablet 20 mg PO DAILY 08/22/22 06/19/25 History sotalol 80 mg tablet 80 mg PO BID 08/22/22 06/19/25 History telmisartan 80 1 tablet PO DAILY 08/22/22 06/19/25 History mg-hydrochlorothiazide 25 mg tablet testosterone 10 mg/0.5 10 mg topical DAILY 08/22/22 06/19/25 History gram/actuation transdermal gel pump montelukast 10 mg tablet 10 mg PO DAILY 06/17/24 06/19/25 History apixaban 5 mg tablet (Eliquis) 5 mg PO Q12HR #60 tabs 06/19/24 06/19/25 Rx fluticasone fur. 200 mcg-umeclid 1 inh inhalation Q24H 12/28/24 06/19/25 History 62.5 mcg-vilant 25 mcg inhalat.powder (Trelegy Ellipta) magnesium 200 mg tablet 400 mg PO DAILY 12/28/24 06/19/25 History furosemide 40 mg tablet (Lasix) 40 mg PO BID 30 days #60 tabs 01/08/25 06/19/25 Rx metoprolol tartrate 25 mg tablet 25 mg PO Q12HR 30 days #60 tabs 01/08/25 06/19/25 Rx sacubitril 24 mg-valsartan 26 mg 1 tab PO Q12HR 30 days #60 tabs 01/08/25 06/19/25 Rx tablet (Entresto) Sedation/Anesthesia: No previous sedation/anesthesia problems (including family history). 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 Social History Social History Social History: Surrogate medical decision maker: Melissa Dolan, spouse ([phone]). Code status: Full code. Smoking packs per day: 2 Smoking cigarettes per day: 40.0 Years smoked: 20 Smoking pack-years: 40.00 Smoking status: Former smoker Tobacco type: cigarettes Smoking end date: 12/28/99 Alcohol intake: former Drinks per week: 5 Substance use: never Substance use type: does not use Do You Feel Safe in your Home?: Yes Lack of Transportation: No Lack of Food: Never True Current Housing: I Have Housing Concerned About Future Housing: No Difficulty Paying Gas/Electric Bills: No Difficulty Paying for Meds: No Currently Unemployed: No Education: Decline to Answer Difficulty w/ Childcare or Family Care: No Living arrangements: with family Spiritual care concerns: No Mod Sed Physical Exam Physical Exam Pre Procedural Exam: Normal: Appearance, Eyes, Ears, Nose, Neck, Throat, Airway, Lungs, Heart Size, Neuro Exam, Extremities and Skin and Variation: Heart Rate (Tachycardia) and Heart Rhythm (Irregular rhythm) Hours since solid foods: 12 Hours since liquid intake: 12 Mallampati Classification: class II Internal Medicine - PN: Obj Da Vital Signs Vital Signs: Vital Signs - 24 hr 06/20/25 08:41 Temperature 36.5 C Pulse Rate 120 H Respiratory Rate 16 Blood Pressure 119/73 Pulse Oximetry 93 Oxygen Delivery Room Air Labs 06/20/25 08:57 ASA Classification/Sedation ASA Classification/Sedation ASA Class: II Emergent: No Risks: Risks, benefits and alternatives explained and patient/family accepted plan for sedation. Patient re-evaluated immediately prior to sedation.
[2025-06-20 09:26] LABS: Anion Gap 8 mmol/L (4-12); Blood Urea Nitrogen 15 mg/dL (9-20); Calcium 9.4 mg/dL (8.4-10.2); Carbon Dioxide 21 mmol/L (22-30); Chloride 107 mmol/L (98-107); Estimated CRCL calculation 98 ml/min; Estimated Glomerular Filt Rate > 60; Glucose 125 mg/dL (65-110); Magnesium 2.1 mg/dL (1.6-2.3); Potassium 4.5 mmol/L (3.4-5.0); Sodium 136 mmol/L (137-145)
--- NOTE | 2025-06-20 09:30 | ECG_ITS ---
Test Date: 2025-06-20 09:43:52 Measurements Intervals [place] Rate: 68 P: 51 TX: 175 QRS: 1 QRSD: 109 T: 30 QT: 409 QTc: 437 Interpretive Statements SINUS RHYTHM INCOMPLETE RIGHT BUNDLE BRANCH BLOCK [90+ ms QRS DURATION, TERMINAL R IN V1/V2, 40+ ms S IN I/aVL/V4/V5/V6] ABNORMAL ECG Compared to ECG 06/20/2025 08:37:23 Atrial fibrillation no longer present ST (T wave) deviation no longer present Electronically Signed On 06-20-2025 10:10:06 CDT by Valente Newberry M.D.
[2025-06-20] MEDS: SODIUM CHLORIDE 0.9% IV 500 ML 30 ML (09:34)
[2025-06-20] MEDS: MIDAZOLAM HCL (*CRX) 2 MG/2 ML VIAL (09:35)
[2025-06-20] MEDS: fentaNYL CITRATE INJ (*CRX) 100 MCG/2 ML VIAL (09:35)
--- NOTE | 2025-06-20 09:41 | WPDCARDVER ---
Cardioversion Cardioversion Date of procedure: 06/20/25 Procedure: Electrical cardioversion Moderate sedation Pre-op diagnosis: Atrial fibrillation Post-op diagnosis: Same Indications: 65-year-old with symptomatic atrial fibrillation Description of procedure: After establishing continues nuclear monitoring technician, pulse oxygenation serial blood pressure assessments, time-out was taken and procedure was initiated. Risks discussed included , shocking into more problematic heart rhythm, need for surgery, skin irritation or burn, stroke. Procedure start time 9:35 a.m. Procedure stop time 9:40 a.m. Medications used: 2 mg of Versed and 50 mcg of fentanyl for moderate sedation Medications were administered patient was monitored by Inocencia Adkins RN Complications: None Blood loss: None After adequate sedation, atrial fibrillation was confirmed and 200 joules of synchronized biphasic energy was used x1 which did convert the patient back to sinus rhythm with a heart rate in the 60s and 70s. Sedation: As detailed above 2 mg of Versed 50 mcg of fentanyl Findings: Successful hindu of sinus rhythm using 200 joules of synchronized biphasic energy Moderate sedation Conclusion: 1. Moderate sedation 2. Successful electrical cardioversion using 200 joules of biphasic synchronized energy from atrial fibrillation
--- NOTE | 2025-06-20 10:15 | ECG_ITS ---
Test Date: 2025-06-20 08:37:23 Measurements Intervals [place] Rate: 122 P: 0 DC: 0 QRS: 10 QRSD: 118 T: 28 QT: 318 QTc: 454 Interpretive Statements ATRIAL FIBRILLATION WITH RAPID VENTRICULAR RESPONSE INCOMPLETE RIGHT BUNDLE BRANCH BLOCK [90+ ms QRS DURATION, TERMINAL R IN V1/V2, 40+ ms S IN I/aVL/V4/V5/V6] MINIMAL ST DEPRESSION [0.025+ mV ST DEPRESSION] ABNORMAL RHYTHM ECG No previous ECG available for comparison Electronically Signed On 06-20-2025 10:08:58 CDT by Valente Newberry M.D.
== END 2025-06-20 10:55 | disposition home or self-care (01) ==
PROVIDERS: PCP Internal Medicine; Visit Provider Internal Medicine Cardiovascular Disease
PROC: 5A2204Z Restoration of Cardiac Rhythm, Single (ICD-10-PCS; principal; 2025-06-20 10:00)
DX: I48.0 Paroxysmal atrial fibrillation (principal); R00.2 Palpitations; I10 Essential (primary) hypertension; J44.9 Chronic obstructive pulmonary disease, unspecified; R01.1 Cardiac murmur, unspecified; M17.0 Bilateral primary osteoarthritis of knee; F40.240 Claustrophobia; R03.1 Nonspecific low blood-pressure reading; I45.10 Unspecified right bundle-branch block; R94.31 Abnormal electrocardiogram [ECG] [EKG]; Z79.01 Long term (current) use of anticoagulants; Z79.51 Long term (current) use of inhaled steroids; Z87.891 Personal history of nicotine dependence
CPT/HCPCS: 36415; 80048; 83735; 92960; J2250; J3010; J7040

== ENCOUNTER 2025-09-05 11:11 | Outpatient (CLI) | payer MEDICARE, SELFPAY ==
--- NOTE | ~2025-09-05 | XR_ITS ---
EXAMINATION: XR hand LT min 3V, 09/05/2025 11:15 CDT HISTORY: 3rd MCP Joint Pain and Swelling COMPARISON: No comparisons available. Findings: No acute fracture or malalignment. Moderate degenerative changes of the distal and proximal interphalangeal joints, severe degenerative changes of the first metacarpal phalangeal joint and the first metacarpal carpal joint with small erosions suspected. Soft tissues unremarkable. Impression: No acute fracture or malalignment. Reviewed, dictated and finalized at location P. Impression: No acute fracture or malalignment.
== END 2025-09-05 11:12 | disposition home or self-care (01) ==
LOC: CHSIMG 11:13
PROVIDERS: PCP Internal Medicine; Visit Provider Internal Medicine
DX: M25.542 Pain in joints of left hand (principal)
CPT/HCPCS: 73130